=== PATIENT | female | born 1970 | race Caucasian/White ===

== ENCOUNTER 2016-03-14 13:06 | Emergency (ER) | payer MEDICAID ==
[2011-06-20 11:57] VITALS: BMI 20.3
== END 2016-03-14 14:29 | disposition home or self-care (01) ==
LOC: D.ER 13:06
DX: R10.9 Unspecified abdominal pain (principal); K50.90 Crohn's disease, unspecified, without complications

== ENCOUNTER 2016-03-18 02:11 | Emergency (ER) | payer MEDICAID ==
[2011-06-20 11:57] VITALS: BMI 20.3
== END 2016-03-18 02:24 | disposition home or self-care (01) ==
LOC: D.ER 02:11
DX: G47.00 Insomnia, unspecified (principal); K50.90 Crohn's disease, unspecified, without complications

== ENCOUNTER → 2016-03-21 11:42 | Emergency (ER) | payer MEDICAID ==
[2011-06-20 11:57] VITALS: BMI 20.3
== END | disposition left against medical advice (07) ==
LOC: D.ER 11:42
DX: Z02.9 Encounter for administrative examinations, unspecified (principal)

== ENCOUNTER 2016-03-23 20:53 | Emergency (ER) | payer MEDICAID ==
[2011-06-20 11:57] VITALS: BMI 20.3
[2016-03-23 21:25] LABS: APPEARANCE CLEAR (CLEAR); COLOR YELLOW (YELLOW)
[2016-03-23 21:26] LABS: BILIRUBIN NEGATIVE (NEGATIVE); GLUCOSE NEGATIVE (NEGATIVE); KETONE NEGATIVE (NEGATIVE); LEUKOCYTE ESTERASE 1+ (NEGATIVE); NITRITE NEGATIVE (NEGATIVE); PROTEIN NEGATIVE (NEGATIVE); UROBILINOGEN NORMAL (NORMAL)
[2016-03-23 21:27] LABS: BACTERIA MODERATE /hpf (NONE SEEN); RED CELLS - URINE 0-5 /hpf (0-5); WHITE CELLS - URINE 25-50 /hpf (0-5)
== END 2016-03-23 23:00 | disposition home or self-care (01) ==
LOC: D.ER 20:53
PROVIDERS: Emergency Medicine
DX: N30.90 Cystitis, unspecified without hematuria (principal); K50.90 Crohn's disease, unspecified, without complications; G47.00 Insomnia, unspecified

== ENCOUNTER 2016-03-27 16:17 | Emergency (ER) | payer MEDICAID ==
[2011-06-20 11:57] VITALS: BMI 20.3
== END 2016-03-27 16:30 | disposition left against medical advice (07) ==
LOC: D.ER 16:17
DX: Z02.9 Encounter for administrative examinations, unspecified (principal)

== ENCOUNTER 2016-03-28 14:12 | Emergency (ER) | payer MEDICAID ==
[2011-06-20 11:57] VITALS: BMI 20.3
[2016-03-28 15:03] LABS: BASOPHILS 0.5 % (0.0-2.0); EOSINOPHILS 1.8 % (0-7); HEMATOCRIT 39.4 % (36.0-48.0); IMMATURE GRANULOCYTES 0.3 % (0-5); LYMPHOCYTES 30.7 % (15-50); MCH 31.8 pg (26.0-34.0); MCV 96.3 fL (80.0-100.0); MEAN PLATELET VOLUME 9.3 fL (7.4-10.4); MONOCYTES 8.3 % (2-11); NEUTROPHILS 58.4 % (40-80); PLATELET COUNT 306 10x3/uL (130-400); RBC 4.09 10x6/uL (4.00-5.40); RDW 12.8 % (11.5-14.5); WBC 7.9 10x3/uL (4.8-10.8)
== END 2016-03-28 18:20 | disposition home or self-care (01) ==
LOC: D.ER 14:12
PROVIDERS: Emergency Medicine
DX: R10.13 Epigastric pain (principal); K50.90 Crohn's disease, unspecified, without complications; Z76.5 Malingerer [conscious simulation]; G47.00 Insomnia, unspecified

== ENCOUNTER 2016-03-30 13:25 | Emergency (ER) | payer MEDICAID ==
[2011-06-20 11:57] VITALS: BMI 20.3
== END 2016-03-30 13:28 | disposition left against medical advice (07) ==
LOC: D.ER 13:25
DX: Z02.9 Encounter for administrative examinations, unspecified (principal)

== ENCOUNTER 2016-04-04 04:31 | Emergency (ER) | payer MEDICAID ==
[2011-06-20 11:57] VITALS: BMI 20.3
== END 2016-04-04 05:13 | disposition home or self-care (01) ==
LOC: D.ER 04:31
DX: J06.9 Acute upper respiratory infection, unspecified (principal)

== ENCOUNTER 2016-04-06 02:17 | Emergency (ER) | payer MEDICAID ==
[2011-06-20 11:57] VITALS: BMI 20.3
[2016-04-06 02:34] LABS: APPEARANCE HAZY (CLEAR); BILIRUBIN NEGATIVE (NEGATIVE); COLOR YELLOW (YELLOW); GLUCOSE NEGATIVE (NEGATIVE); KETONE NEGATIVE (NEGATIVE); LEUKOCYTE ESTERASE 1+ (NEGATIVE); NITRITE NEGATIVE (NEGATIVE); PROTEIN NEGATIVE (NEGATIVE); UROBILINOGEN NORMAL (NORMAL)
[2016-04-06 02:53] LABS: BACTERIA MODERATE /hpf (NONE SEEN); EPITHELIAL CELLS 0-5 /hpf (0-5); MUCUS >1+ /lpf (NONE SEEN)
[2016-04-06 02:54] LABS: HYALINE CAST OCC /lpf (NONE SEEN)
== END 2016-04-06 03:22 | disposition home or self-care (01) ==
LOC: D.ER 02:17
PROVIDERS: Emergency Medicine
DX: K62.89 Other specified diseases of anus and rectum (principal); N39.0 Urinary tract infection, site not specified; K50.90 Crohn's disease, unspecified, without complications; G47.00 Insomnia, unspecified

== ENCOUNTER 2016-04-12 20:37 | Emergency (ER) | payer MEDICAID ==
[2011-06-20 11:57] VITALS: BMI 20.3
== END 2016-04-12 21:50 | disposition home or self-care (01) ==
LOC: D.ER 20:37
DX: G47.00 Insomnia, unspecified (principal); K50.90 Crohn's disease, unspecified, without complications; Z76.5 Malingerer [conscious simulation]; B00.9 Herpesviral infection, unspecified

== ENCOUNTER 2016-04-13 15:25 | Emergency (ER) | payer MEDICAID ==
[2011-06-20 11:57] VITALS: BMI 20.3
== END 2016-04-13 18:00 | disposition left against medical advice (07) ==
LOC: D.ER 15:25
DX: Z02.9 Encounter for administrative examinations, unspecified (principal)

== ENCOUNTER 2016-04-13 23:14 | Emergency (ER) | payer MEDICAID ==
[2011-06-20 11:57] VITALS: BMI 20.3
== END 2016-04-13 23:35 | disposition home or self-care (01) ==
LOC: D.ER 23:14
DX: R11.10 Vomiting, unspecified (principal); H00.019 Hordeolum externum unspecified eye, unspecified eyelid; R00.0 Tachycardia, unspecified

== ENCOUNTER 2016-04-14 12:31 | Emergency (ER) | payer MEDICAID ==
[2011-06-20 11:57] VITALS: BMI 20.3
== END 2016-04-14 12:40 | disposition left against medical advice (07) ==
LOC: D.ER 12:31
DX: R10.9 Unspecified abdominal pain (principal)

== ENCOUNTER 2016-04-14 16:05 | Emergency (ER) | payer MEDICAID ==
[2011-06-20 11:57] VITALS: BMI 20.3
== END 2016-04-14 18:09 | disposition left against medical advice (07) ==
LOC: D.ER 16:05
DX: Z76.0 Encounter for issue of repeat prescription (principal)

== ENCOUNTER 2016-04-14 23:35 | Emergency (ER) | payer MEDICAID ==
[2011-06-20 11:57] VITALS: BMI 20.3
[2016-04-15 00:02] LABS: APPEARANCE HAZY (CLEAR); BILIRUBIN NEGATIVE (NEGATIVE); COLOR YELLOW (YELLOW); GLUCOSE NEGATIVE (NEGATIVE); KETONE NEGATIVE (NEGATIVE); LEUKOCYTE ESTERASE 2+ (NEGATIVE); NITRITE NEGATIVE (NEGATIVE); PROTEIN TRACE mg/dL (NEGATIVE); SPECIFIC GRAVITY 1.025 (1.005-1.020); UROBILINOGEN NORMAL (NORMAL)
[2016-04-15 00:11] LABS: AMORPHOUS SEDIMENT <1+ /lpf (NONE SEEN); BACTERIA MODERATE /hpf (NONE SEEN); EPITHELIAL CELLS 0-5 /hpf (0-5); GRANULAR CAST RARE /lpf (NONE SEEN); HYALINE CAST OCC /lpf (NONE SEEN); MUCUS <1+ /lpf (NONE SEEN); WAXY CAST RARE /lpf (NONE SEEN)
== END 2016-04-15 00:30 | disposition home or self-care (01) ==
LOC: D.ER 23:35
PROVIDERS: Emergency Medicine
DX: N39.0 Urinary tract infection, site not specified (principal)

== ENCOUNTER 2016-04-19 10:20 | Emergency (ER) | payer MEDICAID ==
[2011-06-20 11:57] VITALS: BMI 20.3
== END 2016-04-19 11:09 | disposition home or self-care (01) ==
LOC: D.ER 10:20
DX: J00 Acute nasopharyngitis [common cold] (principal); K50.90 Crohn's disease, unspecified, without complications; Z76.5 Malingerer [conscious simulation]; B00.9 Herpesviral infection, unspecified; G47.00 Insomnia, unspecified

== ENCOUNTER 2016-04-19 18:46 | Emergency (ER) | payer MEDICAID ==
[2011-06-20 11:57] VITALS: BMI 20.3
== END 2016-04-19 21:09 | disposition home or self-care (01) ==
LOC: D.ER 18:46
DX: R10.9 Unspecified abdominal pain (principal); F19.20 Other psychoactive substance dependence, uncomplicated; F32.9 Major depressive disorder, single episode, unspecified; K50.90 Crohn's disease, unspecified, without complications

== ENCOUNTER 2016-04-30 09:10 | Emergency (ER) | payer MEDICAID ==
[2011-06-20 11:57] VITALS: BMI 20.3
== END 2016-04-30 11:40 | disposition home or self-care (01) ==
LOC: D.ER 09:10
DX: H00.011 Hordeolum externum right upper eyelid (principal); L03.213 Periorbital cellulitis; R10.9 Unspecified abdominal pain; K50.90 Crohn's disease, unspecified, without complications; F32.9 Major depressive disorder, single episode, unspecified

== ENCOUNTER → 2016-05-25 | Emergency (ER) | payer MEDICAID ==
[2011-06-20 11:57] VITALS: BMI 20.3
== END | disposition home or self-care (01) ==
LOC: D.ER 14:32
DX: Z02.9 Encounter for administrative examinations, unspecified (principal)

== ENCOUNTER 2016-05-27 17:42 | Emergency (ER) | payer MEDICAID ==
[2011-06-20 11:57] VITALS: BMI 20.3
== END 2016-05-27 19:36 | disposition home or self-care (01) ==
LOC: D.ER 17:42
DX: K29.00 Acute gastritis without bleeding (principal)

== ENCOUNTER 2016-06-24 02:14 | Emergency (ER) | payer MEDICAID ==
[2011-06-20 11:57] VITALS: BMI 20.3
== END 2016-06-24 02:15 | disposition left against medical advice (07) ==
LOC: D.ER 02:14
DX: Z02.9 Encounter for administrative examinations, unspecified (principal)

== ENCOUNTER 2016-06-24 15:57 | Emergency (ER) | payer MEDICAID ==
[2011-06-20 11:57] VITALS: BMI 20.3
[2016-06-24 17:08] LABS: BASOPHILS 0.2 % (0-2); EOSINOPHILS 0.6 % (0-7); HEMATOCRIT 40.9 % (36.0-48.0); HEMOGLOBIN 13.7 g/dL (12-16); IMMATURE GRANULOCYTES 0.3 % (0-5); LYMPHOCYTES 16.8 % (15-50); MCH 31.9 pg (26.0-34.0); MCHC 33.5 g/dL (31.0-37.0); MCV 95.1 fL (80.0-100.0); MEAN PLATELET VOLUME 9.4 fL (7.4-10.4); MONOCYTES 6.6 % (2-11); NEUTROPHILS 75.5 % (40-80); PLATELET COUNT 346 10x3/uL (130-400); RDW 13.2 % (11.5-14.5); WBC 9.8 10x3/uL (4.8-10.8)
[2016-06-24 17:36] LABS: ALBUMIN 3.7 g/dL (3.4-5.0); ALKALINE PHOSPHATASE 77 U/L (46-116); ALT (SGPT) 40 U/L (10-68); BILIRUBIN - TOTAL 0.21 mg/dL (0.2-1.3); CALC OSMOLALITY 280 mosm/kg (275-300); CALCIUM 9.8 mg/dL (8.5-10.1); CARBON DIOXIDE 27.9 mmol/L (21.0-32.0); CHLORIDE - SERUM 102 mmol/L (98-107); CREATININE - SERUM 0.7 mg/dL (0.6-1.3); GLUCOSE 116 mg/dL (74-106); POTASSIUM - SERUM 3.5 mmol/L (3.5-5.1); PROTEIN - SERUM 8.1 g/dL (6.4-8.2); SODIUM 140 mmol/L (136-145); UREA NITROGEN 14 mg/dL (7-18); eGFR NON AFRICAN AMERICAN > 90 mL/min (90-120)
[2016-06-24 17:41] LABS: THYROID STIMULATING HORMONE 0.11 uIU/mL (0.36-3.74)
== END 2016-06-24 17:13 | disposition home or self-care (01) ==
LOC: D.ER 15:57
PROVIDERS: Physician Assistant
DX: M79.605 Pain in left leg (principal); M79.604 Pain in right leg; H10.33 Unspecified acute conjunctivitis, bilateral

== ENCOUNTER 2016-06-25 23:03 | Emergency (ER) | payer MEDICAID | END 2016-06-26 00:26 | disposition home or self-care (01) | LOC: D.ER 23:03 | DX: G47.00 Insomnia, unspecified (principal); E05.00 Thyrotoxicosis with diffuse goiter without thyrotoxic crisis or storm ==

== ENCOUNTER → 2016-06-26 | Emergency (ER) | payer MEDICAID | END | disposition home or self-care (01) | LOC: D.ER 19:58 | DX: T65.91XA Toxic effect of unspecified substance, accidental (unintentional), initial encounter (principal); Y92.89 Other specified places as the place of occurrence of the external cause; R11.10 Vomiting, unspecified ==

== ENCOUNTER → 2016-06-26 | Emergency (ER) | payer MEDICAID ==
[2011-06-20 11:57] VITALS: BMI 20.3
== END | disposition home or self-care (01) ==
LOC: D.ER 22:07
DX: Z02.9 Encounter for administrative examinations, unspecified (principal)

== ENCOUNTER 2016-06-27 00:33 | Emergency (ER) | payer MEDICAID ==
[2011-06-20 11:57] VITALS: BMI 20.3
== END 2016-06-27 02:00 | disposition left against medical advice (07) ==
LOC: D.ER 00:33
DX: Z02.9 Encounter for administrative examinations, unspecified (principal)

== ENCOUNTER 2016-06-27 12:09 | Emergency (ER) | payer MEDICAID ==
[2011-06-20 11:57] VITALS: BMI 20.3
== END 2016-06-27 15:20 | disposition home or self-care (01) ==
LOC: D.ER 12:09
DX: K62.89 Other specified diseases of anus and rectum (principal)

== ENCOUNTER 2016-06-28 04:31 | Emergency (ER) | payer MEDICAID ==
[2011-06-20 11:57] VITALS: BMI 20.3
[2016-06-28 05:22] LABS: AMORPHOUS SEDIMENT >1+ /lpf (NONE SEEN); APPEARANCE CLOUDY (CLEAR); BACTERIA MODERATE /hpf (NONE SEEN); BILIRUBIN 1+ (NEGATIVE); COLOR YELLOW (YELLOW); EPITHELIAL CELLS 0-5 /hpf (0-5); GLUCOSE NEGATIVE (NEGATIVE); KETONE NEGATIVE (NEGATIVE); LEUKOCYTE ESTERASE 1+ (NEGATIVE); NITRITE NEGATIVE (NEGATIVE); PROTEIN TRACE mg/dL (NEGATIVE); SPECIFIC GRAVITY 1.025 (1.005-1.020); UROBILINOGEN NORMAL (NORMAL)
== END 2016-06-28 05:25 | disposition home or self-care (01) ==
LOC: D.ER 04:31
PROVIDERS: Family Medicine
DX: N73.0 Acute parametritis and pelvic cellulitis (principal); B35.9 Dermatophytosis, unspecified

== ENCOUNTER 2016-07-02 22:59 | Emergency (ER) | payer MEDICAID ==
[2011-06-20 11:57] VITALS: BMI 20.3
== END 2016-07-03 01:00 | disposition home or self-care (01) ==
LOC: D.ER 22:59
DX: M25.511 Pain in right shoulder (principal); M79.1 Myalgia

== ENCOUNTER 2016-07-04 21:16 | Emergency (ER) | payer MEDICAID ==
[2011-06-20 11:57] VITALS: BMI 20.3
== END 2016-07-04 22:24 | disposition home or self-care (01) ==
LOC: D.ER 21:16
DX: K61.1 Rectal abscess (principal)

== ENCOUNTER 2016-07-14 17:31 | Emergency (ER) | payer MEDICAID ==
[2011-06-20 11:57] VITALS: BMI 20.3
== END 2016-07-14 21:12 | disposition left against medical advice (07) ==
LOC: D.ER 17:31
DX: K61.1 Rectal abscess (principal)

== ENCOUNTER 2016-07-17 23:02 | Emergency (ER) | payer MEDICAID ==
[2011-06-20 11:57] VITALS: BMI 20.3
== END 2016-07-18 01:28 | disposition home or self-care (01) ==
LOC: D.ER 23:02
DX: L02.215 Cutaneous abscess of perineum (principal)

== ENCOUNTER 2016-07-20 01:57 | Emergency (ER) | payer MEDICAID ==
[2011-06-20 11:57] VITALS: BMI 20.3
== END 2016-07-20 02:21 | disposition home or self-care (01) ==
LOC: D.ER 01:57
DX: G43.909 Migraine, unspecified, not intractable, without status migrainosus (principal)

== ENCOUNTER 2016-07-22 08:24 | Emergency (ER) | payer MEDICAID ==
[2011-06-20 11:57] VITALS: BMI 20.3
== END 2016-07-22 09:15 | disposition home or self-care (01) ==
LOC: D.ER 08:24
DX: Z76.0 Encounter for issue of repeat prescription (principal); F17.200 Nicotine dependence, unspecified, uncomplicated

== ENCOUNTER 2016-07-23 08:45 | Emergency (ER) | payer MEDICAID ==
[2011-06-20 11:57] VITALS: BMI 20.3
== END 2016-07-23 09:18 | disposition home or self-care (01) ==
LOC: D.ER 08:45
DX: Z76.5 Malingerer [conscious simulation] (principal); F32.9 Major depressive disorder, single episode, unspecified

== ENCOUNTER 2016-07-24 09:11 | Emergency (ER) | payer MEDICAID ==
[2011-06-20 11:57] VITALS: BMI 20.3
[2016-07-27 12:14] VITALS: BMI 27.4
== END 2016-07-24 13:00 | disposition home or self-care (01) ==
LOC: D.ER 09:11
DX: M79.7 Fibromyalgia (principal); G44.209 Tension-type headache, unspecified, not intractable; K50.90 Crohn's disease, unspecified, without complications; E07.9 Disorder of thyroid, unspecified; F32.9 Major depressive disorder, single episode, unspecified

== ENCOUNTER 2016-07-24 22:08 | Emergency (ER) | payer MEDICAID ==
[2011-06-20 11:57] VITALS: BMI 20.3
[2016-07-26] MEDS ORDERED: ULTRAM50 MG PO (22:28)
== END 2016-07-25 00:59 | disposition home or self-care (01) ==
LOC: D.ER 22:08
DX: M79.7 Fibromyalgia (principal); G44.209 Tension-type headache, unspecified, not intractable; K50.90 Crohn's disease, unspecified, without complications; F32.9 Major depressive disorder, single episode, unspecified; E07.9 Disorder of thyroid, unspecified

== ENCOUNTER 2016-07-25 09:24 | Emergency (ER) | payer MEDICAID ==
[2011-06-20 11:57] VITALS: BMI 20.3
[2016-07-26] MEDS ORDERED: ULTRAM50 MG PO (22:28)
[2016-07-27 12:14] VITALS: BMI 27.4
== END 2016-07-25 11:40 | disposition home or self-care (01) ==
LOC: D.ER 09:24
DX: N76.0 Acute vaginitis (principal); N39.0 Urinary tract infection, site not specified; K50.90 Crohn's disease, unspecified, without complications; M79.7 Fibromyalgia; E07.9 Disorder of thyroid, unspecified

== ENCOUNTER 2016-07-26 15:29 | Inpatient (IN) | payer MEDICAID ==
[~2016-07-26] VITALS: Ht 162.6 cm; Wt 72.6 kg
--- NOTE | ~2016-07-26 | PN ---
PATIENT:BRODIE VALDERRAMA MEDICAL RECORD: [id number] LOCATION:[facility] ADMISSION DATE: 07/26/16 PROGRESS NOTE DATE OF SERVICE: 07/27/2016 This is a progress note addendum. CHIEF COMPLAINT: Better. The patient feels better. The patient is having less abdominal pain. It appears that she has pancreatitis and an ileus. I have reviewed her small-bowel follow-through images. I have reviewed her prior CT report. I have reviewed the radiologist's interpretation of the small-bowel follow-through. I know the patient as I worked in the Emergency Room and the patient has countless visits to the Emergency Room. She is less nauseated. Palpation aggravates. Nothing alleviates. Symptoms are mild. This is a progress note addendum. For the typed portion of the progress note including the past medical and surgical history, allergies, social history as well as current medications, please see the chart. REVIEW OF SYSTEMS: Positive for anxiety, positive for back pain, no fever, no chills, no nausea, no vomiting. The review of systems is negative other than as is described above. PHYSICAL EXAMINATION: GENERAL: The patient does not appear acutely ill. She does not appear chronically ill. VITAL SIGNS: Reviewed. HEAD: External ears appear normal. EYES: Extraocular movements are intact. NECK: Trachea is midline. CHEST: No intercostal retractions. PULMONARY: Nonlabored, no stridor. ABDOMEN: Epigastric tenderness. BACK: No thoracic kyphosis. LYMPHATIC: No lymphangitic streaking of the exposed extremities. PSYCHIATRIC: Normal affect. NEUROLOGIC: Nonfocal, no lethargy. The patient answers questions appropriately, moves all extremities well. IMPRESSION: Pancreatitis in a patient who states that she does not drink, does have a gallbladder on her last CT scan. PLAN: NG tube removal. I am going to start her on a diet. N.p.o. after midnight. Abdominal ultrasound in the morning. TRANSINT:[id number] Voice Confirmation ID: [id number] DOCUMENT ID: [id number] PROGRESS NOTE [id number] THEODORABRODIE STEPHENSON EDUARDO DUMONT MD CC: [id number] DICTATION DATE: 07/27/161817 AIRCRAFT STRUCTURAL DESIGN ENGINEER: 07/28/16 0305 ADM IN [place] [id number] [place] [address]
--- NOTE | ~2016-07-26 | DS ---
PATIENT:BRODIE VALDERRAMA :68 MEDICAL RECORD: [id number] DISCHARGE SUMMARY ADMISSION DATE: 07/26/16 DISCHARGE DATE: 07/28/16 HOSPITAL COURSE: The patient was admitted through the Emergency Room. The patient had either small-bowel obstruction or an ileus. It appears that she had an ileus due to pancreatitis. Amylase and lipase numbers were normalizing at the time of dismissal. She was asymptomatic. An abdominal ultrasound revealed no gallstones as an etiology for her pancreatitis. This is a discharge note addendum. For the typed portion of the discharge note, please see the chart. This included past medical and surgical history, allergies, social history as well as current medications. Currently, no nausea, no vomiting, no fever, no chills. The patient had a small bowel follow through which was normal. PHYSICAL EXAMINATION: GENERAL: The patient does not appear acutely ill. She does not appear chronically ill. VITAL SIGNS: Reviewed. The entire physical examination was performed with the presence of a female nurse. HEAD: External ears appear normal. EYES: Extraocular movements are intact. NECK: Trachea is midline. CHEST: No intercostal retractions. PULMONARY: Nonlabored, no stridor. ABDOMEN: Nontender. EXTREMITIES: No peripheral cyanosis. INTEGUMENT: No rash, no ulcerations. PSYCHIATRIC: Anxious affect. NEUROLOGIC: Nonfocal, no lethargy. The patient answers questions appropriately, moves all extremities well. BACK: No thoracic kyphosis. LYMPHATIC: No lymphangitic streaking of the exposed extremities. IMPRESSION: Pancreatitis of uncertain etiology. PLAN: I told the patient that pancreatitis can recur. We discussed the pathophysiology of pancreatitis. I have told her at this point in time, she does not need to have her gallbladder removed as I do not think it is the etiology of this episode of pancreatitis. TRANSINT:[id number] Voice Confirmation ID: [id number] DOCUMENT ID: [id number] EDUARDO DUMONT MD CC: [id number] DICTATION DATE: 07/28/16 1400 VENEER PRODUCTION MACHINE OPERATOR: 07/29/16 0753 DIS IN 07/28/[address] [facility] [address] [place] [place] [id number]
--- NOTE | ~2016-07-26 | HP ---
PATIENT: BRODIE VALDERRAMA MEDICAL RECORD: [id number] ACCOUNT: [id number] LOCATION:[facility] : [birth year] ADMISSION DATE: 07/26/16 HISTORY AND PHYSICAL EXAMINATION Addendum DATE OF SERVICE: 07/26/2016 CHIEF COMPLAINT: Pain. HISTORY OF PRESENT ILLNESS: The patient was admitted through the Emergency Room. She was having nausea and vomiting, as well as abdominal pain. It was epigastric. The pain went through to the back. Palpation aggravates. Nothing alleviates it. She has never had pancreatitis in the past, she states. She states that she does not drink. It appears that she has an ileus secondary to pancreatitis. This is a history and physical addendum. For the typed portion of the history and physical, including the past medical and surgical history, allergies, social history, as well as current medications, please see the chart. REVIEW OF SYSTEMS: Positive for nausea and vomiting. Positive for abdominal pain. No shortness of breath. Positive for anxiety. No headache. No chest pain. PHYSICAL EXAMINATION: GENERAL: The patient does not appear acutely ill. She does not appear chronically ill. VITAL SIGNS: Reviewed. HEAD: External ears appear normal. EYES: Extraocular movements are intact. NECK: Trachea is midline. CHEST: No intercostal retractions. PULMONARY: Nonlabored. No stridor. ABDOMEN: Epigastric tenderness with guarding. No cough peritonitis. No peritonitis with percussion. BACK: No thoracic kyphosis. LYMPHATICS: No lymphangitic streaking of the exposed extremities. PSYCHIATRIC: Normal affect. NEUROLOGIC: Nonfocal, no lethargy. The patient answers questions appropriately. She moves all extremities well. IMPRESSION: Ileus secondary to pancreatitis. PLAN: Will be NG suction, bowel rest, serial labs and serial abdominal examinations. TRANSINT:[id number] Voice Confirmation ID: [id number] DOCUMENT ID: [id number] HISTORY AND PHYSICAL [id number] THEODORABRODIE STEPHENSON EDUARDO DUMONT MD CC: [id number] DICTATION DATE: 07/27/161813 CARDIOVASCULAR INVASIVE SPECIALIST: 07/27/161939 ADM IN [place] [address] [place] [address]
[2016-07-26 17:53] LABS: BASOPHILS 0.3 % (0-2); EOSINOPHILS 1.1 % (0-7); HEMATOCRIT 42.1 % (36.0-48.0); HEMOGLOBIN 13.7 g/dL (12-16); IMMATURE GRANULOCYTES 0.3 % (0-5); LYMPHOCYTES 23.4 % (15-50); MCH 32.5 pg (26.0-34.0); MCHC 32.5 g/dL (31.0-37.0); MCV 99.8 fL (80.0-100.0); MEAN PLATELET VOLUME 9.7 fL (7.4-10.4); MONOCYTES 5.9 % (2-11); PLATELET COUNT 333 10x3/uL (130-400); RBC 4.22 10x6/uL (4.00-5.40); RDW 13.4 % (11.5-14.5)
[2016-07-26 18:13] LABS: ALBUMIN 3.5 g/dL (3.4-5.0); ALKALINE PHOSPHATASE 86 U/L (46-116); ALT (SGPT) 32 U/L (10-68); BILIRUBIN - TOTAL 0.19 mg/dL (0.2-1.3); CALC OSMOLALITY 279 mosm/kg (275-300); CALCIUM 9.6 mg/dL (8.5-10.1); CARBON DIOXIDE 30.7 mmol/L (21.0-32.0); CHLORIDE - SERUM 103 mmol/L (98-107); CREATININE - SERUM 0.8 mg/dL (0.6-1.3); GLUCOSE 107 mg/dL (74-106); LIPASE 1014 U/L (73-393); POTASSIUM - SERUM 4.4 mmol/L (3.5-5.1); PROTEIN - SERUM 8.5 g/dL (6.4-8.2); SODIUM 141 mmol/L (136-145); UREA NITROGEN 11 mg/dL (7-18); eGFR NON AFRICAN AMERICAN 81 mL/min (90-120)
[2016-07-26 18:28] LABS: HCG SERUM NEGATIVE (NEGATIVE)
[2016-07-26 18:30] LABS: APPEARANCE HAZY (CLEAR); BILIRUBIN NEGATIVE (NEGATIVE); COLOR YELLOW (YELLOW); GLUCOSE NEGATIVE (NEGATIVE); KETONE NEGATIVE (NEGATIVE); LEUKOCYTE ESTERASE 2+ (NEGATIVE); NITRITE NEGATIVE (NEGATIVE); PROTEIN TRACE mg/dL (NEGATIVE); UROBILINOGEN NORMAL (NORMAL)
[2016-07-26 18:32] LABS: BACTERIA MODERATE /hpf (NONE SEEN); EPITHELIAL CELLS 0-5 /hpf (0-5); RED CELLS - URINE 0-5 /hpf (0-5)
[2016-07-26] MEDS ORDERED: ULTRAM50 MG PO (22:28)
[2016-07-27] VITALS (7 sets, daily range): BP systolic 92–126; BP diastolic 44–65; Ht 162.6 cm; Wt 72.6 kg
--- NOTE | 2016-07-27 01:15 | NUR ---
AFTER WATSON SOMMERS NOTIFIED ME THAT THE PATIENT HAD ACCIDENTALLY PULLED OUT HER NG-TUBE, ANA ROMERO PUT A NEW NG-TUBE IN THE PATIENT'S RIGHT NARE. KUB ORDERED TO VERIFY PLACEMENT.
--- NOTE | 2016-07-27 06:36 | NUR ---
HEATHER TINSLEY INSERTED NG-TUBE AFTER PATIENT PULLED IT OUT THE SECOND TIME.
[2016-07-27 07:28] LABS: BASOPHILS 0.3 % (0-2); EOSINOPHILS 2.2 % (0-7); HEMATOCRIT 43.6 % (36.0-48.0); HEMOGLOBIN 13.9 g/dL (12-16); IMMATURE GRANULOCYTES 0.4 % (0-5); LYMPHOCYTES 36.3 % (15-50); MCH 31.6 pg (26.0-34.0); MCHC 31.9 g/dL (31.0-37.0); MCV 99.1 fL (80.0-100.0); MEAN PLATELET VOLUME 9.9 fL (7.4-10.4); MONOCYTES 7.1 % (2-11); NEUTROPHILS 53.7 % (40-80); PLATELET COUNT 349 10x3/uL (130-400); RDW 13.4 % (11.5-14.5)
[2016-07-27 07:31] LABS: WBC 7.2 10x3/uL (4.8-10.8)
[2016-07-27 07:34] LABS: CALC OSMOLALITY 277 mosm/kg (275-300); CALCIUM 9.1 mg/dL (8.5-10.1); CARBON DIOXIDE 24.7 mmol/L (21.0-32.0); CHLORIDE - SERUM 104 mmol/L (98-107); CREATININE - SERUM 0.7 mg/dL (0.6-1.3); GLUCOSE 81 mg/dL (74-106); POTASSIUM - SERUM 4.3 mmol/L (3.5-5.1); SODIUM 140 mmol/L (136-145); UREA NITROGEN 13 mg/dL (7-18); eGFR NON AFRICAN AMERICAN > 90 mL/min (90-120)
--- NOTE | 2016-07-27 11:45 | NUR ---
Patient Name: BRODIE VALDERRAMA Admission Status: ER Accout number: [id number] Admission Date: 07-26-2016 : 1970 Admission Diagnosis: Attending: EDUARDO Current LOS: 1 Anticipated DC Date: 07-29-2016 Planned Disposition: Home Primary Insurance: MEDICAID [place] Discharge Planning Comments: CM met with patient to assess discharge planning/needs. Patient states discharge plan is to return home where she lives with her mother (Yolette Ohara, [phone]). Patient states that her mother will be driving her home and her home does not have and steps or stairs. She states that it is a safe place to return. Pt denies any HH or any CM needs at this time. CM will continue to follow and assist as needed with discharge plannins/needs. PCP- none Pharmacy: [facility] Yolette Ohara (mother) [phone] Suede Cleaner: Florencia Lyon * Is the patient Alert and Oriented? Yes 0 * How many steps to enter\exit or inside your home? 0 0 * PCP None 0 * Pharmacy [facility] 0 * Preadmission Environment Home with Family 0 * ADLs Independent 0 * Equipment None 0 * List name and contact numbers for known caregivers / representatives who currently or will assist patient after discharge: YOLETTE OHARA ([phone]) MOTHER 0 * Community resources currently utilized None 0 * Additional services required to return to the preadmission environment? No 0 * Can the patient safely return to the preadmission environment? Yes 0 * Has this patient been hospitalized within the prior 30 days at any hospital? No 0 Grand Total: 0
[2016-07-28] VITALS: BP 96/42
--- NOTE | 2016-07-28 01:34 | NUR ---
2000)REC'D WITH PT AT DESK DURING REPORT ASKING FOR IV PAIN MEDS.'STATES I'VE BEEN ASKING FOR HOURS INSTRUCTED ITS JUST NOW TIME THAT YOU CAN HAVE PAIN MED.REINFORCED AT 0000 WILL BE NPO FOR US PANCREAS IN AM VOICES UNDERSTANDING
[2016-07-28 04:00] VITALS: BP 95/52
[2016-07-28 05:53] LABS: BASOPHILS 0.6 % (0-2); HEMATOCRIT 34.9 % (36.0-48.0); HEMOGLOBIN 11.3 g/dL (12-16); IMMATURE GRANULOCYTES 0.1 % (0-5); LYMPHOCYTES 31.1 % (15-50); MCHC 32.4 g/dL (31.0-37.0); MCV 98.9 fL (80.0-100.0); MEAN PLATELET VOLUME 9.6 fL (7.4-10.4); MONOCYTES 10.4 % (2-11); NEUTROPHILS 54.8 % (40-80); PLATELET COUNT 324 10x3/uL (130-400); RBC 3.53 10x6/uL (4.00-5.40); RDW 13.2 % (11.5-14.5); WBC 7.2 10x3/uL (4.8-10.8)
[2016-07-28 06:16] LABS: ALBUMIN 2.8 g/dL (3.4-5.0); ALKALINE PHOSPHATASE 70 U/L (46-116); ALT (SGPT) 25 U/L (10-68); AMYLASE - SERUM 126 U/L (25-115); CALC OSMOLALITY 279 mosm/kg (275-300); CALCIUM 8.4 mg/dL (8.5-10.1); CARBON DIOXIDE 29.3 mmol/L (21.0-32.0); CHLORIDE - SERUM 104 mmol/L (98-107); CREATININE - SERUM 0.6 mg/dL (0.6-1.3); GLUCOSE 109 mg/dL (74-106); LIPASE 541 U/L (73-393); MAGNESIUM - SERUM 1.9 mg/dL (1.8-2.4); PHOSPHOROUS 3.7 mg/dL (2.5-4.9); PROTEIN - SERUM 6.9 g/dL (6.4-8.2); SODIUM 139 mmol/L (136-145); UREA NITROGEN 15 mg/dL (7-18); eGFR NON AFRICAN AMERICAN > 90 mL/min (90-120)
[2016-07-28 06:20] LABS: POTASSIUM - SERUM 3.4 mmol/L (3.5-5.1)
[2016-07-28 08:16] VITALS: BP 112/64
[2016-07-28 11:48] VITALS: BP 119/71
--- NOTE | 2016-07-28 14:20 | NUR ---
PATIENT DEMANDING TO LEAVE. STATED HER RIDE IS OUTSIDE AND SHE CANNOT MISS HIM, SHE STATED "IF THERE IS NOT A PERSCRIPTION THEN THERE IS NO REASON FOR ME TO WAIT ON MY PAPERWORK." EXPLAINED TO PATIENT THAT SHE HAS TO SIGN HER DISCHARGE PAPERS OR THAT IS LEAVING AGAINST MEDICAL ADVICE.
--- NOTE | 2016-07-28 14:27 | NUR ---
D/C IV WITH CATHETER INTACT. DISCHARGE INSTRUCTIONS GIVEN TO PATIENT. PATIENT DENIES QUESTIONS. LEFT WITH IMPROVEMENT COORDINATOR VIA WHEELCHAIR.
--- NOTE | 2016-07-28 14:32 | NUR ---
LATE ENTRY CM; PATIENT D/C HOME WITH PARENTS NO NEEDS FOR DISCHARGE.
--- NOTE | 2016-07-28 14:41 | NUR ---
ADMINISTERED BUPRENEX 0.1MG IV AT 0827 THIS MORNING, FORGOT TO PUSH SUBMIT SO IT WAS NOT SAVED IN THE MAR. WITNESSED BY MICHELLE JIMENEZ RN.
== END 2016-07-28 14:28 | disposition home or self-care (01) | DRG 388 ==
LOC: D.ER 15:29 → D.MS 18:14
PROVIDERS: Emergency Medicine; Nurse Practitioner Acute Care; ADMIT Surgery
PROC: 0D9670Z Drainage of Stomach with Drainage Device, Via Natural or Artificial Opening (ICD-10-PCS; principal; 2016-07-26)
DX: K56.7 Ileus, unspecified (principal); K85.90 Acute pancreatitis without necrosis or infection, unspecified; K50.90 Crohn's disease, unspecified, without complications

== ENCOUNTER 2016-07-31 09:45 | Emergency (ER) | payer MEDICAID ==
[2016-07-27 12:14] VITALS: BMI 27.4
[~2016-07-31 09:45] MED LIST: ULTRAM50 MG PO
== END 2016-07-31 10:00 | disposition left against medical advice (07) ==
LOC: D.ER 09:45
DX: Z02.9 Encounter for administrative examinations, unspecified (principal)

== ENCOUNTER 2016-08-04 14:38 | Emergency (ER) | payer MEDICAID ==
[2016-07-27 12:14] VITALS: BMI 27.4
== END 2016-08-04 16:45 | disposition home or self-care (01) ==
LOC: D.ER 14:38
DX: R10.9 Unspecified abdominal pain (principal)

== ENCOUNTER 2016-08-05 03:26 | Emergency (ER) | payer MEDICAID ==
[2016-07-27 12:14] VITALS: BMI 27.4
[2016-08-05 03:58] LABS: APPEARANCE HAZY (CLEAR); BILIRUBIN NEGATIVE (NEGATIVE); COLOR YELLOW (YELLOW); GLUCOSE NEGATIVE (NEGATIVE); KETONE NEGATIVE (NEGATIVE); LEUKOCYTE ESTERASE 2+ (NEGATIVE); NITRITE NEGATIVE (NEGATIVE); PROTEIN TRACE mg/dL (NEGATIVE); UROBILINOGEN NORMAL (NORMAL)
[2016-08-05 03:59] LABS: RED CELLS - URINE 0-5 /hpf (0-5)
[2016-08-05 04:00] LABS: BACTERIA MODERATE /hpf (NONE SEEN); EPITHELIAL CELLS 0-5 /hpf (0-5)
== END 2016-08-05 04:05 | disposition home or self-care (01) ==
LOC: D.ER 03:26
PROVIDERS: Emergency Medicine
DX: N30.00 Acute cystitis without hematuria (principal)

== ENCOUNTER 2016-08-09 19:07 | Emergency (ER) | payer MEDICAID ==
[2016-07-27 12:14] VITALS: BMI 27.4
== END 2016-08-09 19:15 | disposition left against medical advice (07) ==
LOC: D.ER 19:07
DX: R51 Headache (principal)

== ENCOUNTER 2016-08-10 | Emergency (ER) | payer MEDICAID ==
[2016-07-27 12:14] VITALS: BMI 27.4
== END 2016-08-10 01:12 | disposition home or self-care (01) ==
LOC: D.ER
DX: R51 Headache (principal)

== ENCOUNTER 2016-08-10 17:43 | Emergency (ER) | payer MEDICAID ==
[2016-07-27 12:14] VITALS: BMI 27.4
== END 2016-08-10 18:40 | disposition home or self-care (01) ==
LOC: D.ER 17:43
DX: L02.215 Cutaneous abscess of perineum (principal)

== ENCOUNTER 2016-08-10 21:56 | Emergency (ER) | payer MEDICAID ==
[2016-07-27 12:14] VITALS: BMI 27.4
== END 2016-08-11 00:55 | disposition home or self-care (01) ==
LOC: D.ER 21:56
DX: N76.0 Acute vaginitis (principal)

== ENCOUNTER 2016-08-11 12:47 | Emergency (ER) | payer MEDICAID ==
[2016-07-27 12:14] VITALS: BMI 27.4
== END 2016-08-11 13:15 | disposition left against medical advice (07) ==
LOC: D.ER 12:47
DX: R52 Pain, unspecified (principal)

== ENCOUNTER 2016-08-11 20:22 | Emergency (ER) | payer MEDICAID ==
[2016-07-27 12:14] VITALS: BMI 27.4
== END 2016-08-11 21:23 | disposition home or self-care (01) ==
LOC: D.ER 20:22
DX: Z76.5 Malingerer [conscious simulation] (principal)

== ENCOUNTER 2016-08-14 13:39 | Emergency (ER) | payer MEDICAID ==
[2016-07-27 12:14] VITALS: BMI 27.4
[2016-08-14 16:19] LABS: BASOPHILS 0.2 % (0-2); EOSINOPHILS 0.2 % (0-7); HEMATOCRIT 46.8 % (36.0-48.0); HEMOGLOBIN 15.4 g/dL (12-16); IMMATURE GRANULOCYTES 0.3 % (0-5); LYMPHOCYTES 12.4 % (15-50); MCH 32.6 pg (26.0-34.0); MCHC 32.9 g/dL (31.0-37.0); MCV 99.2 fL (80.0-100.0); MEAN PLATELET VOLUME 9.7 fL (7.4-10.4); MONOCYTES 6.8 % (2-11); NEUTROPHILS 80.1 % (40-80); PLATELET COUNT 355 10x3/uL (130-400); RBC 4.72 10x6/uL (4.00-5.40); RDW 13.2 % (11.5-14.5); WBC 13.1 10x3/uL (4.8-10.8)
[2016-08-14 16:39] LABS: APPEARANCE CLEAR (CLEAR); COLOR YELLOW (YELLOW); LEUKOCYTE ESTERASE 2+ (NEGATIVE); SPECIFIC GRAVITY 1.015 (1.005-1.020)
[2016-08-14 16:40] LABS: BILIRUBIN NEGATIVE (NEGATIVE); GLUCOSE NEGATIVE (NEGATIVE); KETONE NEGATIVE (NEGATIVE); NITRITE NEGATIVE (NEGATIVE); PROTEIN NEGATIVE (NEGATIVE); UROBILINOGEN NORMAL (NORMAL)
[2016-08-14 16:41] LABS: BACTERIA MANY /hpf (NONE SEEN); EPITHELIAL CELLS 0-5 /hpf (0-5); RED CELLS - URINE 0-5 /hpf (0-5); WHITE CELLS - URINE 0-5 /hpf (0-5)
[2016-08-14 16:44] LABS: ALKALINE PHOSPHATASE 76 U/L (46-116); ALT (SGPT) 33 U/L (10-68); CALC OSMOLALITY 280 mosm/kg (275-300); CALCIUM 10.3 mg/dL (8.5-10.1); CARBON DIOXIDE 26.9 mmol/L (21.0-32.0); CHLORIDE - SERUM 101 mmol/L (98-107); CREATININE - SERUM 0.8 mg/dL (0.6-1.3); GLUCOSE 125 mg/dL (74-106); POTASSIUM - SERUM 3.7 mmol/L (3.5-5.1); PROTEIN - SERUM 9.2 g/dL (6.4-8.2); SODIUM 140 mmol/L (136-145); UREA NITROGEN 15 mg/dL (7-18); eGFR NON AFRICAN AMERICAN 81 mL/min (90-120)
== END 2016-08-14 17:05 | disposition home or self-care (01) ==
LOC: D.ER 13:39
PROVIDERS: Emergency Medicine; Physician Assistant Medical
DX: R10.9 Unspecified abdominal pain (principal); K29.70 Gastritis, unspecified, without bleeding; R19.7 Diarrhea, unspecified

== ENCOUNTER 2016-08-16 15:39 | Emergency (ER) | payer MEDICAID ==
[2016-07-27 12:14] VITALS: BMI 27.4
[2016-08-16 16:29] LABS: APPEARANCE CLOUDY (CLEAR); BILIRUBIN NEGATIVE (NEGATIVE); COLOR YELLOW (YELLOW); GLUCOSE NEGATIVE (NEGATIVE); KETONE NEGATIVE (NEGATIVE); LEUKOCYTE ESTERASE 2+ (NEGATIVE); NITRITE NEGATIVE (NEGATIVE); PROTEIN TRACE mg/dL (NEGATIVE); SPECIFIC GRAVITY 1.025 (1.005-1.020); UROBILINOGEN NORMAL (NORMAL)
[2016-08-16 16:34] LABS: BACTERIA MANY /hpf (NONE SEEN); WHITE CELLS - URINE >50 /hpf (0-5)
[2016-08-16 16:35] LABS: AMORPHOUS SEDIMENT <1+ /lpf (NONE SEEN); GRANULAR CAST OCC /lpf (NONE SEEN); HYALINE CAST 0-5 /lpf (NONE SEEN); URIC ACID CRYSTALS OCC /hpf (NONE SEEN)
== END 2016-08-16 17:00 | disposition home or self-care (01) ==
LOC: D.ER 15:39
PROVIDERS: Emergency Medicine
DX: N39.0 Urinary tract infection, site not specified (principal)

== ENCOUNTER 2016-08-16 21:34 | Emergency (ER) | payer MEDICAID ==
[2016-07-27 12:14] VITALS: BMI 27.4
[2016-08-16 22:09] LABS: BASOPHILS 0.3 % (0-2); EOSINOPHILS 0.5 % (0-7); HEMATOCRIT 44.1 % (36.0-48.0); HEMOGLOBIN 15.2 g/dL (12-16); IMMATURE GRANULOCYTES 0.4 % (0-5); LYMPHOCYTES 24.9 % (15-50); MCH 32.6 pg (26.0-34.0); MCHC 34.5 g/dL (31.0-37.0); MCV 94.6 fL (80.0-100.0); MEAN PLATELET VOLUME 9.9 fL (7.4-10.4); MONOCYTES 8.3 % (2-11); NEUTROPHILS 65.6 % (40-80); PLATELET COUNT 378 10x3/uL (130-400); RBC 4.66 10x6/uL (4.00-5.40); WBC 9.5 10x3/uL (4.8-10.8)
[2016-08-16 22:18] LABS: UDS - AMPHET NEGATIVE QUAL (NEGATIVE); UDS - BARB POSITIVE QUAL (NEGATIVE); UDS - BENZO NEGATIVE QUAL (NEGATIVE); UDS - COCAINE NEGATIVE QUAL (NEGATIVE); UDS - METH NEGATIVE QUAL (NEGATIVE); UDS - OPIATE NEGATIVE QUAL (NEGATIVE); UDS - PCP NEGATIVE QUAL (NEGATIVE); UDS - THC NEGATIVE QUAL (NEGATIVE)
[2016-08-16 22:21] LABS: ANION GAP 19.4 mmol/L (8-16); BILIRUBIN - TOTAL 0.42 mg/dL (0.2-1.3); CARBON DIOXIDE 25.2 mmol/L (21.0-32.0); CREATININE - SERUM 1.4 mg/dL (0.6-1.3); POTASSIUM - SERUM 3.6 mmol/L (3.5-5.1); PROTEIN - SERUM 9.4 g/dL (6.4-8.2)
[2016-08-16 22:21] LABS: APPEARANCE HAZY (CLEAR); BILIRUBIN NEGATIVE (NEGATIVE); COLOR YELLOW (YELLOW); GLUCOSE NEGATIVE (NEGATIVE); KETONE NEGATIVE (NEGATIVE); LEUKOCYTE ESTERASE 1+ (NEGATIVE); NITRITE NEGATIVE (NEGATIVE); PROTEIN TRACE mg/dL (NEGATIVE); UROBILINOGEN NORMAL (NORMAL)
[2016-08-16 22:45] LABS: BACTERIA MODERATE /hpf (NONE SEEN); EPITHELIAL CELLS 0-5 /hpf (0-5); RED CELLS - URINE 0-5 /hpf (0-5); WHITE CELLS - URINE 0-5 /hpf (0-5)
[2016-08-16 22:46] LABS: GRANULAR CAST OCC /lpf (NONE SEEN); HYALINE CAST 0-5 /lpf (NONE SEEN)
== END 2016-08-17 02:35 | disposition home or self-care (01) ==
LOC: D.ER 21:34
PROVIDERS: Family Medicine
DX: F41.9 Anxiety disorder, unspecified (principal)

== ENCOUNTER 2016-08-17 14:25 | Emergency (ER) | payer MEDICAID ==
[2016-07-27 12:14] VITALS: BMI 27.4
== END 2016-08-17 18:08 | disposition left against medical advice (07) ==
LOC: D.ER 14:25
DX: R10.2 Pelvic and perineal pain (principal)

== ENCOUNTER 2016-08-17 23:18 | Emergency (ER) | payer MEDICAID ==
[2016-07-27 12:14] VITALS: BMI 27.4
== END 2016-08-18 02:09 | disposition home or self-care (01) ==
LOC: D.ER 23:18
DX: R51 Headache (principal); G89.29 Other chronic pain

== ENCOUNTER 2016-08-30 11:24 | Emergency (ER) | payer MEDICAID ==
[2016-07-27 12:14] VITALS: BMI 27.4
== END 2016-08-30 12:50 | disposition home or self-care (01) ==
LOC: D.ER 11:24
DX: J06.9 Acute upper respiratory infection, unspecified (principal); H66.92 Otitis media, unspecified, left ear

== ENCOUNTER → 2016-09-02 12:01 | Emergency (ER) | payer MEDICAID ==
[2016-07-27 12:14] VITALS: BMI 27.4
== END | disposition left against medical advice (07) ==
LOC: D.ER 12:01
DX: Z02.9 Encounter for administrative examinations, unspecified (principal)

== ENCOUNTER → 2016-09-06 | Emergency (ER) | payer MEDICAID ==
[2016-07-27 12:14] VITALS: BMI 27.4
== END | disposition home or self-care (01) ==
LOC: D.ER 13:29
DX: Z02.9 Encounter for administrative examinations, unspecified (principal)

== ENCOUNTER 2016-09-16 17:45 | Emergency (ER) | payer MEDICAID ==
[2016-07-27 12:14] VITALS: BMI 27.4
[2016-09-16 18:41] LABS: BASOPHILS 0.4 % (0-2); HEMATOCRIT 40.3 % (36.0-48.0); HEMOGLOBIN 13.1 g/dL (12-16); IMMATURE GRANULOCYTES 0.4 % (0-5); LYMPHOCYTES 19.8 % (15-50); MCHC 32.5 g/dL (31.0-37.0); MCV 98.3 fL (80.0-100.0); MEAN PLATELET VOLUME 9.6 fL (7.4-10.4); NEUTROPHILS 73.4 % (40-80); PLATELET COUNT 370 10x3/uL (130-400); RDW 13.2 % (11.5-14.5); WBC 10.4 10x3/uL (4.8-10.8)
[2016-09-16 19:25] LABS: ALBUMIN 3.5 g/dL (3.4-5.0); ALKALINE PHOSPHATASE 80 U/L (46-116); ALT (SGPT) 35 U/L (10-68); CALC OSMOLALITY 284 mosm/kg (275-300); CARBON DIOXIDE 24.4 mmol/L (21.0-32.0); CHLORIDE - SERUM 103 mmol/L (98-107); GLUCOSE 167 mg/dL (74-106); POTASSIUM - SERUM 3.6 mmol/L (3.5-5.1); PROTEIN - SERUM 7.6 g/dL (6.4-8.2); SODIUM 140 mmol/L (136-145); UREA NITROGEN 18 mg/dL (7-18)
[2016-09-16 19:43] LABS: CREATININE - SERUM 0.7 mg/dL (0.6-1.3); eGFR NON AFRICAN AMERICAN > 90 mL/min (90-120)
[2016-09-16 19:47] LABS: APPEARANCE HAZY (CLEAR); BILIRUBIN NEGATIVE (NEGATIVE); COLOR YELLOW (YELLOW); GLUCOSE NEGATIVE (NEGATIVE); KETONE NEGATIVE (NEGATIVE); LEUKOCYTE ESTERASE 2+ (NEGATIVE); NITRITE NEGATIVE (NEGATIVE); PROTEIN NEGATIVE (NEGATIVE); SPECIFIC GRAVITY 1.015 (1.005-1.020); UROBILINOGEN NORMAL (NORMAL)
[2016-09-16 19:52] LABS: BACTERIA FEW /hpf (NONE SEEN); EPITHELIAL CELLS 0-5 /hpf (0-5)
== END 2016-09-16 20:03 | disposition home or self-care (01) ==
LOC: D.ER 17:45
PROVIDERS: Emergency Medicine; Physician Assistant
DX: R10.32 Left lower quadrant pain (principal); R10.31 Right lower quadrant pain

== ENCOUNTER 2016-09-25 16:26 | Emergency (ER) | payer MEDICAID ==
[2016-07-27 12:14] VITALS: BMI 27.4
== END 2016-09-25 16:27 | disposition left against medical advice (07) ==
LOC: D.ER 16:26
DX: Z02.9 Encounter for administrative examinations, unspecified (principal)

== ENCOUNTER 2016-09-27 14:29 | Emergency (ER) | payer MEDICAID ==
[2016-07-27 12:14] VITALS: BMI 27.4
== END 2016-09-27 14:47 | disposition left against medical advice (07) ==
LOC: D.ER 14:29
DX: Z02.9 Encounter for administrative examinations, unspecified (principal)

== ENCOUNTER 2016-10-10 20:25 | Emergency (ER) | payer MEDICAID ==
[2016-07-27 12:14] VITALS: BMI 27.4
[2016-10-10 21:09] LABS: APPEARANCE CLEAR (CLEAR); BILIRUBIN NEGATIVE (NEGATIVE); COLOR YELLOW (YELLOW); GLUCOSE NEGATIVE (NEGATIVE); KETONE NEGATIVE (NEGATIVE); LEUKOCYTE ESTERASE TRACE (NEGATIVE); NITRITE NEGATIVE (NEGATIVE); PROTEIN NEGATIVE (NEGATIVE); SPECIFIC GRAVITY 1.025 (1.005-1.020); UROBILINOGEN NORMAL (NORMAL)
[2016-10-10 21:21] LABS: BACTERIA MODERATE /hpf (NONE SEEN); EPITHELIAL CELLS 0-5 /hpf (0-5); HYALINE CAST OCC /lpf (NONE SEEN); MUCUS >1+ /lpf (NONE SEEN); RED CELLS - URINE 0-5 /hpf (0-5)
== END 2016-10-10 21:50 | disposition home or self-care (01) ==
LOC: D.ER 20:25
PROVIDERS: Emergency Medicine
DX: N39.0 Urinary tract infection, site not specified (principal); R30.0 Dysuria

== ENCOUNTER 2016-10-13 12:50 | Emergency (ER) | payer MEDICAID ==
[2016-07-27 12:14] VITALS: BMI 27.4
== END 2016-10-13 14:14 | disposition home or self-care (01) ==
LOC: D.ER 12:50
DX: R51 Headache (principal); K50.90 Crohn's disease, unspecified, without complications

== ENCOUNTER 2016-10-14 01:24 | Emergency (ER) | payer MEDICAID ==
[2016-07-27 12:14] VITALS: BMI 27.4
== END 2016-10-14 02:55 | disposition home or self-care (01) ==
LOC: D.ER 01:24
DX: R10.9 Unspecified abdominal pain (principal); K50.90 Crohn's disease, unspecified, without complications

== ENCOUNTER 2016-10-14 10:57 | Emergency (ER) | payer MEDICAID ==
[2016-07-27 12:14] VITALS: BMI 27.4
== END 2016-10-14 11:56 | disposition left against medical advice (07) ==
LOC: D.ER 10:57
DX: R10.9 Unspecified abdominal pain (principal); K50.90 Crohn's disease, unspecified, without complications; R11.0 Nausea

== ENCOUNTER 2016-10-15 20:30 | Emergency (ER) | payer MEDICAID ==
[2016-07-27 12:14] VITALS: BMI 27.4
[2016-10-15 20:52] LABS: APPEARANCE HAZY (CLEAR); BILIRUBIN NEGATIVE (NEGATIVE); COLOR YELLOW (YELLOW); GLUCOSE NEGATIVE (NEGATIVE); KETONE NEGATIVE (NEGATIVE); LEUKOCYTE ESTERASE 2+ (NEGATIVE); NITRITE NEGATIVE (NEGATIVE); PROTEIN NEGATIVE (NEGATIVE); UROBILINOGEN NORMAL (NORMAL)
[2016-10-15 20:53] LABS: BACTERIA MODERATE /hpf (NONE SEEN); MUCUS <1+ /lpf (NONE SEEN); RED CELLS - URINE 0-5 /hpf (0-5); WHITE CELLS - URINE 25-50 /hpf (0-5)
== END 2016-10-15 21:11 | disposition home or self-care (01) ==
LOC: D.ER 20:30
PROVIDERS: Emergency Medicine
DX: N39.0 Urinary tract infection, site not specified (principal); K50.90 Crohn's disease, unspecified, without complications

== ENCOUNTER 2016-10-16 07:30 | Emergency (ER) | payer MEDICAID ==
[2016-07-27 12:14] VITALS: BMI 27.4
== END 2016-10-16 08:19 | disposition home or self-care (01) ==
LOC: D.ER 07:30
DX: K64.9 Unspecified hemorrhoids (principal)

== ENCOUNTER 2016-10-16 18:59 | Emergency (ER) | payer MEDICAID ==
[2016-07-27 12:14] VITALS: BMI 27.4
== END 2016-10-16 19:20 | disposition home or self-care (01) ==
LOC: D.ER 18:59
DX: Z03.89 Encounter for observation for other suspected diseases and conditions ruled out (principal)

== ENCOUNTER 2016-10-18 11:20 | Emergency (ER) | payer MEDICAID ==
[2016-07-27 12:14] VITALS: BMI 27.4
== END 2016-10-18 12:36 | disposition home or self-care (01) ==
LOC: D.ER 11:20
DX: K62.89 Other specified diseases of anus and rectum (principal); K64.9 Unspecified hemorrhoids; K50.90 Crohn's disease, unspecified, without complications

== ENCOUNTER 2016-10-20 11:48 | Emergency (ER) | payer MEDICAID ==
[2016-07-27 12:14] VITALS: BMI 27.4
[2016-10-20 16:27] LABS: APPEARANCE HAZY (CLEAR); BILIRUBIN NEGATIVE (NEGATIVE); COLOR DK YELLOW (YELLOW); GLUCOSE NEGATIVE (NEGATIVE); KETONE NEGATIVE (NEGATIVE); LEUKOCYTE ESTERASE 1+ (NEGATIVE); NITRITE NEGATIVE (NEGATIVE); PROTEIN NEGATIVE (NEGATIVE); SPECIFIC GRAVITY 1.025 (1.005-1.020); UROBILINOGEN NORMAL (NORMAL)
[2016-10-20 16:30] LABS: BACTERIA FEW /hpf (NONE SEEN); EPITHELIAL CELLS 0-5 /hpf (0-5); MUCUS <1+ /lpf (NONE SEEN)
== END 2016-10-20 16:25 | disposition home or self-care (01) ==
LOC: D.ER 11:48
PROVIDERS: Physician Assistant Medical
DX: R10.9 Unspecified abdominal pain (principal); R30.0 Dysuria; R35.0 Frequency of micturition; R39.11 Hesitancy of micturition; N98.9 Complication associated with artificial fertilization, unspecified

== ENCOUNTER → 2016-10-21 | Emergency (ER) | payer MEDICAID ==
[2016-07-27 12:14] VITALS: BMI 27.4
== END | disposition home or self-care (01) ==
LOC: D.ER 13:18
DX: L02.511 Cutaneous abscess of right hand (principal)

== ENCOUNTER 2016-10-23 09:35 | Emergency (ER) | payer MEDICAID ==
[2016-07-27 12:14] VITALS: BMI 27.4
== END 2016-10-23 13:16 | disposition home or self-care (01) ==
LOC: D.ER 09:35
DX: L03.011 Cellulitis of right finger (principal)

== ENCOUNTER 2016-10-25 21:58 | Emergency (ER) | payer MEDICAID ==
[2016-07-27 12:14] VITALS: BMI 27.4
== END 2016-10-25 23:26 | disposition home or self-care (01) ==
LOC: D.ER 21:58
DX: K62.89 Other specified diseases of anus and rectum (principal); R10.9 Unspecified abdominal pain

== ENCOUNTER 2016-11-04 08:24 | Emergency (ER) | payer MEDICAID ==
[2016-07-27 12:14] VITALS: BMI 27.4
[2016-11-04 09:58] LABS: BASOPHILS 0.2 % (0-2); EOSINOPHILS 0.4 % (0-7); HEMATOCRIT 39.5 % (36.0-48.0); HEMOGLOBIN 13.3 g/dL (12-16); IMMATURE GRANULOCYTES 0.2 % (0-5); LYMPHOCYTES 12.8 % (15-50); MCH 31.8 pg (26.0-34.0); MCHC 33.7 g/dL (31.0-37.0); MCV 94.5 fL (80.0-100.0); MEAN PLATELET VOLUME 9.5 fL (7.4-10.4); MONOCYTES 5.4 % (2-11); PLATELET COUNT 309 10x3/uL (130-400); RBC 4.18 10x6/uL (4.00-5.40); RDW 12.9 % (11.5-14.5); WBC 10.1 10x3/uL (4.8-10.8)
[2016-11-04 10:14] LABS: ALBUMIN 3.4 g/dL (3.4-5.0); ALKALINE PHOSPHATASE 81 U/L (46-116); ALT (SGPT) 33 U/L (10-68); BILIRUBIN - TOTAL 0.44 mg/dL (0.2-1.3); CALC OSMOLALITY 280 mosm/kg (275-300); CALCIUM 9.6 mg/dL (8.5-10.1); CARBON DIOXIDE 29.7 mmol/L (21.0-32.0); CHLORIDE - SERUM 102 mmol/L (98-107); CREATININE - SERUM 0.7 mg/dL (0.6-1.3); GLUCOSE 117 mg/dL (74-106); LIPASE 134 U/L (73-393); POTASSIUM - SERUM 3.4 mmol/L (3.5-5.1); PROTEIN - SERUM 8.2 g/dL (6.4-8.2); SODIUM 141 mmol/L (136-145); UREA NITROGEN 9 mg/dL (7-18); eGFR NON AFRICAN AMERICAN > 90 mL/min (90-120)
== END 2016-11-04 10:49 | disposition home or self-care (01) ==
LOC: D.ER 08:24
PROVIDERS: Emergency Medicine
DX: R10.9 Unspecified abdominal pain (principal)

== ENCOUNTER 2016-11-16 14:52 | Emergency (ER) | payer MEDICAID | END 2016-11-16 14:53 | disposition left against medical advice (07) | LOC: D.ER 14:52 | DX: Z02.9 Encounter for administrative examinations, unspecified (principal) ==

== ENCOUNTER 2016-11-16 22:59 | Emergency (ER) | payer MEDICAID ==
[2016-07-27 12:14] VITALS: BMI 27.4
== END 2016-11-17 00:50 | disposition home or self-care (01) ==
LOC: D.ER 22:59
DX: B37.3 Candidiasis of vulva and vagina (principal)

== ENCOUNTER 2016-11-21 12:22 | Emergency (ER) | payer MEDICAID ==
[2016-07-27 12:14] VITALS: BMI 27.4
== END 2016-11-21 13:58 | disposition home or self-care (01) ==
LOC: D.ER 12:22
DX: L03.317 Cellulitis of buttock (principal)

== ENCOUNTER 2016-11-23 11:17 | Emergency (ER) | payer MEDICAID ==
[2016-07-27 12:14] VITALS: BMI 27.4
[2016-11-23 12:21] LABS: APPEARANCE SLT CLOUDY (CLEAR); COLOR YELLOW (YELLOW)
[2016-11-23 12:22] LABS: BACTERIA MANY /hpf (NONE SEEN); BILIRUBIN NEGATIVE (NEGATIVE); GLUCOSE NEGATIVE (NEGATIVE); KETONE NEGATIVE (NEGATIVE); LEUKOCYTE ESTERASE 2+ (NEGATIVE); MUCUS <1+ /lpf (NONE SEEN); NITRITE NEGATIVE (NEGATIVE); PROTEIN NEGATIVE (NEGATIVE); SPECIFIC GRAVITY 1.015 (1.005-1.020); TALC POWDER CRYSTALS 0-5 /hpf (NONE SEEN); UROBILINOGEN NORMAL (NORMAL); WHITE CELLS - URINE 25-50 /hpf (0-5)
== END 2016-11-23 13:19 | disposition home or self-care (01) ==
LOC: D.ER 11:17
PROVIDERS: Emergency Medicine
DX: J06.9 Acute upper respiratory infection, unspecified (principal); J20.9 Acute bronchitis, unspecified; N39.0 Urinary tract infection, site not specified

== ENCOUNTER 2016-11-27 13:59 | Emergency (ER) | payer MEDICAID ==
[2016-07-27 12:14] VITALS: BMI 27.4
== END 2016-11-27 14:51 | disposition left against medical advice (07) ==
LOC: D.ER 13:59
DX: M79.644 Pain in right finger(s) (principal)

== ENCOUNTER 2016-11-27 15:25 | Emergency (ER) | payer MEDICAID ==
[2016-07-27 12:14] VITALS: BMI 27.4
== END 2016-11-27 15:52 | disposition home or self-care (01) ==
LOC: D.ER 15:25
DX: L03.011 Cellulitis of right finger (principal); M79.641 Pain in right hand

== ENCOUNTER 2016-12-14 23:18 | Emergency (ER) | payer MEDICAID ==
[2016-07-27 12:14] VITALS: BMI 27.4
== END 2016-12-14 23:38 | disposition home or self-care (01) ==
LOC: D.ER 23:18
DX: Z03.89 Encounter for observation for other suspected diseases and conditions ruled out (principal)

== ENCOUNTER 2016-12-15 07:15 | Emergency (ER) | payer MEDICAID ==
[2016-07-27 12:14] VITALS: BMI 27.4
[2016-12-15 07:46] LABS: BASOPHILS 0.2 % (0-2); EOSINOPHILS 0.9 % (0-7); HEMATOCRIT 39.2 % (36.0-48.0); HEMOGLOBIN 13.1 g/dL (12-16); IMMATURE GRANULOCYTES 0.1 % (0-5); LYMPHOCYTES 22.9 % (15-50); MCH 31.7 pg (26.0-34.0); MCHC 33.4 g/dL (31.0-37.0); MCV 94.9 fL (80.0-100.0); MEAN PLATELET VOLUME 9.1 fL (7.4-10.4); MONOCYTES 5.1 % (2-11); NEUTROPHILS 70.8 % (40-80); PLATELET COUNT 364 10x3/uL (130-400); RBC 4.13 10x6/uL (4.00-5.40); RDW 13.1 % (11.5-14.5)
[2016-12-15 08:04] LABS: ALBUMIN 3.2 g/dL (3.4-5.0); ALKALINE PHOSPHATASE 80 U/L (46-116); ALT (SGPT) 25 U/L (10-68); BILIRUBIN - TOTAL 0.14 mg/dL (0.2-1.3); CALC OSMOLALITY 283 mosm/kg (275-300); CALCIUM 9.7 mg/dL (8.5-10.1); CHLORIDE - SERUM 102 mmol/L (98-107); CREATININE - SERUM 0.8 mg/dL (0.6-1.3); GLUCOSE 139 mg/dL (74-106); MAGNESIUM - SERUM 1.9 mg/dL (1.8-2.4); POTASSIUM - SERUM 3.3 mmol/L (3.5-5.1); SODIUM 141 mmol/L (136-145); UREA NITROGEN 15 mg/dL (7-18); eGFR NON AFRICAN AMERICAN 81 mL/min (90-120)
[2016-12-15 08:18] LABS: APPEARANCE CLOUDY (CLEAR); COLOR YELLOW (YELLOW); SPECIFIC GRAVITY 1.025 (1.005-1.020)
[2016-12-15 08:19] LABS: BACTERIA MANY /hpf (NONE SEEN); BILIRUBIN NEGATIVE (NEGATIVE); GLUCOSE NEGATIVE (NEGATIVE); GRANULAR CAST OCC /lpf (NONE SEEN); KETONE SMALL mg/dL (NEGATIVE); MUCUS <1+ /lpf (NONE SEEN); NITRITE NEGATIVE (NEGATIVE); PROTEIN TRACE mg/dL (NEGATIVE); UROBILINOGEN NORMAL (NORMAL); WHITE CELLS - URINE >50 /hpf (0-5)
[2016-12-15 08:20] LABS: TALC POWDER CRYSTALS OCC /hpf (NONE SEEN)
== END 2016-12-15 08:47 | disposition home or self-care (01) ==
LOC: D.ER 07:15
PROVIDERS: Family Medicine
DX: N39.0 Urinary tract infection, site not specified (principal); E87.6 Hypokalemia; F17.200 Nicotine dependence, unspecified, uncomplicated

== ENCOUNTER 2016-12-15 13:38 | Emergency (ER) | payer MEDICAID ==
[2016-07-27 12:14] VITALS: BMI 27.4
== END 2016-12-15 15:34 | disposition home or self-care (01) ==
LOC: D.ER 13:38
DX: B37.3 Candidiasis of vulva and vagina (principal)

== ENCOUNTER 2016-12-15 19:31 | Emergency (ER) | payer MEDICAID ==
[2016-07-27 12:14] VITALS: BMI 27.4
[2016-12-15 20:44] LABS: APPEARANCE CLEAR (CLEAR); BILIRUBIN NEGATIVE (NEGATIVE); COLOR YELLOW (YELLOW); GLUCOSE NEGATIVE (NEGATIVE); KETONE NEGATIVE (NEGATIVE); NITRITE NEGATIVE (NEGATIVE); PROTEIN NEGATIVE (NEGATIVE); SPECIFIC GRAVITY 1.015 (1.005-1.020); UROBILINOGEN NORMAL (NORMAL)
[2016-12-15 20:47] LABS: EPITHELIAL CELLS 0-5 /hpf (0-5); RED CELLS - URINE 0-5 /hpf (0-5); WHITE CELLS - URINE 0-5 /hpf (0-5)
[2016-12-15 20:48] LABS: BACTERIA MODERATE /hpf (NONE SEEN)
== END 2016-12-15 20:56 | disposition home or self-care (01) ==
LOC: D.ER 19:31
PROVIDERS: Emergency Medicine
DX: G89.29 Other chronic pain (principal); L98.8 Other specified disorders of the skin and subcutaneous tissue

== ENCOUNTER 2016-12-18 01:52 | Emergency (ER) | payer MEDICAID ==
[2016-07-27 12:14] VITALS: BMI 27.4
== END 2016-12-18 02:23 | disposition home or self-care (01) ==
LOC: D.ER 01:52
DX: R10.2 Pelvic and perineal pain (principal)

== ENCOUNTER 2016-12-23 03:28 | Emergency (ER) | payer MEDICAID ==
[2016-07-27 12:14] VITALS: BMI 27.4
== END 2016-12-23 04:27 | disposition home or self-care (01) ==
LOC: D.ER 03:28
DX: R10.2 Pelvic and perineal pain (principal)

== ENCOUNTER 2016-12-23 11:15 | Emergency (ER) | payer MEDICAID ==
[2016-07-27 12:14] VITALS: BMI 27.4
== END 2016-12-23 11:35 | disposition home or self-care (01) ==
LOC: D.ER 11:15
DX: R30.0 Dysuria (principal)

== ENCOUNTER 2016-12-25 04:14 | Emergency (ER) | payer MEDICAID ==
[2016-07-27 12:14] VITALS: BMI 27.4
[2016-12-25 05:26] LABS: APPEARANCE CLOUDY (CLEAR); BACTERIA MANY /hpf (NONE SEEN); BILIRUBIN NEGATIVE (NEGATIVE); COLOR YELLOW (YELLOW); GLUCOSE NEGATIVE (NEGATIVE); KETONE NEGATIVE (NEGATIVE); NITRITE NEGATIVE (NEGATIVE); PROTEIN 1+ mg/dL (NEGATIVE); UROBILINOGEN NORMAL (NORMAL); WHITE CELLS - URINE >50 /hpf (0-5)
== END 2016-12-25 05:40 | disposition home or self-care (01) ==
LOC: D.ER 04:14
PROVIDERS: Emergency Medicine
DX: K27.9 Peptic ulcer, site unspecified, unspecified as acute or chronic, without hemorrhage or perforation (principal)

== ENCOUNTER 2017-01-11 13:41 | Emergency (ER) | payer MEDICAID ==
[2016-07-27 12:14] VITALS: BMI 27.4
[2017-01-11 14:54] LABS: BASOPHILS 0.2 % (0-2); EOSINOPHILS 0.2 % (0-7); HEMATOCRIT 41.4 % (36.0-48.0); HEMOGLOBIN 13.6 g/dL (12-16); IMMATURE GRANULOCYTES 0.3 % (0-5); LYMPHOCYTES 9.5 % (15-50); MCH 31.5 pg (26.0-34.0); MCHC 32.9 g/dL (31.0-37.0); MCV 95.8 fL (80.0-100.0); MEAN PLATELET VOLUME 9.4 fL (7.4-10.4); MONOCYTES 2.9 % (2-11); NEUTROPHILS 86.9 % (40-80); PLATELET COUNT 369 10x3/uL (130-400); RBC 4.32 10x6/uL (4.00-5.40); RDW 13.3 % (11.5-14.5); WBC 13.1 10x3/uL (4.8-10.8)
== END 2017-01-11 16:03 | disposition home or self-care (01) ==
LOC: D.ER 13:41
PROVIDERS: Family Medicine
DX: M79.1 Myalgia (principal)

== ENCOUNTER 2017-01-13 20:00 | Emergency (ER) | payer MEDICAID ==
[2016-07-27 12:14] VITALS: BMI 27.4
== END 2017-01-13 21:40 | disposition left against medical advice (07) ==
LOC: D.ER 20:00
DX: R10.2 Pelvic and perineal pain (principal)

== ENCOUNTER 2017-01-14 07:35 | Emergency (ER) | payer MEDICAID ==
[2016-07-27 12:14] VITALS: BMI 27.4
== END 2017-01-14 08:32 | disposition home or self-care (01) ==
LOC: D.ER 07:35
DX: R30.0 Dysuria (principal); F11.23 Opioid dependence with withdrawal

== ENCOUNTER 2017-01-16 11:07 | Emergency (ER) | payer MEDICAID ==
[2016-07-27 12:14] VITALS: BMI 27.4
== END 2017-01-16 14:46 | disposition home or self-care (01) ==
LOC: D.ER 11:07
DX: M25.50 Pain in unspecified joint (principal); Z76.5 Malingerer [conscious simulation]

== ENCOUNTER 2017-01-16 13:14 | Emergency (ER) | payer MEDICAID ==
[2016-07-27 12:14] VITALS: BMI 27.4
[2017-01-16 13:47] LABS: BASOPHILS 0.4 % (0-2); EOSINOPHILS 1.2 % (0-7); HEMATOCRIT 38.7 % (36.0-48.0); HEMOGLOBIN 12.7 g/dL (12-16); IMMATURE GRANULOCYTES 0.4 % (0-5); LYMPHOCYTES 19.5 % (15-50); MCH 31.7 pg (26.0-34.0); MCHC 32.8 g/dL (31.0-37.0); MCV 96.5 fL (80.0-100.0); MEAN PLATELET VOLUME 9.1 fL (7.4-10.4); MONOCYTES 6.3 % (2-11); NEUTROPHILS 72.2 % (40-80); PLATELET COUNT 427 10x3/uL (130-400); RBC 4.01 10x6/uL (4.00-5.40); WBC 10.4 10x3/uL (4.8-10.8)
[2017-01-16 14:00] LABS: ALBUMIN 3.3 g/dL (3.4-5.0); ALKALINE PHOSPHATASE 94 U/L (46-116); ALT (SGPT) 34 U/L (10-68); CALC OSMOLALITY 280 mosm/kg (275-300); CALCIUM 9.1 mg/dL (8.5-10.1); CARBON DIOXIDE 27.5 mmol/L (21.0-32.0); CHLORIDE - SERUM 103 mmol/L (98-107); CREATININE - SERUM 0.7 mg/dL (0.6-1.3); GLUCOSE 112 mg/dL (74-106); POTASSIUM - SERUM 3.4 mmol/L (3.5-5.1); PROTEIN - SERUM 8.2 g/dL (6.4-8.2); SODIUM 141 mmol/L (136-145); UREA NITROGEN 10 mg/dL (7-18); eGFR NON AFRICAN AMERICAN > 90 mL/min (90-120)
[2017-01-16 14:23] LABS: APPEARANCE HAZY (CLEAR); BILIRUBIN NEGATIVE (NEGATIVE); COLOR DK YELLOW (YELLOW); GLUCOSE NEGATIVE (NEGATIVE); KETONE NEGATIVE (NEGATIVE); NITRITE NEGATIVE (NEGATIVE); PROTEIN TRACE mg/dL (NEGATIVE); SPECIFIC GRAVITY 1.015 (1.005-1.020); UROBILINOGEN NORMAL (NORMAL)
[2017-01-16 14:24] LABS: EPITHELIAL CELLS 0-5 /hpf (0-5); WHITE CELLS - URINE >50 /hpf (0-5)
[2017-01-16 14:25] LABS: BACTERIA FEW /hpf (NONE SEEN)
[2017-01-16 14:38] LABS: UDS - AMPHET NEGATIVE QUAL (NEGATIVE); UDS - BARB NEGATIVE QUAL (NEGATIVE); UDS - BENZO POSITIVE QUAL (NEGATIVE); UDS - COCAINE NEGATIVE QUAL (NEGATIVE); UDS - OPIATE NEGATIVE QUAL (NEGATIVE); UDS - PCP NEGATIVE QUAL (NEGATIVE); UDS - THC NEGATIVE QUAL (NEGATIVE)
== END 2017-01-16 14:46 | disposition home or self-care (01) ==
LOC: D.ER 13:14
PROVIDERS: Emergency Medicine; Nurse Practitioner Family
DX: N39.0 Urinary tract infection, site not specified (principal); Z76.5 Malingerer [conscious simulation]

== ENCOUNTER 2017-01-16 19:40 | Emergency (ER) | payer MEDICAID ==
[2016-07-27 12:14] VITALS: BMI 27.4
== END 2017-01-16 20:16 | disposition home or self-care (01) ==
LOC: D.ER 19:40
DX: Z76.5 Malingerer [conscious simulation] (principal)

== ENCOUNTER → 2017-01-17 09:58 | Emergency (ER) | payer MEDICAID ==
[2016-07-27 12:14] VITALS: BMI 27.4
[2017-01-17 10:20] LABS: APPEARANCE CLOUDY (CLEAR); BILIRUBIN NEGATIVE (NEGATIVE); COLOR YELLOW (YELLOW); GLUCOSE NEGATIVE (NEGATIVE); KETONE NEGATIVE (NEGATIVE); NITRITE NEGATIVE (NEGATIVE); PROTEIN 2+ mg/dL (NEGATIVE); UROBILINOGEN NORMAL (NORMAL)
[2017-01-17 10:22] LABS: BACTERIA MANY /hpf (NONE SEEN); EPITHELIAL CELLS 0-5 /hpf (0-5); MUCUS <1+ /lpf (NONE SEEN); RED CELLS - URINE 0-5 /hpf (0-5)
== END | disposition home or self-care (01) ==
LOC: D.ER 09:58
PROVIDERS: Family Medicine
DX: N39.0 Urinary tract infection, site not specified (principal); F17.200 Nicotine dependence, unspecified, uncomplicated

== ENCOUNTER 2017-01-18 12:24 | Emergency (ER) | payer MEDICAID ==
[2016-07-27 12:14] VITALS: BMI 27.4
== END 2017-01-18 13:12 | disposition home or self-care (01) ==
LOC: D.ER 12:24
DX: N39.0 Urinary tract infection, site not specified (principal); F13.10 Sedative, hypnotic or anxiolytic abuse, uncomplicated; F17.200 Nicotine dependence, unspecified, uncomplicated

== ENCOUNTER 2017-02-14 16:23 | Emergency (ER) | payer MEDICAID ==
[2016-07-27 12:14] VITALS: BMI 27.4
== END 2017-02-14 17:43 | disposition home or self-care (01) ==
LOC: D.ER 16:23
DX: L03.115 Cellulitis of right lower limb (principal)

== ENCOUNTER 2017-02-19 19:32 | Emergency (ER) | payer MEDICAID ==
[2016-07-27 12:14] VITALS: BMI 27.4
[2017-02-19 20:31] LABS: APPEARANCE CLEAR (CLEAR); BILIRUBIN NEGATIVE (NEGATIVE); COLOR YELLOW (YELLOW); GLUCOSE NEGATIVE (NEGATIVE); KETONE NEGATIVE (NEGATIVE); NITRITE NEGATIVE (NEGATIVE); PROTEIN NEGATIVE (NEGATIVE); UROBILINOGEN NORMAL (NORMAL)
[2017-02-19 20:33] LABS: BACTERIA MANY /hpf (NONE SEEN); MUCUS <1+ /lpf (NONE SEEN); RED CELLS - URINE 0-5 /hpf (0-5)
== END 2017-02-19 20:40 | disposition home or self-care (01) ==
LOC: D.ER 19:32
PROVIDERS: Family Medicine
DX: B37.9 Candidiasis, unspecified (principal)

== ENCOUNTER 2017-02-23 16:46 | Emergency (ER) | payer MEDICAID ==
[2016-07-27 12:14] VITALS: BMI 27.4
== END 2017-02-23 19:06 | disposition home or self-care (01) ==
LOC: D.ER 16:46
DX: Z76.5 Malingerer [conscious simulation] (principal)

== ENCOUNTER 2017-02-27 15:22 | Emergency (ER) | payer MEDICAID ==
[2016-07-27 12:14] VITALS: BMI 27.4
[2017-02-27 16:06] LABS: APPEARANCE CLEAR (CLEAR); BILIRUBIN NEGATIVE (NEGATIVE); COLOR YELLOW (YELLOW); GLUCOSE NEGATIVE (NEGATIVE); KETONE NEGATIVE (NEGATIVE); NITRITE NEGATIVE (NEGATIVE); PROTEIN TRACE mg/dL (NEGATIVE); SPECIFIC GRAVITY 1.025 (1.005-1.020); UROBILINOGEN NORMAL (NORMAL)
[2017-02-27 16:08] LABS: BACTERIA FEW /hpf (NONE SEEN); EPITHELIAL CELLS 0-5 /hpf (0-5); RED CELLS - URINE 0-5 /hpf (0-5)
[2017-02-27 17:00] LABS: BASOPHILS 0.4 % (0-2); EOSINOPHILS 0.8 % (0-7); HEMATOCRIT 40.5 % (36.0-48.0); HEMOGLOBIN 13.1 g/dL (12-16); IMMATURE GRANULOCYTES 0.2 % (0-5); LYMPHOCYTES 16.8 % (15-50); MCHC 32.3 g/dL (31.0-37.0); MEAN PLATELET VOLUME 9.6 fL (7.4-10.4); MONOCYTES 6.6 % (2-11); NEUTROPHILS 75.2 % (40-80); PLATELET COUNT 332 10x3/uL (130-400); RBC 4.22 10x6/uL (4.00-5.40); RDW 13.4 % (11.5-14.5); WBC 10.2 10x3/uL (4.8-10.8)
== END 2017-02-27 17:08 | disposition home or self-care (01) ==
LOC: D.ER 15:22
PROVIDERS: Emergency Medicine; Physician Assistant Medical
DX: N39.0 Urinary tract infection, site not specified (principal)

== ENCOUNTER 2017-03-01 22:59 | Emergency (ER) | payer MEDICAID ==
[2016-07-27 12:14] VITALS: BMI 27.4
[2017-03-02 00:08] LABS: APPEARANCE CLEAR (CLEAR); BILIRUBIN NEGATIVE (NEGATIVE); COLOR YELLOW (YELLOW); GLUCOSE NEGATIVE (NEGATIVE); KETONE NEGATIVE (NEGATIVE); NITRITE NEGATIVE (NEGATIVE); PROTEIN NEGATIVE (NEGATIVE); UROBILINOGEN NORMAL (NORMAL)
[2017-03-02 00:11] LABS: BACTERIA MODERATE /hpf (NONE SEEN); EPITHELIAL CELLS 0-5 /hpf (0-5); RED CELLS - URINE 0-5 /hpf (0-5); WHITE CELLS - URINE 0-5 /hpf (0-5)
== END 2017-03-01 23:38 | disposition home or self-care (01) ==
LOC: D.ER 22:59
PROVIDERS: Physician Assistant Medical
DX: N39.0 Urinary tract infection, site not specified (principal)

== ENCOUNTER 2017-03-02 15:11 | Emergency (ER) | payer MEDICAID ==
[2016-07-27 12:14] VITALS: BMI 27.4
== END 2017-03-02 17:32 | disposition home or self-care (01) ==
LOC: D.ER 15:11
DX: Z03.89 Encounter for observation for other suspected diseases and conditions ruled out (principal)

== ENCOUNTER 2017-03-02 19:09 | Emergency (ER) | payer MEDICAID ==
[2016-07-27 12:14] VITALS: BMI 27.4
== END 2017-03-02 22:04 | disposition home or self-care (01) ==
LOC: D.ER 19:09
DX: B37.9 Candidiasis, unspecified (principal)

== ENCOUNTER 2017-03-03 12:42 | Emergency (ER) | payer MEDICAID ==
[2016-07-27 12:14] VITALS: BMI 27.4
== END 2017-03-03 14:20 | disposition home or self-care (01) ==
LOC: D.ER 12:42
DX: K62.89 Other specified diseases of anus and rectum (principal)

== ENCOUNTER 2017-03-03 19:16 | Emergency (ER) | payer MEDICAID ==
[2016-07-27 12:14] VITALS: BMI 27.4
== END 2017-03-03 20:29 | disposition home or self-care (01) ==
LOC: D.ER 19:16
DX: K62.89 Other specified diseases of anus and rectum (principal)

== ENCOUNTER 2017-03-04 03:29 | Emergency (ER) | payer MEDICAID ==
[2016-07-27 12:14] VITALS: BMI 27.4
== END 2017-03-04 04:20 | disposition home or self-care (01) ==
LOC: D.ER 03:29
DX: Z76.5 Malingerer [conscious simulation] (principal)

== ENCOUNTER 2017-03-06 06:31 | Emergency (ER) | payer MEDICAID ==
[2016-07-27 12:14] VITALS: BMI 27.4
== END 2017-03-06 07:13 | disposition home or self-care (01) ==
LOC: D.ER 06:31
DX: A60.1 Herpesviral infection of perianal skin and rectum (principal)

== ENCOUNTER 2017-03-06 20:04 | Emergency (ER) | payer MEDICAID ==
[2016-07-27 12:14] VITALS: BMI 27.4
== END 2017-03-06 20:35 | disposition home or self-care (01) ==
LOC: D.ER 20:04
DX: A60.00 Herpesviral infection of urogenital system, unspecified (principal); N76.0 Acute vaginitis; K62.89 Other specified diseases of anus and rectum

== ENCOUNTER 2017-03-07 01:16 | Emergency (ER) | payer MEDICAID ==
[2016-07-27 12:14] VITALS: BMI 27.4
== END 2017-03-07 01:32 | disposition home or self-care (01) ==
LOC: D.ER 01:16
DX: Z03.89 Encounter for observation for other suspected diseases and conditions ruled out (principal); Z76.5 Malingerer [conscious simulation]

== ENCOUNTER 2017-03-07 09:15 | Emergency (ER) | payer MEDICAID ==
[2016-07-27 12:14] VITALS: BMI 27.4
== END 2017-03-07 09:39 | disposition home or self-care (01) ==
LOC: D.ER 09:15
DX: A60.00 Herpesviral infection of urogenital system, unspecified (principal)

== ENCOUNTER 2017-03-09 15:45 | Emergency (ER) | payer MEDICAID ==
[2016-07-27 12:14] VITALS: BMI 27.4
== END 2017-03-09 18:49 | disposition home or self-care (01) ==
LOC: D.ER 15:45
DX: R10.2 Pelvic and perineal pain (principal)

== ENCOUNTER 2017-03-10 03:14 | Emergency (ER) | payer MEDICAID ==
[2016-07-27 12:14] VITALS: BMI 27.4
[2017-03-10 03:51] LABS: UDS - AMPHET NEGATIVE QUAL (NEGATIVE); UDS - BARB POSITIVE QUAL (NEGATIVE); UDS - BENZO NEGATIVE QUAL (NEGATIVE); UDS - COCAINE NEGATIVE QUAL (NEGATIVE); UDS - OPIATE POSITIVE QUAL (NEGATIVE); UDS - PCP NEGATIVE QUAL (NEGATIVE); UDS - THC NEGATIVE QUAL (NEGATIVE)
[2017-03-10 04:01] LABS: APPEARANCE CLOUDY (CLEAR); BILIRUBIN NEGATIVE (NEGATIVE); COLOR YELLOW (YELLOW); GLUCOSE NEGATIVE (NEGATIVE); KETONE NEGATIVE (NEGATIVE); NITRITE NEGATIVE (NEGATIVE); PROTEIN 1+ mg/dL (NEGATIVE); SPECIFIC GRAVITY 1.025 (1.005-1.020); UROBILINOGEN NORMAL (NORMAL)
[2017-03-10 04:03] LABS: BACTERIA MODERATE /hpf (NONE SEEN); EPITHELIAL CELLS 0-5 /hpf (0-5); MUCUS <1+ /lpf (NONE SEEN); RED CELLS - URINE 0-5 /hpf (0-5)
[2017-03-10 04:07] LABS: BASOPHILS 0.3 % (0-2); EOSINOPHILS 1.9 % (0-7); HEMATOCRIT 37.5 % (36.0-48.0); HEMOGLOBIN 12.2 g/dL (12-16); IMMATURE GRANULOCYTES 0.5 % (0-5); LYMPHOCYTES 28.3 % (15-50); MCHC 32.5 g/dL (31.0-37.0); MCV 95.4 fL (80.0-100.0); MEAN PLATELET VOLUME 9.4 fL (7.4-10.4); MONOCYTES 7.7 % (2-11); NEUTROPHILS 61.3 % (40-80); PLATELET COUNT 343 10x3/uL (130-400); RBC 3.93 10x6/uL (4.00-5.40); RDW 13.4 % (11.5-14.5); WBC 8.7 10x3/uL (4.8-10.8)
[2017-03-10 04:16] LABS: ALBUMIN 3.2 g/dL (3.4-5.0); ALKALINE PHOSPHATASE 81 U/L (46-116); ALT (SGPT) 48 U/L (10-68); CALC OSMOLALITY 275 mosm/kg (275-300); CALCIUM 8.9 mg/dL (8.5-10.1); CARBON DIOXIDE 26.7 mmol/L (21.0-32.0); CHLORIDE - SERUM 103 mmol/L (98-107); CREATININE - SERUM 0.7 mg/dL (0.6-1.3); GLUCOSE 121 mg/dL (74-106); POTASSIUM - SERUM 3.5 mmol/L (3.5-5.1); PROTEIN - SERUM 7.1 g/dL (6.4-8.2); SODIUM 138 mmol/L (136-145); UREA NITROGEN 11 mg/dL (7-18); eGFR NON AFRICAN AMERICAN > 90 mL/min (90-120)
[2017-03-10 04:19] LABS: BILIRUBIN - TOTAL 0.07 mg/dL (0.2-1.3)
== END 2017-03-10 07:43 | disposition home or self-care (01) ==
LOC: D.ER 03:14
PROVIDERS: Emergency Medicine
DX: R45.851 Suicidal ideations (principal); F33.9 Major depressive disorder, recurrent, unspecified; N39.0 Urinary tract infection, site not specified; N76.0 Acute vaginitis

== ENCOUNTER 2017-03-18 12:17 | Emergency (ER) | payer MEDICAID ==
[2016-07-27 12:14] VITALS: BMI 27.4
== END 2017-03-18 12:58 | disposition home or self-care (01) ==
LOC: D.ER 12:17
DX: L03.012 Cellulitis of left finger (principal)

== ENCOUNTER 2017-03-20 15:45 | Emergency (ER) | payer MEDICAID ==
[2016-07-27 12:14] VITALS: BMI 27.4
== END 2017-03-20 16:54 | disposition left against medical advice (07) ==
LOC: D.ER 15:45
DX: J02.9 Acute pharyngitis, unspecified (principal)

== ENCOUNTER 2017-03-27 12:18 | Emergency (ER) | payer MEDICAID ==
[2016-07-27 12:14] VITALS: BMI 27.4
[2017-03-27 13:26] LABS: APPEARANCE CLEAR (CLEAR); BILIRUBIN NEGATIVE (NEGATIVE); COLOR YELLOW (YELLOW); GLUCOSE NEGATIVE (NEGATIVE); KETONE NEGATIVE (NEGATIVE); NITRITE NEGATIVE (NEGATIVE); PROTEIN NEGATIVE (NEGATIVE); SPECIFIC GRAVITY 1.015 (1.005-1.020); UROBILINOGEN NORMAL (NORMAL)
[2017-03-27 13:27] LABS: BACTERIA MODERATE /hpf (NONE SEEN); EPITHELIAL CELLS 0-5 /hpf (0-5); RED CELLS - URINE 0-5 /hpf (0-5); WHITE CELLS - URINE 0-5 /hpf (0-5)
== END 2017-03-27 14:00 | disposition home or self-care (01) ==
LOC: D.ER 12:18
PROVIDERS: Nurse Practitioner Family
DX: N39.0 Urinary tract infection, site not specified (principal)

== ENCOUNTER 2017-03-27 19:32 | Emergency (ER) | payer MEDICAID ==
[2016-07-27 12:14] VITALS: BMI 27.4
== END 2017-03-27 20:56 | disposition home or self-care (01) ==
LOC: D.ER 19:32
DX: Z76.5 Malingerer [conscious simulation] (principal); M79.605 Pain in left leg; M79.604 Pain in right leg; I10 Essential (primary) hypertension; K50.90 Crohn's disease, unspecified, without complications; A60.00 Herpesviral infection of urogenital system, unspecified

== ENCOUNTER 2017-03-28 02:19 | Emergency (ER) | payer MEDICAID ==
[2016-07-27 12:14] VITALS: BMI 27.4
== END 2017-03-28 02:25 | disposition home or self-care (01) ==
LOC: D.ER 02:19
DX: M79.605 Pain in left leg (principal); M79.604 Pain in right leg

== ENCOUNTER 2017-03-28 09:42 | Emergency (ER) | payer MEDICAID ==
[2016-07-27 12:14] VITALS: BMI 27.4
== END 2017-03-28 09:57 | disposition left against medical advice (07) ==
LOC: D.ER 09:42
DX: M79.606 Pain in leg, unspecified (principal)

== ENCOUNTER 2017-04-12 20:59 | Emergency (ER) | payer MEDICAID ==
[2016-07-27 12:14] VITALS: BMI 27.4
[2017-04-12 22:41] LABS: APPEARANCE CLEAR (CLEAR); BACTERIA FEW /hpf (NONE SEEN); BILIRUBIN NEGATIVE (NEGATIVE); COLOR YELLOW (YELLOW); EPITHELIAL CELLS 0-5 /hpf (0-5); GLUCOSE NEGATIVE (NEGATIVE); KETONE NEGATIVE (NEGATIVE); NITRITE NEGATIVE (NEGATIVE); PROTEIN NEGATIVE (NEGATIVE); RED CELLS - URINE 0-5 /hpf (0-5); SPECIFIC GRAVITY 1.015 (1.005-1.020); UROBILINOGEN NORMAL (NORMAL); WHITE CELLS - URINE 0-5 /hpf (0-5)
== END 2017-04-12 23:08 | disposition home or self-care (01) ==
LOC: D.ER 20:59
PROVIDERS: Family Medicine
DX: N34.2 Other urethritis (principal); I10 Essential (primary) hypertension

== ENCOUNTER 2017-04-13 16:05 | Emergency (ER) | payer MEDICAID ==
[2016-07-27 12:14] VITALS: BMI 27.4
== END 2017-04-13 17:25 | disposition home or self-care (01) ==
LOC: D.ER 16:05
DX: N34.2 Other urethritis (principal); I10 Essential (primary) hypertension

== ENCOUNTER 2017-04-16 12:53 | Emergency (ER) | payer MEDICAID | END 2017-04-16 17:20 | disposition home or self-care (01) | LOC: D.ER 12:53 | DX: R10.13 Epigastric pain (principal); Z76.5 Malingerer [conscious simulation]; I10 Essential (primary) hypertension ==

== ENCOUNTER 2017-04-16 19:38 | Emergency (ER) | payer MEDICAID | END 2017-04-17 11:10 | disposition home or self-care (01) | LOC: D.ER 19:38 | DX: R45.851 Suicidal ideations (principal); I10 Essential (primary) hypertension ==

== ENCOUNTER 2017-05-07 17:50 | Emergency (ER) | payer MEDICAID ==
[2016-07-27 12:14] VITALS: BMI 27.4
[2017-05-07 18:20] LABS: BASOPHILS 0.2 % (0-2); EOSINOPHILS 0 % (0-7); HEMATOCRIT 38.1 % (36.0-48.0); HEMOGLOBIN 12.8 g/dL (12-16); IMMATURE GRANULOCYTES 0.2 % (0-5); LYMPHOCYTES 12.3 % (15-50); MCH 31.4 pg (26.0-34.0); MCHC 33.6 g/dL (31.0-37.0); MCV 93.4 fL (80.0-100.0); MEAN PLATELET VOLUME 9.4 fL (7.4-10.4); MONOCYTES 3.5 % (2-11); NEUTROPHILS 83.8 % (40-80); PLATELET COUNT 327 10x3/uL (130-400); RBC 4.08 10x6/uL (4.00-5.40); RDW 13.1 % (11.5-14.5); WBC 8.8 10x3/uL (4.8-10.8)
[2017-05-07 18:41] LABS: ALBUMIN 3.4 g/dL (3.4-5.0); ALKALINE PHOSPHATASE 81 U/L (46-116); ALT (SGPT) 70 U/L (10-68); BILIRUBIN - TOTAL 0.22 mg/dL (0.2-1.3); CALC OSMOLALITY 277 mosm/kg (275-300); CALCIUM 9.4 mg/dL (8.5-10.1); CHLORIDE - SERUM 105 mmol/L (98-107); CREATININE - SERUM 0.6 mg/dL (0.6-1.3); GLUCOSE 157 mg/dL (74-106); POTASSIUM - SERUM 3.4 mmol/L (3.5-5.1); PROTEIN - SERUM 8.3 g/dL (6.4-8.2); SODIUM 138 mmol/L (136-145); UREA NITROGEN 10 mg/dL (7-18); eGFR NON AFRICAN AMERICAN > 90 mL/min (90-120)
[2017-05-07 18:51] LABS: APPEARANCE HAZY (CLEAR); BILIRUBIN NEGATIVE (NEGATIVE); COLOR YELLOW (YELLOW); GLUCOSE NEGATIVE (NEGATIVE); KETONE SMALL mg/dL (NEGATIVE); NITRITE NEGATIVE (NEGATIVE); PROTEIN NEGATIVE (NEGATIVE); UROBILINOGEN NORMAL (NORMAL)
[2017-05-07 18:53] LABS: WHITE CELLS - URINE 25-50 /hpf (0-5)
[2017-05-07 18:54] LABS: BACTERIA MODERATE /hpf (NONE SEEN)
[2017-05-07 19:02] LABS: UDS - AMPHET NEGATIVE QUAL (NEGATIVE); UDS - BARB NEGATIVE QUAL (NEGATIVE); UDS - BENZO NEGATIVE QUAL (NEGATIVE); UDS - COCAINE NEGATIVE QUAL (NEGATIVE); UDS - OPIATE POSITIVE QUAL (NEGATIVE); UDS - PCP NEGATIVE QUAL (NEGATIVE); UDS - THC NEGATIVE QUAL (NEGATIVE)
== END 2017-05-08 07:13 | disposition critical access hospital (66) ==
LOC: D.ER 17:50
PROVIDERS: Emergency Medicine
DX: R45.851 Suicidal ideations (principal); N39.0 Urinary tract infection, site not specified

== ENCOUNTER 2017-05-23 09:48 | Emergency (ER) | payer MEDICAID ==
[2016-07-27 12:14] VITALS: BMI 27.4
== END 2017-05-23 10:55 | disposition home or self-care (01) ==
LOC: D.ER 09:48
DX: A08.4 Viral intestinal infection, unspecified (principal)

== ENCOUNTER 2017-06-01 11:21 | Emergency (ER) | payer MEDICAID ==
[2016-07-27 12:14] VITALS: BMI 27.4
== END 2017-06-01 12:39 | disposition home or self-care (01) ==
LOC: D.ER 11:21
DX: M19.90 Unspecified osteoarthritis, unspecified site (principal)

== ENCOUNTER 2017-06-03 00:38 | Emergency (ER) | payer MEDICAID ==
[2016-07-27 12:14] VITALS: BMI 27.4
== END 2017-06-03 02:29 | disposition home or self-care (01) ==
LOC: D.ER 00:38
DX: G47.00 Insomnia, unspecified (principal)

== ENCOUNTER 2017-06-07 11:53 | Emergency (ER) | payer MEDICAID ==
[2016-07-27 12:14] VITALS: BMI 27.4
[2017-06-07 15:09] LABS: APPEARANCE HAZY (CLEAR); BILIRUBIN NEGATIVE (NEGATIVE); COLOR YELLOW (YELLOW); GLUCOSE NEGATIVE (NEGATIVE); KETONE NEGATIVE (NEGATIVE); NITRITE POSITIVE (NEGATIVE); PROTEIN 1+ mg/dL (NEGATIVE); SPECIFIC GRAVITY 1.015 (1.005-1.020); UROBILINOGEN NORMAL (NORMAL)
[2017-06-07 15:11] LABS: BACTERIA MANY /hpf (NONE SEEN); EPITHELIAL CELLS 0-5 /hpf (0-5); RED CELLS - URINE 0-5 /hpf (0-5); WHITE CELLS - URINE >50 /hpf (0-5)
[2017-06-12 16:09] LABS: AEROBE ID Final report (()); RESULT 1 Proteus mirabilis (())
== END 2017-06-07 16:10 | disposition home or self-care (01) ==
LOC: D.ER 11:53
PROVIDERS: Emergency Medicine; Physician Assistant
DX: N39.0 Urinary tract infection, site not specified (principal); L30.4 Erythema intertrigo

== ENCOUNTER 2017-06-09 22:13 | Emergency (ER) | payer MEDICAID ==
[2016-07-27 12:14] VITALS: BMI 27.4
[2017-06-10 00:38] LABS: BASOPHILS 0.2 % (0-2); EOSINOPHILS 0.6 % (0-7); HEMATOCRIT 42.9 % (36.0-48.0); HEMOGLOBIN 14.3 g/dL (12-16); IMMATURE GRANULOCYTES 0.3 % (0-5); LYMPHOCYTES 13.4 % (15-50); MCH 31.6 pg (26.0-34.0); MCHC 33.3 g/dL (31.0-37.0); MCV 94.7 fL (80.0-100.0); MEAN PLATELET VOLUME 9.6 fL (7.4-10.4); MONOCYTES 7.7 % (2-11); NEUTROPHILS 77.8 % (40-80); PLATELET COUNT 286 10x3/uL (130-400); RBC 4.53 10x6/uL (4.00-5.40); RDW 13.2 % (11.5-14.5); WBC 9.8 10x3/uL (4.8-10.8)
[2017-06-10 00:54] LABS: ALBUMIN 3.4 g/dL (3.4-5.0); ANION GAP 10.2 mmol/L (8-16); BILIRUBIN - TOTAL 0.6 mg/dL (0.2-1.3); C-REACTIVE PROTEIN 3.1 mg/dL (0.0-0.9); CALCIUM 9.1 mg/dL (8.5-10.1); CARBON DIOXIDE 30.5 mmol/L (21.0-32.0); CREATININE - SERUM 0.9 mg/dL (0.6-1.3); POTASSIUM - SERUM 3.7 mmol/L (3.5-5.1)
== END 2017-06-10 01:04 | disposition home or self-care (01) ==
LOC: D.ER 22:13
PROVIDERS: Physician Assistant
DX: R19.7 Diarrhea, unspecified (principal); R10.30 Lower abdominal pain, unspecified

== ENCOUNTER 2017-06-10 07:54 | Emergency (ER) | payer MEDICAID ==
[2016-07-27 12:14] VITALS: BMI 27.4
== END 2017-06-10 08:45 | disposition home or self-care (01) ==
LOC: D.ER 07:54
DX: G89.29 Other chronic pain (principal); F32.9 Major depressive disorder, single episode, unspecified

== ENCOUNTER 2017-06-10 13:01 | Emergency (ER) | payer MEDICAID ==
[2016-07-27 12:14] VITALS: BMI 27.4
== END 2017-06-10 15:06 | disposition home or self-care (01) ==
LOC: D.ER 13:01
DX: Z76.5 Malingerer [conscious simulation] (principal)

== ENCOUNTER 2017-06-13 13:52 | Emergency (ER) | payer MEDICAID ==
[2016-07-27 12:14] VITALS: BMI 27.4
== END 2017-06-13 14:35 | disposition home or self-care (01) ==
LOC: D.ER 13:52
DX: M25.50 Pain in unspecified joint (principal); G47.00 Insomnia, unspecified

== ENCOUNTER 2017-06-13 23:24 | Emergency (ER) | payer MEDICAID ==
[2016-07-27 12:14] VITALS: BMI 27.4
[2017-06-14 00:41] LABS: BASOPHILS 0.3 % (0-2); EOSINOPHILS 0.6 % (0-7); HEMATOCRIT 42.9 % (36.0-48.0); HEMOGLOBIN 14.6 g/dL (12-16); IMMATURE GRANULOCYTES 0.4 % (0-5); LYMPHOCYTES 22.3 % (15-50); MCH 32.1 pg (26.0-34.0); MCV 94.3 fL (80.0-100.0); MEAN PLATELET VOLUME 9.6 fL (7.4-10.4); MONOCYTES 6.4 % (2-11); RBC 4.55 10x6/uL (4.00-5.40); RDW 13.2 % (11.5-14.5); WBC 9.9 10x3/uL (4.8-10.8)
[2017-06-14 00:47] LABS: PLATELET COUNT 382 10x3/uL (130-400)
[2017-06-14 00:50] LABS: INR 0.98 (0.85-1.17); PROTIME 12.6 SECONDS (11.6-15.0)
[2017-06-14 00:55] LABS: ALBUMIN 3.5 g/dL (3.4-5.0); ALKALINE PHOSPHATASE 89 U/L (46-116); ALT (SGPT) 32 U/L (10-68); BILIRUBIN - TOTAL 0.38 mg/dL (0.2-1.3); CALC OSMOLALITY 286 mosm/kg (275-300); CALCIUM 9.1 mg/dL (8.5-10.1); CARBON DIOXIDE 29.4 mmol/L (21.0-32.0); CHLORIDE - SERUM 104 mmol/L (98-107); CREATININE - SERUM 0.8 mg/dL (0.6-1.3); GLUCOSE 109 mg/dL (74-106); POTASSIUM - SERUM 3.2 mmol/L (3.5-5.1); SODIUM 143 mmol/L (136-145); UREA NITROGEN 16 mg/dL (7-18); eGFR NON AFRICAN AMERICAN 81 mL/min (90-120)
== END 2017-06-14 02:50 | disposition home or self-care (01) ==
LOC: D.ER 23:24
PROVIDERS: Nurse Practitioner Family
DX: R10.9 Unspecified abdominal pain (principal); E87.6 Hypokalemia

== ENCOUNTER 2017-06-17 04:10 | Emergency (ER) | payer MEDICAID ==
[2016-07-27 12:14] VITALS: BMI 27.4
[2017-06-17 04:48] LABS: UDS - AMPHET NEGATIVE QUAL (NEGATIVE); UDS - BARB NEGATIVE QUAL (NEGATIVE); UDS - BENZO NEGATIVE QUAL (NEGATIVE); UDS - COCAINE NEGATIVE QUAL (NEGATIVE); UDS - OPIATE POSITIVE QUAL (NEGATIVE); UDS - PCP NEGATIVE QUAL (NEGATIVE); UDS - THC NEGATIVE QUAL (NEGATIVE)
[2017-06-17 04:52] LABS: BASOPHILS 0.5 % (0-2); EOSINOPHILS 1.4 % (0-7); HEMATOCRIT 41.6 % (36.0-48.0); IMMATURE GRANULOCYTES 0.4 % (0-5); LYMPHOCYTES 24.6 % (15-50); MCH 31.5 pg (26.0-34.0); MCHC 33.7 g/dL (31.0-37.0); MCV 93.5 fL (80.0-100.0); MEAN PLATELET VOLUME 9.6 fL (7.4-10.4); MONOCYTES 9.4 % (2-11); NEUTROPHILS 63.7 % (40-80); PLATELET COUNT 336 10x3/uL (130-400); RBC 4.45 10x6/uL (4.00-5.40); WBC 9.2 10x3/uL (4.8-10.8)
[2017-06-17 04:54] LABS: APPEARANCE CLOUDY (CLEAR); BILIRUBIN NEGATIVE (NEGATIVE); COLOR YELLOW (YELLOW); GLUCOSE NEGATIVE (NEGATIVE); KETONE NEGATIVE (NEGATIVE); NITRITE NEGATIVE (NEGATIVE); PROTEIN 1+ mg/dL (NEGATIVE); UROBILINOGEN NORMAL (NORMAL)
[2017-06-17 04:56] LABS: BACTERIA MODERATE /hpf (NONE SEEN); EPITHELIAL CELLS 0-5 /hpf (0-5); MUCUS <1+ /lpf (NONE SEEN); RED CELLS - URINE 0-5 /hpf (0-5)
[2017-06-17 05:00] LABS: ALBUMIN 3.6 g/dL (3.4-5.0); ANION GAP 15.2 mmol/L (8-16); BILIRUBIN - TOTAL 0.61 mg/dL (0.2-1.3); CALCIUM 8.9 mg/dL (8.5-10.1); CREATININE - SERUM 0.9 mg/dL (0.6-1.3); POTASSIUM - SERUM 3.2 mmol/L (3.5-5.1); PROTEIN - SERUM 7.9 g/dL (6.4-8.2)
[2017-06-17 05:10] LABS: THYROID STIMULATING HORMONE 0.45 uIU/mL (0.36-3.74)
== END 2017-06-17 09:58 | disposition short-term general hospital (02) ==
LOC: D.ER 04:10
PROVIDERS: Emergency Medicine
DX: F60.9 Personality disorder, unspecified (principal); R45.851 Suicidal ideations; F32.9 Major depressive disorder, single episode, unspecified; N39.0 Urinary tract infection, site not specified; N30.00 Acute cystitis without hematuria

== ENCOUNTER 2017-07-01 10:44 | Emergency (ER) | payer MEDICAID ==
[2016-07-27 12:14] VITALS: BMI 27.4
== END 2017-07-01 11:29 | disposition home or self-care (01) ==
LOC: D.ER 10:44
DX: M25.50 Pain in unspecified joint (principal); T14.8XXA Other injury of unspecified body region, initial encounter; X58.XXXA Exposure to other specified factors, initial encounter; Y93.9 Activity, unspecified; Y92.9 Unspecified place or not applicable; F41.9 Anxiety disorder, unspecified

== ENCOUNTER 2017-07-03 06:07 | Emergency (ER) | payer MEDICAID ==
[2016-07-27 12:14] VITALS: BMI 27.4
== END 2017-07-03 06:36 | disposition home or self-care (01) ==
LOC: D.ER 06:07
DX: K27.9 Peptic ulcer, site unspecified, unspecified as acute or chronic, without hemorrhage or perforation (principal)

== ENCOUNTER 2017-07-03 07:22 | Emergency (ER) | payer MEDICAID ==
[2016-07-27 12:14] VITALS: BMI 27.4
== END 2017-07-03 08:02 | disposition home or self-care (01) ==
LOC: D.ER 07:22
DX: F41.9 Anxiety disorder, unspecified (principal)

== ENCOUNTER 2017-07-04 00:49 | Emergency (ER) | payer MEDICAID ==
[2016-07-27 12:14] VITALS: BMI 27.4
== END 2017-07-04 01:07 | disposition home or self-care (01) ==
LOC: D.ER 00:49
DX: K52.9 Noninfective gastroenteritis and colitis, unspecified (principal)

== ENCOUNTER 2017-07-05 21:39 | Emergency (ER) | payer MEDICAID ==
[2016-07-27 12:14] VITALS: BMI 27.4
[2017-07-05 22:38] LABS: BASOPHILS 0.3 % (0-2); EOSINOPHILS 2.1 % (0-7); HEMATOCRIT 39.4 % (36.0-48.0); HEMOGLOBIN 13.1 g/dL (12-16); IMMATURE GRANULOCYTES 0.3 % (0-5); MCH 31.3 pg (26.0-34.0); MCHC 33.2 g/dL (31.0-37.0); MCV 94.3 fL (80.0-100.0); MEAN PLATELET VOLUME 9.7 fL (7.4-10.4); MONOCYTES 7.7 % (2-11); NEUTROPHILS 58.6 % (40-80); PLATELET COUNT 323 10x3/uL (130-400); RBC 4.18 10x6/uL (4.00-5.40); RDW 13.3 % (11.5-14.5); WBC 7.7 10x3/uL (4.8-10.8)
[2017-07-05 22:50] LABS: APPEARANCE HAZY (CLEAR); BACTERIA MODERATE /hpf (NONE SEEN); BILIRUBIN NEGATIVE (NEGATIVE); COLOR YELLOW (YELLOW); EPITHELIAL CELLS 0-5 /hpf (0-5); GLUCOSE NEGATIVE (NEGATIVE); KETONE NEGATIVE (NEGATIVE); NITRITE NEGATIVE (NEGATIVE); PROTEIN NEGATIVE (NEGATIVE); RED CELLS - URINE 0-5 /hpf (0-5); SPECIFIC GRAVITY 1.025 (1.005-1.020); UROBILINOGEN NORMAL (NORMAL)
[2017-07-05 22:53] LABS: ALBUMIN 3.1 g/dL (3.4-5.0); ALKALINE PHOSPHATASE 87 U/L (46-116); ALT (SGPT) 22 U/L (10-68); CALC OSMOLALITY 287 mosm/kg (275-300); CALCIUM 9.8 mg/dL (8.5-10.1); CARBON DIOXIDE 26.6 mmol/L (21.0-32.0); CHLORIDE - SERUM 106 mmol/L (98-107); CREATININE - SERUM 0.8 mg/dL (0.6-1.3); GLUCOSE 117 mg/dL (74-106); POTASSIUM - SERUM 3.4 mmol/L (3.5-5.1); PROTEIN - SERUM 7.5 g/dL (6.4-8.2); SODIUM 144 mmol/L (136-145); UREA NITROGEN 12 mg/dL (7-18); eGFR NON AFRICAN AMERICAN 81 mL/min (90-120)
[2017-07-05 23:20] LABS: UDS - AMPHET NEGATIVE QUAL (NEGATIVE); UDS - BARB NEGATIVE QUAL (NEGATIVE); UDS - BENZO POSITIVE QUAL (NEGATIVE); UDS - COCAINE NEGATIVE QUAL (NEGATIVE); UDS - OPIATE NEGATIVE QUAL (NEGATIVE); UDS - PCP NEGATIVE QUAL (NEGATIVE); UDS - THC NEGATIVE QUAL (NEGATIVE)
== END 2017-07-06 03:40 ==
LOC: D.ER 21:39
PROVIDERS: Family Medicine
DX: R45.851 Suicidal ideations (principal); N39.0 Urinary tract infection, site not specified

== ENCOUNTER 2017-07-21 10:47 | Emergency (ER) | payer MEDICAID ==
[2016-07-27 12:14] VITALS: BMI 27.4
[2017-07-21 11:31] LABS: APPEARANCE HAZY (CLEAR); BILIRUBIN NEGATIVE (NEGATIVE); COLOR YELLOW (YELLOW); GLUCOSE NEGATIVE (NEGATIVE); KETONE NEGATIVE (NEGATIVE); NITRITE NEGATIVE (NEGATIVE); PROTEIN NEGATIVE (NEGATIVE); UROBILINOGEN NORMAL (NORMAL)
[2017-07-21 11:32] LABS: BACTERIA FEW /hpf (NONE SEEN); EPITHELIAL CELLS 0-5 /hpf (0-5); MUCUS >1+ /lpf (NONE SEEN)
== END 2017-07-21 12:00 | disposition home or self-care (01) ==
LOC: D.ER 10:47
PROVIDERS: Family Medicine
DX: N39.0 Urinary tract infection, site not specified (principal); R10.2 Pelvic and perineal pain

== ENCOUNTER 2017-07-26 11:44 | Emergency (ER) | payer MEDICAID ==
[2016-07-27 12:14] VITALS: BMI 27.4
== END 2017-07-26 14:46 | disposition home or self-care (01) ==
LOC: D.ER 11:44
DX: S00.93XA Contusion of unspecified part of head, initial encounter (principal); Y04.2XXA Assault by strike against or bumped into by another person, initial encounter; Y93.89 Activity, other specified; Y92.410 Unspecified street and highway as the place of occurrence of the external cause

== ENCOUNTER 2017-07-29 12:06 | Emergency (ER) | payer MEDICAID ==
[2016-07-27 12:14] VITALS: BMI 27.4
== END 2017-07-29 13:07 | disposition home or self-care (01) ==
LOC: D.ER 12:06
DX: M79.1 Myalgia (principal); J02.9 Acute pharyngitis, unspecified

== ENCOUNTER 2017-08-15 20:25 | Emergency (ER) | payer MEDICAID ==
[~2017-08-15] VITALS: Ht 162.6 cm; Wt 70.5 kg
[2017-08-15 20:31] VITALS: Ht 162.6 cm; Wt 70.5 kg
[2017-08-15] MEDS ORDERED: ZOLOFT100 MG PO (20:33)
[2017-08-15 20:57] LABS: APPEARANCE CLOUDY (CLEAR); BILIRUBIN NEGATIVE (NEGATIVE); COLOR YELLOW (YELLOW); GLUCOSE NEGATIVE (NEGATIVE); KETONE NEGATIVE (NEGATIVE); NITRITE NEGATIVE (NEGATIVE); PROTEIN NEGATIVE (NEGATIVE); UROBILINOGEN NORMAL (NORMAL); WHITE CELLS - URINE 25-50 /hpf (0-5)
[2017-08-15 20:58] LABS: BACTERIA MODERATE /hpf (NONE SEEN); EPITHELIAL CELL CAST OCC /lpf (NONE SEEN); MUCUS <1+ /lpf (NONE SEEN)
[2017-08-15] MEDS ORDERED: MACROBID100 MG PO (21:47)
[2017-08-15 21:48] VITALS: BP 123/67
[2017-08-18 11:17] LABS: CHLAMYDIA TRACHOMATIS, NAA Negative (Negative)
== END 2017-08-15 21:58 | disposition home or self-care (01) ==
LOC: D.ER 20:25
PROVIDERS: Family Medicine
DX: N39.0 Urinary tract infection, site not specified (principal)

== ENCOUNTER 2017-08-22 18:25 | Emergency (ER) | payer MEDICAID ==
[~2017-08-22] VITALS: Ht 162.6 cm; Wt 65.9 kg
[~2017-08-22 18:25] MED LIST changes: +MACROBID100 MG PO; +ZOLOFT100 MG PO
[2017-08-22 18:35] VITALS: BP 117/93; Ht 162.6 cm; Wt 65.9 kg
[2017-08-22] MEDS ORDERED: VISTARIL25 MG PO (18:57)
== END 2017-08-22 19:05 | disposition home or self-care (01) ==
LOC: D.ER 18:25
DX: G47.00 Insomnia, unspecified (principal)

== ENCOUNTER 2017-08-27 15:43 | Emergency (ER) | payer MEDICAID ==
[~2017-08-27] VITALS: Ht 162.6 cm; Wt 65.9 kg
[~2017-08-27 15:43] MED LIST changes: +VISTARIL25 MG PO
[2017-08-27 16:14] VITALS: BP 129/94; Ht 162.6 cm; Wt 65.9 kg
[2017-08-28] MEDS ORDERED: MACRODANTIN100 MG PO (20:17)
[2017-08-28] MEDS ORDERED: ULTRAM50 MG PO (20:17)
== END 2017-08-28 00:10 | disposition left against medical advice (07) ==
LOC: D.ER 15:43
DX: N39.0 Urinary tract infection, site not specified (principal)

== ENCOUNTER 2017-08-28 15:20 | Emergency (ER) | payer MEDICAID ==
[~2017-08-28] VITALS: Ht 162.6 cm; Wt 68.2 kg
[2017-08-28 16:17] VITALS: Ht 162.6 cm; Wt 68.2 kg
[2017-08-28 18:13] LABS: APPEARANCE HAZY (CLEAR); BILIRUBIN NEGATIVE (NEGATIVE); COLOR YELLOW (YELLOW); GLUCOSE NEGATIVE (NEGATIVE); KETONE NEGATIVE (NEGATIVE); NITRITE NEGATIVE (NEGATIVE); PROTEIN 1+ mg/dL (NEGATIVE); UROBILINOGEN NORMAL (NORMAL); WHITE CELLS - URINE 25-50 /hpf (0-5)
[2017-08-28 18:14] LABS: EPITHELIAL CELLS 0-5 /hpf (0-5); RED CELLS - URINE 0-5 /hpf (0-5)
[2017-08-28 18:15] LABS: BACTERIA MODERATE /hpf (NONE SEEN)
[2017-08-28] MEDS ORDERED: MACRODANTIN100 MG PO (20:17)
[2017-08-28] MEDS ORDERED: ULTRAM50 MG PO (20:17)
[2017-08-28 20:24] VITALS: BP 117/77
[2017-09-02 08:08] LABS: CHLAMYDIA TRACHOMATIS, NAA Negative (Negative)
== END 2017-08-28 20:36 | disposition home or self-care (01) ==
LOC: D.ER 15:20
PROVIDERS: Emergency Medicine
DX: N39.0 Urinary tract infection, site not specified (principal); R35.0 Frequency of micturition

== ENCOUNTER 2017-09-17 16:40 | Emergency (ER) | payer MEDICAID ==
[~2017-09-17] VITALS: Ht 162.6 cm; Wt 63.6 kg
[~2017-09-17 16:40] MED LIST changes: +MACRODANTIN100 MG PO
[2017-09-17 16:46] VITALS: BP 124/77; Ht 162.6 cm; Wt 63.6 kg
[2017-09-17 17:45] LABS: APPEARANCE CLEAR (CLEAR); BACTERIA MODERATE /hpf (NONE SEEN); BILIRUBIN NEGATIVE (NEGATIVE); COLOR YELLOW (YELLOW); EPITHELIAL CELLS 0-5 /hpf (0-5); GLUCOSE NEGATIVE (NEGATIVE); KETONE NEGATIVE (NEGATIVE); NITRITE NEGATIVE (NEGATIVE); PROTEIN TRACE mg/dL (NEGATIVE); RED CELLS - URINE 0-5 /hpf (0-5); UROBILINOGEN NORMAL (NORMAL)
[2017-09-17] MEDS ORDERED: MACROBID100 MG PO (18:07)
== END 2017-09-17 18:28 | disposition home or self-care (01) ==
LOC: D.ER 16:40
PROVIDERS: Emergency Medicine
DX: N39.0 Urinary tract infection, site not specified (principal); Z76.5 Malingerer [conscious simulation]

== ENCOUNTER 2017-09-18 02:18 | Emergency (ER) | payer MEDICAID ==
[~2017-09-18] VITALS: Ht 162.6 cm; Wt 72.7 kg
[2017-09-18 02:23] VITALS: BP 135/84; Ht 162.6 cm; Wt 72.7 kg
[2017-09-19] MEDS ORDERED: ATARAX 25 MG TA25 MG PO (00:51)
== END 2017-09-18 02:38 | disposition home or self-care (01) ==
LOC: D.ER 02:18
DX: Z76.5 Malingerer [conscious simulation] (principal)

== ENCOUNTER 2017-09-18 12:02 | Emergency (ER) | payer MEDICAID ==
[~2017-09-18] VITALS: Ht 162.6 cm; Wt 65.9 kg
[2017-09-18 12:13] VITALS: Ht 162.6 cm; Wt 65.9 kg
[2017-09-18 13:22] LABS: APPEARANCE HAZY (CLEAR); COLOR YELLOW (YELLOW)
[2017-09-18 13:23] LABS: BILIRUBIN NEGATIVE (NEGATIVE); GLUCOSE NEGATIVE (NEGATIVE); KETONE NEGATIVE (NEGATIVE); NITRITE NEGATIVE (NEGATIVE); PROTEIN NEGATIVE (NEGATIVE); UROBILINOGEN NORMAL (NORMAL)
[2017-09-18 13:26] LABS: BACTERIA FEW /hpf (NONE SEEN); EPITHELIAL CELLS 0-5 /hpf (0-5); MUCUS <1+ /lpf (NONE SEEN); RED CELLS - URINE 0-5 /hpf (0-5)
[2017-09-18 13:27] LABS: TALC POWDER CRYSTALS 0-5 /hpf (NONE SEEN)
[2017-09-18 14:53] VITALS: BP 144/86
[2017-09-19] MEDS ORDERED: ATARAX 25 MG TA25 MG PO (00:51)
[2017-09-22 21:08] LABS: CHLAMYDIA TRACHOMATIS, NAA Negative (Negative)
== END 2017-09-18 14:55 | disposition home or self-care (01) ==
LOC: D.ER 12:02
PROVIDERS: Family Medicine
DX: N39.0 Urinary tract infection, site not specified (principal); R10.9 Unspecified abdominal pain; Z76.5 Malingerer [conscious simulation]

== ENCOUNTER 2017-09-18 23:21 | Emergency (ER) | payer MEDICAID ==
[~2017-09-18] VITALS: Ht 162.6 cm; Wt 75.0 kg
[2017-09-18 23:26] VITALS: Ht 162.6 cm; Wt 75.0 kg
[2017-09-19] MEDS ORDERED: ATARAX 25 MG TA25 MG PO (00:51)
[2017-09-19 01:00] VITALS: BP 128/78
== END 2017-09-19 01:02 | disposition home or self-care (01) ==
LOC: D.ER 23:21
DX: G47.00 Insomnia, unspecified (principal); Z76.5 Malingerer [conscious simulation]

== ENCOUNTER 2017-09-21 18:28 | Emergency (ER) | payer MEDICAID ==
[~2017-09-21] VITALS: Ht 162.6 cm; Wt 70.5 kg
[~2017-09-21 18:28] MED LIST changes: +ATARAX 25 MG TA25 MG PO
[2017-09-21 18:38] VITALS: BP 130/75; Ht 162.6 cm; Wt 70.5 kg
[2017-09-21 19:36] LABS: APPEARANCE CLEAR (CLEAR); BILIRUBIN NEGATIVE (NEGATIVE); COLOR YELLOW (YELLOW); GLUCOSE NEGATIVE (NEGATIVE); KETONE NEGATIVE (NEGATIVE); NITRITE NEGATIVE (NEGATIVE); PROTEIN NEGATIVE (NEGATIVE); SPECIFIC GRAVITY 1.015 (1.005-1.020); UROBILINOGEN NORMAL (NORMAL)
[2017-09-21 19:37] LABS: RED CELLS - URINE OCC /hpf (0-5); WHITE CELLS - URINE 0-5 /hpf (0-5)
[2017-09-21 19:38] LABS: BACTERIA FEW /hpf (NONE SEEN); EPITHELIAL CELLS OCC /hpf (0-5)
== END 2017-09-21 20:25 | disposition left against medical advice (07) ==
LOC: D.ER 18:28
PROVIDERS: Family Medicine
DX: R10.9 Unspecified abdominal pain (principal)

== ENCOUNTER 2017-09-22 15:51 | Emergency (ER) | payer MEDICAID ==
[~2017-09-22] VITALS: Ht 162.6 cm; Wt 70.5 kg
[2017-09-22 15:56] VITALS: BP 129/84; Ht 162.6 cm; Wt 70.5 kg
== END 2017-09-22 16:30 | disposition left against medical advice (07) ==
LOC: D.ER 15:51
DX: Z76.0 Encounter for issue of repeat prescription (principal); Z76.5 Malingerer [conscious simulation]

== ENCOUNTER 2017-09-23 13:14 | Emergency (ER) | payer MEDICAID ==
[~2017-09-23] VITALS: Ht 162.6 cm; Wt 68.2 kg
[2017-09-23 13:28] VITALS: BP 111/72; Ht 162.6 cm; Wt 68.2 kg
== END 2017-09-23 14:30 | disposition left against medical advice (07) ==
LOC: D.ER 13:14
DX: R10.9 Unspecified abdominal pain (principal)

== ENCOUNTER 2017-09-28 06:22 | Emergency (ER) | payer MEDICAID ==
[~2017-09-28] VITALS: Ht 162.6 cm; Wt 68.2 kg
[2017-09-28 06:23] VITALS: Ht 162.6 cm; Wt 68.2 kg
[2017-09-28] MEDS ORDERED: BACTRIM DS TABL1 TAB PO (06:36)
[2017-09-28] MEDS ORDERED: KEFLEX500 MG PO (06:36)
[2017-09-28 06:40] VITALS: BP 132/85
[2017-09-28] MEDS ORDERED: ZOVIRAX800 MG PO (15:46)
== END 2017-09-28 06:41 | disposition home or self-care (01) ==
LOC: D.ER 06:22
DX: L73.9 Follicular disorder, unspecified (principal)

== ENCOUNTER 2017-09-28 15:17 | Emergency (ER) | payer MEDICAID ==
[~2017-09-28] VITALS: Ht 162.6 cm; Wt 68.2 kg
[~2017-09-28 15:17] MED LIST changes: +BACTRIM DS TABL1 TAB PO; +KEFLEX500 MG PO
[2017-09-28 15:22] VITALS: BP 124/78; Ht 162.6 cm; Wt 68.2 kg
[2017-09-28] MEDS ORDERED: ZOVIRAX800 MG PO (15:46)
== END 2017-09-28 15:53 | disposition home or self-care (01) ==
LOC: D.ER 15:17
DX: B00.1 Herpesviral vesicular dermatitis (principal)

== ENCOUNTER 2017-10-10 19:05 | Emergency (ER) | payer MEDICAID ==
[~2017-10-10] VITALS: Ht 162.6 cm; Wt 68.2 kg
[~2017-10-10 19:05] MED LIST changes: +ZOVIRAX800 MG PO
[2017-10-10 19:21] VITALS: Ht 162.6 cm; Wt 68.2 kg
[2017-10-10 19:48] LABS: BASOPHILS 0.2 % (0-2); EOSINOPHILS 0.5 % (0-7); HEMATOCRIT 33.6 % (36.0-48.0); HEMOGLOBIN 11.5 g/dL (12-16); IMMATURE GRANULOCYTES 0.3 % (0-5); LYMPHOCYTES 12.7 % (15-50); MCH 31.7 pg (26.0-34.0); MCHC 34.2 g/dL (31.0-37.0); MCV 92.6 fL (80.0-100.0); MEAN PLATELET VOLUME 9.1 fL (7.4-10.4); MONOCYTES 3.5 % (2-11); NEUTROPHILS 82.8 % (40-80); PLATELET COUNT 347 10x3/uL (130-400); RBC 3.63 10x6/uL (4.00-5.40); RDW 14.4 % (11.5-14.5); WBC 9.8 10x3/uL (4.8-10.8)
[2017-10-10 20:08] LABS: ALBUMIN 3.3 g/dL (3.4-5.0); ALKALINE PHOSPHATASE 95 U/L (46-116); ALT (SGPT) 23 U/L (10-68); BILIRUBIN - TOTAL 0.34 mg/dL (0.2-1.3); CALC OSMOLALITY 281 mosm/kg (275-300); CALCIUM 9.5 mg/dL (8.5-10.1); CHLORIDE - SERUM 103 mmol/L (98-107); CREATININE - SERUM 0.5 mg/dL (0.6-1.3); GLUCOSE 133 mg/dL (74-106); POTASSIUM - SERUM 3.3 mmol/L (3.5-5.1); PROTEIN - SERUM 8.1 g/dL (6.4-8.2); SODIUM 141 mmol/L (136-145); UREA NITROGEN 11 mg/dL (7-18); eGFR NON AFRICAN AMERICAN > 90 mL/min (90-120)
[2017-10-10 21:25] LABS: COLOR YELLOW (YELLOW)
[2017-10-10 21:26] LABS: APPEARANCE HAZY (CLEAR); BILIRUBIN NEGATIVE (NEGATIVE); GLUCOSE NEGATIVE (NEGATIVE); KETONE NEGATIVE (NEGATIVE); NITRITE NEGATIVE (NEGATIVE); PROTEIN NEGATIVE (NEGATIVE); UROBILINOGEN NORMAL (NORMAL)
[2017-10-10 21:29] LABS: BACTERIA MANY /hpf (NONE SEEN); EPITHELIAL CELLS 0-5 /hpf (0-5); RED CELLS - URINE 0-5 /hpf (0-5)
[2017-10-10 22:12] VITALS: BP 112/86
== END 2017-10-10 22:14 | disposition left against medical advice (07) ==
LOC: D.ER 19:05
PROVIDERS: Family Medicine
DX: N39.0 Urinary tract infection, site not specified (principal); Z76.5 Malingerer [conscious simulation]

== ENCOUNTER 2017-10-12 15:39 | Emergency (ER) | payer MEDICAID ==
[~2017-10-12] VITALS: Ht 162.6 cm; Wt 68.2 kg
[2017-10-12 15:57] VITALS: Ht 162.6 cm; Wt 68.2 kg
[2017-10-12] MEDS ORDERED: IBUPROFEN800 MG PO (15:59)
[2017-10-12] MEDS ORDERED: TORADOL10 MG PO (18:44)
[2017-10-12 19:04] VITALS: BP 131/79
== END 2017-10-12 19:06 | disposition home or self-care (01) ==
LOC: D.ER 15:39
DX: K13.0 Diseases of lips (principal); K50.90 Crohn's disease, unspecified, without complications

== ENCOUNTER 2017-10-18 09:02 | Emergency (ER) | payer MEDICAID ==
[~2017-10-18] VITALS: Ht 162.6 cm; Wt 63.6 kg
[~2017-10-18 09:02] MED LIST changes: +IBUPROFEN800 MG PO; +TORADOL10 MG PO
[2017-10-18 09:06] VITALS: Ht 162.6 cm; Wt 63.6 kg
[2017-10-18] MEDS ORDERED: EC-NAPROSYN500 MG PO (10:39)
[2017-10-18] MEDS ORDERED: BACTRIM DS TABL1 TAB PO (10:39)
[2017-10-18 10:58] VITALS: BP 111/64
== END 2017-10-18 10:59 | disposition home or self-care (01) ==
LOC: D.ER 09:02
DX: L02.512 Cutaneous abscess of left hand (principal)

== ENCOUNTER 2017-10-21 10:32 | Emergency (ER) | payer MEDICAID ==
[~2017-10-21] VITALS: Ht 162.6 cm; Wt 63.6 kg
[~2017-10-21 10:32] MED LIST changes: +EC-NAPROSYN500 MG PO
[2017-10-21 10:34] VITALS: Ht 162.6 cm; Wt 63.6 kg
[2017-10-21 10:54] LABS: BASOPHILS 0.3 % (0-2); HEMATOCRIT 31.6 % (36.0-48.0); HEMOGLOBIN 10.7 g/dL (12-16); IMMATURE GRANULOCYTES 0.7 % (0-5); LYMPHOCYTES 14.8 % (15-50); MCHC 33.9 g/dL (31.0-37.0); MCV 91.6 fL (80.0-100.0); MEAN PLATELET VOLUME 8.7 fL (7.4-10.4); MONOCYTES 8.9 % (2-11); NEUTROPHILS 74.3 % (40-80); PLATELET COUNT 410 10x3/uL (130-400); RBC 3.45 10x6/uL (4.00-5.40); WBC 7.7 10x3/uL (4.8-10.8)
[2017-10-21 10:56] LABS: UDS - AMPHET NEGATIVE QUAL (NEGATIVE); UDS - BARB NEGATIVE QUAL (NEGATIVE); UDS - BENZO NEGATIVE QUAL (NEGATIVE); UDS - COCAINE NEGATIVE QUAL (NEGATIVE); UDS - OPIATE NEGATIVE QUAL (NEGATIVE); UDS - PCP NEGATIVE QUAL (NEGATIVE); UDS - THC NEGATIVE QUAL (NEGATIVE)
[2017-10-21 11:07] LABS: APPEARANCE CLOUDY (CLEAR); BACTERIA MANY /hpf (NONE SEEN); BILIRUBIN NEGATIVE (NEGATIVE); COLOR YELLOW (YELLOW); GLUCOSE NEGATIVE (NEGATIVE); GRANULAR CAST RARE /lpf (NONE SEEN); KETONE NEGATIVE (NEGATIVE); MUCUS <1+ /lpf (NONE SEEN); NITRITE NEGATIVE (NEGATIVE); PROTEIN 1+ mg/dL (NEGATIVE); SPECIFIC GRAVITY 1.015 (1.005-1.020); UROBILINOGEN NORMAL (NORMAL); WHITE CELLS - URINE >50 /hpf (0-5)
[2017-10-21 11:08] LABS: TALC POWDER CRYSTALS 0-5 /hpf (NONE SEEN)
[2017-10-21 11:12] LABS: ALBUMIN 3.1 g/dL (3.4-5.0); CALCIUM 8.5 mg/dL (8.5-10.1); CARBON DIOXIDE 17.3 mmol/L (21.0-32.0); CREATININE - SERUM 0.9 mg/dL (0.6-1.3); PROTEIN - SERUM 7.8 g/dL (6.4-8.2)
[2017-10-21 11:19] LABS: ANION GAP 17.6 mmol/L (8-16); BILIRUBIN - TOTAL 0.09 mg/dL (0.2-1.3); POTASSIUM - SERUM 2.9 mmol/L (3.5-5.1)
[2017-10-21 11:32] LABS: THYROID STIMULATING HORMONE 0.02 uIU/mL (0.36-3.74)
[2017-10-21 19:34] VITALS: BP 116/74
== END 2017-10-21 19:35 | disposition home or self-care (01) ==
LOC: D.ER 10:32
PROVIDERS: Family Medicine
DX: R45.851 Suicidal ideations (principal); E87.6 Hypokalemia; F19.10 Other psychoactive substance abuse, uncomplicated; N39.0 Urinary tract infection, site not specified

== ENCOUNTER 2017-10-28 08:58 | Emergency (ER) | payer MEDICAID ==
[~2017-10-28] VITALS: Ht 162.6 cm; Wt 68.2 kg
[2017-10-28 09:19] VITALS: Ht 162.6 cm; Wt 68.2 kg
[2017-10-28] MEDS ORDERED: IBUPROFEN800 MG PO (10:46)
[2017-10-28 10:59] VITALS: BP 122/068
== END 2017-10-28 11:01 | disposition home or self-care (01) ==
LOC: D.ER 08:58
DX: M77.51 Other enthesopathy of right foot and ankle (principal)

== ENCOUNTER 2017-11-10 21:52 | Emergency (ER) | payer MEDICAID ==
[~2017-11-10] VITALS: Ht 162.6 cm; Wt 79.5 kg
[2017-11-10 21:56] VITALS: BP 110/68; Ht 162.6 cm; Wt 79.5 kg
[2017-11-10 22:31] LABS: APPEARANCE HAZY (CLEAR); BILIRUBIN NEGATIVE (NEGATIVE); COLOR STRAW (YELLOW); GLUCOSE NEGATIVE (NEGATIVE); KETONE NEGATIVE (NEGATIVE); NITRITE NEGATIVE (NEGATIVE); PROTEIN NEGATIVE (NEGATIVE); SPECIFIC GRAVITY 1.015 (1.005-1.020); UROBILINOGEN NORMAL (NORMAL)
[2017-11-10 22:33] LABS: BACTERIA MODERATE /hpf (NONE SEEN); EPITHELIAL CELLS 0-5 /hpf (0-5); RED CELLS - URINE 0-5 /hpf (0-5)
[2017-11-10] MEDS ORDERED: CIPRO500 MG PO (23:36)
[2017-11-10] MEDS ORDERED: ZOVIRAX800 MG PO (23:36)
[2017-11-11] MEDS ORDERED: KEFLEX500 MG PO (10:58)
[2017-11-11] MEDS ORDERED: CYCLOBENZAPRINE10 MG PO (10:58)
[2017-11-11] MEDS ORDERED: IBUPROFEN800 MG PO (10:58)
[2017-11-11] MEDS ORDERED: ACETAMINOPHEN500 M1 PO (10:58)
[2017-11-11] MEDS ORDERED: MACROBID100 MG PO (10:58)
== END 2017-11-10 23:36 | disposition home or self-care (01) ==
LOC: D.ER 21:52
PROVIDERS: Emergency Medicine
DX: N39.0 Urinary tract infection, site not specified (principal); M54.5 Low back pain

== ENCOUNTER 2017-11-11 08:27 | Emergency (ER) | payer MEDICAID ==
[~2017-11-11] VITALS: Ht 162.6 cm; Wt 68.2 kg
[~2017-11-11 08:27] MED LIST changes: +CIPRO500 MG PO
[2017-11-11 08:30] VITALS: Ht 162.6 cm; Wt 68.2 kg
[2017-11-11 10:43] LABS: APPEARANCE CLOUDY (CLEAR); COLOR YELLOW (YELLOW); SPECIFIC GRAVITY 1.025 (1.005-1.020)
[2017-11-11 10:44] LABS: BACTERIA MANY /hpf (NONE SEEN); BILIRUBIN NEGATIVE (NEGATIVE); GLUCOSE NEGATIVE (NEGATIVE); KETONE NEGATIVE (NEGATIVE); MUCUS <1+ /lpf (NONE SEEN); NITRITE NEGATIVE (NEGATIVE); PROTEIN TRACE mg/dL (NEGATIVE); RED CELLS - URINE 25-50 /hpf (0-5); UROBILINOGEN NORMAL (NORMAL); WHITE CELLS - URINE 25-50 /hpf (0-5)
[2017-11-11] MEDS ORDERED: CYCLOBENZAPRINE10 MG PO (10:58)
[2017-11-11] MEDS ORDERED: ACETAMINOPHEN500 M1 PO (10:58)
[2017-11-11] MEDS ORDERED: MACROBID100 MG PO (10:58)
[2017-11-11] MEDS ORDERED: KEFLEX500 MG PO (10:58)
[2017-11-11] MEDS ORDERED: IBUPROFEN800 MG PO (10:58)
[2017-11-11 11:09] VITALS: BP 125/71
== END 2017-11-11 11:13 | disposition home or self-care (01) ==
LOC: D.ER 08:27
PROVIDERS: Family Medicine
DX: N39.0 Urinary tract infection, site not specified (principal); M79.605 Pain in left leg; M79.604 Pain in right leg

== ENCOUNTER 2017-11-12 16:35 | Emergency (ER) | payer MEDICAID ==
[~2017-11-12 16:35] MED LIST changes: +ACETAMINOPHEN500 M1 PO; +CYCLOBENZAPRINE10 MG PO
[2017-11-12 16:51] VITALS: Ht 162.6 cm
[2017-11-12 17:17] LABS: BASOPHILS 0.5 % (0-2); EOSINOPHILS 2.8 % (0-7); HEMOGLOBIN 10.8 g/dL (12-16); IMMATURE GRANULOCYTES 0.3 % (0-5); LYMPHOCYTES 23.6 % (15-50); MCH 31.1 pg (26.0-34.0); MCHC 32.7 g/dL (31.0-37.0); MCV 95.1 fL (80.0-100.0); MEAN PLATELET VOLUME 9.2 fL (7.4-10.4); NEUTROPHILS 64.8 % (40-80); PLATELET COUNT 395 10x3/uL (130-400); RBC 3.47 10x6/uL (4.00-5.40); RDW 14.1 % (11.5-14.5); WBC 6.5 10x3/uL (4.8-10.8)
[2017-11-12 17:32] LABS: ALBUMIN 3.4 g/dL (3.4-5.0); ANION GAP 16.7 mmol/L (8-16); BILIRUBIN - TOTAL 0.14 mg/dL (0.2-1.3); CALCIUM 8.4 mg/dL (8.5-10.1); CARBON DIOXIDE 22.9 mmol/L (21.0-32.0); CREATININE - SERUM 0.9 mg/dL (0.6-1.3); POTASSIUM - SERUM 3.6 mmol/L (3.5-5.1); PROTEIN - SERUM 7.8 g/dL (6.4-8.2)
[2017-11-12 17:46] LABS: UDS - AMPHET NEGATIVE QUAL (NEGATIVE); UDS - BARB NEGATIVE QUAL (NEGATIVE); UDS - BENZO NEGATIVE QUAL (NEGATIVE); UDS - COCAINE NEGATIVE QUAL (NEGATIVE); UDS - OPIATE NEGATIVE QUAL (NEGATIVE); UDS - PCP NEGATIVE QUAL (NEGATIVE); UDS - THC NEGATIVE QUAL (NEGATIVE)
[2017-11-12 18:05] LABS: APPEARANCE HAZY (CLEAR); BILIRUBIN NEGATIVE (NEGATIVE); COLOR YELLOW (YELLOW); GLUCOSE NEGATIVE (NEGATIVE); KETONE NEGATIVE (NEGATIVE); NITRITE NEGATIVE (NEGATIVE); PROTEIN NEGATIVE (NEGATIVE); SPECIFIC GRAVITY 1.015 (1.005-1.020); UROBILINOGEN NORMAL (NORMAL)
[2017-11-12 18:06] LABS: BACTERIA MODERATE /hpf (NONE SEEN); EPITHELIAL CELLS 0-5 /hpf (0-5); RED CELLS - URINE 0-5 /hpf (0-5)
[2017-11-13] MEDS ORDERED: ULTRAM50 MG PO (00:34)
[2017-11-13 00:40] VITALS: BP 118/74
== END 2017-11-13 00:41 | disposition home or self-care (01) ==
LOC: D.ER 16:35
PROVIDERS: Family Medicine
DX: F32.9 Major depressive disorder, single episode, unspecified (principal); R44.0 Auditory hallucinations; R45.851 Suicidal ideations; R44.1 Visual hallucinations

== ENCOUNTER 2017-11-15 22:18 | Emergency (ER) | payer MEDICAID ==
[~2017-11-15] VITALS: Ht 162.6 cm; Wt 65.9 kg
[2017-11-15 22:20] VITALS: Ht 162.6 cm; Wt 65.9 kg
[2017-11-15 23:28] LABS: UDS - AMPHET NEGATIVE QUAL (NEGATIVE); UDS - BARB NEGATIVE QUAL (NEGATIVE); UDS - BENZO NEGATIVE QUAL (NEGATIVE); UDS - COCAINE NEGATIVE QUAL (NEGATIVE); UDS - OPIATE NEGATIVE QUAL (NEGATIVE); UDS - PCP NEGATIVE QUAL (NEGATIVE); UDS - THC NEGATIVE QUAL (NEGATIVE)
[2017-11-15 23:32] LABS: APPEARANCE CLEAR (CLEAR); BILIRUBIN NEGATIVE (NEGATIVE); COLOR YELLOW (YELLOW); GLUCOSE NEGATIVE (NEGATIVE); KETONE NEGATIVE (NEGATIVE); NITRITE NEGATIVE (NEGATIVE); PROTEIN TRACE mg/dL (NEGATIVE); UROBILINOGEN NORMAL (NORMAL)
[2017-11-15 23:34] LABS: BACTERIA FEW /hpf (NONE SEEN); EPITHELIAL CELLS 0-5 /hpf (0-5); RED CELLS - URINE 0-5 /hpf (0-5)
[2017-11-16 00:07] LABS: HEMATOCRIT 31.3 % (36.0-48.0); HEMOGLOBIN 10.5 g/dL (12-16); LYMPHOCYTES 24.7 % (15-50); MCH 31.1 pg (26.0-34.0); MCHC 33.5 g/dL (31.0-37.0); MCV 92.6 fL (80.0-100.0); MEAN PLATELET VOLUME 8.6 fL (7.4-10.4); NEUTROPHILS 68.2 % (40-80); PLATELET COUNT 412 10x3/uL (130-400); RBC 3.38 10x6/uL (4.00-5.40); RDW 13.1 % (11.5-14.5); WBC 7.6 10x3/uL (4.8-10.8)
[2017-11-16 00:29] LABS: ALBUMIN 3.1 g/dL (3.4-5.0); ALKALINE PHOSPHATASE 95 U/L (46-116); ALT (SGPT) 19 U/L (10-68); BILIRUBIN - TOTAL 0.17 mg/dL (0.2-1.3); CALC OSMOLALITY 283 mosm/kg (275-300); CALCIUM 8.6 mg/dL (8.5-10.1); CARBON DIOXIDE 26.5 mmol/L (21.0-32.0); CHLORIDE - SERUM 106 mmol/L (98-107); CREATININE - SERUM 0.8 mg/dL (0.6-1.3); GLUCOSE 104 mg/dL (74-106); POTASSIUM - SERUM 3.6 mmol/L (3.5-5.1); PROTEIN - SERUM 7.1 g/dL (6.4-8.2); SODIUM 141 mmol/L (136-145); UREA NITROGEN 20 mg/dL (7-18); eGFR NON AFRICAN AMERICAN 81 mL/min (90-120)
[2017-11-16 10:13] VITALS: BP 148/084
== END 2017-11-16 10:14 ==
LOC: D.ER 22:18
PROVIDERS: Family Medicine
DX: F32.9 Major depressive disorder, single episode, unspecified (principal); R44.0 Auditory hallucinations; R45.851 Suicidal ideations; R44.1 Visual hallucinations

== ENCOUNTER 2017-11-23 15:28 | Emergency (ER) | payer MEDICAID ==
[~2017-11-23] VITALS: Ht 162.6 cm; Wt 68.2 kg
[2017-11-23 15:52] VITALS: Ht 162.6 cm; Wt 68.2 kg
[2017-11-23 16:49] LABS: APPEARANCE CLEAR (CLEAR); BILIRUBIN NEGATIVE (NEGATIVE); COLOR YELLOW (YELLOW); GLUCOSE NEGATIVE (NEGATIVE); KETONE NEGATIVE (NEGATIVE); NITRITE NEGATIVE (NEGATIVE); PROTEIN TRACE mg/dL (NEGATIVE); SPECIFIC GRAVITY 1.025 (1.005-1.020); UROBILINOGEN NORMAL (NORMAL)
[2017-11-23 16:51] LABS: BACTERIA MODERATE /hpf (NONE SEEN); EPITHELIAL CELLS 0-5 /hpf (0-5); RED CELLS - URINE OCC /hpf (0-5)
[2017-11-23] MEDS ORDERED: CLEOCIN HCL300 MG PO (16:51)
[2017-11-23 17:11] VITALS: BP 122/70
[2017-11-24] MEDS ORDERED: CLARITIN 10 MG10 MG PO (21:56)
== END 2017-11-23 17:18 | disposition home or self-care (01) ==
LOC: D.ER 15:28
PROVIDERS: Emergency Medicine
DX: N89.8 Other specified noninflammatory disorders of vagina (principal); K50.90 Crohn's disease, unspecified, without complications

== ENCOUNTER 2017-11-24 21:04 | Emergency (ER) | payer MEDICAID ==
[~2017-11-24] VITALS: Ht 162.6 cm; Wt 63.6 kg
[~2017-11-24 21:04] MED LIST changes: +CLEOCIN HCL300 MG PO
[2017-11-24 21:11] VITALS: BP 125/69; Ht 162.6 cm; Wt 63.6 kg
[2017-11-24] MEDS ORDERED: CLARITIN 10 MG10 MG PO (21:56)
== END 2017-11-24 22:04 | disposition home or self-care (01) ==
LOC: D.ER 21:04
DX: J06.9 Acute upper respiratory infection, unspecified (principal); J02.9 Acute pharyngitis, unspecified

== ENCOUNTER 2017-11-26 12:40 | Emergency (ER) | payer MEDICAID ==
[~2017-11-26] VITALS: Ht 162.6 cm; Wt 68.2 kg
[~2017-11-26 12:40] MED LIST changes: +CLARITIN 10 MG10 MG PO
[2017-11-26 13:06] VITALS: Ht 162.6 cm; Wt 68.2 kg
[2017-11-26 13:42] LABS: APPEARANCE CLEAR (CLEAR); BILIRUBIN NEGATIVE (NEGATIVE); COLOR YELLOW (YELLOW); GLUCOSE NEGATIVE (NEGATIVE); KETONE NEGATIVE (NEGATIVE); NITRITE NEGATIVE (NEGATIVE); PROTEIN NEGATIVE (NEGATIVE); UROBILINOGEN NORMAL (NORMAL)
[2017-11-26 13:48] LABS: AMORPHOUS SEDIMENT <1+ /lpf (NONE SEEN); BACTERIA MODERATE /hpf (NONE SEEN); EPITHELIAL CELLS 0-5 /hpf (0-5); MUCUS <1+ /lpf (NONE SEEN)
[2017-11-26 13:49] LABS: HYALINE CAST OCC /lpf (NONE SEEN)
[2017-11-26 15:31] VITALS: BP 123/77
== END 2017-11-26 15:32 | disposition home or self-care (01) ==
LOC: D.ER 12:40
PROVIDERS: Family Medicine
DX: R30.0 Dysuria (principal)

== ENCOUNTER 2017-12-21 20:01 | Emergency (ER) | payer MEDICAID ==
[~2017-12-21] VITALS: Ht 162.6 cm; Wt 70.5 kg
[2017-12-21 20:10] VITALS: Ht 162.6 cm; Wt 70.5 kg
[2017-12-21 20:37] LABS: UDS - AMPHET NEGATIVE QUAL (NEGATIVE); UDS - BARB NEGATIVE QUAL (NEGATIVE); UDS - BENZO POSITIVE QUAL (NEGATIVE); UDS - COCAINE NEGATIVE QUAL (NEGATIVE); UDS - OPIATE NEGATIVE QUAL (NEGATIVE); UDS - PCP NEGATIVE QUAL (NEGATIVE); UDS - THC NEGATIVE QUAL (NEGATIVE)
[2017-12-21 20:51] LABS: APPEARANCE HAZY (CLEAR); BILIRUBIN NEGATIVE (NEGATIVE); COLOR YELLOW (YELLOW); GLUCOSE NEGATIVE (NEGATIVE); KETONE NEGATIVE (NEGATIVE); NITRITE NEGATIVE (NEGATIVE); PROTEIN NEGATIVE (NEGATIVE); UROBILINOGEN NORMAL (NORMAL)
[2017-12-21 20:52] LABS: EPITHELIAL CELLS 0-5 /hpf (0-5); RED CELLS - URINE 0-5 /hpf (0-5)
[2017-12-21 20:53] LABS: BACTERIA MANY /hpf (NONE SEEN)
[2017-12-21 21:09] LABS: BASOPHILS 0.4 % (0-2); EOSINOPHILS 0.7 % (0-7); HEMATOCRIT 35.8 % (36.0-48.0); HEMOGLOBIN 11.9 g/dL (12-16); IMMATURE GRANULOCYTES 0.2 % (0-5); MCH 30.1 pg (26.0-34.0); MCHC 33.2 g/dL (31.0-37.0); MCV 90.4 fL (80.0-100.0); MEAN PLATELET VOLUME 9.3 fL (7.4-10.4); MONOCYTES 5.2 % (2-11); NEUTROPHILS 77.5 % (40-80); PLATELET COUNT 339 10x3/uL (130-400); RBC 3.96 10x6/uL (4.00-5.40); RDW 12.6 % (11.5-14.5); WBC 9.1 10x3/uL (4.8-10.8)
[2017-12-21 21:34] LABS: ALBUMIN 3.3 g/dL (3.4-5.0); ANION GAP 15.8 mmol/L (8-16); BILIRUBIN - TOTAL 0.12 mg/dL (0.2-1.3); CALCIUM 9.3 mg/dL (8.5-10.1); CARBON DIOXIDE 24.5 mmol/L (21.0-32.0); CREATININE - SERUM 0.9 mg/dL (0.6-1.3); MAGNESIUM - SERUM 1.6 mg/dL (1.8-2.4); POTASSIUM - SERUM 3.3 mmol/L (3.5-5.1); PROTEIN - SERUM 7.8 g/dL (6.4-8.2)
[2017-12-22 01:37] VITALS: BP 122/80
== END 2017-12-22 01:39 | disposition other institution (70) ==
LOC: D.ER 20:01
PROVIDERS: Family Medicine
DX: R45.851 Suicidal ideations (principal); F32.9 Major depressive disorder, single episode, unspecified

== ENCOUNTER 2018-01-16 16:09 | Emergency (ER) | payer MEDICAID ==
[~2018-01-16] VITALS: Ht 162.6 cm; Wt 68.2 kg
[2018-01-16 16:11] VITALS: Ht 162.6 cm; Wt 68.2 kg
[2018-01-16] MEDS ORDERED: PROCTOFOAM-HC 110 GM RC (16:42)
[2018-01-16] MEDS ORDERED: TENORMIN25 MG PO (16:42)
[2018-01-16 16:56] VITALS: BP 111/89
== END 2018-01-16 16:57 | disposition home or self-care (01) ==
LOC: D.ER 16:09
DX: K62.89 Other specified diseases of anus and rectum (principal); R10.9 Unspecified abdominal pain; R00.0 Tachycardia, unspecified; K50.90 Crohn's disease, unspecified, without complications

== ENCOUNTER 2018-01-18 09:53 | Emergency (ER) | payer MEDICAID ==
[~2018-01-18] VITALS: Ht 162.6 cm; Wt 75.0 kg
[~2018-01-18 09:53] MED LIST changes: +PROCTOFOAM-HC 110 GM RC; +TENORMIN25 MG PO
[2018-01-18 09:57] VITALS: Ht 162.6 cm; Wt 75.0 kg
[2018-01-18 10:39] VITALS: BP 136/89
== END 2018-01-18 10:39 | disposition home or self-care (01) ==
LOC: D.ER 09:53
DX: R51 Headache (principal); Z76.5 Malingerer [conscious simulation]

== ENCOUNTER 2018-01-23 19:19 | Emergency (ER) | payer MEDICAID ==
[~2018-01-23] VITALS: Ht 162.6 cm; Wt 72.7 kg
[2018-01-23 19:25] VITALS: Ht 162.6 cm; Wt 72.7 kg
[2018-01-23 20:07] LABS: BASOPHILS 0.2 % (0-2); EOSINOPHILS 1.2 % (0-7); HEMATOCRIT 36.2 % (36.0-48.0); HEMOGLOBIN 11.8 g/dL (12-16); IMMATURE GRANULOCYTES 0.1 % (0-5); LYMPHOCYTES 30.7 % (15-50); MCH 29.2 pg (26.0-34.0); MCHC 32.6 g/dL (31.0-37.0); MCV 89.6 fL (80.0-100.0); MEAN PLATELET VOLUME 9.4 fL (7.4-10.4); MONOCYTES 8.7 % (2-11); NEUTROPHILS 59.1 % (40-80); PLATELET COUNT 377 10x3/uL (130-400); RBC 4.04 10x6/uL (4.00-5.40); RDW 13.8 % (11.5-14.5); WBC 8.4 10x3/uL (4.8-10.8)
[2018-01-23 20:13] LABS: APPEARANCE CLEAR (CLEAR); BILIRUBIN NEGATIVE (NEGATIVE); COLOR YELLOW (YELLOW); GLUCOSE NEGATIVE (NEGATIVE); KETONE NEGATIVE (NEGATIVE); NITRITE NEGATIVE (NEGATIVE); PROTEIN 1+ mg/dL (NEGATIVE); UROBILINOGEN NORMAL (NORMAL)
[2018-01-23 20:15] LABS: RED CELLS - URINE 0-5 /hpf (0-5)
[2018-01-23 20:16] LABS: BACTERIA MODERATE /hpf (NONE SEEN); EPITHELIAL CELLS 0-5 /hpf (0-5)
[2018-01-23 20:18] LABS: MUCUS <1+ /lpf (NONE SEEN)
[2018-01-23 20:23] LABS: ALBUMIN 3.2 g/dL (3.4-5.0); ANION GAP 14.8 mmol/L (8-16); BILIRUBIN - TOTAL 0.1 mg/dL (0.2-1.3); CALCIUM 8.8 mg/dL (8.5-10.1); CARBON DIOXIDE 23.5 mmol/L (21.0-32.0); POTASSIUM - SERUM 3.3 mmol/L (3.5-5.1); PROTEIN - SERUM 7.6 g/dL (6.4-8.2)
[2018-01-23] MEDS ORDERED: LEVSIN/ANASP0.125 MG PO (21:07)
[2018-01-23] MEDS ORDERED: CIPRO500 MG PO (21:07)
[2018-01-23 21:16] VITALS: BP 132/84
== END 2018-01-23 21:17 | disposition home or self-care (01) ==
LOC: D.ER 19:19
PROVIDERS: Family Medicine
DX: N39.0 Urinary tract infection, site not specified (principal)

== ENCOUNTER 2018-02-09 14:12 | Emergency (ER) | payer MEDICAID ==
[2018-01-23 19:25] VITALS: BMI 27.5
[~2018-02-09 14:12] MED LIST changes: -BUTALB-APAP-CA1 EACH PO
[2018-02-09] MEDS ORDERED: BUTALB-APAP-CA1 EACH PO (17:36)
== END 2018-02-09 14:29 | disposition left against medical advice (07) ==
LOC: D.ER 14:12
DX: G43.909 Migraine, unspecified, not intractable, without status migrainosus (principal)

== ENCOUNTER 2018-02-09 16:58 | Emergency (ER) | payer MEDICAID ==
[~2018-02-09] VITALS: Ht 162.6 cm; Wt 72.7 kg
[2018-02-09 17:20] VITALS: Ht 162.6 cm; Wt 72.7 kg
[2018-02-09] MEDS ORDERED: BUTALB-APAP-CA1 EACH PO (17:36)
[2018-02-09 17:39] VITALS: BP 144/87
== END 2018-02-09 17:39 | disposition home or self-care (01) ==
LOC: D.ER 16:58
DX: G43.909 Migraine, unspecified, not intractable, without status migrainosus (principal)

== ENCOUNTER → 2018-02-09 | Emergency (ER) | payer MEDICAID ==
[~2018-02-09] VITALS: Ht 162.6 cm; Wt 68.2 kg
[~2018-02-09] MED LIST changes: +BUTALB-APAP-CA1 EACH PO; +LEVSIN/ANASP0.125 MG PO
[2018-02-09 23:10] VITALS: BP 112/75; Ht 162.6 cm; Wt 68.2 kg
== END | disposition home or self-care (01) ==
LOC: D.ER 22:47
DX: G43.909 Migraine, unspecified, not intractable, without status migrainosus (principal)

== ENCOUNTER 2018-02-10 05:42 | Emergency (ER) | payer MEDICAID ==
[~2018-02-10] VITALS: Ht 162.6 cm; Wt 100.0 kg
[~2018-02-10 05:42] MED LIST changes: +BUTALB-APAP-CA1 EACH PO
[2018-02-10 05:46] VITALS: BP 134/89; Ht 162.6 cm; Wt 100.0 kg
== END 2018-02-10 06:14 | disposition home or self-care (01) ==
LOC: D.ER 05:42
DX: Z76.5 Malingerer [conscious simulation] (principal); F41.9 Anxiety disorder, unspecified; F32.9 Major depressive disorder, single episode, unspecified

== ENCOUNTER 2018-02-15 10:31 | Emergency (ER) | payer MEDICAID ==
[~2018-02-15] VITALS: Ht 162.6 cm; Wt 77.3 kg
[2018-02-15 10:36] VITALS: BP 124/77; Ht 162.6 cm; Wt 77.3 kg
[2018-02-15] MEDS ORDERED: BUTALB-APAP-CA1 EACH PO (11:07)
== END 2018-02-15 11:10 | disposition home or self-care (01) ==
LOC: D.ER 10:31
DX: R51 Headache (principal)

== ENCOUNTER 2018-02-15 20:38 | Emergency (ER) | payer MEDICAID ==
[~2018-02-15] VITALS: Ht 162.6 cm; Wt 77.1 kg
[2018-02-15 20:41] VITALS: BP 118/77; Ht 162.6 cm; Wt 77.1 kg
== END 2018-02-15 21:35 | disposition left against medical advice (07) ==
LOC: D.ER 20:38
DX: R51 Headache (principal)

== ENCOUNTER 2018-02-18 13:47 | Emergency (ER) | payer MEDICAID ==
[~2018-02-18] VITALS: Ht 162.6 cm; Wt 72.7 kg
[2018-02-18 14:22] VITALS: BP 118/71; Ht 162.6 cm; Wt 72.7 kg
[2018-02-19] MEDS ORDERED: MACROBID100 MG PO (18:49)
== END 2018-02-18 15:42 | disposition home or self-care (01) ==
LOC: D.ER 13:47
DX: Z76.5 Malingerer [conscious simulation] (principal); K50.90 Crohn's disease, unspecified, without complications

== ENCOUNTER 2018-02-18 20:21 | Emergency (ER) | payer MEDICAID ==
[~2018-02-18] VITALS: Ht 162.6 cm; Wt 77.3 kg
[2018-02-18 20:36] VITALS: BP 118/70; Ht 162.6 cm; Wt 77.3 kg
[2018-02-19] MEDS ORDERED: MACROBID100 MG PO (18:49)
== END 2018-02-18 21:40 | disposition home or self-care (01) ==
LOC: D.ER 20:21
DX: Z76.5 Malingerer [conscious simulation] (principal)

== ENCOUNTER 2018-02-19 15:46 | Emergency (ER) | payer MEDICAID ==
[~2018-02-19] VITALS: Ht 162.6 cm; Wt 77.3 kg
[2018-02-19 15:53] VITALS: Ht 162.6 cm; Wt 77.3 kg
[2018-02-19 16:21] LABS: APPEARANCE CLEAR (CLEAR); BILIRUBIN NEGATIVE (NEGATIVE); COLOR YELLOW (YELLOW); GLUCOSE NEGATIVE (NEGATIVE); KETONE NEGATIVE (NEGATIVE); NITRITE NEGATIVE (NEGATIVE); PROTEIN NEGATIVE (NEGATIVE); UROBILINOGEN NORMAL (NORMAL)
[2018-02-19 16:22] LABS: EPITHELIAL CELLS 0-5 /hpf (0-5); RED CELLS - URINE 0-5 /hpf (0-5); WHITE CELLS - URINE 0-5 /hpf (0-5)
[2018-02-19 16:50] LABS: UDS - AMPHET NEGATIVE QUAL (NEGATIVE); UDS - BARB POSITIVE QUAL (NEGATIVE); UDS - BENZO NEGATIVE QUAL (NEGATIVE); UDS - COCAINE NEGATIVE QUAL (NEGATIVE); UDS - OPIATE NEGATIVE QUAL (NEGATIVE); UDS - PCP NEGATIVE QUAL (NEGATIVE); UDS - THC NEGATIVE QUAL (NEGATIVE)
[2018-02-19 16:58] LABS: BASOPHILS 0.3 % (0-2); EOSINOPHILS 0.8 % (0-7); HEMATOCRIT 36.9 % (36.0-48.0); HEMOGLOBIN 12.1 g/dL (12-16); IMMATURE GRANULOCYTES 0.3 % (0-5); LYMPHOCYTES 28.8 % (15-50); MCH 29.7 pg (26.0-34.0); MCHC 32.8 g/dL (31.0-37.0); MCV 90.7 fL (80.0-100.0); MEAN PLATELET VOLUME 9.6 fL (7.4-10.4); MONOCYTES 7.5 % (2-11); NEUTROPHILS 62.3 % (40-80); PLATELET COUNT 399 10x3/uL (130-400); RBC 4.07 10x6/uL (4.00-5.40); RDW 14.5 % (11.5-14.5); WBC 7.2 10x3/uL (4.8-10.8)
[2018-02-19 17:24] LABS: ALBUMIN 3.5 g/dL (3.4-5.0); ALKALINE PHOSPHATASE 106 U/L (46-116); ALT (SGPT) 40 U/L (10-68); CALC OSMOLALITY 284 mosm/kg (275-300); CARBON DIOXIDE 26.3 mmol/L (21.0-32.0); CHLORIDE - SERUM 105 mmol/L (98-107); CREATININE - SERUM 0.4 mg/dL (0.6-1.3); GLUCOSE 102 mg/dL (74-106); MAGNESIUM - SERUM 1.9 mg/dL (1.8-2.4); POTASSIUM - SERUM 3.4 mmol/L (3.5-5.1); SODIUM 142 mmol/L (136-145); UREA NITROGEN 19 mg/dL (7-18); eGFR NON AFRICAN AMERICAN > 90 mL/min (90-120)
[2018-02-19 17:38] LABS: BILIRUBIN - TOTAL 0.29 mg/dL (0.2-1.3)
[2018-02-19] MEDS ORDERED: MACROBID100 MG PO (18:49)
[2018-02-19 19:33] VITALS: BP 123/72
== END 2018-02-19 21:20 ==
LOC: D.ER 15:46
PROVIDERS: Family Medicine
DX: R45.851 Suicidal ideations (principal); E87.6 Hypokalemia; N39.0 Urinary tract infection, site not specified

== ENCOUNTER 2018-02-22 19:36 | Emergency (ER) | payer MEDICAID ==
[~2018-02-22] VITALS: Ht 162.6 cm; Wt 75.0 kg
[2018-02-22 19:40] VITALS: BP 134/84; Ht 162.6 cm; Wt 75.0 kg
== END 2018-02-22 19:50 | disposition home or self-care (01) ==
LOC: D.ER 19:36
DX: Z76.5 Malingerer [conscious simulation] (principal); R11.0 Nausea

== ENCOUNTER 2018-03-09 16:39 | Emergency (ER) | payer MEDICAID ==
[~2018-03-09] VITALS: Ht 162.6 cm; Wt 72.7 kg
[2018-03-09 16:56] VITALS: Ht 162.6 cm; Wt 72.7 kg
[2018-03-09 17:22] LABS: UDS - AMPHET NEGATIVE QUAL (NEGATIVE); UDS - BARB NEGATIVE QUAL (NEGATIVE); UDS - BENZO NEGATIVE QUAL (NEGATIVE); UDS - COCAINE NEGATIVE QUAL (NEGATIVE); UDS - OPIATE NEGATIVE QUAL (NEGATIVE); UDS - PCP NEGATIVE QUAL (NEGATIVE); UDS - THC NEGATIVE QUAL (NEGATIVE)
[2018-03-09 17:48] LABS: BASOPHILS 0.5 % (0-2); EOSINOPHILS 1.3 % (0-7); HEMATOCRIT 37.1 % (36.0-48.0); IMMATURE GRANULOCYTES 0.3 % (0-5); MCH 29.3 pg (26.0-34.0); MCHC 32.3 g/dL (31.0-37.0); MCV 90.7 fL (80.0-100.0); MEAN PLATELET VOLUME 9.1 fL (7.4-10.4); MONOCYTES 4.9 % (2-11); RBC 4.09 10x6/uL (4.00-5.40); RDW 14.7 % (11.5-14.5); WBC 6.4 10x3/uL (4.8-10.8)
[2018-03-09 17:53] LABS: PLATELET COUNT 300 10x3/uL (130-400)
[2018-03-09 18:16] LABS: CALC OSMOLALITY 277 mosm/kg (275-300); CALCIUM 8.9 mg/dL (8.5-10.1); CHLORIDE - SERUM 103 mmol/L (98-107); CREATININE - SERUM 0.7 mg/dL (0.6-1.3); GLUCOSE 115 mg/dL (74-106); POTASSIUM - SERUM 3.8 mmol/L (3.5-5.1); SODIUM 138 mmol/L (136-145); UREA NITROGEN 14 mg/dL (7-18); eGFR NON AFRICAN AMERICAN > 90 mL/min (90-120)
[2018-03-09 20:55] VITALS: BP 132/87
== END 2018-03-09 20:55 | disposition home or self-care (01) ==
LOC: D.ER 16:39
PROVIDERS: Family Medicine
DX: F32.9 Major depressive disorder, single episode, unspecified (principal); R45.851 Suicidal ideations

== ENCOUNTER 2018-03-14 20:40 | Emergency (ER) | payer MEDICAID ==
[~2018-03-14] VITALS: Ht 162.6 cm; Wt 72.7 kg
[2018-03-14 20:59] VITALS: Ht 162.6 cm; Wt 72.7 kg
[2018-03-14 21:31] LABS: BASOPHILS 0.4 % (0-2); EOSINOPHILS 0.7 % (0-7); HEMATOCRIT 38.2 % (36.0-48.0); HEMOGLOBIN 12.7 g/dL (12-16); IMMATURE GRANULOCYTES 0.1 % (0-5); LYMPHOCYTES 15.6 % (15-50); MCH 30.2 pg (26.0-34.0); MCHC 33.2 g/dL (31.0-37.0); MEAN PLATELET VOLUME 9.5 fL (7.4-10.4); MONOCYTES 3.9 % (2-11); NEUTROPHILS 79.3 % (40-80); PLATELET COUNT 346 10x3/uL (130-400); RDW 14.6 % (11.5-14.5); WBC 8.4 10x3/uL (4.8-10.8)
[2018-03-14 21:36] LABS: APPEARANCE CLEAR (CLEAR); COLOR YELLOW (YELLOW); HCG URINE NEGATIVE (NEGATIVE)
[2018-03-14 21:37] LABS: BILIRUBIN NEGATIVE (NEGATIVE); GLUCOSE NEGATIVE (NEGATIVE); KETONE NEGATIVE (NEGATIVE); NITRITE NEGATIVE (NEGATIVE); PROTEIN NEGATIVE (NEGATIVE); UROBILINOGEN NORMAL (NORMAL)
[2018-03-14 21:38] LABS: BACTERIA MODERATE /hpf (NONE SEEN); EPITHELIAL CELLS 0-5 /hpf (0-5); RED CELLS - URINE OCC /hpf (0-5)
[2018-03-14 21:41] LABS: UDS - AMPHET NEGATIVE QUAL (NEGATIVE); UDS - BARB NEGATIVE QUAL (NEGATIVE); UDS - BENZO NEGATIVE QUAL (NEGATIVE); UDS - COCAINE NEGATIVE QUAL (NEGATIVE); UDS - OPIATE NEGATIVE QUAL (NEGATIVE); UDS - PCP NEGATIVE QUAL (NEGATIVE); UDS - THC NEGATIVE QUAL (NEGATIVE)
[2018-03-14 21:52] LABS: ALBUMIN 3.2 g/dL (3.4-5.0); ALKALINE PHOSPHATASE 105 U/L (46-116); ALT (SGPT) 26 U/L (10-68); BILIRUBIN - TOTAL 0.23 mg/dL (0.2-1.3); CALC OSMOLALITY 278 mosm/kg (275-300); CALCIUM 8.7 mg/dL (8.5-10.1); CARBON DIOXIDE 25.7 mmol/L (21.0-32.0); CHLORIDE - SERUM 102 mmol/L (98-107); CREATININE - SERUM 0.8 mg/dL (0.6-1.3); GLUCOSE 140 mg/dL (74-106); MAGNESIUM - SERUM 1.7 mg/dL (1.8-2.4); POTASSIUM - SERUM 3.7 mmol/L (3.5-5.1); PROTEIN - SERUM 7.8 g/dL (6.4-8.2); SODIUM 139 mmol/L (136-145); UREA NITROGEN 11 mg/dL (7-18); eGFR NON AFRICAN AMERICAN 81 mL/min (90-120)
[2018-03-15] MEDS ORDERED: MACROBID100 MG PO (00:46)
[2018-03-15 02:24] VITALS: BP 140/89
== END 2018-03-15 02:00 ==
LOC: D.ER 20:40
PROVIDERS: Family Medicine
DX: R45.851 Suicidal ideations (principal); N39.0 Urinary tract infection, site not specified

== ENCOUNTER 2018-03-21 13:56 | Emergency (ER) | payer MEDICAID ==
[~2018-03-21] VITALS: Ht 162.6 cm; Wt 77.1 kg
[2018-03-21 14:04] VITALS: Ht 162.6 cm; Wt 77.1 kg
[2018-03-21 15:37] LABS: BASOPHILS 0.3 % (0-2); EOSINOPHILS 1.5 % (0-7); HEMATOCRIT 36.9 % (36.0-48.0); HEMOGLOBIN 12.1 g/dL (12-16); IMMATURE GRANULOCYTES 0.3 % (0-5); MCHC 32.8 g/dL (31.0-37.0); MCV 91.6 fL (80.0-100.0); MEAN PLATELET VOLUME 9.5 fL (7.4-10.4); MONOCYTES 5.1 % (2-11); NEUTROPHILS 75.8 % (40-80); PLATELET COUNT 334 10x3/uL (130-400); RBC 4.03 10x6/uL (4.00-5.40); RDW 14.1 % (11.5-14.5); WBC 10.8 10x3/uL (4.8-10.8)
[2018-03-21 15:53] LABS: ALBUMIN 3.2 g/dL (3.4-5.0); ANION GAP 11.7 mmol/L (8-16); BILIRUBIN - TOTAL 0.15 mg/dL (0.2-1.3); CALCIUM 8.7 mg/dL (8.5-10.1); CARBON DIOXIDE 28.2 mmol/L (21.0-32.0); CREATININE - SERUM 0.9 mg/dL (0.6-1.3); MAGNESIUM - SERUM 1.7 mg/dL (1.8-2.4); POTASSIUM - SERUM 3.9 mmol/L (3.5-5.1); PROTEIN - SERUM 7.6 g/dL (6.4-8.2)
[2018-03-21 15:55] LABS: APPEARANCE CLEAR (CLEAR); BILIRUBIN NEGATIVE (NEGATIVE); COLOR YELLOW (YELLOW); GLUCOSE NEGATIVE (NEGATIVE); KETONE NEGATIVE (NEGATIVE); NITRITE NEGATIVE (NEGATIVE); PROTEIN NEGATIVE (NEGATIVE); UROBILINOGEN NORMAL (NORMAL)
[2018-03-21 15:58] LABS: BACTERIA MODERATE /hpf (NONE SEEN); EPITHELIAL CELLS 0-5 /hpf (0-5); RED CELLS - URINE OCC /hpf (0-5); WHITE CELLS - URINE 0-5 /hpf (0-5)
[2018-03-21 16:05] LABS: UDS - AMPHET NEGATIVE QUAL (NEGATIVE); UDS - BARB NEGATIVE QUAL (NEGATIVE); UDS - BENZO NEGATIVE QUAL (NEGATIVE); UDS - COCAINE NEGATIVE QUAL (NEGATIVE); UDS - OPIATE POSITIVE QUAL (NEGATIVE); UDS - PCP NEGATIVE QUAL (NEGATIVE); UDS - THC NEGATIVE QUAL (NEGATIVE)
[2018-03-21 17:01] LABS: HCG URINE NEGATIVE (NEGATIVE)
[2018-03-21] MEDS ORDERED: CIPRO500 MG PO (20:37)
[2018-03-21 21:46] VITALS: BP 136/75
== END 2018-03-21 21:46 ==
LOC: D.ER 13:56
PROVIDERS: Emergency Medicine
DX: R45.851 Suicidal ideations (principal); F32.9 Major depressive disorder, single episode, unspecified; N39.0 Urinary tract infection, site not specified

== ENCOUNTER 2018-03-28 13:37 | Emergency (ER) | payer MEDICAID ==
[~2018-03-28] VITALS: Ht 162.6 cm; Wt 75.0 kg
[2018-03-28 13:42] VITALS: BP 123/78; Ht 162.6 cm; Wt 75.0 kg
== END 2018-03-28 15:06 | disposition left against medical advice (07) ==
LOC: D.ER 13:37
DX: R10.9 Unspecified abdominal pain (principal); M79.18 Myalgia, other site

== ENCOUNTER 2018-04-08 14:41 | Emergency (ER) | payer MEDICAID ==
[~2018-04-08] VITALS: Ht 162.6 cm; Wt 72.7 kg
[2018-04-08 14:46] VITALS: BP 128/58; Ht 162.6 cm; Wt 72.7 kg
[2018-04-08 15:21] LABS: HEMOGLOBIN 13.1 g/dL (12-16); MCH 30.3 pg (26.0-34.0); MCHC 32.8 g/dL (31.0-37.0); MCV 92.6 fL (80.0-100.0); MEAN PLATELET VOLUME 9.5 fL (7.4-10.4); PLATELET COUNT 335 10x3/uL (130-400); RBC 4.32 10x6/uL (4.00-5.40); WBC 6.9 10x3/uL (4.8-10.8)
[2018-04-08 15:26] LABS: APPEARANCE HAZY (CLEAR); BACTERIA FEW /hpf (NONE SEEN); BILIRUBIN NEGATIVE (NEGATIVE); COLOR YELLOW (YELLOW); EPITHELIAL CELLS 0-5 /hpf (0-5); GLUCOSE NEGATIVE (NEGATIVE); KETONE NEGATIVE (NEGATIVE); NITRITE NEGATIVE (NEGATIVE); PROTEIN NEGATIVE (NEGATIVE); RED CELLS - URINE 0-5 /hpf (0-5); SPECIFIC GRAVITY 1.015 (1.005-1.020); UROBILINOGEN NORMAL (NORMAL); WHITE CELLS - URINE 0-5 /hpf (0-5)
[2018-04-08 15:39] LABS: LYMPHOCYTES 18 % (15-50); MONOCYTES 3 % (2-11); NEUTROPHILS 78 % (40-80); PLATELET ESTIMATE NORMAL; PLATELET MORPHOLOGY NORMAL PLT MORPH
[2018-04-08 15:51] LABS: ALBUMIN 3.4 g/dL (3.4-5.0); ANION GAP 19.2 mmol/L (8-16); BILIRUBIN - TOTAL 0.25 mg/dL (0.2-1.3); CALCIUM 9.1 mg/dL (8.5-10.1); CARBON DIOXIDE 23.4 mmol/L (21.0-32.0); CREATININE - SERUM 0.9 mg/dL (0.6-1.3); POTASSIUM - SERUM 3.6 mmol/L (3.5-5.1); PROTEIN - SERUM 8.2 g/dL (6.4-8.2)
== END 2018-04-08 17:10 | disposition home or self-care (01) ==
LOC: D.ER 14:41
PROVIDERS: Emergency Medicine
DX: R10.30 Lower abdominal pain, unspecified (principal); R11.0 Nausea

== ENCOUNTER 2018-04-13 14:46 | Emergency (ER) | payer MEDICAID ==
[2018-04-08 14:46] VITALS: BMI 27.5
== END 2018-04-13 15:23 | disposition left against medical advice (07) ==
LOC: D.ER 14:46
DX: R51 Headache (principal)

== ENCOUNTER 2018-04-17 00:32 | Emergency (ER) | payer MEDICAID ==
[~2018-04-17] VITALS: Ht 162.6 cm; Wt 77.1 kg
[2018-04-17 00:36] VITALS: Ht 162.6 cm; Wt 77.1 kg
[2018-04-17 01:26] VITALS: BP 118/75
[2018-04-17] MEDS ORDERED: NYAMYC60 GM TP (09:32)
== END 2018-04-17 01:26 | disposition home or self-care (01) ==
LOC: D.ER 00:32
DX: Z76.5 Malingerer [conscious simulation] (principal); M79.672 Pain in left foot; M79.671 Pain in right foot

== ENCOUNTER 2018-04-17 08:47 | Emergency (ER) | payer MEDICAID ==
[~2018-04-17] VITALS: Ht 162.6 cm; Wt 77.3 kg
[2018-04-17 08:49] VITALS: Ht 162.6 cm; Wt 77.3 kg
[2018-04-17] MEDS ORDERED: NYAMYC60 GM TP (09:32)
[2018-04-17 09:35] VITALS: BP 122/75
== END 2018-04-17 09:36 | disposition home or self-care (01) ==
LOC: D.ER 08:47
DX: B37.2 Candidiasis of skin and nail (principal)

== ENCOUNTER 2018-04-18 11:27 | Emergency (ER) | payer MEDICAID ==
[~2018-04-18] VITALS: Ht 162.6 cm; Wt 72.7 kg
[~2018-04-18 11:27] MED LIST changes: +NYAMYC60 GM TP
[2018-04-18 11:28] VITALS: BP 125/66; Ht 162.6 cm; Wt 72.7 kg
[2018-04-18 11:48] LABS: UDS - AMPHET NEGATIVE QUAL (NEGATIVE); UDS - BARB POSITIVE QUAL (NEGATIVE); UDS - BENZO POSITIVE QUAL (NEGATIVE); UDS - COCAINE NEGATIVE QUAL (NEGATIVE); UDS - OPIATE NEGATIVE QUAL (NEGATIVE); UDS - PCP NEGATIVE QUAL (NEGATIVE); UDS - THC NEGATIVE QUAL (NEGATIVE)
[2018-04-18 12:01] LABS: ALBUMIN 3.2 g/dL (3.4-5.0); ANION GAP 15.6 mmol/L (8-16); BILIRUBIN - TOTAL 0.18 mg/dL (0.2-1.3); CALCIUM 8.8 mg/dL (8.5-10.1); CARBON DIOXIDE 22.8 mmol/L (21.0-32.0); CREATININE - SERUM 1.1 mg/dL (0.6-1.3); MAGNESIUM - SERUM 1.6 mg/dL (1.8-2.4); POTASSIUM - SERUM 3.4 mmol/L (3.5-5.1); PROTEIN - SERUM 7.6 g/dL (6.4-8.2)
[2018-04-18 12:21] LABS: BASOPHILS 0.5 % (0-2); EOSINOPHILS 1.4 % (0-7); HEMATOCRIT 37.2 % (36.0-48.0); HEMOGLOBIN 12.3 g/dL (12-16); IMMATURE GRANULOCYTES 0.3 % (0-5); LYMPHOCYTES 22.9 % (15-50); MCH 30.4 pg (26.0-34.0); MCHC 33.1 g/dL (31.0-37.0); MCV 91.9 fL (80.0-100.0); MEAN PLATELET VOLUME 9.5 fL (7.4-10.4); MONOCYTES 6.5 % (2-11); NEUTROPHILS 68.4 % (40-80); PLATELET COUNT 342 10x3/uL (130-400); RBC 4.05 10x6/uL (4.00-5.40); RDW 13.9 % (11.5-14.5)
[2018-04-18 15:11] LABS: APPEARANCE CLOUDY (CLEAR); BILIRUBIN NEGATIVE (NEGATIVE); COLOR YELLOW (YELLOW); GLUCOSE NEGATIVE (NEGATIVE); KETONE SMALL mg/dL (NEGATIVE); NITRITE NEGATIVE (NEGATIVE); PROTEIN NEGATIVE (NEGATIVE); SPECIFIC GRAVITY 1.015 (1.005-1.020); UROBILINOGEN NORMAL (NORMAL)
[2018-04-18 15:14] LABS: BACTERIA FEW /hpf (NONE SEEN); RED CELLS - URINE 0-5 /hpf (0-5); WHITE CELLS - URINE 0-5 /hpf (0-5)
== END 2018-04-18 13:33 | disposition home or self-care (01) ==
LOC: D.ER 11:27
PROVIDERS: Emergency Medicine
DX: Z76.5 Malingerer [conscious simulation] (principal); F32.9 Major depressive disorder, single episode, unspecified; F19.90 Other psychoactive substance use, unspecified, uncomplicated

== ENCOUNTER 2018-04-19 03:01 | Emergency (ER) | payer MEDICAID ==
[2018-04-18 11:28] VITALS: Ht 162.6 cm; Wt 77.3 kg
[~2018-04-19] VITALS: Ht 162.6 cm; Wt 77.3 kg
[2018-04-19 03:31] LABS: BASOPHILS 0.2 % (0-2); EOSINOPHILS 1.6 % (0-7); HEMATOCRIT 35.5 % (36.0-48.0); HEMOGLOBIN 11.6 g/dL (12-16); IMMATURE GRANULOCYTES 0.2 % (0-5); LYMPHOCYTES 26.8 % (15-50); MCH 30.1 pg (26.0-34.0); MCHC 32.7 g/dL (31.0-37.0); MCV 92.2 fL (80.0-100.0); MEAN PLATELET VOLUME 9.3 fL (7.4-10.4); MONOCYTES 8.9 % (2-11); NEUTROPHILS 62.3 % (40-80); PLATELET COUNT 332 10x3/uL (130-400); RBC 3.85 10x6/uL (4.00-5.40); RDW 13.8 % (11.5-14.5); WBC 8.6 10x3/uL (4.8-10.8)
[2018-04-19 03:47] LABS: UDS - AMPHET NEGATIVE QUAL (NEGATIVE); UDS - BARB POSITIVE QUAL (NEGATIVE); UDS - BENZO POSITIVE QUAL (NEGATIVE); UDS - COCAINE NEGATIVE QUAL (NEGATIVE); UDS - OPIATE NEGATIVE QUAL (NEGATIVE); UDS - PCP NEGATIVE QUAL (NEGATIVE); UDS - THC NEGATIVE QUAL (NEGATIVE)
[2018-04-19 03:51] LABS: APPEARANCE HAZY (CLEAR); BILIRUBIN NEGATIVE (NEGATIVE); COLOR YELLOW (YELLOW); GLUCOSE NEGATIVE (NEGATIVE); KETONE NEGATIVE (NEGATIVE); NITRITE NEGATIVE (NEGATIVE); PROTEIN 1+ mg/dL (NEGATIVE); SPECIFIC GRAVITY 1.025 (1.005-1.020); UROBILINOGEN NORMAL (NORMAL)
[2018-04-19 03:52] LABS: BACTERIA FEW /hpf (NONE SEEN); EPITHELIAL CELLS 0-5 /hpf (0-5); RED CELLS - URINE 0-5 /hpf (0-5)
[2018-04-19 03:52] LABS: ALBUMIN 3.1 g/dL (3.4-5.0); ALKALINE PHOSPHATASE 106 U/L (46-116); ALT (SGPT) 28 U/L (10-68); BILIRUBIN - TOTAL 0.08 mg/dL (0.2-1.3); CALC OSMOLALITY 290 mosm/kg (275-300); CALCIUM 8.4 mg/dL (8.5-10.1); CARBON DIOXIDE 27.5 mmol/L (21.0-32.0); CHLORIDE - SERUM 107 mmol/L (98-107); GLUCOSE 116 mg/dL (74-106); POTASSIUM - SERUM 3.5 mmol/L (3.5-5.1); PROTEIN - SERUM 7.3 g/dL (6.4-8.2); SODIUM 144 mmol/L (136-145); UREA NITROGEN 22 mg/dL (7-18)
[2018-04-19 03:54] LABS: CREATININE - SERUM 0.7 mg/dL (0.6-1.3); eGFR NON AFRICAN AMERICAN > 90 mL/min (90-120)
[2018-04-19 03:59] LABS: THYROID STIMULATING HORMONE 0.56 uIU/mL (0.36-3.74)
[2018-04-19 04:59] VITALS: BP 145/89
== END 2018-04-19 05:00 | disposition home or self-care (01) ==
LOC: D.ER 03:01
PROVIDERS: Family Medicine
DX: F19.10 Other psychoactive substance abuse, uncomplicated (principal); R19.7 Diarrhea, unspecified

== ENCOUNTER 2018-04-24 16:56 | Emergency (ER) | payer MEDICAID ==
[~2018-04-24] VITALS: Ht 162.6 cm; Wt 77.3 kg
[2018-04-24 16:59] VITALS: Ht 162.6 cm; Wt 77.3 kg
[2018-04-24 17:56] LABS: BASOPHILS 0.3 % (0-2); EOSINOPHILS 0.9 % (0-7); HEMATOCRIT 37.3 % (36.0-48.0); HEMOGLOBIN 12.3 g/dL (12-16); IMMATURE GRANULOCYTES 0.3 % (0-5); LYMPHOCYTES 13.5 % (15-50); MCH 30.3 pg (26.0-34.0); MCV 91.9 fL (80.0-100.0); MEAN PLATELET VOLUME 9.4 fL (7.4-10.4); MONOCYTES 7.3 % (2-11); NEUTROPHILS 77.7 % (40-80); PLATELET COUNT 344 10x3/uL (130-400); RBC 4.06 10x6/uL (4.00-5.40); RDW 13.3 % (11.5-14.5)
[2018-04-24 18:04] LABS: APPEARANCE CLEAR (CLEAR); BILIRUBIN NEGATIVE (NEGATIVE); COLOR YELLOW (YELLOW); EPITHELIAL CELLS 0-5 /hpf (0-5); GLUCOSE NEGATIVE (NEGATIVE); KETONE NEGATIVE (NEGATIVE); NITRITE NEGATIVE (NEGATIVE); PROTEIN TRACE mg/dL (NEGATIVE); RED CELLS - URINE 0-5 /hpf (0-5); UROBILINOGEN NORMAL (NORMAL); WHITE CELLS - URINE NSEEN /hpf (0-5)
[2018-04-24] MEDS ORDERED: CALMOSEPTINE OI71 GM TOPICAL (18:04)
[2018-04-24] MEDS ORDERED: LOMOTIL 2.5-0.1 EAC1 PO (18:04)
[2018-04-24] MEDS ORDERED: FLORAJEN3 CAPS460 MG PO (18:04)
[2018-04-24] MEDS ORDERED: CIPRO500 MG PO (18:21)
[2018-04-24] MEDS ORDERED: FLAGYL500 MG PO (19:14)
[2018-04-24 19:38] VITALS: BP 129/77
[2018-04-28 16:13] LABS: AEROBE ID Preliminary report (())
== END 2018-04-24 19:38 | disposition home or self-care (01) ==
LOC: D.ER 16:56
PROVIDERS: Family Medicine
DX: R19.7 Diarrhea, unspecified (principal); J02.9 Acute pharyngitis, unspecified

== ENCOUNTER 2018-05-24 21:58 | Emergency (ER) | payer MEDICAID ==
[~2018-05-24] VITALS: Ht 162.6 cm; Wt 75.0 kg
[~2018-05-24 21:58] MED LIST changes: +CALMOSEPTINE OI71 GM TOPICAL; +FLAGYL500 MG PO; +FLORAJEN3 CAPS460 MG PO; +LOMOTIL 2.5-0.1 EAC1 PO
[2018-05-24 22:09] VITALS: BP 114/70; Ht 162.6 cm; Wt 75.0 kg
[2018-05-24] MEDS ORDERED: BUTALB-APAP-CA1 EACH PO (22:45)
== END 2018-05-24 23:00 | disposition home or self-care (01) ==
LOC: D.ER 21:58
DX: G43.909 Migraine, unspecified, not intractable, without status migrainosus (principal)

== ENCOUNTER 2018-06-14 20:25 | Emergency (ER) | payer MEDICAID ==
[~2018-06-14] VITALS: Ht 162.6 cm; Wt 65.8 kg
[2018-06-14 20:26] VITALS: BP 130/74; Ht 162.6 cm; Wt 65.8 kg
== END 2018-06-14 20:58 | disposition left against medical advice (07) ==
LOC: D.ER 20:25
DX: R51 Headache (principal)

== ENCOUNTER 2018-06-15 14:47 | Emergency (ER) | payer MEDICAID ==
[~2018-06-15] VITALS: Ht 162.6 cm; Wt 79.5 kg
[2018-06-15 14:50] VITALS: BP 116/75; Ht 162.6 cm; Wt 79.5 kg
== END 2018-06-15 15:18 | disposition left against medical advice (07) ==
LOC: D.ER 14:47
DX: J30.9 Allergic rhinitis, unspecified (principal)

== ENCOUNTER 2018-06-16 14:57 | Emergency (ER) | payer MEDICAID ==
[~2018-06-16] VITALS: Ht 162.6 cm; Wt 68.2 kg
[2018-06-16 15:13] VITALS: BP 118/78; Ht 162.6 cm; Wt 68.2 kg
[2018-06-16 15:52] LABS: BASOPHILS 0.5 % (0-2); HEMATOCRIT 41.2 % (36.0-48.0); HEMOGLOBIN 13.9 g/dL (12-16); IMMATURE GRANULOCYTES 0.3 % (0-5); LYMPHOCYTES 31.2 % (15-50); MCHC 33.7 g/dL (31.0-37.0); MCV 91.8 fL (80.0-100.0); MEAN PLATELET VOLUME 9.6 fL (7.4-10.4); MONOCYTES 5.6 % (2-11); NEUTROPHILS 61.4 % (40-80); PLATELET COUNT 370 10x3/uL (130-400); RBC 4.49 10x6/uL (4.00-5.40); RDW 13.5 % (11.5-14.5); WBC 7.3 10x3/uL (4.8-10.8)
[2018-06-16 16:11] LABS: APPEARANCE CLEAR (CLEAR); BILIRUBIN NEGATIVE (NEGATIVE); COLOR YELLOW (YELLOW); GLUCOSE NEGATIVE (NEGATIVE); KETONE NEGATIVE (NEGATIVE); NITRITE NEGATIVE (NEGATIVE); PROTEIN 1+ mg/dL (NEGATIVE); UDS - AMPHET NEGATIVE QUAL (NEGATIVE); UDS - BARB POSITIVE QUAL (NEGATIVE); UDS - BENZO NEGATIVE QUAL (NEGATIVE); UDS - COCAINE NEGATIVE QUAL (NEGATIVE); UDS - OPIATE NEGATIVE QUAL (NEGATIVE); UDS - PCP NEGATIVE QUAL (NEGATIVE); UDS - THC NEGATIVE QUAL (NEGATIVE); UROBILINOGEN NORMAL (NORMAL)
[2018-06-16 16:12] LABS: BACTERIA FEW /hpf (NONE SEEN); EPITHELIAL CELLS 0-5 /hpf (0-5); RED CELLS - URINE 0-5 /hpf (0-5); WHITE CELLS - URINE 0-5 /hpf (0-5)
[2018-06-16 16:17] LABS: ALBUMIN 3.9 g/dL (3.4-5.0); ALKALINE PHOSPHATASE 112 U/L (46-116); ALT (SGPT) 33 U/L (10-68); BILIRUBIN - TOTAL 0.28 mg/dL (0.2-1.3); CALC OSMOLALITY 279 mosm/kg (275-300); CARBON DIOXIDE 24.2 mmol/L (21.0-32.0); CHLORIDE - SERUM 104 mmol/L (98-107); CREATININE - SERUM 0.8 mg/dL (0.6-1.3); GLUCOSE 115 mg/dL (74-106); MAGNESIUM - SERUM 1.7 mg/dL (1.8-2.4); POTASSIUM - SERUM 3.4 mmol/L (3.5-5.1); SODIUM 139 mmol/L (136-145); UREA NITROGEN 16 mg/dL (7-18); eGFR NON AFRICAN AMERICAN 81 mL/min (90-120)
== END 2018-06-16 18:55 | disposition home or self-care (01) ==
LOC: D.ER 14:57
PROVIDERS: Emergency Medicine
DX: F32.9 Major depressive disorder, single episode, unspecified (principal)

== ENCOUNTER 2018-06-16 20:46 | Emergency (ER) | payer MEDICAID ==
[~2018-06-16] VITALS: Ht 162.6 cm; Wt 68.2 kg
[2018-06-16 20:51] VITALS: Ht 162.6 cm; Wt 68.2 kg
[2018-06-16 21:05] LABS: BASOPHILS 0.6 % (0-2); EOSINOPHILS 0.4 % (0-7); HEMOGLOBIN 13.6 g/dL (12-16); IMMATURE GRANULOCYTES 0.4 % (0-5); LYMPHOCYTES 27.8 % (15-50); MCH 31.1 pg (26.0-34.0); MCV 91.5 fL (80.0-100.0); MEAN PLATELET VOLUME 9.7 fL (7.4-10.4); MONOCYTES 7.3 % (2-11); NEUTROPHILS 63.5 % (40-80); PLATELET COUNT 355 10x3/uL (130-400); RBC 4.37 10x6/uL (4.00-5.40); RDW 13.5 % (11.5-14.5); WBC 8.5 10x3/uL (4.8-10.8)
[2018-06-16 21:10] LABS: COLOR YELLOW (YELLOW); HCG URINE NEGATIVE (NEGATIVE)
[2018-06-16 21:11] LABS: APPEARANCE CLEAR (CLEAR); BILIRUBIN NEGATIVE (NEGATIVE); GLUCOSE NEGATIVE (NEGATIVE); KETONE NEGATIVE (NEGATIVE); NITRITE NEGATIVE (NEGATIVE); PROTEIN NEGATIVE (NEGATIVE); UROBILINOGEN NORMAL (NORMAL)
[2018-06-16 21:12] LABS: BACTERIA FEW /hpf (NONE SEEN); EPITHELIAL CELLS 0-5 /hpf (0-5); WHITE CELLS - URINE 0-5 /hpf (0-5)
[2018-06-16 21:15] LABS: UDS - AMPHET NEGATIVE QUAL (NEGATIVE); UDS - BARB POSITIVE QUAL (NEGATIVE); UDS - BENZO NEGATIVE QUAL (NEGATIVE); UDS - COCAINE NEGATIVE QUAL (NEGATIVE); UDS - OPIATE NEGATIVE QUAL (NEGATIVE); UDS - PCP NEGATIVE QUAL (NEGATIVE); UDS - THC NEGATIVE QUAL (NEGATIVE)
[2018-06-16 21:19] LABS: ALBUMIN 3.7 g/dL (3.4-5.0); ANION GAP 10.7 mmol/L (8-16); BILIRUBIN - TOTAL 0.14 mg/dL (0.2-1.3); CALCIUM 9.2 mg/dL (8.5-10.1); CARBON DIOXIDE 28.7 mmol/L (21.0-32.0); MAGNESIUM - SERUM 1.8 mg/dL (1.8-2.4); POTASSIUM - SERUM 3.4 mmol/L (3.5-5.1); PROTEIN - SERUM 8.5 g/dL (6.4-8.2)
[2018-06-16 21:20] LABS: CREATININE - SERUM 1.1 mg/dL (0.6-1.3)
[2018-06-17 00:46] VITALS: BP 122/72
== END 2018-06-17 00:46 | disposition home or self-care (01) ==
LOC: D.ER 20:46
PROVIDERS: Emergency Medicine
DX: R45.851 Suicidal ideations (principal); F32.9 Major depressive disorder, single episode, unspecified

== ENCOUNTER 2018-06-17 16:02 | Emergency (ER) | payer MEDICAID ==
[~2018-06-17] VITALS: Ht 162.6 cm; Wt 68.2 kg
[2018-06-17 16:05] VITALS: Ht 162.6 cm; Wt 68.2 kg
[2018-06-17 16:46] LABS: UDS - AMPHET NEGATIVE QUAL (NEGATIVE); UDS - BARB POSITIVE QUAL (NEGATIVE); UDS - BENZO NEGATIVE QUAL (NEGATIVE); UDS - COCAINE NEGATIVE QUAL (NEGATIVE); UDS - OPIATE NEGATIVE QUAL (NEGATIVE); UDS - PCP NEGATIVE QUAL (NEGATIVE); UDS - THC NEGATIVE QUAL (NEGATIVE)
[2018-06-17 17:09] LABS: BASOPHILS 0.3 % (0-2); EOSINOPHILS 1.1 % (0-7); HEMATOCRIT 37.5 % (36.0-48.0); HEMOGLOBIN 12.5 g/dL (12-16); IMMATURE GRANULOCYTES 0.3 % (0-5); LYMPHOCYTES 26.8 % (15-50); MCH 30.6 pg (26.0-34.0); MCHC 33.3 g/dL (31.0-37.0); MCV 91.9 fL (80.0-100.0); MEAN PLATELET VOLUME 9.5 fL (7.4-10.4); MONOCYTES 7.8 % (2-11); NEUTROPHILS 63.7 % (40-80); PLATELET COUNT 294 10x3/uL (130-400); RBC 4.08 10x6/uL (4.00-5.40); RDW 13.7 % (11.5-14.5); WBC 6.5 10x3/uL (4.8-10.8)
[2018-06-17 17:12] LABS: APPEARANCE CLEAR (CLEAR); BILIRUBIN NEGATIVE (NEGATIVE); COLOR YELLOW (YELLOW); GLUCOSE NEGATIVE (NEGATIVE); KETONE NEGATIVE (NEGATIVE); NITRITE NEGATIVE (NEGATIVE); PROTEIN NEGATIVE (NEGATIVE); UROBILINOGEN NORMAL (NORMAL)
[2018-06-17 17:13] LABS: BACTERIA FEW /hpf (NONE SEEN); EPITHELIAL CELLS 0-5 /hpf (0-5); RED CELLS - URINE 0-5 /hpf (0-5); WHITE CELLS - URINE 0-5 /hpf (0-5)
[2018-06-17 17:26] LABS: ALBUMIN 3.3 g/dL (3.4-5.0); ALKALINE PHOSPHATASE 101 U/L (46-116); ALT (SGPT) 28 U/L (10-68); BILIRUBIN - TOTAL 0.13 mg/dL (0.2-1.3); CALC OSMOLALITY 284 mosm/kg (275-300); CALCIUM 8.3 mg/dL (8.5-10.1); CARBON DIOXIDE 26.8 mmol/L (21.0-32.0); CHLORIDE - SERUM 106 mmol/L (98-107); CREATININE - SERUM 0.8 mg/dL (0.6-1.3); GLUCOSE 109 mg/dL (74-106); POTASSIUM - SERUM 3.3 mmol/L (3.5-5.1); PROTEIN - SERUM 7.7 g/dL (6.4-8.2); SODIUM 142 mmol/L (136-145); UREA NITROGEN 14 mg/dL (7-18); eGFR NON AFRICAN AMERICAN 81 mL/min (90-120)
[2018-06-18 05:22] VITALS: BP 112/69
== END 2018-06-18 05:26 ==
LOC: D.ER 16:02
PROVIDERS: Family Medicine
DX: R45.851 Suicidal ideations (principal)

== ENCOUNTER 2018-06-24 01:10 | Emergency (ER) | payer MEDICAID ==
[~2018-06-24] VITALS: Ht 162.6 cm; Wt 79.1 kg
[2018-06-24 01:23] VITALS: Ht 162.6 cm; Wt 79.1 kg
[2018-06-24] MEDS ORDERED: ZOLOFT100 MG PO (01:24)
[2018-06-24] MEDS ORDERED: AMBIEN10 MG PO (01:25)
[2018-06-24 02:52] LABS: APPEARANCE HAZY (CLEAR); BACTERIA MODERATE /hpf (NONE SEEN); BILIRUBIN NEGATIVE (NEGATIVE); COLOR YELLOW (YELLOW); EPITHELIAL CELLS 0-5 /hpf (0-5); GLUCOSE NEGATIVE (NEGATIVE); KETONE NEGATIVE (NEGATIVE); NITRITE NEGATIVE (NEGATIVE); PROTEIN TRACE mg/dL (NEGATIVE); UROBILINOGEN NORMAL (NORMAL); WHITE CELLS - URINE 25-50 /hpf (0-5)
[2018-06-24] MEDS ORDERED: MACROBID100 MG PO (02:56)
[2018-06-24 04:13] VITALS: BP 132/74
== END 2018-06-24 04:14 | disposition home or self-care (01) ==
LOC: D.ER 01:10
PROVIDERS: Emergency Medicine
DX: N39.0 Urinary tract infection, site not specified (principal)

== ENCOUNTER 2018-07-08 10:28 | Emergency (ER) | payer MEDICAID ==
[~2018-07-08] VITALS: Ht 162.6 cm; Wt 68.2 kg
[~2018-07-08 10:28] MED LIST changes: +AMBIEN10 MG PO
[2018-07-08 10:36] VITALS: BP 103/58; Ht 162.6 cm; Wt 68.2 kg
== END 2018-07-08 12:10 | disposition left against medical advice (07) ==
LOC: D.ER 10:28
DX: F91.9 Conduct disorder, unspecified (principal); Z76.5 Malingerer [conscious simulation]

== ENCOUNTER 2018-07-08 19:04 | Emergency (ER) | payer MEDICAID ==
[~2018-07-08] VITALS: Ht 162.6 cm; Wt 70.5 kg
[2018-07-08 19:12] VITALS: Ht 162.6 cm; Wt 70.5 kg
[2018-07-08 20:09] LABS: UDS - AMPHET NEGATIVE QUAL (NEGATIVE); UDS - BARB POSITIVE QUAL (NEGATIVE); UDS - BENZO NEGATIVE QUAL (NEGATIVE); UDS - COCAINE NEGATIVE QUAL (NEGATIVE); UDS - OPIATE POSITIVE QUAL (NEGATIVE); UDS - PCP NEGATIVE QUAL (NEGATIVE); UDS - THC NEGATIVE QUAL (NEGATIVE)
[2018-07-08 20:10] LABS: BASOPHILS 0.4 % (0-2); EOSINOPHILS 0.3 % (0-7); HEMATOCRIT 41.5 % (36.0-48.0); HEMOGLOBIN 13.9 g/dL (12-16); IMMATURE GRANULOCYTES 0.4 % (0-5); LYMPHOCYTES 20.8 % (15-50); MCHC 33.5 g/dL (31.0-37.0); MCV 92.6 fL (80.0-100.0); MEAN PLATELET VOLUME 9.6 fL (7.4-10.4); MONOCYTES 7.6 % (2-11); NEUTROPHILS 70.5 % (40-80); RBC 4.48 10x6/uL (4.00-5.40); RDW 13.6 % (11.5-14.5); WBC 9.8 10x3/uL (4.8-10.8)
[2018-07-08 20:12] LABS: PLATELET COUNT 367 10x3/uL (130-400)
[2018-07-08 20:13] LABS: APPEARANCE CLOUDY (CLEAR); BILIRUBIN NEGATIVE (NEGATIVE); COLOR YELLOW (YELLOW); GLUCOSE NEGATIVE (NEGATIVE); KETONE NEGATIVE (NEGATIVE); NITRITE NEGATIVE (NEGATIVE); PROTEIN 1+ mg/dL (NEGATIVE); UROBILINOGEN NORMAL (NORMAL)
[2018-07-08 20:14] LABS: BACTERIA MANY /hpf (NONE SEEN); WHITE CELLS - URINE 25-50 /hpf (0-5)
[2018-07-08 20:27] LABS: ALBUMIN 3.8 g/dL (3.4-5.0); ANION GAP 16.9 mmol/L (8-16); BILIRUBIN - TOTAL 0.24 mg/dL (0.2-1.3); CALCIUM 9.6 mg/dL (8.5-10.1); CARBON DIOXIDE 26.7 mmol/L (21.0-32.0); CREATININE - SERUM 0.9 mg/dL (0.6-1.3); POTASSIUM - SERUM 3.6 mmol/L (3.5-5.1); PROTEIN - SERUM 8.8 g/dL (6.4-8.2)
[2018-07-08 21:54] VITALS: BP 132/84
== END 2018-07-08 20:50 | disposition home or self-care (01) ==
LOC: D.ER 19:04
PROVIDERS: Family Medicine
DX: F91.9 Conduct disorder, unspecified (principal); Z76.5 Malingerer [conscious simulation]

== ENCOUNTER 2018-07-16 13:58 | Emergency (ER) | payer MEDICAID ==
[~2018-07-16] VITALS: Ht 162.6 cm; Wt 68.0 kg
[2018-07-16 14:01] VITALS: Ht 162.6 cm; Wt 68.0 kg
[2018-07-16 14:30] LABS: BASOPHILS 0.5 % (0-2); EOSINOPHILS 1.6 % (0-7); HEMATOCRIT 39.2 % (36.0-48.0); HEMOGLOBIN 13.2 g/dL (12-16); IMMATURE GRANULOCYTES 0.2 % (0-5); LYMPHOCYTES 28.6 % (15-50); MCH 31.1 pg (26.0-34.0); MCHC 33.7 g/dL (31.0-37.0); MCV 92.5 fL (80.0-100.0); MEAN PLATELET VOLUME 9.5 fL (7.4-10.4); MONOCYTES 5.5 % (2-11); NEUTROPHILS 63.6 % (40-80); PLATELET COUNT 354 10x3/uL (130-400); RBC 4.24 10x6/uL (4.00-5.40); RDW 13.4 % (11.5-14.5); WBC 8.4 10x3/uL (4.8-10.8)
[2018-07-16 14:35] LABS: HCG URINE NEGATIVE (NEGATIVE)
[2018-07-16 14:43] LABS: APPEARANCE HAZY (CLEAR); BILIRUBIN NEGATIVE (NEGATIVE); COLOR YELLOW (YELLOW); GLUCOSE NEGATIVE (NEGATIVE); KETONE NEGATIVE (NEGATIVE); NITRITE NEGATIVE (NEGATIVE); PROTEIN NEGATIVE (NEGATIVE); UROBILINOGEN NORMAL (NORMAL)
[2018-07-16 14:44] LABS: EPITHELIAL CELLS 0-5 /hpf (0-5); RED CELLS - URINE 0-5 /hpf (0-5)
[2018-07-16 14:52] LABS: UDS - AMPHET NEGATIVE QUAL (NEGATIVE); UDS - BARB POSITIVE QUAL (NEGATIVE); UDS - BENZO NEGATIVE QUAL (NEGATIVE); UDS - COCAINE NEGATIVE QUAL (NEGATIVE); UDS - OPIATE NEGATIVE QUAL (NEGATIVE); UDS - PCP NEGATIVE QUAL (NEGATIVE); UDS - THC NEGATIVE QUAL (NEGATIVE)
[2018-07-16 14:59] LABS: ALBUMIN 3.5 g/dL (3.4-5.0); ANION GAP 15.6 mmol/L (8-16); BILIRUBIN - TOTAL 0.21 mg/dL (0.2-1.3); CARBON DIOXIDE 24.3 mmol/L (21.0-32.0); CREATININE - SERUM 0.9 mg/dL (0.6-1.3); POTASSIUM - SERUM 3.9 mmol/L (3.5-5.1); PROTEIN - SERUM 8.2 g/dL (6.4-8.2)
[2018-07-16 15:02] LABS: MAGNESIUM - SERUM 1.9 mg/dL (1.8-2.4)
[2018-07-16 15:20] VITALS: BP 133/80
== END 2018-07-16 15:21 | disposition home or self-care (01) ==
LOC: D.ER 13:58
PROVIDERS: Emergency Medicine
DX: Z76.5 Malingerer [conscious simulation] (principal); F32.9 Major depressive disorder, single episode, unspecified

== ENCOUNTER 2018-07-17 16:20 | Emergency (ER) | payer MEDICAID ==
[~2018-07-17] VITALS: Ht 162.6 cm; Wt 78.6 kg
[2018-07-17 16:27] VITALS: BP 118/73; Ht 162.6 cm; Wt 78.6 kg
[2018-07-18] MEDS ORDERED: IBUPROFEN800 MG PO (10:35)
== END 2018-07-17 18:09 | disposition left against medical advice (07) ==
LOC: D.ER 16:20
DX: G43.909 Migraine, unspecified, not intractable, without status migrainosus (principal)

== ENCOUNTER 2018-07-18 09:45 | Emergency (ER) | payer MEDICAID ==
[~2018-07-18] VITALS: Ht 162.6 cm; Wt 78.6 kg
[2018-07-18 09:49] VITALS: BP 146/77; Ht 162.6 cm; Wt 78.6 kg
[2018-07-18 10:10] LABS: APPEARANCE CLEAR (CLEAR); COLOR YELLOW (YELLOW); GLUCOSE NEGATIVE (NEGATIVE); KETONE NEGATIVE (NEGATIVE); NITRITE NEGATIVE (NEGATIVE); PROTEIN NEGATIVE (NEGATIVE); UROBILINOGEN NORMAL (NORMAL)
[2018-07-18 10:11] LABS: BILIRUBIN NEGATIVE (NEGATIVE)
[2018-07-18 10:19] LABS: EPITHELIAL CELLS 0-5 /hpf (0-5); RED CELLS - URINE 0-5 /hpf (0-5)
[2018-07-18 10:20] LABS: BACTERIA FEW /hpf (NONE SEEN)
[2018-07-18] MEDS ORDERED: IBUPROFEN800 MG PO (10:35)
== END 2018-07-18 10:45 | disposition home or self-care (01) ==
LOC: D.ER 09:45
PROVIDERS: Family Medicine
DX: R10.84 Generalized abdominal pain (principal); M79.672 Pain in left foot; M79.671 Pain in right foot

== ENCOUNTER 2018-07-19 12:25 | Emergency (ER) | payer MEDICAID ==
[~2018-07-19] VITALS: Ht 162.6 cm; Wt 77.3 kg
[2018-07-19 12:27] VITALS: BP 130/75; Ht 162.6 cm; Wt 77.3 kg
== END 2018-07-19 13:12 | disposition home or self-care (01) ==
LOC: D.ER 12:25
DX: K58.9 Irritable bowel syndrome, unspecified (principal)

== ENCOUNTER 2018-07-20 10:36 | Emergency (ER) | payer MEDICAID ==
[~2018-07-20] VITALS: Ht 162.6 cm; Wt 79.5 kg
[2018-07-20 10:39] VITALS: Ht 162.6 cm; Wt 79.5 kg
[2018-07-20 11:53] VITALS: BP 120/74
== END 2018-07-20 11:53 | disposition home or self-care (01) ==
LOC: D.ER 10:36
DX: J02.9 Acute pharyngitis, unspecified (principal)

== ENCOUNTER 2018-07-20 17:10 | Emergency (ER) | payer MEDICAID ==
[~2018-07-20] VITALS: Ht 162.6 cm; Wt 81.8 kg
[2018-07-20 17:23] VITALS: Ht 162.6 cm; Wt 81.8 kg
[2018-07-20 18:05] VITALS: BP 123/76
== END 2018-07-20 18:06 | disposition home or self-care (01) ==
LOC: D.ER 17:10
DX: Z00.00 Encounter for general adult medical examination without abnormal findings (principal)

== ENCOUNTER 2018-07-20 19:11 | Emergency (ER) | payer MEDICAID ==
[~2018-07-20] VITALS: Ht 162.6 cm; Wt 77.3 kg
[2018-07-20 19:44] VITALS: BP 123/77; Ht 162.6 cm; Wt 77.3 kg
== END 2018-07-20 20:30 | disposition left against medical advice (07) ==
LOC: D.ER 19:11
DX: Z76.0 Encounter for issue of repeat prescription (principal)

== ENCOUNTER 2018-07-23 11:40 | Emergency (ER) | payer MEDICAID ==
[~2018-07-23] VITALS: Ht 162.6 cm; Wt 77.3 kg
[2018-07-23 11:41] VITALS: Ht 162.6 cm; Wt 77.3 kg
[2018-07-23 11:57] LABS: BASOPHILS 0.4 % (0-2); EOSINOPHILS 1.1 % (0-7); HEMATOCRIT 42.1 % (36.0-48.0); HEMOGLOBIN 14.5 g/dL (12-16); IMMATURE GRANULOCYTES 0.6 % (0-5); LYMPHOCYTES 23.8 % (15-50); MCH 31.7 pg (26.0-34.0); MCHC 34.4 g/dL (31.0-37.0); MCV 91.9 fL (80.0-100.0); MEAN PLATELET VOLUME 9.5 fL (7.4-10.4); MONOCYTES 5.9 % (2-11); NEUTROPHILS 68.2 % (40-80); PLATELET COUNT 356 10x3/uL (130-400); RBC 4.58 10x6/uL (4.00-5.40); RDW 13.8 % (11.5-14.5); WBC 12.7 10x3/uL (4.8-10.8)
[2018-07-23 12:04] LABS: APPEARANCE CLEAR (CLEAR); BILIRUBIN NEGATIVE (NEGATIVE); COLOR YELLOW (YELLOW); EPITHELIAL CELLS OCC /hpf (0-5); GLUCOSE NEGATIVE (NEGATIVE); KETONE NEGATIVE (NEGATIVE); NITRITE NEGATIVE (NEGATIVE); PROTEIN 1+ mg/dL (NEGATIVE); RED CELLS - URINE 25-50 /hpf (0-5); SPECIFIC GRAVITY 1.015 (1.005-1.020); UROBILINOGEN NORMAL (NORMAL); WHITE CELLS - URINE 25-50 /hpf (0-5)
[2018-07-23 12:15] LABS: ALBUMIN 3.7 g/dL (3.4-5.0); ALKALINE PHOSPHATASE 122 U/L (46-116); ALT (SGPT) 39 U/L (10-68); BILIRUBIN - TOTAL 0.13 mg/dL (0.2-1.3); CALC OSMOLALITY 279 mosm/kg (275-300); CALCIUM 9.4 mg/dL (8.5-10.1); CARBON DIOXIDE 21.4 mmol/L (21.0-32.0); CHLORIDE - SERUM 103 mmol/L (98-107); CREATININE - SERUM 0.7 mg/dL (0.6-1.3); GLUCOSE 116 mg/dL (74-106); POTASSIUM - SERUM 4.3 mmol/L (3.5-5.1); PROTEIN - SERUM 8.4 g/dL (6.4-8.2); SODIUM 137 mmol/L (136-145); UREA NITROGEN 26 mg/dL (7-18); eGFR NON AFRICAN AMERICAN > 90 mL/min (90-120)
[2018-07-23 12:18] LABS: AMYLASE - SERUM 114 U/L (25-115); LIPASE 145 U/L (73-393); TROPONIN-I < 0.017 ng/mL (0.000-0.060)
[2018-07-23] MEDS ORDERED: MACROBID100 MG PO (12:47)
[2018-07-23] MEDS ORDERED: LOPERAMIDE HCL2 MG PO (12:47)
[2018-07-23 12:56] VITALS: BP 136/75
== END 2018-07-23 12:56 | disposition home or self-care (01) ==
LOC: D.ER 11:40
PROVIDERS: Family Medicine
DX: N39.0 Urinary tract infection, site not specified (principal); R19.7 Diarrhea, unspecified

== ENCOUNTER 2018-08-10 09:49 | Emergency (ER) | payer MEDICAID ==
[~2018-08-10] VITALS: Ht 162.6 cm; Wt 79.5 kg
[~2018-08-10 09:49] MED LIST changes: +LOPERAMIDE HCL2 MG PO
[2018-08-10 09:51] VITALS: BP 135/81; Ht 162.6 cm; Wt 79.5 kg
[2018-08-10 10:17] LABS: UDS - AMPHET NEGATIVE QUAL (NEGATIVE); UDS - BARB NEGATIVE QUAL (NEGATIVE); UDS - BENZO NEGATIVE QUAL (NEGATIVE); UDS - COCAINE NEGATIVE QUAL (NEGATIVE); UDS - OPIATE POSITIVE QUAL (NEGATIVE); UDS - PCP NEGATIVE QUAL (NEGATIVE); UDS - THC NEGATIVE QUAL (NEGATIVE)
[2018-08-10 10:35] LABS: BASOPHILS 0.2 % (0-2); EOSINOPHILS 1.5 % (0-7); HEMATOCRIT 41.2 % (36.0-48.0); HEMOGLOBIN 13.7 g/dL (12-16); IMMATURE GRANULOCYTES 0.4 % (0-5); LYMPHOCYTES 23.6 % (15-50); MCH 31.3 pg (26.0-34.0); MCHC 33.3 g/dL (31.0-37.0); MCV 94.1 fL (80.0-100.0); MEAN PLATELET VOLUME 9.4 fL (7.4-10.4); MONOCYTES 4.6 % (2-11); NEUTROPHILS 69.7 % (40-80); PLATELET COUNT 326 10x3/uL (130-400); RBC 4.38 10x6/uL (4.00-5.40); RDW 13.5 % (11.5-14.5); WBC 8.1 10x3/uL (4.8-10.8)
[2018-08-10 10:44] LABS: APPEARANCE CLOUDY (CLEAR); BACTERIA MANY /hpf (NONE SEEN); BILIRUBIN NEGATIVE (NEGATIVE); COLOR YELLOW (YELLOW); EPITHELIAL CELLS 0-5 /hpf (0-5); GLUCOSE NEGATIVE (NEGATIVE); KETONE NEGATIVE (NEGATIVE); MUCUS <1+ /lpf (NONE SEEN); NITRITE NEGATIVE (NEGATIVE); PROTEIN TRACE mg/dL (NEGATIVE); SPECIFIC GRAVITY 1.015 (1.005-1.020); UROBILINOGEN NORMAL (NORMAL); WHITE CELLS - URINE 25-50 /hpf (0-5)
[2018-08-10 10:45] LABS: ALBUMIN 3.5 g/dL (3.4-5.0); ALKALINE PHOSPHATASE 112 U/L (46-116); ALT (SGPT) 30 U/L (10-68); BILIRUBIN - TOTAL 0.23 mg/dL (0.2-1.3); CALC OSMOLALITY 284 mosm/kg (275-300); CALCIUM 9.3 mg/dL (8.5-10.1); CARBON DIOXIDE 29.1 mmol/L (21.0-32.0); CHLORIDE - SERUM 104 mmol/L (98-107); CREATININE - SERUM 0.8 mg/dL (0.6-1.3); GLUCOSE 153 mg/dL (74-106); MAGNESIUM - SERUM 1.5 mg/dL (1.8-2.4); POTASSIUM - SERUM 3.3 mmol/L (3.5-5.1); PROTEIN - SERUM 7.9 g/dL (6.4-8.2); SODIUM 142 mmol/L (136-145); UREA NITROGEN 11 mg/dL (7-18); eGFR NON AFRICAN AMERICAN 81 mL/min (90-120)
--- NOTE | 2018-08-10 11:08 | NUR ---
DR. MACK NOTIFIED AND 1:1 SITTER OBSERVATION ORDERED. SITTER AT BEDSIDE. NOTIFIED CHARGE NURSE AND ATTENDING IN REGARDS TO ASSESSMENT FINDINGS. RESOURCES GIVEN TO PT AND SAFETY PLAN INITIATED.
== END 2018-08-10 15:37 ==
LOC: D.ER 09:49
PROVIDERS: Family Medicine
DX: R45.851 Suicidal ideations (principal); F11.20 Opioid dependence, uncomplicated

== ENCOUNTER 2018-08-13 16:51 | Emergency (ER) | payer MEDICAID ==
[~2018-08-13] VITALS: Ht 162.6 cm; Wt 79.5 kg
[2018-08-13 16:54] VITALS: BP 148/95; Ht 162.6 cm; Wt 79.5 kg
== END 2018-08-13 18:00 | disposition left against medical advice (07) ==
LOC: D.ER 16:51
DX: R51 Headache (principal)

== ENCOUNTER 2018-08-14 11:02 | Emergency (ER) | payer MEDICAID ==
[~2018-08-14] VITALS: Ht 162.6 cm; Wt 79.5 kg
[2018-08-14 11:07] VITALS: Ht 162.6 cm; Wt 79.5 kg
[2018-08-14 14:45] VITALS: BP 114/70
== END 2018-08-14 14:45 | disposition home or self-care (01) ==
LOC: D.ER 11:02
DX: R51 Headache (principal)

== ENCOUNTER 2018-08-17 09:39 | Inpatient (IN) | payer MEDICAID ==
[~2018-08-17] VITALS: Ht 162.6 cm; Wt 79.4 kg
[2018-08-17 10:16] LABS: BASOPHILS 0.3 % (0-2); EOSINOPHILS 1.9 % (0-7); HEMATOCRIT 38.5 % (36.0-48.0); IMMATURE GRANULOCYTES 0.5 % (0-5); LYMPHOCYTES 29.5 % (15-50); MCH 31.4 pg (26.0-34.0); MCHC 33.8 g/dL (31.0-37.0); MEAN PLATELET VOLUME 9.4 fL (7.4-10.4); MONOCYTES 7.5 % (2-11); NEUTROPHILS 60.3 % (40-80); PLATELET COUNT 373 10x3/uL (130-400); RBC 4.14 10x6/uL (4.00-5.40); RDW 13.7 % (11.5-14.5); WBC 10.5 10x3/uL (4.8-10.8)
[2018-08-17 10:30] VITALS: BP 112/77
[2018-08-17 10:36] LABS: ALBUMIN 3.5 g/dL (3.4-5.0); ALKALINE PHOSPHATASE 129 U/L (46-116); ALT (SGPT) 31 U/L (10-68); BILIRUBIN - TOTAL 0.16 mg/dL (0.2-1.3); CALC OSMOLALITY 286 mosm/kg (275-300); CALCIUM 8.7 mg/dL (8.5-10.1); CARBON DIOXIDE 23.2 mmol/L (21.0-32.0); CHLORIDE - SERUM 107 mmol/L (98-107); CREATININE - SERUM 0.7 mg/dL (0.6-1.3); POTASSIUM - SERUM 4.2 mmol/L (3.5-5.1); PROTEIN - SERUM 7.8 g/dL (6.4-8.2); SODIUM 142 mmol/L (136-145); UREA NITROGEN 23 mg/dL (7-18); eGFR NON AFRICAN AMERICAN > 90 mL/min (90-120)
[2018-08-17 10:37] LABS: APPEARANCE HAZY (CLEAR); BILIRUBIN NEGATIVE (NEGATIVE); COLOR STRAW (YELLOW); GLUCOSE NEGATIVE (NEGATIVE); KETONE NEGATIVE (NEGATIVE); NITRITE NEGATIVE (NEGATIVE); PROTEIN TRACE mg/dL (NEGATIVE); UROBILINOGEN NORMAL (NORMAL)
[2018-08-17 10:38] LABS: GLUCOSE 101 mg/dL (74-106)
[2018-08-17 10:39] LABS: EPITHELIAL CELLS 0-5 /hpf (0-5); RED CELLS - URINE 0-5 /hpf (0-5)
[2018-08-17 10:40] LABS: BACTERIA FEW /hpf (NONE SEEN)
[2018-08-17 10:40] LABS: AMYLASE - SERUM 147 U/L (25-115); LIPASE 925 U/L (73-393); TROPONIN-I < 0.017 ng/mL (0.000-0.060)
[2018-08-17 12:11] VITALS: BP 128/77
[2018-08-17 13:13] VITALS: BP 113/67
--- NOTE | 2018-08-17 15:08 | NUR ---
REPORT CALLED TO BARBRA ZALDIVAR BY SBAR FORMAT
[2018-08-17 15:10] VITALS: BP 118/64
--- NOTE | 2018-08-17 15:10 | NUR ---
PT TRANSPORTED TO ROOM# 1510, CONDITION STABLE. NS INFUSING UPON TX TO FLOOR
[2018-08-17] MEDS ORDERED: BUTALB-APAP-CA1 EACH PO (15:24)
[2018-08-17] MEDS ORDERED: MACROBID100 MG PO (15:25)
[2018-08-17] MEDS ORDERED: IBUPROFEN800 MG PO (15:25)
[2018-08-17] MEDS ORDERED: ULTRAM50 MG PO (15:26)
[2018-08-17] MEDS ORDERED: AMBIEN10 MG PO (15:26)
[2018-08-17] MEDS ORDERED: ARIPIPRAZOLE (15:27)
[2018-08-17] MEDS ORDERED: ZOLOFT50 MG PO (15:27)
--- NOTE | 2018-08-17 15:30 | NUR ---
RECEIVED TO ROOM 2209 VIA WC FROM ER. A/O X3. SKIN IS INTACT WITHOUT REDNESS EXCEPT 5 SMALL RED SPOTS ON INSIDE OF VAGINA. WILL MONITOR. IV TO LEFT AC IS PATENT. DENIES NEEDS. STATES SHE HAS THOUGHT ABOUT SUICIDE IN THE LAST 30 DAYS. PROTOCAL INITIATED.
[2018-08-17 15:34] VITALS: BP 124/79; BMI 30.1
--- NOTE | 2018-08-17 15:49 | NUR ---
PHONE CALL PLACED TO MIDDLE SCHOOL TUTOR AT THIS TIME FOR SUICIDE ASSESSMENT. REMAINING IN ROOM WITH PT TILL SEEN. ROOM MADE INTO SAFE ROOM AT THIS TIME
--- NOTE | 2018-08-17 16:28 | NUR ---
DR. MACK NOTIFIED AND REVIEWED PATIENT'S BEHAVIOR AND ASSESSMENT RESULTS. PT. IS A LOW RISK PER DR. MACK. DR. MACK STATED TO GIVE RESOURCES TO PATIENT AT TIME OF DISCHARGE. NO FURTHER ORDERS AT THIS TIME. RESOURCES REVIEWED WITH PATIENT AND SHE VERBLIZED UNDERSTANDING.
--- NOTE | 2018-08-17 16:30 | NUR ---
REQUESTED AND GIVNE 4MG MORPHINE SLOW IVP FOR C/O GENERALIZED PAIN LEVEL 6. WILL MONITOR.
--- NOTE | 2018-08-17 18:19 | NUR ---
ATE ALL OF SUPPER WITHOUT INCREASED ABDOMINAL PAIN. DENIES NEEDS. NO CHANGES NOTED.
[2018-08-17 21:14] VITALS: BP 103/56
[2018-08-18 01:15] VITALS: BP 124/60
[2018-08-18 04:55] VITALS: BP 112/54
[2018-08-18 04:55] LABS: BASOPHILS 0.5 % (0-2); EOSINOPHILS 3.9 % (0-7); HEMATOCRIT 35.3 % (36.0-48.0); HEMOGLOBIN 11.4 g/dL (12-16); IMMATURE GRANULOCYTES 0.7 % (0-5); LYMPHOCYTES 38.9 % (15-50); MCH 30.7 pg (26.0-34.0); MCHC 32.3 g/dL (31.0-37.0); MEAN PLATELET VOLUME 9.6 fL (7.4-10.4); MONOCYTES 7.7 % (2-11); NEUTROPHILS 48.3 % (40-80); PLATELET COUNT 315 10x3/uL (130-400); RBC 3.71 10x6/uL (4.00-5.40); RDW 13.8 % (11.5-14.5)
[2018-08-18 05:03] LABS: MCV 95.1 fL (80.0-100.0); WBC 7.5 10x3/uL (4.8-10.8)
[2018-08-18 05:11] LABS: ALBUMIN 2.8 g/dL (3.4-5.0); ALKALINE PHOSPHATASE 90 U/L (46-116); BILIRUBIN - TOTAL 0.12 mg/dL (0.2-1.3); CALCIUM 7.9 mg/dL (8.5-10.1); CARBON DIOXIDE 21.7 mmol/L (21.0-32.0); CHLORIDE - SERUM 111 mmol/L (98-107); CREATININE - SERUM 0.7 mg/dL (0.6-1.3); GLUCOSE 107 mg/dL (74-106); MAGNESIUM - SERUM 1.6 mg/dL (1.8-2.4); PHOSPHOROUS 4.6 mg/dL (2.5-4.9); POTASSIUM - SERUM 3.6 mmol/L (3.5-5.1); PROTEIN - SERUM 6.5 g/dL (6.4-8.2); SODIUM 143 mmol/L (136-145); eGFR NON AFRICAN AMERICAN > 90 mL/min (90-120)
[2018-08-18 05:13] LABS: ALT (SGPT) 22 U/L (10-68); CALC OSMOLALITY 286 mosm/kg (275-300); UREA NITROGEN 17 mg/dL (7-18)
[2018-08-18 07:42] LABS: UDS - AMPHET NEGATIVE QUAL (NEGATIVE); UDS - BARB POSITIVE QUAL (NEGATIVE); UDS - BENZO NEGATIVE QUAL (NEGATIVE); UDS - COCAINE NEGATIVE QUAL (NEGATIVE); UDS - OPIATE POSITIVE QUAL (NEGATIVE); UDS - PCP NEGATIVE QUAL (NEGATIVE); UDS - THC NEGATIVE QUAL (NEGATIVE)
[2018-08-18 09:38] VITALS: BP 118/61
--- NOTE | 2018-08-18 10:53 | NUR ---
MORNING ASSESSMENT COMPLETE. SEE ASSESSMENT FLOWSHEET FOR FURTHER DETAILS. PT LYING IN BED AAO X4 TO PERSON, PLACE, TIME, AND SITUATION. DENIES NEEDS AT THIS TIME. CL IN REACH. SIDE RAILS UP X3 FOR PT SAFETY
[2018-08-18 13:21] VITALS: Ht 162.6 cm; Wt 79.4 kg
[2018-08-18 13:35] LABS: AMYLASE - SERUM 143 U/L (25-115); LIPASE 908 U/L (73-393)
[2018-08-18 13:55] VITALS: BP 112/59
[2018-08-18 17:34] VITALS: BP 122/53
--- NOTE | 2018-08-18 18:26 | NUR ---
PT ATE BREAKFAST AND WAS SUPPOSED TO BE NPO AFTER 830 AM. I CAME TO DO GB ULTRASOUND AT 615 PM. PT HAD EATEN DINNER. EXAM WILL HAVE TO BE DONE IN AM AFTER NPO FOR 8 HRS. NURSE DAMARIS IS NOTIFIED. JOVAN,FIORELLAMS
[2018-08-18 20:00] VITALS: BP 109/63
--- NOTE | 2018-08-18 20:05 | NUR ---
PT ALERT X 4. BREATH SOUNDS CLEAR BILAT. TELEMETRY IN PLACE. PT REPORTING PAIN OF 5/10 TO ABDOMINAL REGION, WILL MONITOR. IV TO LEFT FOREARM, PACTENT, DRESSING CDI. BED LOW, CALL LIGHT IN REACH, NO OTHER NEEDS AT THIS TIME.
[2018-08-19 01:08] VITALS: BP 100/53
[2018-08-19 05:21] VITALS: BP 97/44
[2018-08-19 07:13] LABS: ALBUMIN 2.9 g/dL (3.4-5.0); ALKALINE PHOSPHATASE 100 U/L (46-116); ALT (SGPT) 23 U/L (10-68); AMYLASE - SERUM 93 U/L (25-115); BILIRUBIN - TOTAL 0.07 mg/dL (0.2-1.3); CALC OSMOLALITY 286 mosm/kg (275-300); CALCIUM 8.3 mg/dL (8.5-10.1); CHLORIDE - SERUM 109 mmol/L (98-107); CREATININE - SERUM 0.6 mg/dL (0.6-1.3); GLUCOSE 94 mg/dL (74-106); LIPASE 167 U/L (73-393); MAGNESIUM - SERUM 2.2 mg/dL (1.8-2.4); PHOSPHOROUS 4.6 mg/dL (2.5-4.9); POTASSIUM - SERUM 3.5 mmol/L (3.5-5.1); PROTEIN - SERUM 6.7 g/dL (6.4-8.2); SODIUM 144 mmol/L (136-145); UREA NITROGEN 13 mg/dL (7-18); eGFR NON AFRICAN AMERICAN > 90 mL/min (90-120)
--- NOTE | 2018-08-19 07:30 | NUR ---
[place] INT. PT IS WITHOUT SIGNS OF DISTRESS.CALL LIGHT IN REACH
[2018-08-19 10:30] VITALS: BP 115/58
[2018-08-19] MEDS ORDERED: LEVOFLOXACIN500 MG PO (11:37)
--- NOTE | 2018-08-19 13:56 | NUR ---
DISCHARGE INSTRUCTIONS,STATES UNDERSTANDING.IV DCD WITH CATH TIP INTACT.PT STATES HAS NO PAIN MEDS OR DAILY MEDS AT HOME. SPOKE WITH BHARTI CASIANO APN WITH DR. REYNA,THEY WANT PT TO FOLLOW UP WITH PCP FOR MEDS NEEDED. PT NEEDS TAXI FOR TRANSPORT HOME. WILL SPEAK WITH CASE MANAGEMENT.
--- NOTE | 2018-08-19 14:09 | NUR ---
CAB RIDE WILL BE PROVIDED FOR TRANSPORT HOME
--- NOTE | 2018-08-19 14:25 | MORECARE ---
CASE MANAGEMENT DISCHARGE SUMMARY PATIENT: BRODIE VALDERRAMA UNIT: [id number] ADM DATE: 08/17/18 AGE: 48 : [birth year] SEX: F ROOM/BED: D.2209 AUTHOR: SIMA GOMEZ PHYSICIAN: REFERRING PHYSICIAN: PRIETO REYNA MD DATE OF SERVICE: 08/19/18 Discharge Plan Patient Name: BRODIE VALDERRAMA Facility: [facility]:[place] : 1970 Planned Disposition: Anticipated Discharge Date: Discharge Date: Expected LOS: Initial Reviewer: [email or web address] Initial Review Date: 08/17/2018 Generated: 08/19/18 3:25 pm Comments DCP- Discharge Planning Updated by [email or web address]: Florencia Lyon on 08/19/18 1:[address] CM provided a Taxi to [address] [place] [address] CM will pay the bill of 7.25. Spoke with Thu about taxi Coverage Notice Reviewer: [email or web address] - Folrencia Lyon Notice Issued Date-Time: 08/19/2018 14:50 Notice Type: Patient Choice Letter Notice Delivered To: Patient Relationship to Patient: Bottle House Cleaners Supervisor Name: Delivery Method: HAND - Hand Delivered Karen Days: Prior Verbal Notification: Recipient Understood Notice: Yes Recipient Signature: Yes Med Rec Note Co-signed by Attending: Coverage Notice Comment: Patient Name: BRODIE VALDERRAMA Page [id number] at 1425 All edits/amendments must be made on the electronic document DICTATION DATE: 08/19/181423 NURSE PRACTITIONER HOME ASSESSMENTS: ITALIA 08/19/18 142 RPT#: [id number] DC DATE: STATUS: ADM IN [facility] [address] [place] [address] END OF REPORT
--- NOTE | 2018-08-19 14:26 | NUR ---
LEFT UNIT VIA WHEELCHAIR FOR TRANSPORT HOME
--- NOTE | 2018-08-22 08:45 | MORECARE ---
CASE MANAGEMENT DISCHARGE SUMMARY PATIENT: BRODIE VALDERRAMA UNIT: [id number] ADM DATE: 08/17/18 AGE: 48 : [birth year] SEX: F ROOM/BED: D.2209 AUTHOR: SIMA GOMEZ PHYSICIAN: REFERRING PHYSICIAN: PRIETO REYNA MD DATE OF SERVICE: 08/22/18 Discharge Plan Patient Name: BRODIE VALDERRAMA Facility: [facility]:[place] : 1970 Planned Disposition: Anticipated Discharge Date: Discharge Date: 08/19/2018 Expected LOS: Initial Reviewer: [email or web address] Initial Review Date: 08/17/2018 Generated: 08/22/18 9:45 am Comments DCP- Discharge Planning Updated by [email or web address]: Florencia Lyon on 08/19/18 1:[address] CM provided a Taxi to [address] [place] [address] CM will pay the bill of 7.25. Spoke with Thu about taxi Coverage Notice Reviewer: [id number] - Florencia Lyon Notice Issued Date-Time: 08/19/2018 14:50 Notice Type: Patient Choice Letter Notice Delivered To: Patient Relationship to Patient: Agri Business Agent Name: Delivery Method: HAND - Hand Delivered Karen Days: Prior Verbal Notification: Recipient Understood Notice: Yes Recipient Signature: Yes Med Rec Note Co-signed by Attending: Coverage Notice Comment: Last DP export: 08/19/18 1:25 p Patient Name: BRODIE VALDERRAMA Page [id number] at 0845 All edits/amendments must be made on the electronic document DICTATION DATE: 08/22/18 0845 SHIPFITTER APPRENTICE: ITALIA 08/22/18 0845 RPT#: [id number] DC DATE:08/19/18 STATUS: DIS IN [facility] [address] [place] [address] END OF REPORT
[2018-08-22 15:11] LABS: CHLAMYDIA TRACHOMATIS, NAA Negative (Negative)
== END 2018-08-19 14:26 | disposition home or self-care (01) | DRG 689 ==
LOC: D.ER 09:39 → D.MS 14:05
PROVIDERS: Family Medicine; ADMIT Internal Medicine Nephrology; ATTEND Internal Medicine Nephrology
DX: N39.0 Urinary tract infection, site not specified (principal); K85.90 Acute pancreatitis without necrosis or infection, unspecified; K50.10 Crohn's disease of large intestine without complications; F41.8 Other specified anxiety disorders; M72.9 Fibroblastic disorder, unspecified

== ENCOUNTER 2018-08-21 02:28 | Emergency (ER) | payer MEDICAID ==
[~2018-08-21] VITALS: Ht 162.6 cm; Wt 80.7 kg
[~2018-08-21 02:28] MED LIST changes: +ARIPIPRAZOLE; +LEVOFLOXACIN500 MG PO; +ZOLOFT50 MG PO
[2018-08-21 02:34] VITALS: Ht 162.6 cm; Wt 80.7 kg
[2018-08-21 03:05] LABS: APPEARANCE HAZY (CLEAR); COLOR YELLOW (YELLOW)
[2018-08-21 03:06] LABS: BACTERIA MANY /hpf (NONE SEEN); BILIRUBIN NEGATIVE (NEGATIVE); EPITHELIAL CELLS 0-5 /hpf (0-5); GLUCOSE NEGATIVE (NEGATIVE); KETONE NEGATIVE (NEGATIVE); NITRITE NEGATIVE (NEGATIVE); PROTEIN NEGATIVE (NEGATIVE); UROBILINOGEN NORMAL (NORMAL); WHITE CELLS - URINE 25-50 /hpf (0-5)
[2018-08-21 03:07] LABS: BASOPHILS 0.3 % (0-2); EOSINOPHILS 1.2 % (0-7); HEMATOCRIT 35.9 % (36.0-48.0); HEMOGLOBIN 11.7 g/dL (12-16); IMMATURE GRANULOCYTES 0.4 % (0-5); LYMPHOCYTES 33.8 % (15-50); MCH 30.7 pg (26.0-34.0); MCHC 32.6 g/dL (31.0-37.0); MCV 94.2 fL (80.0-100.0); MEAN PLATELET VOLUME 9.4 fL (7.4-10.4); MONOCYTES 7.5 % (2-11); NEUTROPHILS 56.8 % (40-80); PLATELET COUNT 335 10x3/uL (130-400); RBC 3.81 10x6/uL (4.00-5.40); WBC 9.1 10x3/uL (4.8-10.8)
--- NOTE | 2018-08-21 03:09 | NUR ---
DR MACK NOTIFIED AND 1:1 SITTER OBSERVATION ORDERED. SITTER AT BEDSIDE, NOTIFIED CHARGE NURSE AND ATTENDING IN REGARDS TO ASSESSMENT FINDINGS. RESOURCES GIVEN TO PT AND SAFETY PLAN INITIATED.
[2018-08-21 03:15] LABS: ALBUMIN 3.2 g/dL (3.4-5.0); ANION GAP 12.4 mmol/L (8-16); BILIRUBIN - TOTAL 0.13 mg/dL (0.2-1.3); CALCIUM 8.6 mg/dL (8.5-10.1); POTASSIUM - SERUM 3.4 mmol/L (3.5-5.1); PROTEIN - SERUM 7.3 g/dL (6.4-8.2)
[2018-08-21 03:16] LABS: UDS - AMPHET NEGATIVE QUAL (NEGATIVE); UDS - BARB POSITIVE QUAL (NEGATIVE); UDS - BENZO NEGATIVE QUAL (NEGATIVE); UDS - COCAINE NEGATIVE QUAL (NEGATIVE); UDS - OPIATE POSITIVE QUAL (NEGATIVE); UDS - PCP NEGATIVE QUAL (NEGATIVE); UDS - THC NEGATIVE QUAL (NEGATIVE)
[2018-08-21 03:23] LABS: CREATININE - SERUM 0.9 mg/dL (0.6-1.3)
[2018-08-21] MEDS ORDERED: CIPRO500 MG PO (04:59)
[2018-08-21 05:04] VITALS: BP 126/67
== END 2018-08-21 08:31 ==
LOC: D.ER 02:28
PROVIDERS: Family Medicine
DX: F32.9 Major depressive disorder, single episode, unspecified (principal); R45.851 Suicidal ideations

== ENCOUNTER 2018-09-12 20:00 | Emergency (ER) | payer MEDICAID ==
[~2018-09-12] VITALS: Ht 162.6 cm; Wt 77.3 kg
[2018-09-12 20:11] VITALS: Ht 162.6 cm; Wt 77.3 kg
[2018-09-12 21:18] LABS: UDS - AMPHET NEGATIVE QUAL (NEGATIVE); UDS - BARB NEGATIVE QUAL (NEGATIVE); UDS - BENZO NEGATIVE QUAL (NEGATIVE); UDS - COCAINE NEGATIVE QUAL (NEGATIVE); UDS - OPIATE NEGATIVE QUAL (NEGATIVE); UDS - PCP NEGATIVE QUAL (NEGATIVE); UDS - THC NEGATIVE QUAL (NEGATIVE)
[2018-09-12 21:24] LABS: APPEARANCE CLEAR (CLEAR); BACTERIA MODERATE /hpf (NONE SEEN); BILIRUBIN NEGATIVE (NEGATIVE); COLOR STRAW (YELLOW); EPITHELIAL CELLS 0-5 /hpf (0-5); GLUCOSE NEGATIVE (NEGATIVE); KETONE NEGATIVE (NEGATIVE); MUCUS <1+ /lpf (NONE SEEN); NITRITE NEGATIVE (NEGATIVE); PROTEIN NEGATIVE (NEGATIVE); RED CELLS - URINE 0-5 /hpf (0-5); SPECIFIC GRAVITY 1.015 (1.005-1.020); UROBILINOGEN NORMAL (NORMAL)
[2018-09-12 21:25] LABS: AMORPHOUS SEDIMENT <1+ /lpf (NONE SEEN)
[2018-09-12 22:35] LABS: BASOPHILS 0.2 % (0-2); EOSINOPHILS 0.5 % (0-7); HEMATOCRIT 40.2 % (36.0-48.0); HEMOGLOBIN 13.9 g/dL (12-16); IMMATURE GRANULOCYTES 0.4 % (0-5); LYMPHOCYTES 18.3 % (15-50); MCH 31.9 pg (26.0-34.0); MCHC 34.6 g/dL (31.0-37.0); MCV 92.2 fL (80.0-100.0); MEAN PLATELET VOLUME 9.5 fL (7.4-10.4); MONOCYTES 6.3 % (2-11); NEUTROPHILS 74.3 % (40-80); PLATELET COUNT 340 10x3/uL (130-400); RBC 4.36 10x6/uL (4.00-5.40); RDW 12.9 % (11.5-14.5)
[2018-09-12 22:50] LABS: ALBUMIN 3.4 g/dL (3.4-5.0); ALKALINE PHOSPHATASE 130 U/L (46-116); ALT (SGPT) 44 U/L (10-68); BILIRUBIN - TOTAL 0.29 mg/dL (0.2-1.3); CALC OSMOLALITY 278 mosm/kg (275-300); CALCIUM 9.5 mg/dL (8.5-10.1); CHLORIDE - SERUM 102 mmol/L (98-107); CREATININE - SERUM 0.8 mg/dL (0.6-1.3); GLUCOSE 102 mg/dL (74-106); MAGNESIUM - SERUM 1.8 mg/dL (1.8-2.4); POTASSIUM - SERUM 3.9 mmol/L (3.5-5.1); PROTEIN - SERUM 8.3 g/dL (6.4-8.2); SODIUM 140 mmol/L (136-145); UREA NITROGEN 13 mg/dL (7-18); eGFR NON AFRICAN AMERICAN 81 mL/min (90-120)
[2018-09-13 06:18] VITALS: BP 122/68
== END 2018-09-13 07:38 ==
LOC: D.ER 20:00
PROVIDERS: Family Medicine
DX: R45.851 Suicidal ideations (principal); F32.9 Major depressive disorder, single episode, unspecified

== ENCOUNTER 2018-09-18 10:20 | Emergency (ER) | payer MEDICAID ==
[~2018-09-18] VITALS: Ht 162.6 cm; Wt 77.3 kg
[2018-09-18 10:26] VITALS: Ht 162.6 cm; Wt 77.3 kg
--- NOTE | 2018-09-18 11:11 | NUR ---
DR MACK NOTIFIED AND REVIEWED PATIENT'S BEHAVIOR AND ASSESSMENT RESULTS. PT IS A LOW RISK PER DR. MACK. DR MACK STATED TO GIVE RESOURCES TO PT AT TIME OF DISCHARGE. NO FURTHER ORDERS AT THIS TIME. RESOURCES REVIEWED WITH PT AND SHE VERBALIZED UNDERSTANDING. PATIENT DENIES ANY DESIRE WHATSOEVER TO HARM SELF AND STATES, "SIR, I AM NOT SUICIDAL!"
[2018-09-18 11:56] VITALS: BP 128/74
== END 2018-09-18 11:57 | disposition home or self-care (01) ==
LOC: D.ER 10:20
DX: R51 Headache (principal)

== ENCOUNTER 2018-09-21 18:45 | Emergency (ER) | payer MEDICAID ==
[~2018-09-21] VITALS: Ht 162.6 cm; Wt 77.3 kg
[2018-09-21 19:02] VITALS: BP 130/75; Ht 162.6 cm; Wt 77.3 kg
[2018-09-21 19:21] LABS: BASOPHILS 0.2 % (0-2); EOSINOPHILS 1.2 % (0-7); HEMATOCRIT 38.9 % (36.0-48.0); HEMOGLOBIN 13.6 g/dL (12-16); IMMATURE GRANULOCYTES 0.3 % (0-5); LYMPHOCYTES 18.9 % (15-50); MCH 31.9 pg (26.0-34.0); MCV 91.1 fL (80.0-100.0); MEAN PLATELET VOLUME 9.2 fL (7.4-10.4); MONOCYTES 4.3 % (2-11); NEUTROPHILS 75.1 % (40-80); PLATELET COUNT 327 10x3/uL (130-400); RBC 4.27 10x6/uL (4.00-5.40); WBC 9.9 10x3/uL (4.8-10.8)
[2018-09-21 19:33] LABS: ALBUMIN 3.4 g/dL (3.4-5.0); ALKALINE PHOSPHATASE 121 U/L (46-116); ALT (SGPT) 30 U/L (10-68); BILIRUBIN - TOTAL 0.22 mg/dL (0.2-1.3); CALC OSMOLALITY 281 mosm/kg (275-300); CALCIUM 9.1 mg/dL (8.5-10.1); CARBON DIOXIDE 26.3 mmol/L (21.0-32.0); CHLORIDE - SERUM 105 mmol/L (98-107); CREATININE - SERUM 0.9 mg/dL (0.6-1.3); GLUCOSE 146 mg/dL (74-106); POTASSIUM - SERUM 3.4 mmol/L (3.5-5.1); SODIUM 140 mmol/L (136-145); UREA NITROGEN 13 mg/dL (7-18); eGFR NON AFRICAN AMERICAN 70 mL/min (90-120)
[2018-09-21 19:38] LABS: AMYLASE - SERUM 117 U/L (25-115); LIPASE 145 U/L (73-393)
[2018-09-21 19:39] LABS: TROPONIN-I < 0.017 ng/mL (0.000-0.060)
== END 2018-09-21 21:36 | disposition home or self-care (01) ==
LOC: D.ER 18:45
PROVIDERS: Emergency Medicine
DX: R10.9 Unspecified abdominal pain (principal)

== ENCOUNTER 2018-09-23 14:29 | Emergency (ER) | payer MEDICAID ==
[~2018-09-23] VITALS: Ht 162.6 cm; Wt 80.5 kg
[2018-09-23 15:06] VITALS: BP 105/81; Ht 162.6 cm; Wt 80.5 kg
[2018-09-23 15:34] LABS: BASOPHILS 0.2 % (0-2); EOSINOPHILS 1.6 % (0-7); HEMATOCRIT 37.1 % (36.0-48.0); HEMOGLOBIN 12.6 g/dL (12-16); IMMATURE GRANULOCYTES 0.2 % (0-5); LYMPHOCYTES 23.8 % (15-50); MCH 31.4 pg (26.0-34.0); MCV 92.5 fL (80.0-100.0); MEAN PLATELET VOLUME 9.4 fL (7.4-10.4); MONOCYTES 6.5 % (2-11); NEUTROPHILS 67.7 % (40-80); PLATELET COUNT 321 10x3/uL (130-400); RBC 4.01 10x6/uL (4.00-5.40); WBC 10.4 10x3/uL (4.8-10.8)
[2018-09-23 15:51] LABS: ALBUMIN 3.2 g/dL (3.4-5.0); ALKALINE PHOSPHATASE 119 U/L (46-116); ALT (SGPT) 25 U/L (10-68); AMYLASE - SERUM 142 U/L (25-115); BILIRUBIN - TOTAL 0.21 mg/dL (0.2-1.3); CALC OSMOLALITY 285 mosm/kg (275-300); CALCIUM 8.5 mg/dL (8.5-10.1); CARBON DIOXIDE 26.4 mmol/L (21.0-32.0); CHLORIDE - SERUM 107 mmol/L (98-107); CREATININE - SERUM 0.8 mg/dL (0.6-1.3); GLUCOSE 107 mg/dL (74-106); LIPASE 91 U/L (73-393); POTASSIUM - SERUM 3.3 mmol/L (3.5-5.1); PROTEIN - SERUM 7.7 g/dL (6.4-8.2); SODIUM 143 mmol/L (136-145); UREA NITROGEN 14 mg/dL (7-18); eGFR NON AFRICAN AMERICAN 81 mL/min (90-120)
== END 2018-09-23 18:08 | disposition left against medical advice (07) ==
LOC: D.ER 14:29
PROVIDERS: Family Medicine
DX: R10.9 Unspecified abdominal pain (principal)

== ENCOUNTER 2018-09-27 09:29 | Emergency (ER) | payer MEDICAID ==
[~2018-09-27] VITALS: Ht 162.6 cm; Wt 77.3 kg
[2018-09-27 09:31] VITALS: BP 133/79; Ht 162.6 cm; Wt 77.3 kg
[2018-09-27] MEDS ORDERED: GENTAMICIN 0.3 %5 ML EACH EYE (10:29)
[2018-09-27] MEDS ORDERED: VOLTAREN75 MG PO (10:29)
[2018-09-27] MEDS ORDERED: ATARAX 25 MG TA25 MG PO (10:29)
== END 2018-09-27 10:38 | disposition home or self-care (01) ==
LOC: D.ER 09:29
DX: H10.33 Unspecified acute conjunctivitis, bilateral (principal); L30.9 Dermatitis, unspecified

== ENCOUNTER 2018-10-13 16:44 | Emergency (ER) | payer MEDICAID ==
[~2018-10-13] VITALS: Ht 162.6 cm; Wt 77.3 kg
[~2018-10-13 16:44] MED LIST changes: +GENTAMICIN 0.3 %5 ML EACH EYE; +VOLTAREN75 MG PO
[2018-10-13 16:45] VITALS: Ht 162.6 cm; Wt 77.3 kg
[2018-10-13 17:58] LABS: BASOPHILS 0.4 % (0-2); EOSINOPHILS 0.5 % (0-7); HEMATOCRIT 39.2 % (36.0-48.0); HEMOGLOBIN 13.4 g/dL (12-16); IMMATURE GRANULOCYTES 0.4 % (0-5); LYMPHOCYTES 20.6 % (15-50); MCH 31.4 pg (26.0-34.0); MCHC 34.2 g/dL (31.0-37.0); MCV 91.8 fL (80.0-100.0); MEAN PLATELET VOLUME 9.4 fL (7.4-10.4); MONOCYTES 6.2 % (2-11); NEUTROPHILS 71.9 % (40-80); PLATELET COUNT 347 10x3/uL (130-400); RBC 4.27 10x6/uL (4.00-5.40); RDW 13.1 % (11.5-14.5); WBC 8.4 10x3/uL (4.8-10.8)
[2018-10-13 18:12] LABS: ALBUMIN 3.5 g/dL (3.4-5.0); ALKALINE PHOSPHATASE 111 U/L (46-116); ALT (SGPT) 36 U/L (10-68); BILIRUBIN - TOTAL 0.27 mg/dL (0.2-1.3); CALC OSMOLALITY 286 mosm/kg (275-300); CALCIUM 9.3 mg/dL (8.5-10.1); CARBON DIOXIDE 27.1 mmol/L (21.0-32.0); CHLORIDE - SERUM 106 mmol/L (98-107); CREATININE - SERUM 0.9 mg/dL (0.6-1.3); GLUCOSE 106 mg/dL (74-106); POTASSIUM - SERUM 3.4 mmol/L (3.5-5.1); PROTEIN - SERUM 8.1 g/dL (6.4-8.2); SODIUM 144 mmol/L (136-145); UREA NITROGEN 12 mg/dL (7-18); eGFR NON AFRICAN AMERICAN 70 mL/min (90-120)
[2018-10-13 18:16] LABS: AMYLASE - SERUM 115 U/L (25-115); LIPASE 99 U/L (73-393)
[2018-10-13 18:17] LABS: TROPONIN-I < 0.017 ng/mL (0.000-0.060)
[2018-10-13 18:43] LABS: COLOR YELLOW (YELLOW)
[2018-10-13 18:44] LABS: APPEARANCE CLEAR (CLEAR); BILIRUBIN NEGATIVE (NEGATIVE); GLUCOSE NEGATIVE (NEGATIVE); KETONE NEGATIVE (NEGATIVE); NITRITE NEGATIVE (NEGATIVE); PROTEIN 1+ mg/dL (NEGATIVE); UROBILINOGEN NORMAL (NORMAL)
[2018-10-13 18:46] LABS: RED CELLS - URINE 0-5 /hpf (0-5)
[2018-10-13 18:47] LABS: BACTERIA FEW /hpf (NONE SEEN); EPITHELIAL CELLS 0-5 /hpf (0-5); MUCUS <1+ /lpf (NONE SEEN)
--- NOTE | 2018-10-13 18:47 | NUR ---
According to the patient's suicide assessment she scores low and she does not require a 1:1 observation.
[2018-10-13] MEDS ORDERED: CIPRO500 MG PO (19:22)
[2018-10-13 20:30] VITALS: BP 118/77
== END 2018-10-13 20:30 | disposition home or self-care (01) ==
LOC: D.ER 16:44
PROVIDERS: Emergency Medicine
DX: N39.0 Urinary tract infection, site not specified (principal)

== ENCOUNTER 2018-10-20 11:14 | Emergency (ER) | payer MEDICAID ==
[~2018-10-20] VITALS: Ht 162.6 cm; Wt 68.2 kg
[2018-10-20 11:19] VITALS: Ht 162.6 cm; Wt 68.2 kg
[2018-10-20 11:37] LABS: BASOPHILS 0.4 % (0-2); EOSINOPHILS 1.1 % (0-7); HEMATOCRIT 39.8 % (36.0-48.0); HEMOGLOBIN 13.9 g/dL (12-16); IMMATURE GRANULOCYTES 0.4 % (0-5); LYMPHOCYTES 17.9 % (15-50); MCH 31.7 pg (26.0-34.0); MCHC 34.9 g/dL (31.0-37.0); MCV 90.9 fL (80.0-100.0); MEAN PLATELET VOLUME 9.5 fL (7.4-10.4); MONOCYTES 4.4 % (2-11); NEUTROPHILS 75.8 % (40-80); PLATELET COUNT 284 10x3/uL (130-400); RBC 4.38 10x6/uL (4.00-5.40); RDW 12.9 % (11.5-14.5); WBC 8.5 10x3/uL (4.8-10.8)
[2018-10-20 11:52] LABS: UDS - AMPHET NEGATIVE QUAL (NEGATIVE); UDS - BARB POSITIVE QUAL (NEGATIVE); UDS - BENZO NEGATIVE QUAL (NEGATIVE); UDS - COCAINE NEGATIVE QUAL (NEGATIVE); UDS - OPIATE NEGATIVE QUAL (NEGATIVE); UDS - PCP NEGATIVE QUAL (NEGATIVE); UDS - THC NEGATIVE QUAL (NEGATIVE)
[2018-10-20 11:52] LABS: ALBUMIN 3.3 g/dL (3.4-5.0); ALKALINE PHOSPHATASE 113 U/L (46-116); ALT (SGPT) 38 U/L (10-68); CALC OSMOLALITY 280 mosm/kg (275-300); CALCIUM 9.4 mg/dL (8.5-10.1); CARBON DIOXIDE 25.5 mmol/L (21.0-32.0); CHLORIDE - SERUM 104 mmol/L (98-107); CREATININE - SERUM 0.7 mg/dL (0.6-1.3); GLUCOSE 145 mg/dL (74-106); MAGNESIUM - SERUM 1.7 mg/dL (1.8-2.4); POTASSIUM - SERUM 3.8 mmol/L (3.5-5.1); PROTEIN - SERUM 8.2 g/dL (6.4-8.2); SODIUM 140 mmol/L (136-145); UREA NITROGEN 10 mg/dL (7-18); eGFR NON AFRICAN AMERICAN > 90 mL/min (90-120)
[2018-10-20 11:58] LABS: APPEARANCE CLEAR (CLEAR); BILIRUBIN NEGATIVE (NEGATIVE); COLOR STRAW (YELLOW); GLUCOSE NEGATIVE (NEGATIVE); KETONE NEGATIVE (NEGATIVE); NITRITE NEGATIVE (NEGATIVE); PROTEIN NEGATIVE (NEGATIVE); UROBILINOGEN NORMAL (NORMAL)
[2018-10-20 11:59] LABS: BACTERIA FEW /hpf (NONE SEEN); EPITHELIAL CELLS NSEEN /hpf (0-5); RED CELLS - URINE 0-5 /hpf (0-5); WHITE CELLS - URINE 0-5 /hpf (0-5)
--- NOTE | 2018-10-20 13:25 | NUR ---
DR. MACK NOTIFIED AND SITTER ORDERED. SITTER AT BEDSIDE. NOTIFIED CHARGE NURSE AND ATTENDING IN REGARDS TO ASSESSMENT FINDINGS. RESOURCES GIVEN TO PT AND SAFETY PLAN INTIATED.
[2018-10-20 23:43] VITALS: BP 125/78
== END 2018-10-20 23:45 ==
LOC: D.ER 11:14
PROVIDERS: Family Medicine
DX: R45.851 Suicidal ideations (principal)

== ENCOUNTER 2018-10-25 20:56 | Emergency (ER) | payer MEDICAID ==
[~2018-10-25] VITALS: Ht 162.6 cm; Wt 77.3 kg
[2018-10-25 20:58] VITALS: Ht 162.6 cm; Wt 77.3 kg
[2018-10-25] MEDS ORDERED: INDOCIN25 MG PO (21:20)
[2018-10-25] MEDS ORDERED: SKELAXIN800 MG PO (22:26)
[2018-10-25 22:45] VITALS: BP 122/78
== END 2018-10-25 22:45 | disposition home or self-care (01) ==
LOC: D.ER 20:56
DX: S42.291A Other displaced fracture of upper end of right humerus, initial encounter for closed fracture (principal); W18.30XA Fall on same level, unspecified, initial encounter; Y93.89 Activity, other specified; Y92.89 Other specified places as the place of occurrence of the external cause

== ENCOUNTER 2018-11-12 19:11 | Emergency (ER) | payer MEDICAID ==
[~2018-11-12] VITALS: Ht 162.6 cm; Wt 77.3 kg
[~2018-11-12 19:11] MED LIST changes: +INDOCIN25 MG PO; +SKELAXIN800 MG PO
[2018-11-12 19:28] VITALS: BP 133/87; Ht 162.6 cm; Wt 77.3 kg
[2018-11-12] MEDS ORDERED: ULTRAM50 MG PO (19:31)
== END 2018-11-12 20:39 | disposition home or self-care (01) ==
LOC: D.ER 19:11
DX: M79.601 Pain in right arm (principal); Z76.5 Malingerer [conscious simulation]

== ENCOUNTER 2018-11-13 01:17 | Emergency (ER) | payer MEDICAID ==
[~2018-11-13] VITALS: Ht 162.6 cm; Wt 75.0 kg
[2018-11-13 01:31] LABS: BASOPHILS 0.4 % (0-2); EOSINOPHILS 0.6 % (0-7); HEMATOCRIT 38.2 % (36.0-48.0); IMMATURE GRANULOCYTES 0.3 % (0-5); LYMPHOCYTES 21.7 % (15-50); MCH 31.3 pg (26.0-34.0); MEAN PLATELET VOLUME 9.3 fL (7.4-10.4); MONOCYTES 6.7 % (2-11); NEUTROPHILS 70.3 % (40-80); PLATELET COUNT 371 10x3/uL (130-400); RBC 4.15 10x6/uL (4.00-5.40); RDW 13.3 % (11.5-14.5); WBC 10.3 10x3/uL (4.8-10.8)
[2018-11-13 01:33] VITALS: Ht 162.6 cm; Wt 75.0 kg
[2018-11-13 01:37] LABS: UDS - AMPHET NEGATIVE QUAL (NEGATIVE); UDS - BARB NEGATIVE QUAL (NEGATIVE); UDS - BENZO NEGATIVE QUAL (NEGATIVE); UDS - COCAINE NEGATIVE QUAL (NEGATIVE); UDS - OPIATE NEGATIVE QUAL (NEGATIVE); UDS - PCP NEGATIVE QUAL (NEGATIVE); UDS - THC NEGATIVE QUAL (NEGATIVE)
[2018-11-13 01:38] LABS: APPEARANCE HAZY (CLEAR); BACTERIA MODERATE /hpf (NONE SEEN); BILIRUBIN NEGATIVE (NEGATIVE); COLOR YELLOW (YELLOW); EPITHELIAL CELLS 0-5 /hpf (0-5); GLUCOSE NEGATIVE (NEGATIVE); KETONE NEGATIVE (NEGATIVE); NITRITE NEGATIVE (NEGATIVE); PROTEIN TRACE mg/dL (NEGATIVE); RED CELLS - URINE 0-5 /hpf (0-5); SPECIFIC GRAVITY 1.025 (1.005-1.020); UROBILINOGEN NORMAL (NORMAL)
[2018-11-13 01:39] LABS: HYALINE CAST OCC /lpf (NONE SEEN); MUCUS <1+ /lpf (NONE SEEN); YEAST RARE /hpf (NONE SEEN)
[2018-11-13 01:46] LABS: ACETAMINOPHEN 11.9 ug/mL (10.0-30.0); ALBUMIN 3.5 g/dL (3.4-5.0); ALKALINE PHOSPHATASE 123 U/L (46-116); ALT (SGPT) 25 U/L (10-68); BILIRUBIN - TOTAL 0.28 mg/dL (0.2-1.3); CARBON DIOXIDE 26.9 mmol/L (21.0-32.0); CREATININE - SERUM 0.7 mg/dL (0.6-1.3); GLUCOSE 130 mg/dL (74-106); PROTEIN - SERUM 7.6 g/dL (6.4-8.2); UREA NITROGEN 16 mg/dL (7-18); eGFR NON AFRICAN AMERICAN > 90 mL/min (90-120)
[2018-11-13 01:53] LABS: CALC OSMOLALITY 280 mosm/kg (275-300); CHLORIDE - SERUM 103 mmol/L (98-107); POTASSIUM - SERUM 3.9 mmol/L (3.5-5.1); SODIUM 139 mmol/L (136-145)
--- NOTE | 2018-11-13 01:53 | NUR ---
DR MACK NOTIFIED AND REVIEWED PT's BEHAVIOR AND ASSESSMENT RESULTS. PT IS A LOW RISK PER DR MACK. DR MACK STAATED TO GIVE RESOURCES TO PT AT TIME OF DISCHARGE. NO FURTHER ORDERS AT THIS TIME. RESOURCES REVIEWED WITH PT AND SHE VERBALIZED UNDERSTANDING.
--- NOTE | 2018-11-13 02:05 | NUR ---
DR. MACK NOTIFIED AND REVIEWED PT'S BEHAVIOR AND ASSESSMENT RESULTS. PT IS A LOW RISK PER DR. MACK. DR MACK STATED TO GIVE RESOURCES TO PT AT TIME OF DISCHARGE. NO FURTHER ORDERS AT THIS TIME. RESOURCES REVIEWED AND SHE VERBALIZED UNDERSTANDING. PT GIVES CONFLICTED REASONS FOR CHIEF COMPLAINT. SHE MIMICS RESPONSES GIVEN. PT IS ATTENTION SEEKING AND REQUEST PAIN MEDICATIONS FOR A FRACTURE IN HER RIGHT ARM. PT STATES" WILL CUT WRIST WITH HER FRIENDS GUN." UNREALISTIC METHOD FOR SUICIDE.
[2018-11-13 04:26] VITALS: BP 132/78
== END 2018-11-13 07:29 ==
LOC: D.ER 01:17
PROVIDERS: Family Medicine
DX: R45.851 Suicidal ideations (principal); Z76.5 Malingerer [conscious simulation]

== ENCOUNTER → 2018-11-17 10:24 | Emergency (ER) | payer MEDICAID ==
[~2018-11-17] VITALS: Ht 162.6 cm; Wt 81.8 kg
[2018-11-17 10:26] VITALS: BP 128/66; Ht 162.6 cm; Wt 81.8 kg
== END | disposition left against medical advice (07) ==
LOC: D.ER 10:24
DX: R52 Pain, unspecified (principal)

== ENCOUNTER 2018-11-19 11:06 | Emergency (ER) | payer MEDICAID ==
[~2018-11-19] VITALS: Ht 162.6 cm; Wt 77.3 kg
[2018-11-19 11:10] VITALS: Ht 162.6 cm; Wt 77.3 kg
[2018-11-19] MEDS ORDERED: IBUPROFEN800 MG PO (11:11)
--- NOTE | 2018-11-19 11:54 | NUR ---
ACCORDING TO THE SUICIDE ASSESSMENT THE PATIENT SCORES LOW AND DOES NOT REQUIRE 1:1 OBSERVATION.
[2018-11-19 12:34] VITALS: BP 128/68
[2018-11-20] MEDS ORDERED: ULTRAM50 MG PO (20:08)
== END 2018-11-19 12:36 | disposition home or self-care (01) ==
LOC: D.ER 11:06
DX: M25.511 Pain in right shoulder (principal)

== ENCOUNTER 2018-11-20 20:01 | Emergency (ER) | payer MEDICAID ==
[~2018-11-20] VITALS: Ht 162.6 cm; Wt 77.3 kg
[2018-11-20 20:06] VITALS: Ht 162.6 cm; Wt 77.3 kg
[2018-11-20] MEDS ORDERED: ULTRAM50 MG PO (20:08)
--- NOTE | 2018-11-20 21:23 | NUR ---
DR MACK NOTIFIED AND SITTER ORDERED. SITTER AT BEDSIDE. NOTIFIED CHARGE NURSE AND ATTENDING IN REGARDS TO ASSESSMENT FINDINGS. RESOURCES GIVEN TO PATIENT AND SAFETY PLAN INITIATED.
[2018-11-20 21:48] LABS: BASOPHILS 0.4 % (0-2); EOSINOPHILS 2.3 % (0-7); HEMATOCRIT 37.1 % (36.0-48.0); HEMOGLOBIN 12.6 g/dL (12-16); IMMATURE GRANULOCYTES 0.4 % (0-5); LYMPHOCYTES 26.2 % (15-50); MCH 31.6 pg (26.0-34.0); MEAN PLATELET VOLUME 9.2 fL (7.4-10.4); MONOCYTES 7.7 % (2-11); PLATELET COUNT 335 10x3/uL (130-400); RBC 3.99 10x6/uL (4.00-5.40); RDW 13.1 % (11.5-14.5); WBC 7.4 10x3/uL (4.8-10.8)
[2018-11-20 21:54] LABS: APPEARANCE CLEAR (CLEAR); BILIRUBIN NEGATIVE (NEGATIVE); COLOR STRAW (YELLOW); GLUCOSE NEGATIVE (NEGATIVE); KETONE NEGATIVE (NEGATIVE); NITRITE NEGATIVE (NEGATIVE); PROTEIN NEGATIVE (NEGATIVE); UROBILINOGEN NORMAL (NORMAL)
[2018-11-20 21:55] LABS: BACTERIA FEW /hpf (NEGATIVE); EPITHELIAL CELLS 0-5 /hpf (0-5); RED CELLS - URINE 0-5 /hpf (0-5); WHITE CELLS - URINE 0-5 /hpf (NEGATIVE)
[2018-11-20 21:56] LABS: AMORPHOUS SEDIMENT <1+ /lpf (NONE SEEN)
[2018-11-20 22:00] LABS: UDS - AMPHET NEGATIVE QUAL (NEGATIVE); UDS - BARB POSITIVE QUAL (NEGATIVE); UDS - BENZO NEGATIVE QUAL (NEGATIVE); UDS - COCAINE NEGATIVE QUAL (NEGATIVE); UDS - OPIATE NEGATIVE QUAL (NEGATIVE); UDS - PCP NEGATIVE QUAL (NEGATIVE); UDS - THC NEGATIVE QUAL (NEGATIVE)
[2018-11-20 22:05] LABS: ALBUMIN 3.3 g/dL (3.4-5.0); ALKALINE PHOSPHATASE 127 U/L (46-116); ALT (SGPT) 29 U/L (10-68); CALC OSMOLALITY 286 mosm/kg (275-300); CALCIUM 8.5 mg/dL (8.5-10.1); CARBON DIOXIDE 30.6 mmol/L (21.0-32.0); CHLORIDE - SERUM 106 mmol/L (98-107); CREATININE - SERUM 0.6 mg/dL (0.6-1.3); GLUCOSE 96 mg/dL (74-106); POTASSIUM - SERUM 3.6 mmol/L (3.5-5.1); PROTEIN - SERUM 7.7 g/dL (6.4-8.2); SODIUM 144 mmol/L (136-145); UREA NITROGEN 13 mg/dL (7-18); eGFR NON AFRICAN AMERICAN > 90 mL/min (90-120)
[2018-11-21 00:52] VITALS: BP 126/78
== END 2018-11-21 00:52 | disposition home or self-care (01) ==
LOC: D.ER 20:01
PROVIDERS: Emergency Medicine
DX: S42.301D Unspecified fracture of shaft of humerus, right arm, subsequent encounter for fracture with routine healing (principal)

== ENCOUNTER 2018-11-21 07:26 | Emergency (ER) | payer MEDICAID ==
[~2018-11-21] VITALS: Ht 162.6 cm; Wt 77.3 kg
[2018-11-21 07:47] VITALS: BP 145/103; Ht 162.6 cm; Wt 77.3 kg
== END 2018-11-21 08:15 | disposition home or self-care (01) ==
LOC: D.ER 07:26
DX: S42.301A Unspecified fracture of shaft of humerus, right arm, initial encounter for closed fracture (principal); X58.XXXA Exposure to other specified factors, initial encounter

== ENCOUNTER 2018-12-03 13:17 | Inpatient (IN) | payer MEDICAID ==
[~2018-12-03] VITALS: Ht 162.6 cm; Wt 77.3 kg
[2018-12-03 14:00] LABS: BASOPHILS 0.3 % (0-2); EOSINOPHILS 0.2 % (0-7); HEMATOCRIT 45.3 % (36.0-48.0); HEMOGLOBIN 15.3 g/dL (12-16); IMMATURE GRANULOCYTES 0.5 % (0-5); MCH 31.5 pg (26.0-34.0); MCHC 33.8 g/dL (31.0-37.0); MCV 93.4 fL (80.0-100.0); MEAN PLATELET VOLUME 12.1 fL (7.4-10.4); MONOCYTES 6.3 % (2-11); NEUTROPHILS 79.7 % (40-80); RBC 4.85 10x6/uL (4.00-5.40); WBC 14.7 10x3/uL (4.8-10.8)
[2018-12-03 14:04] LABS: PLATELET COUNT 177 10x3/uL (130-400)
[2018-12-03 14:32] VITALS: BP 118/75
--- NOTE | 2018-12-03 14:55 | NUR ---
VERY SMALL AMOUNT OF URINES SENT TO THE LAB.
[2018-12-03 15:11] LABS: APPEARANCE SL CLDY (CLEAR); BILIRUBIN NEGATIVE (NEGATIVE); COLOR YELLOW (YELLOW); GLUCOSE NEGATIVE (NEGATIVE); KETONE NEGATIVE (NEGATIVE); NITRITE NEGATIVE (NEGATIVE); PROTEIN 2+ mg/dL (NEGATIVE); SPECIFIC GRAVITY 1.025 (1.005-1.020); UROBILINOGEN NORMAL (NORMAL)
[2018-12-03 15:12] LABS: RED CELLS - URINE 0-5 /hpf (0-5); WHITE CELLS - URINE 25-50 /hpf (NEGATIVE)
[2018-12-03 15:13] LABS: BACTERIA MANY /hpf (NEGATIVE); EPITHELIAL CELLS 0-5 /hpf (0-5)
[2018-12-03 15:23] LABS: ALKALINE PHOSPHATASE 136 U/L (46-116); ALT (SGPT) 31 U/L (10-68); BILIRUBIN - TOTAL 0.36 mg/dL (0.2-1.3); CALC OSMOLALITY 281 mosm/kg (275-300); CALCIUM 10.3 mg/dL (8.5-10.1); CARBON DIOXIDE 27.4 mmol/L (21.0-32.0); CHLORIDE - SERUM 99 mmol/L (98-107); GLUCOSE 139 mg/dL (74-106); POTASSIUM - SERUM 3.7 mmol/L (3.5-5.1); PROTEIN - SERUM 9.4 g/dL (6.4-8.2); SODIUM 140 mmol/L (136-145); UREA NITROGEN 16 mg/dL (7-18); eGFR NON AFRICAN AMERICAN 62 mL/min (90-120)
[2018-12-03 15:32] LABS: UDS - AMPHET NEGATIVE QUAL (NEGATIVE); UDS - BARB NEGATIVE QUAL (NEGATIVE); UDS - BENZO NEGATIVE QUAL (NEGATIVE); UDS - COCAINE NEGATIVE QUAL (NEGATIVE); UDS - OPIATE NEGATIVE QUAL (NEGATIVE); UDS - PCP NEGATIVE QUAL (NEGATIVE); UDS - THC NEGATIVE QUAL (NEGATIVE)
[2018-12-03 15:33] LABS: AMYLASE - SERUM 78 U/L (25-115); LIPASE 143 U/L (73-393); THYROID STIMULATING HORMONE 0.07 uIU/mL (0.36-3.74); TROPONIN-I < 0.017 ng/mL (0.000-0.060)
[2018-12-03 15:41] VITALS: BP 116/78
[2018-12-03 16:30] VITALS: BP 116/76
[2018-12-03 16:50] LABS: INR 0.98 (0.85-1.17); PROTIME 12.5 SECONDS (11.6-15.0)
--- NOTE | 2018-12-03 17:45 | NUR ---
DR. MACK NOTIFIED AND REVIEWED PT'S BEHAVIOR AND ASSESSMENT RESULTS. PT IS A LOW RISK PER DR. MACK. DR. MACK STATED TO GIVE RESOURCES TO PT AT TIME OF DISCHARGE. NO FURTHER ORDERS AT THIS TIME. RESOURCES REVIEWED WITH PT AND SHE VERBALIZIED UNDERSTANDING.
[2018-12-03 18:00] VITALS: BP 136/77
[2018-12-04] VITALS (7 sets, daily range): BP systolic 91–124; BP diastolic 46–59; Ht 162.6 cm; Wt 77.3 kg
[2018-12-04 05:00] LABS: BASOPHILS 0.3 % (0-2); EOSINOPHILS 1.3 % (0-7); HEMATOCRIT 37.1 % (36.0-48.0); IMMATURE GRANULOCYTES 0.4 % (0-5); LYMPHOCYTES 17.8 % (15-50); MCH 31.2 pg (26.0-34.0); MCHC 32.6 g/dL (31.0-37.0); MEAN PLATELET VOLUME 9.2 fL (7.4-10.4); MONOCYTES 11.5 % (2-11); NEUTROPHILS 68.7 % (40-80); RBC 3.88 10x6/uL (4.00-5.40); RDW 13.7 % (11.5-14.5)
[2018-12-04 05:01] LABS: HEMOGLOBIN 12.1 g/dL (12-16); MCV 95.6 fL (80.0-100.0); PLATELET COUNT 338 10x3/uL (130-400); WBC 10.7 10x3/uL (4.8-10.8)
[2018-12-04 05:14] LABS: ALBUMIN 3.1 g/dL (3.4-5.0); ALKALINE PHOSPHATASE 107 U/L (46-116); BILIRUBIN - TOTAL 0.38 mg/dL (0.2-1.3); CALC OSMOLALITY 281 mosm/kg (275-300); CALCIUM 8.4 mg/dL (8.5-10.1); CARBON DIOXIDE 26.4 mmol/L (21.0-32.0); CHLORIDE - SERUM 102 mmol/L (98-107); CREATININE - SERUM 0.8 mg/dL (0.6-1.3); GLUCOSE 121 mg/dL (74-106); POTASSIUM - SERUM 3.2 mmol/L (3.5-5.1); PROTEIN - SERUM 7.4 g/dL (6.4-8.2); SODIUM 140 mmol/L (136-145); UREA NITROGEN 19 mg/dL (7-18); eGFR NON AFRICAN AMERICAN 81 mL/min (90-120)
[2018-12-04 05:20] LABS: ALT (SGPT) 23 U/L (10-68)
--- NOTE | 2018-12-04 10:26 | NUR ---
PT RESTING IN BED. NO SIGNS OF DISTRESS. IV TO RIGHT AC PATENT NO REDNESS OR TENDERNESS. ON TELEMETRY 104 ST. COMPLAINS OF PAIN. MEDICATION GIVEN. DENIES ANY FURTHER NEED AT THIS TIME. CALL LIGHT IN REACH. BED LOW POSITION. NO FAMILY AT BEDSIDE.
--- NOTE | 2018-12-04 15:59 | NUR ---
I have reviewed this patient and I concur with the Shift Assessment completed by the Licensed Practical Nurse today this shift.
[2018-12-05] VITALS: BP 101/47
--- NOTE | 2018-12-05 02:20 | NUR ---
pATIENT IN ROOM ALERT AND ORENTED ABLE TO VOICE NEEDS AND WANTS TO STAFF. IV TO LEFT FA, WITH NS AT 125ML/HR. ROOM AIR. TELEMETRY IN PLACE WATER AND CALL LIGHT IN REACH. DENIES NEEDS AT THIS TIME.
[2018-12-05 04:00] VITALS: BP 107/54
[2018-12-05 06:10] LABS: BASOPHILS 0.2 % (0-2); EOSINOPHILS 1.9 % (0-7); HEMATOCRIT 33.2 % (36.0-48.0); HEMOGLOBIN 10.5 g/dL (12-16); IMMATURE GRANULOCYTES 0.5 % (0-5); MCH 30.8 pg (26.0-34.0); MCHC 31.6 g/dL (31.0-37.0); MCV 97.4 fL (80.0-100.0); MEAN PLATELET VOLUME 9.4 fL (7.4-10.4); MONOCYTES 11.1 % (2-11); NEUTROPHILS 62.3 % (40-80); PLATELET COUNT 288 10x3/uL (130-400); RBC 3.41 10x6/uL (4.00-5.40); RDW 13.6 % (11.5-14.5); WBC 8.5 10x3/uL (4.8-10.8)
[2018-12-05 06:24] LABS: ALBUMIN 2.7 g/dL (3.4-5.0); ALKALINE PHOSPHATASE 98 U/L (46-116); ALT (SGPT) 19 U/L (10-68); BILIRUBIN - TOTAL 0.19 mg/dL (0.2-1.3); CALC OSMOLALITY 281 mosm/kg (275-300); CALCIUM 7.7 mg/dL (8.5-10.1); CARBON DIOXIDE 26.3 mmol/L (21.0-32.0); CHLORIDE - SERUM 107 mmol/L (98-107); CREATININE - SERUM 0.5 mg/dL (0.6-1.3); GLUCOSE 116 mg/dL (74-106); POTASSIUM - SERUM 3.6 mmol/L (3.5-5.1); PROTEIN - SERUM 6.2 g/dL (6.4-8.2); SODIUM 142 mmol/L (136-145); UREA NITROGEN 8 mg/dL (7-18); eGFR NON AFRICAN AMERICAN > 90 mL/min (90-120)
[2018-12-05 08:43] VITALS: BP 112/65
[2018-12-05] MEDS ORDERED: SULFAMETHOXAZOL1 TA2 PO (11:32)
[2018-12-05 11:53] VITALS: BP 106/65
--- NOTE | 2018-12-05 12:47 | MORECARE ---
CASE MANAGEMENT DISCHARGE SUMMARY PATIENT: BRODIE VALDERRAMA UNIT: [id number] ADM DATE: 12/03/18 AGE: 48 : [birth year] SEX: F ROOM[facility]BED: D[facility] AUTHOR: SIMA GOMEZ PHYSICIAN: REFERRING PHYSICIAN: SHANTEL BONILLA DO DATE OF SERVICE: 12/05/18 Discharge Plan Patient Name: BRODIE VALDERRAMA [facility] [facility] 1970 Planned Disposition: Home Anticipated Discharge Date: 12/05/18 Discharge Date: Expected LOS: 2 Initial Reviewer: [email or web address] Initial Review Date: 12/05/2018 Generated: 12/05/18 1:46 pm DCPIA - Discharge Planning Initial Assessment Updated by [id number]: Marilu Edmonds on 12/05/18 12:41 pm * Is the patient Alert and Oriented? Yes * How many steps to enter\exit or inside your home? 3/0 * PCP Dr. Weber at [facility] * Pharmacy [facility] * Preadmission Environment Home Alone * ADLs Independent * Equipment None * List name and contact numbers for known caregivers / representatives who currently or will assist patient after discharge: Yolette Ohara - mother - [phone] * Verbal permission to speak to the caregivers and representatives has been obtained from the patient. Yes * Community resources currently utilized None * Additional services required to return to the preadmission environment? No * Can the patient safely return to the preadmission environment? Yes * Has this patient been hospitalized within the prior 30 days at any hospital? No Patient Name: BRODIE VALDERRAMA Page [id number] at 1247 All edits/amendments must be made on the electronic document DICTATION DATE: 12/05/18 1246 E COMMERCE MARKETING MANAGER: ITALIA 12/05/18 1246 RPT#: [id number] DC DATE: STATUS: ADM IN [facility] [address] [place] [address] END OF REPORT
--- NOTE | 2018-12-05 13:25 | NUR ---
DISCHARGED PT HOME VIA WHEELCHAIR TO [facility]. DISCONTINUED IV, CATHETER TIP INTACT. WENT OVER DISCHARGE INSTRUCTIONS WITH PATIENT, PATIENT VERBALIZED UNDERSTANDING. PT DENIES ANY FURTHER NEEDS.
--- NOTE | 2018-12-06 07:10 | MORECARE ---
CASE MANAGEMENT DISCHARGE SUMMARY PATIENT: BRODIE VALDERRAMA UNIT: [id number] ADM DATE: 12/03/18 AGE: 48 : 68 SEX: F ROOM/BED: D.2231 AUTHOR: SIMA GOMEZ PHYSICIAN: REFERRING PHYSICIAN: SHANTEL BONILLA DO DATE OF SERVICE: 12/06/18 Discharge Plan Patient Name: BRODIE VALDERRAMA Facility: [facility]:[place] : 1970 Planned Disposition: Home Anticipated Discharge Date: 12/05/18 Discharge Date: 12/05/2018 Expected LOS: 2 Initial Reviewer: [email or web address] Initial Review Date: 12/05/2018 Generated: 12/06/18 8:10 am DCP- Discharge Planning Updated by [email or web address]: Marilu Edmonds on 12/05/18 11:[address] Patient Name: BRODIE VALDERRAMA Admission Status: ER Accout number: [id number] Admission Date: 12-03-2018 : 1970 Admission Diagnosis: Attending: SHANTEL BONILLA Current LOS: 2 Anticipated DC Date: 12-05-2018 Planned Disposition: Home Primary Insurance: MEDICAID [place] Discharge Planning Comments: CM met with patient to complete initial dc planning assessment. CM educated patient on the CM role and verbal consent given by patient to complete assessment. Patient lives at home alone. At discharge patient plans to return and feels this is a safe discharge. CM discussed availability of home health, rehab services, and medical equipment. Patient states she will need a taxi home. I asked if she ever used the [employer] transportation and she said she does. I called [employer]. Order number [id number]. CM will continue to follow and will assist as needed with dc plans/needs. Fac Engineer: Marilu Edmonds DCPIA - Discharge Planning Initial Assessment Updated by [email or web address]: Marilu Edmonds on 12/05/18 12:41 pm * Is the patient Alert and Oriented? Yes * How many steps to enter\exit or inside your home? 3/0 * PCP Dr. Weber at [facility] * Pharmacy [facility] * Preadmission Environment Home Alone * ADLs Independent * Equipment None * List name and contact numbers for known caregivers / representatives who currently or will assist patient after discharge: Yolette Ohara - mother - [phone] * Verbal permission to speak to the caregivers and representatives has been obtained from the patient. Yes * Community resources currently utilized None * Additional services required to return to the preadmission environment? No * Can the patient safely return to the preadmission environment? Yes * Has this patient been hospitalized within the prior 30 days at any hospital? No Last DP export: 12/05/18 11:47 a Patient Name: BRODIE VALDERRAMA Page [phone] at 0710 All edits/amendments must be made on the electronic document DICTATION DATE: 12/06/18709 SPECIAL ED ASSISTANT: ITALIA 12/06/18709 RPT#: [id number] DC DATE:12/05/18 STATUS: DIS IN [facility] [address] [place] [address] END OF REPORT
== END 2018-12-05 13:49 | disposition home or self-care (01) | DRG 386 ==
LOC: D.ER 13:17 → D.MS 17:33
PROVIDERS: Family Medicine; Internal Medicine Nephrology; ADMIT Family Medicine; ATTEND Family Medicine
DX: K50.912 Crohn's disease, unspecified, with intestinal obstruction (principal); N39.0 Urinary tract infection, site not specified; K58.9 Irritable bowel syndrome, unspecified; R11.2 Nausea with vomiting, unspecified; E86.0 Dehydration; E87.6 Hypokalemia; E03.9 Hypothyroidism, unspecified

== ENCOUNTER 2018-12-07 04:32 | Emergency (ER) | payer MEDICAID ==
[~2018-12-07] VITALS: Ht 162.6 cm; Wt 72.7 kg
[~2018-12-07 04:32] MED LIST changes: +SULFAMETHOXAZOL1 TA2 PO
[2018-12-07 04:47] VITALS: Ht 162.6 cm; Wt 72.7 kg
[2018-12-07 05:38] LABS: BASOPHILS 0.2 % (0-2); EOSINOPHILS 1.2 % (0-7); IMMATURE GRANULOCYTES 0.3 % (0-5); LYMPHOCYTES 22.4 % (15-50); MCH 31.6 pg (26.0-34.0); MCHC 33.3 g/dL (31.0-37.0); MEAN PLATELET VOLUME 9.7 fL (7.4-10.4); NEUTROPHILS 66.9 % (40-80); RDW 13.3 % (11.5-14.5); WBC 10.6 10x3/uL (4.8-10.8)
[2018-12-07 05:43] LABS: MCV 94.8 fL (80.0-100.0); PLATELET COUNT 394 10x3/uL (130-400); RBC 4.43 10x6/uL (4.00-5.40)
[2018-12-07 05:53] LABS: ALKALINE PHOSPHATASE 120 U/L (46-116); ALT (SGPT) 23 U/L (10-68); BILIRUBIN - TOTAL 0.28 mg/dL (0.2-1.3); CARBON DIOXIDE 26.3 mmol/L (21.0-32.0); CHLORIDE - SERUM 103 mmol/L (98-107); GLUCOSE 124 mg/dL (74-106); POTASSIUM - SERUM 3.7 mmol/L (3.5-5.1); SODIUM 142 mmol/L (136-145)
[2018-12-07 05:59] LABS: AMYLASE - SERUM 103 U/L (25-115); CALCIUM 9.2 mg/dL (8.5-10.1); LIPASE 322 U/L (73-393)
[2018-12-07 06:02] LABS: ALBUMIN 3.7 g/dL (3.4-5.0); CALC OSMOLALITY 286 mosm/kg (275-300); CREATININE - SERUM 0.7 mg/dL (0.6-1.3); PROTEIN - SERUM 8.4 g/dL (6.4-8.2); TROPONIN-I < 0.017 ng/mL (0.000-0.060); UREA NITROGEN 21 mg/dL (7-18); eGFR NON AFRICAN AMERICAN > 90 mL/min (90-120)
[2018-12-07 06:26] LABS: APPEARANCE CLOUDY (CLEAR); BILIRUBIN NEGATIVE (NEGATIVE); COLOR YELLOW (YELLOW); GLUCOSE NEGATIVE (NEGATIVE); KETONE NEGATIVE (NEGATIVE); NITRITE NEGATIVE (NEGATIVE); PROTEIN 2+ mg/dL (NEGATIVE); UROBILINOGEN NORMAL (NORMAL)
[2018-12-07 06:27] LABS: WHITE CELLS - URINE 25-50 /hpf (NEGATIVE)
[2018-12-07 06:28] LABS: BACTERIA MODERATE /hpf (NEGATIVE); MUCUS <1+ /lpf (NONE SEEN)
[2018-12-07] MEDS ORDERED: DIFLUCAN150 MG PO (06:33)
[2018-12-07] MEDS ORDERED: MACROBID100 MG PO (06:33)
[2018-12-07 06:38] VITALS: BP 126/82
== END 2018-12-07 06:39 | disposition home or self-care (01) ==
LOC: D.ER 04:32
PROVIDERS: Family Medicine
DX: N39.0 Urinary tract infection, site not specified (principal); B37.3 Candidiasis of vulva and vagina

== ENCOUNTER 2018-12-07 09:25 | Emergency (ER) | payer MEDICAID ==
[~2018-12-07] VITALS: Ht 162.6 cm; Wt 72.7 kg
[~2018-12-07 09:25] MED LIST changes: +DIFLUCAN150 MG PO
[2018-12-07 09:30] VITALS: BP 116/71; Ht 162.6 cm; Wt 72.7 kg
== END 2018-12-07 09:37 | disposition home or self-care (01) ==
LOC: D.ER 09:25
DX: N39.0 Urinary tract infection, site not specified (principal); B37.3 Candidiasis of vulva and vagina

== ENCOUNTER 2018-12-10 20:54 | Emergency (ER) | payer MEDICAID ==
[~2018-12-10] VITALS: Ht 162.6 cm; Wt 81.4 kg
[2018-12-10 20:59] VITALS: Ht 162.6 cm; Wt 81.4 kg
[2018-12-10 21:21] LABS: BASOPHILS 0.3 % (0-2); EOSINOPHILS 1.2 % (0-7); HEMATOCRIT 36.3 % (36.0-48.0); HEMOGLOBIN 11.7 g/dL (12-16); IMMATURE GRANULOCYTES 0.5 % (0-5); LYMPHOCYTES 27.9 % (15-50); MCH 31.3 pg (26.0-34.0); MCHC 32.2 g/dL (31.0-37.0); MCV 97.1 fL (80.0-100.0); MEAN PLATELET VOLUME 9.6 fL (7.4-10.4); MONOCYTES 5.8 % (2-11); NEUTROPHILS 64.3 % (40-80); PLATELET COUNT 397 10x3/uL (130-400); RBC 3.74 10x6/uL (4.00-5.40); RDW 13.4 % (11.5-14.5); WBC 10.6 10x3/uL (4.8-10.8)
[2018-12-10 21:22] LABS: APPEARANCE CLOUDY (CLEAR); BILIRUBIN NEGATIVE (NEGATIVE); COLOR YELLOW (YELLOW); GLUCOSE NEGATIVE (NEGATIVE); KETONE NEGATIVE (NEGATIVE); NITRITE NEGATIVE (NEGATIVE); PROTEIN TRACE mg/dL (NEGATIVE); UROBILINOGEN NORMAL (NORMAL)
[2018-12-10 21:24] LABS: BACTERIA MODERATE /hpf (NEGATIVE); EPITHELIAL CELLS 0-5 /hpf (0-5); RED CELLS - URINE 0-5 /hpf (0-5)
[2018-12-10 21:38] LABS: ALBUMIN 3.1 g/dL (3.4-5.0); ALKALINE PHOSPHATASE 124 U/L (46-116); ALT (SGPT) 20 U/L (10-68); BILIRUBIN - TOTAL 0.07 mg/dL (0.2-1.3); CALC OSMOLALITY 288 mosm/kg (275-300); CALCIUM 8.8 mg/dL (8.5-10.1); CARBON DIOXIDE 27.3 mmol/L (21.0-32.0); CHLORIDE - SERUM 107 mmol/L (98-107); CREATININE - SERUM 0.7 mg/dL (0.6-1.3); GLUCOSE 123 mg/dL (74-106); POTASSIUM - SERUM 3.8 mmol/L (3.5-5.1); PROTEIN - SERUM 7.8 g/dL (6.4-8.2); SODIUM 144 mmol/L (136-145); UREA NITROGEN 14 mg/dL (7-18); eGFR NON AFRICAN AMERICAN > 90 mL/min (90-120)
[2018-12-10 21:41] LABS: AMYLASE - SERUM 120 U/L (25-115); LIPASE 329 U/L (73-393)
[2018-12-10 21:47] LABS: TROPONIN-I < 0.017 ng/mL (0.000-0.060)
--- NOTE | 2018-12-10 22:05 | NUR ---
DR MACK NOTIFIED AND REVIEWED PT's BEHAVIOR AND AND ASSESSMENT RESULTS. PT IS A LOW RISK PER DR MACK. DR MACK STATES TO GIVE RESOURCES TO PT AT TIME OF DISCHARGE. NO FURTHER ORDERS AT THIS TIME. RESOURCES REVIEWED WITH PT AND SHE VERBALIZED UNDERSTANDING.
[2018-12-10 23:20] VITALS: BP 132/82
[2018-12-11] MEDS ORDERED: ZOFRAN4 MG PO (12:26)
[2018-12-11] MEDS ORDERED: MACROBID100 MG PO (19:12)
== END 2018-12-10 23:21 | disposition home or self-care (01) ==
LOC: D.ER 20:54
PROVIDERS: Family Medicine
DX: N39.0 Urinary tract infection, site not specified (principal)

== ENCOUNTER 2018-12-11 05:14 | Emergency (ER) | payer MEDICAID ==
[~2018-12-11] VITALS: Ht 162.6 cm; Wt 75.0 kg
[2018-12-11 05:35] VITALS: Ht 162.6 cm; Wt 75.0 kg
[2018-12-11 05:45] LABS: BASOPHILS 0.6 % (0-2); EOSINOPHILS 1.6 % (0-7); HEMATOCRIT 34.3 % (36.0-48.0); HEMOGLOBIN 11.1 g/dL (12-16); IMMATURE GRANULOCYTES 0.5 % (0-5); MCHC 32.4 g/dL (31.0-37.0); MCV 95.8 fL (80.0-100.0); MEAN PLATELET VOLUME 9.5 fL (7.4-10.4); NEUTROPHILS 62.3 % (40-80); PLATELET COUNT 379 10x3/uL (130-400); RBC 3.58 10x6/uL (4.00-5.40); RDW 13.3 % (11.5-14.5); WBC 8.6 10x3/uL (4.8-10.8)
--- NOTE | 2018-12-11 06:11 | NUR ---
DR MACK NOTIFIED AND REVIEWED PT's BEHAVIOR AND ASSESSMENT RESULTS. PT IS A LOW RISK PER DR MACK. DR MACK STATED TO GIVE RESOURCES TO PT AT TIME OF DISCHARGE . NO FURTHER ORDERS AT THIS TIME, RESOURCES REVIEWED WITH PT AND SHE VERBALIZED UNDERSTANDING.
[2018-12-11 06:12] LABS: ALKALINE PHOSPHATASE 118 U/L (46-116); ALT (SGPT) 20 U/L (10-68); BILIRUBIN - TOTAL 0.06 mg/dL (0.2-1.3); CALC OSMOLALITY 285 mosm/kg (275-300); CALCIUM 8.7 mg/dL (8.5-10.1); CARBON DIOXIDE 23.7 mmol/L (21.0-32.0); CHLORIDE - SERUM 107 mmol/L (98-107); CREATININE - SERUM 0.6 mg/dL (0.6-1.3); GLUCOSE 117 mg/dL (74-106); POTASSIUM - SERUM 3.9 mmol/L (3.5-5.1); PROTEIN - SERUM 7.5 g/dL (6.4-8.2); SODIUM 143 mmol/L (136-145); UREA NITROGEN 12 mg/dL (7-18); eGFR NON AFRICAN AMERICAN > 90 mL/min (90-120)
[2018-12-11 06:21] VITALS: BP 116/78
[2018-12-11] MEDS ORDERED: ZOFRAN4 MG PO (12:26)
[2018-12-11] MEDS ORDERED: MACROBID100 MG PO (19:12)
== END 2018-12-11 06:21 | disposition home or self-care (01) ==
LOC: D.ER 05:14
PROVIDERS: Family Medicine
DX: R45.851 Suicidal ideations (principal); F32.9 Major depressive disorder, single episode, unspecified; Z76.5 Malingerer [conscious simulation]

== ENCOUNTER 2018-12-11 11:44 | Emergency (ER) | payer MEDICAID ==
[~2018-12-11] VITALS: Ht 162.6 cm; Wt 68.2 kg
[2018-12-11 11:48] VITALS: Ht 162.6 cm; Wt 68.2 kg
[2018-12-11] MEDS ORDERED: ZOFRAN4 MG PO (12:26)
[2018-12-11 12:47] VITALS: BP 115/74
[2018-12-11] MEDS ORDERED: MACROBID100 MG PO (19:12)
== END 2018-12-11 12:47 | disposition home or self-care (01) ==
LOC: D.ER 11:44
DX: R10.9 Unspecified abdominal pain (principal); K50.90 Crohn's disease, unspecified, without complications

== ENCOUNTER 2018-12-11 17:02 | Emergency (ER) | payer MEDICAID ==
[~2018-12-11] VITALS: Ht 162.6 cm; Wt 81.4 kg
[2018-12-11 11:48] VITALS: Ht 162.6 cm; Wt 81.4 kg
[~2018-12-11 17:02] MED LIST changes: +ZOFRAN4 MG PO
[2018-12-11 17:37] LABS: BASOPHILS 0.4 % (0-2); EOSINOPHILS 1.2 % (0-7); HEMATOCRIT 34.6 % (36.0-48.0); HEMOGLOBIN 11.1 g/dL (12-16); IMMATURE GRANULOCYTES 0.5 % (0-5); LYMPHOCYTES 28.8 % (15-50); MCH 30.9 pg (26.0-34.0); MCHC 32.1 g/dL (31.0-37.0); MCV 96.4 fL (80.0-100.0); MEAN PLATELET VOLUME 9.3 fL (7.4-10.4); MONOCYTES 7.1 % (2-11); PLATELET COUNT 402 10x3/uL (130-400); RBC 3.59 10x6/uL (4.00-5.40); RDW 13.4 % (11.5-14.5); WBC 8.1 10x3/uL (4.8-10.8)
[2018-12-11 17:57] LABS: ALBUMIN 3.1 g/dL (3.4-5.0); ALKALINE PHOSPHATASE 118 U/L (46-116); ALT (SGPT) 22 U/L (10-68); CALC OSMOLALITY 287 mosm/kg (275-300); CALCIUM 8.9 mg/dL (8.5-10.1); CARBON DIOXIDE 23.2 mmol/L (21.0-32.0); CHLORIDE - SERUM 109 mmol/L (98-107); CREATININE - SERUM 0.5 mg/dL (0.6-1.3); GLUCOSE 125 mg/dL (74-106); MAGNESIUM - SERUM 1.7 mg/dL (1.8-2.4); POTASSIUM - SERUM 3.5 mmol/L (3.5-5.1); PROTEIN - SERUM 7.4 g/dL (6.4-8.2); SODIUM 144 mmol/L (136-145); UREA NITROGEN 12 mg/dL (7-18); eGFR NON AFRICAN AMERICAN > 90 mL/min (90-120)
[2018-12-11 17:57] LABS: APPEARANCE CLEAR (CLEAR); BILIRUBIN NEGATIVE (NEGATIVE); COLOR YELLOW (YELLOW); GLUCOSE NEGATIVE (NEGATIVE); KETONE NEGATIVE (NEGATIVE); NITRITE NEGATIVE (NEGATIVE); PROTEIN TRACE mg/dL (NEGATIVE); SPECIFIC GRAVITY 1.025 (1.005-1.020); UROBILINOGEN NORMAL (NORMAL)
[2018-12-11 17:58] LABS: BACTERIA MODERATE /hpf (NEGATIVE); EPITHELIAL CELLS 0-5 /hpf (0-5); RED CELLS - URINE 0-5 /hpf (0-5)
[2018-12-11] MEDS ORDERED: MACROBID100 MG PO (19:12)
[2018-12-11 19:58] VITALS: BP 117/69
== END 2018-12-11 19:58 | disposition home or self-care (01) ==
LOC: D.ER 17:02
PROVIDERS: Emergency Medicine
DX: N39.0 Urinary tract infection, site not specified (principal); K50.90 Crohn's disease, unspecified, without complications

== ENCOUNTER 2018-12-16 12:49 | Emergency (ER) | payer MEDICAID ==
[~2018-12-16] VITALS: Ht 162.6 cm; Wt 72.7 kg
[2018-12-16 13:02] VITALS: BP 127/65; Ht 162.6 cm; Wt 72.7 kg
[2018-12-16] MEDS ORDERED: BUTALB-APAP-CA1 EACH PO (13:04)
[2018-12-17] MEDS ORDERED: CLOTRIM ANTIFUN15 GM TOPICAL (15:11)
== END 2018-12-16 14:06 | disposition left against medical advice (07) ==
LOC: D.ER 12:49
DX: B37.3 Candidiasis of vulva and vagina (principal)

== ENCOUNTER 2018-12-17 13:27 | Emergency (ER) | payer MEDICAID ==
[~2018-12-17] VITALS: Ht 162.6 cm; Wt 72.7 kg
[2018-12-17 13:28] VITALS: Ht 162.6 cm; Wt 72.7 kg
[2018-12-17] MEDS ORDERED: CLOTRIM ANTIFUN15 GM TOPICAL (15:11)
[2018-12-17 15:17] VITALS: BP 134/84
[2018-12-17 15:27] LABS: APPEARANCE HAZY (CLEAR); BILIRUBIN NEGATIVE (NEGATIVE); COLOR YELLOW (YELLOW); GLUCOSE NEGATIVE (NEGATIVE); KETONE NEGATIVE (NEGATIVE); NITRITE NEGATIVE (NEGATIVE); PROTEIN 1+ mg/dL (NEGATIVE); SPECIFIC GRAVITY 1.015 (1.005-1.020); UROBILINOGEN NORMAL (NORMAL)
[2018-12-17 15:28] LABS: RED CELLS - URINE 0-5 /hpf (0-5); WHITE CELLS - URINE 25-50 /hpf (NEGATIVE)
[2018-12-17 15:29] LABS: BACTERIA MODERATE /hpf (NEGATIVE)
== END 2018-12-17 15:18 | disposition home or self-care (01) ==
LOC: D.ER 13:27
PROVIDERS: Emergency Medicine
DX: R10.2 Pelvic and perineal pain (principal); B37.49 Other urogenital candidiasis

== ENCOUNTER 2018-12-20 13:10 | Emergency (ER) | payer MEDICAID ==
[~2018-12-20] VITALS: Ht 162.6 cm; Wt 72.7 kg
[~2018-12-20 13:10] MED LIST changes: +CLOTRIM ANTIFUN15 GM TOPICAL
[2018-12-20 13:12] VITALS: Ht 162.6 cm; Wt 72.7 kg
[2018-12-20] MEDS ORDERED: AMBIEN10 MG PO (13:23)
[2018-12-20 14:08] LABS: CALC OSMOLALITY 278 mosm/kg (275-300); CALCIUM 9.3 mg/dL (8.5-10.1); CARBON DIOXIDE 28.1 mmol/L (21.0-32.0); CHLORIDE - SERUM 102 mmol/L (98-107); CREATININE - SERUM 0.8 mg/dL (0.6-1.3); GLUCOSE 138 mg/dL (74-106); POTASSIUM - SERUM 3.4 mmol/L (3.5-5.1); SODIUM 139 mmol/L (136-145); UREA NITROGEN 9 mg/dL (7-18); eGFR NON AFRICAN AMERICAN 81 mL/min (90-120)
[2018-12-20 14:18] LABS: ALBUMIN 3.4 g/dL (3.4-5.0); ALKALINE PHOSPHATASE 125 U/L (46-116); ALT (SGPT) 34 U/L (10-68); AMYLASE - SERUM 80 U/L (25-115); BILIRUBIN - TOTAL 0.23 mg/dL (0.2-1.3); LIPASE 107 U/L (73-393); TROPONIN-I < 0.017 ng/mL (0.000-0.060)
[2018-12-20 14:19] LABS: BASOPHILS 0.3 % (0-2); EOSINOPHILS 0.7 % (0-7); HEMATOCRIT 40.4 % (36.0-48.0); HEMOGLOBIN 13.1 g/dL (12-16); IMMATURE GRANULOCYTES 0.2 % (0-5); LYMPHOCYTES 14.2 % (15-50); MCH 31.5 pg (26.0-34.0); MCHC 32.4 g/dL (31.0-37.0); MCV 97.1 fL (80.0-100.0); MEAN PLATELET VOLUME 9.5 fL (7.4-10.4); MONOCYTES 4.1 % (2-11); NEUTROPHILS 80.5 % (40-80); PLATELET COUNT 355 10x3/uL (130-400); RBC 4.16 10x6/uL (4.00-5.40); RDW 13.4 % (11.5-14.5); WBC 9.7 10x3/uL (4.8-10.8)
[2018-12-20] MEDS ORDERED: LEVSIN/ANASP0.125 MG PO (14:22)
[2018-12-20] MEDS ORDERED: OMNICEF300 MG PO (14:22)
[2018-12-20 14:49] VITALS: BP 132/74
[2018-12-20 14:50] LABS: APPEARANCE CLOUDY (CLEAR); BILIRUBIN NEGATIVE (NEGATIVE); COLOR YELLOW (YELLOW); GLUCOSE NEGATIVE (NEGATIVE); KETONE NEGATIVE (NEGATIVE); NITRITE NEGATIVE (NEGATIVE); PROTEIN TRACE mg/dL (NEGATIVE); UROBILINOGEN NORMAL (NORMAL)
[2018-12-20 14:51] LABS: BACTERIA MANY /hpf (NEGATIVE); EPITHELIAL CELLS 0-5 /hpf (0-5); MUCUS <1+ /lpf (NONE SEEN)
[2018-12-20] MEDS ORDERED: TRAMADOL HCL E100 M1 PO (16:59)
== END 2018-12-20 14:49 | disposition home or self-care (01) ==
LOC: D.ER 13:10
PROVIDERS: Family Medicine
DX: N39.0 Urinary tract infection, site not specified (principal)

== ENCOUNTER 2018-12-20 16:47 | Emergency (ER) | payer MEDICAID ==
[~2018-12-20] VITALS: Ht 162.6 cm; Wt 72.7 kg
[~2018-12-20 16:47] MED LIST changes: +OMNICEF300 MG PO
[2018-12-20] MEDS ORDERED: TRAMADOL HCL E100 M1 PO (16:59)
[2018-12-20 17:08] VITALS: BP 124/62; Ht 162.6 cm; Wt 72.7 kg
[2018-12-20 17:51] LABS: BASOPHILS 0.3 % (0-2); EOSINOPHILS 0.3 % (0-7); HEMATOCRIT 40.6 % (36.0-48.0); HEMOGLOBIN 13.4 g/dL (12-16); IMMATURE GRANULOCYTES 0.4 % (0-5); LYMPHOCYTES 13.1 % (15-50); MCH 31.8 pg (26.0-34.0); MCV 96.4 fL (80.0-100.0); MEAN PLATELET VOLUME 9.2 fL (7.4-10.4); MONOCYTES 4.1 % (2-11); NEUTROPHILS 81.8 % (40-80); PLATELET COUNT 384 10x3/uL (130-400); RBC 4.21 10x6/uL (4.00-5.40); RDW 13.4 % (11.5-14.5); WBC 9.6 10x3/uL (4.8-10.8)
[2018-12-20 18:03] LABS: CALC OSMOLALITY 278 mosm/kg (275-300); CALCIUM 9.5 mg/dL (8.5-10.1); CARBON DIOXIDE 31.3 mmol/L (21.0-32.0); CHLORIDE - SERUM 100 mmol/L (98-107); CREATININE - SERUM 0.7 mg/dL (0.6-1.3); GLUCOSE 109 mg/dL (74-106); POTASSIUM - SERUM 3.6 mmol/L (3.5-5.1); SODIUM 140 mmol/L (136-145); UREA NITROGEN 10 mg/dL (7-18); eGFR NON AFRICAN AMERICAN > 90 mL/min (90-120)
--- NOTE | 2018-12-20 18:06 | NUR ---
DR MACK NOTIFIED AND SITTER ORDERED. SITTER AT BEDSIDE. NOTIFIED CHARGE NURSE AND ATTENDING IN REGARDS TO ASSESSMENT FINDINGS. RESOURCES GIVEN TO PT AND SAFETY PLAN INITIATED.
[2018-12-20 18:10] LABS: ALBUMIN 3.5 g/dL (3.4-5.0); ALKALINE PHOSPHATASE 125 U/L (46-116); ALT (SGPT) 35 U/L (10-68); BILIRUBIN - TOTAL 0.23 mg/dL (0.2-1.3); MAGNESIUM - SERUM 1.8 mg/dL (1.8-2.4); PROTEIN - SERUM 8.5 g/dL (6.4-8.2)
[2018-12-20 18:26] LABS: APPEARANCE HAZY (CLEAR); COLOR YELLOW (YELLOW); SPECIFIC GRAVITY 1.015 (1.005-1.020); UDS - AMPHET NEGATIVE QUAL (NEGATIVE); UDS - BARB POSITIVE QUAL (NEGATIVE); UDS - BENZO NEGATIVE QUAL (NEGATIVE); UDS - COCAINE NEGATIVE QUAL (NEGATIVE); UDS - OPIATE NEGATIVE QUAL (NEGATIVE); UDS - PCP NEGATIVE QUAL (NEGATIVE); UDS - THC NEGATIVE QUAL (NEGATIVE)
[2018-12-20 18:27] LABS: BILIRUBIN NEGATIVE (NEGATIVE); GLUCOSE NEGATIVE (NEGATIVE); KETONE NEGATIVE (NEGATIVE); NITRITE NEGATIVE (NEGATIVE); PROTEIN NEGATIVE (NEGATIVE); UROBILINOGEN NORMAL (NORMAL)
[2018-12-20 18:31] LABS: BACTERIA MANY /hpf (NEGATIVE); EPITHELIAL CELLS 0-5 /hpf (0-5); RED CELLS - URINE 0-5 /hpf (0-5)
[2018-12-20 23:42] LABS: HCG URINE NEGATIVE (NEGATIVE)
== END 2018-12-20 22:20 ==
LOC: D.ER 16:47
PROVIDERS: Family Medicine
DX: R45.851 Suicidal ideations (principal); N39.0 Urinary tract infection, site not specified

== ENCOUNTER 2018-12-22 14:26 | Emergency (ER) | payer MEDICAID ==
[~2018-12-22] VITALS: Ht 162.6 cm; Wt 77.3 kg
[~2018-12-22 14:26] MED LIST changes: +TRAMADOL HCL E100 M1 PO
[2018-12-22 14:28] VITALS: Ht 162.6 cm; Wt 77.3 kg
[2018-12-22 14:42] VITALS: BP 112/68
== END 2018-12-22 14:44 | disposition home or self-care (01) ==
LOC: D.ER 14:26
DX: R10.9 Unspecified abdominal pain (principal)

== ENCOUNTER 2018-12-24 21:12 | Emergency (ER) | payer MEDICAID ==
[~2018-12-24] VITALS: Ht 162.6 cm; Wt 72.6 kg
[2018-12-24 21:13] VITALS: Ht 162.6 cm; Wt 72.6 kg
[2018-12-24 21:30] LABS: BASOPHILS 0.4 % (0-2); EOSINOPHILS 1.1 % (0-7); HEMATOCRIT 38.4 % (36.0-48.0); HEMOGLOBIN 12.5 g/dL (12-16); IMMATURE GRANULOCYTES 0.1 % (0-5); LYMPHOCYTES 29.1 % (15-50); MCH 31.3 pg (26.0-34.0); MCHC 32.6 g/dL (31.0-37.0); MCV 96.2 fL (80.0-100.0); MEAN PLATELET VOLUME 9.4 fL (7.4-10.4); MONOCYTES 8.3 % (2-11); PLATELET COUNT 320 10x3/uL (130-400); RBC 3.99 10x6/uL (4.00-5.40); RDW 13.3 % (11.5-14.5); WBC 8.3 10x3/uL (4.8-10.8)
[2018-12-24 21:31] LABS: APPEARANCE CLEAR (CLEAR); COLOR YELLOW (YELLOW)
[2018-12-24 21:32] LABS: BILIRUBIN NEGATIVE (NEGATIVE); GLUCOSE NEGATIVE (NEGATIVE); KETONE NEGATIVE (NEGATIVE); NITRITE NEGATIVE (NEGATIVE); PROTEIN TRACE mg/dL (NEGATIVE); UROBILINOGEN NORMAL (NORMAL)
[2018-12-24 21:33] LABS: BACTERIA FEW /hpf (NEGATIVE); EPITHELIAL CELLS 0-5 /hpf (0-5); RED CELLS - URINE 0-5 /hpf (0-5)
[2018-12-24 21:37] LABS: CALC OSMOLALITY 287 mosm/kg (275-300); CALCIUM 8.9 mg/dL (8.5-10.1); CARBON DIOXIDE 28.9 mmol/L (21.0-32.0); CHLORIDE - SERUM 106 mmol/L (98-107); CREATININE - SERUM 0.7 mg/dL (0.6-1.3); GLUCOSE 138 mg/dL (74-106); POTASSIUM - SERUM 3.4 mmol/L (3.5-5.1); SODIUM 143 mmol/L (136-145); UREA NITROGEN 15 mg/dL (7-18); eGFR NON AFRICAN AMERICAN > 90 mL/min (90-120)
[2018-12-24 21:46] LABS: ALBUMIN 3.3 g/dL (3.4-5.0); ALKALINE PHOSPHATASE 114 U/L (46-116); ALT (SGPT) 33 U/L (10-68); AMYLASE - SERUM 79 U/L (25-115); BILIRUBIN - TOTAL 0.23 mg/dL (0.2-1.3); LIPASE 141 U/L (73-393); PROTEIN - SERUM 7.8 g/dL (6.4-8.2); TROPONIN-I < 0.017 ng/mL (0.000-0.060)
[2018-12-24 23:07] VITALS: BP 132/88
== END 2018-12-24 23:08 | disposition home or self-care (01) ==
LOC: D.ER 21:12
PROVIDERS: Emergency Medicine
DX: N39.0 Urinary tract infection, site not specified (principal); K21.9 Gastro-esophageal reflux disease without esophagitis; K50.90 Crohn's disease, unspecified, without complications

== ENCOUNTER 2019-01-01 01:07 | Observation (INO) | payer MEDICAID ==
[~2019-01-01] VITALS: Ht 162.6 cm; Wt 79.6 kg
[2019-01-01 01:05] LABS: UDS - AMPHET NEGATIVE QUAL (NEGATIVE); UDS - BARB NEGATIVE QUAL (NEGATIVE); UDS - BENZO NEGATIVE QUAL (NEGATIVE); UDS - COCAINE NEGATIVE QUAL (NEGATIVE); UDS - OPIATE NEGATIVE QUAL (NEGATIVE); UDS - PCP NEGATIVE QUAL (NEGATIVE); UDS - THC NEGATIVE QUAL (NEGATIVE)
[2019-01-01 01:26] LABS: BASOPHILS 0.5 % (0-2); EOSINOPHILS 0 % (0-7); HEMATOCRIT 41.5 % (36.0-48.0); HEMOGLOBIN 13.4 g/dL (12-16); IMMATURE GRANULOCYTES 0.5 % (0-5); LYMPHOCYTES 26.2 % (15-50); MCH 31.5 pg (26.0-34.0); MCHC 32.3 g/dL (31.0-37.0); MCV 97.6 fL (80.0-100.0); MEAN PLATELET VOLUME 9.6 fL (7.4-10.4); MONOCYTES 7.1 % (2-11); NEUTROPHILS 65.7 % (40-80); PLATELET COUNT 310 10x3/uL (130-400); RBC 4.25 10x6/uL (4.00-5.40); RDW 13.7 % (11.5-14.5); WBC 8.9 10x3/uL (4.8-10.8)
[2019-01-01 01:35] LABS: ANION GAP 17.7 mmol/L (8-16); CALCIUM 9.3 mg/dL (8.5-10.1); CARBON DIOXIDE 24.3 mmol/L (21.0-32.0); CREATININE - SERUM 0.9 mg/dL (0.6-1.3)
[2019-01-01 01:39] LABS: ALBUMIN 3.6 g/dL (3.4-5.0); BILIRUBIN - TOTAL 0.29 mg/dL (0.2-1.3); PROTEIN - SERUM 8.7 g/dL (6.4-8.2)
--- NOTE | 2019-01-01 01:44 | NUR ---
PATIENT IN ER-13 DUE TO ABDOMINAL PAIN. NOT HAVING SUICIDIAL THOUGHTS CURRENTLY. HAS NEVER ATTEMPTED SUICIDE. THIS PATIENT IS IN HERE OFTEN. PATIENT CAN LIST TWO REASONS FOR CHOOSING RIGHT, HER DAUGHTER AND ITS AGAINST HER LATTER DAY BELIEFS. SUIDICIDE PREVENTION SHEET GIVEN.
[2019-01-01 01:57] LABS: APPEARANCE HAZY (CLEAR); BILIRUBIN NEGATIVE (NEGATIVE); COLOR YELLOW (YELLOW); GLUCOSE NEGATIVE (NEGATIVE); KETONE NEGATIVE (NEGATIVE); NITRITE NEGATIVE (NEGATIVE); PROTEIN NEGATIVE (NEGATIVE); UROBILINOGEN NORMAL (NORMAL)
[2019-01-01 01:58] LABS: BACTERIA MANY /hpf (NEGATIVE); EPITHELIAL CELLS 0-5 /hpf (0-5); WHITE CELLS - URINE >50 /hpf (NEGATIVE)
--- NOTE | 2019-01-01 02:55 | NUR ---
ROCEPHIN INFUSION COMPLETE AT THIS TIME.
--- NOTE | 2019-01-01 03:00 | NUR ---
PT ARRIVED ON UNIT VIA WHEELCHAIR ESCORTED BY ER NURSE. ORIENTED TO ROOM AND CALL LIGHT. NS BOLUS DOSE INFUSING ON ARRIVAL. PT ASKING WHEN SHE CAN HAVE MORE PAIN MEDICATION. GAVE COLA AND ICE WATER. WILL MONITOR FOR NEEDS.
[2019-01-01 03:02] VITALS: BP 119/62; Ht 162.6 cm; Wt 79.6 kg
--- NOTE | 2019-01-01 03:16 | NUR ---
ADMISSION ASSESSMENT AND HISTORY COMPLETE.
[2019-01-01 04:00] VITALS: BP 119/62
--- NOTE | 2019-01-01 07:00 | NUR ---
ALERT AND ORIENTED, RESTING IN BED. UP AD ZACKERY. IV TO RIGHT AC, NS INFUSING @ 125ML/HR. SITE PATENT WITHOUT REDNESS OR SWELLING. NO C/O PAIN. NO S/S OF ACUTE DISTRESS NOTED. DENIES ANY NEEDS AT THIS TIME. CALL LIGHT IN REACH. WILL CONTINUE TO MONITOR.
--- NOTE | 2019-01-01 07:05 | NUR ---
ALERT AND ORIENTED, RESTING IN BED. FAMILY AT BEDSIDE. NO C/O PAIN. NO S/S OF ACUTE DISTRESS NOTED. IV TO LEFT AC, SL. SITE PATENT WITHOUT REDNESS OR SWELLING. DENIES ANY NEEDS AT THIS TIME. CALL LIGHT IN REACH. WILL CONTINUE TO MONITOR.
[2019-01-01 08:19] VITALS: BP 109/56
--- NOTE | 2019-01-01 10:27 | NUR ---
I have reviewed this patient and I concur with the Shift Assessment completed by the Licensed Practical Nurse today this shift.
[2019-01-01 12:40] VITALS: BP 108/49
[2019-01-01 16:00] LABS: APTT 26.5 SECONDS (22.8-39.4); INR 1.13 (0.85-1.17)
[2019-01-01 16:22] VITALS: BP 108/57
[2019-01-01 20:47] VITALS: BP 99/50
--- NOTE | 2019-01-01 23:40 | NUR ---
PT RESTING IN BED. ALERT AND ORIENTED. NO SIGNS OF DISTRESS. BREATHING EVEN AND UNLABORED. PT STATES NO PROBLEMS AT THIS TIME. IV SITE RT AC DRESSING CLEAN DRY AND INTACT. NO SIGNS OF INFECTION. IV SITE LT AC DRESSING CLEAN DRY AND INTACT SL. NO SIGNS OF INFECTION. LUNG SOUNDS CLEAR. BOWEL SOUNDS ACTIVE. NO LOWER LEG SWELLING PRESENT. WILL CONTINUE PLAN OF CARE. CALL LIGHT IN REACH. BED LOWERED AND LOCKED.
[2019-01-02 00:58] VITALS: BP 103/63
--- NOTE | 2019-01-02 01:07 | NUR ---
I have reviewed this patient and I concur with the Shift Assessment completed by the Licensed Practical Nurse today this shift.
[2019-01-02 05:55] VITALS: BP 108/60
[2019-01-02 07:42] LABS: CALCIUM 8.1 mg/dL (8.5-10.1); CARBON DIOXIDE 22.3 mmol/L (21.0-32.0); CHLORIDE - SERUM 110 mmol/L (98-107); GLUCOSE 103 mg/dL (74-106); MAGNESIUM - SERUM 1.2 mg/dL (1.8-2.4); POTASSIUM - SERUM 3.1 mmol/L (3.5-5.1); SODIUM 146 mmol/L (136-145)
[2019-01-02 07:44] LABS: CALC OSMOLALITY 287 mosm/kg (275-300); CREATININE - SERUM 0.6 mg/dL (0.6-1.3); UREA NITROGEN 4 mg/dL (7-18); eGFR NON AFRICAN AMERICAN > 90 mL/min (90-120)
--- NOTE | 2019-01-02 07:50 | NUR ---
PT RESTING IN BED. RESP EVEN AND UNLABORED. PT REPORTS PAIN 5/10 AT THIS TIME. DISCUSSED NEXT DOSE DUE ON PAIN MEDICATION PER MD ORDERS. PT VOICES UNDERSTANDING. IV TO RIGHT AC WITH NS @ 125ML/HR INFUSING VIA PUMP. SITE WITHOUT REDNESS OR EDEMA. PT DENIES FURTHER NEEDS AT THIS TIME. CL WITHIN REACH. ENCOURAGED TO CALL WITH NEEDS. CONTINUE POC
[2019-01-02 07:52] LABS: BASOPHILS 0.5 % (0-2); EOSINOPHILS 3.3 % (0-7); HEMATOCRIT 33.4 % (36.0-48.0); IMMATURE GRANULOCYTES 0.2 % (0-5); LYMPHOCYTES 37.6 % (15-50); MCH 30.9 pg (26.0-34.0); MCHC 31.7 g/dL (31.0-37.0); MCV 97.4 fL (80.0-100.0); MEAN PLATELET VOLUME 9.7 fL (7.4-10.4); NEUTROPHILS 48.4 % (40-80); PLATELET COUNT 264 10x3/uL (130-400); RBC 3.43 10x6/uL (4.00-5.40); RDW 13.6 % (11.5-14.5)
[2019-01-02 08:12] LABS: HEMOGLOBIN 10.6 g/dL (12-16); WBC 5.8 10x3/uL (4.8-10.8)
[2019-01-02 08:27] VITALS: BP 116/49
[2019-01-02 11:58] VITALS: BP 105/56
[2019-01-02] MEDS ORDERED: BACTRIM 400-801 TAB PO (12:17)
--- NOTE | 2019-01-02 12:52 | MORECARE ---
CASE MANAGEMENT DISCHARGE SUMMARY PATIENT: BRODIE VALDERRAMA UNIT: [id number] ADM DATE: 01/01/19 AGE: 48 : 68 SEX: F ROOM/BED: D.2210 AUTHOR: SIMA GOMEZ PHYSICIAN: REFERRING PHYSICIAN: PRIETO REYNA MD DATE OF SERVICE: 01/02/19 Discharge Plan Patient Name: BRODIE VALDERRAMA Facility: [facility]:[place] : 1970 Planned Disposition: Home Anticipated Discharge Date: Discharge Date: Expected LOS: Initial Reviewer: [email or web address] Initial Review Date: 01/01/2019 Generated: 01/02/19 1:52 pm Comments DCP- Discharge Planning Updated by [email or web address]: Florencia Lyon on 01/02/19 11:[address] PATIENT TO BE DISCHARGED HOME TODAY, I HAVE SET UP [facility] FOR TRANSPORTATION. CONF # [id number] # IS [phone] Patient Name: BRODIE VALDERRAMA Page [phone] at 1252 All edits/amendments must be made on the electronic document DICTATION DATE: 01/02/19 125 M[employer]ESS SPRING ENCASER: ITALIA 01/02/19 1252 RPT#: [id number] DC DATE: STATUS: ADM IN [facility] [address] [place] [address] END OF REPORT
[2019-01-03] MEDS ORDERED: PHENAZOPYRIDIN200 MG PO (01:31)
[2019-01-03] MEDS ORDERED: KEFLEX500 MG PO (01:31)
[2019-01-03] MEDS ORDERED: MACROBID100 MG PO (01:31)
--- NOTE | 2019-01-03 15:35 | MORECARE ---
CASE MANAGEMENT DISCHARGE SUMMARY PATIENT: BRODIE VALDERRAMA UNIT: [id number] ADM DATE: 01/01/19 AGE: 48 : 68 SEX: F ROOM/BED: D.2210 AUTHOR: SIMA GOMEZ PHYSICIAN: REFERRING PHYSICIAN: PRIETO REYNA MD DATE OF SERVICE: 01/03/19 Discharge Plan Patient Name: BRODIE VALDERRAMA Facility: [facility]:[place] : 1970 Planned Disposition: Home Anticipated Discharge Date: Discharge Date: 01/02/2019 Expected LOS: Initial Reviewer: [email or web address] Initial Review Date: 01/01/2019 Generated: 01/03/19 4:35 pm Comments DCP- Discharge Planning Updated by [email or web address]: Florencia Lyon on 01/02/19 11:[address] PATIENT TO BE DISCHARGED HOME TODAY, I HAVE SET UP [facility] FOR TRANSPORTATION. CONF # [id number] # IS [phone] Last DP export: 01/02/19 11:52 a Patient Name: BRODIE VALDERRAMA Page [id number] at 1535 All edits/amendments must be made on the electronic document DICTATION DATE: 01/03/191534 REINFORCING IRON WORKER HELPER: ITALIA 01/03/19 153 RPT#: [id number] DC DATE:01/02/19 STATUS: DIS IN [facility] [id number] [place] [address] END OF REPORT
== END 2019-01-02 14:39 | disposition home or self-care (01) ==
LOC: D.ER 01:07 → D.MS 01:59 → OBSVTIME 01:59 → D.MS 01-02 14:39
PROVIDERS: Family Medicine; ADMIT Internal Medicine Nephrology; ATTEND Internal Medicine Nephrology
DX: N39.0 Urinary tract infection, site not specified (principal); K50.90 Crohn's disease, unspecified, without complications; E87.6 Hypokalemia

== ENCOUNTER 2019-01-02 21:23 | Emergency (ER) | payer MEDICAID ==
[~2019-01-02] VITALS: Ht 162.6 cm; Wt 72.7 kg
[~2019-01-02 21:23] MED LIST changes: +BACTRIM 400-801 TAB PO
[2019-01-02 21:28] VITALS: Ht 162.6 cm; Wt 72.7 kg
[2019-01-02 21:51] LABS: APPEARANCE HAZY (CLEAR); COLOR YELLOW (YELLOW)
[2019-01-02 21:52] LABS: BILIRUBIN NEGATIVE (NEGATIVE); GLUCOSE NEGATIVE (NEGATIVE); KETONE NEGATIVE (NEGATIVE); NITRITE NEGATIVE (NEGATIVE); PROTEIN NEGATIVE (NEGATIVE); SPECIFIC GRAVITY 1.015 (1.005-1.020); UROBILINOGEN NORMAL (NORMAL)
[2019-01-02 21:55] LABS: BACTERIA MANY /hpf (NEGATIVE); EPITHELIAL CELLS 0-5 /hpf (0-5)
[2019-01-02 22:04] LABS: BASOPHILS 0.2 % (0-2); HEMATOCRIT 36.1 % (36.0-48.0); HEMOGLOBIN 11.9 g/dL (12-16); IMMATURE GRANULOCYTES 0.1 % (0-5); LYMPHOCYTES 22.1 % (15-50); MCH 31.4 pg (26.0-34.0); MEAN PLATELET VOLUME 9.4 fL (7.4-10.4); MONOCYTES 6.2 % (2-11); NEUTROPHILS 70.4 % (40-80); PLATELET COUNT 276 10x3/uL (130-400); RBC 3.79 10x6/uL (4.00-5.40); RDW 13.4 % (11.5-14.5)
[2019-01-02 22:07] LABS: MCV 95.3 fL (80.0-100.0)
[2019-01-02 22:17] LABS: CALC OSMOLALITY 282 mosm/kg (275-300); CALCIUM 8.6 mg/dL (8.5-10.1); CARBON DIOXIDE 26.7 mmol/L (21.0-32.0); CHLORIDE - SERUM 107 mmol/L (98-107); CREATININE - SERUM 0.7 mg/dL (0.6-1.3); GLUCOSE 129 mg/dL (74-106); SODIUM 142 mmol/L (136-145); eGFR NON AFRICAN AMERICAN > 90 mL/min (90-120)
[2019-01-02 22:19] LABS: UREA NITROGEN 7 mg/dL (7-18)
[2019-01-02 22:25] LABS: ALBUMIN 3.3 g/dL (3.4-5.0); ALKALINE PHOSPHATASE 114 U/L (46-116); ALT (SGPT) 36 U/L (10-68); AMYLASE - SERUM 78 U/L (25-115); BILIRUBIN - TOTAL 0.18 mg/dL (0.2-1.3); LIPASE 137 U/L (73-393); PROTEIN - SERUM 7.8 g/dL (6.4-8.2)
[2019-01-02 22:27] LABS: TROPONIN-I < 0.017 ng/mL (0.000-0.060)
[2019-01-03] MEDS ORDERED: PHENAZOPYRIDIN200 MG PO (01:31)
[2019-01-03] MEDS ORDERED: MACROBID100 MG PO (01:31)
[2019-01-03] MEDS ORDERED: KEFLEX500 MG PO (01:31)
[2019-01-03 01:53] VITALS: BP 132/85
[2019-02-06] MEDS ORDERED: KEFLEX500 MG PO (14:14)
[2019-02-06] MEDS ORDERED: MACROBID100 MG PO (14:14)
== END 2019-01-03 01:53 | disposition home or self-care (01) ==
LOC: D.ER 21:23
PROVIDERS: Family Medicine
DX: R10.9 Unspecified abdominal pain (principal); N39.0 Urinary tract infection, site not specified

== ENCOUNTER 2019-01-09 23:53 | Emergency (ER) | payer MEDICAID ==
[~2019-01-09] VITALS: Ht 162.6 cm; Wt 72.7 kg
[~2019-01-09 23:53] MED LIST changes: +PHENAZOPYRIDIN200 MG PO
[2019-01-09 23:55] VITALS: Ht 162.6 cm; Wt 72.7 kg
[2019-01-10 00:34] LABS: BASOPHILS 0.3 % (0-2); EOSINOPHILS 0.7 % (0-7); HEMATOCRIT 38.9 % (36.0-48.0); HEMOGLOBIN 12.8 g/dL (12-16); IMMATURE GRANULOCYTES 0.3 % (0-5); LYMPHOCYTES 19.6 % (15-50); MCH 31.1 pg (26.0-34.0); MCHC 32.9 g/dL (31.0-37.0); MCV 94.6 fL (80.0-100.0); MEAN PLATELET VOLUME 9.3 fL (7.4-10.4); MONOCYTES 6.6 % (2-11); NEUTROPHILS 72.5 % (40-80); RBC 4.11 10x6/uL (4.00-5.40); RDW 12.8 % (11.5-14.5); WBC 9.9 10x3/uL (4.8-10.8)
[2019-01-10 00:35] LABS: PLATELET COUNT 345 10x3/uL (130-400)
[2019-01-10 00:42] LABS: CALC OSMOLALITY 287 mosm/kg (275-300); CALCIUM 8.8 mg/dL (8.5-10.1); CARBON DIOXIDE 29.2 mmol/L (21.0-32.0); CHLORIDE - SERUM 104 mmol/L (98-107); CREATININE - SERUM 0.8 mg/dL (0.6-1.3); GLUCOSE 137 mg/dL (74-106); POTASSIUM - SERUM 3.7 mmol/L (3.5-5.1); SODIUM 144 mmol/L (136-145); UREA NITROGEN 10 mg/dL (7-18); eGFR NON AFRICAN AMERICAN 80 mL/min (90-120)
[2019-01-10 00:49] LABS: ALBUMIN 3.2 g/dL (3.4-5.0); ALKALINE PHOSPHATASE 109 U/L (46-116); ALT (SGPT) 34 U/L (10-68); BILIRUBIN - TOTAL 0.25 mg/dL (0.2-1.3); LIPASE 77 U/L (73-393); PROTEIN - SERUM 7.8 g/dL (6.4-8.2)
[2019-01-10] MEDS ORDERED: BENTYL 20 MG TA20 MG PO (01:00)
--- NOTE | 2019-01-10 01:04 | NUR ---
DR MACK NOTIFIED AND REVIEWED PT'S BEHAVIOR AND ASSESSMENT RESULTS. PT IS A LOW RISK PER DR MACK. DR MCAK STATED TO GIVE RESOURCES TO PT AT TIME OF DISCHARGE. RESOURCES GIVEN AND REVIEWED WITH PT AND SHE VERBALIZES UNDERSTANDING.
[2019-01-10 01:07] LABS: APPEARANCE HAZY (CLEAR); BILIRUBIN NEGATIVE (NEGATIVE); COLOR YELLOW (YELLOW); GLUCOSE NEGATIVE (NEGATIVE); KETONE NEGATIVE (NEGATIVE); NITRITE NEGATIVE (NEGATIVE); PROTEIN NEGATIVE (NEGATIVE); UROBILINOGEN NORMAL (NORMAL)
[2019-01-10 01:09] LABS: BACTERIA MODERATE /hpf (NEGATIVE); EPITHELIAL CELLS 0-5 /hpf (0-5)
[2019-01-10] MEDS ORDERED: MACRODANTIN100 MG PO (01:18)
[2019-01-10 01:22] VITALS: BP 125/78
[2019-02-06] MEDS ORDERED: MACROBID100 MG PO (14:14)
[2019-02-06] MEDS ORDERED: KEFLEX500 MG PO (14:14)
== END 2019-01-10 01:38 | disposition home or self-care (01) ==
LOC: D.ER 23:53
PROVIDERS: Emergency Medicine
DX: K58.9 Irritable bowel syndrome, unspecified (principal); N39.0 Urinary tract infection, site not specified; J90 Pleural effusion, not elsewhere classified

== ENCOUNTER 2019-01-12 07:33 | Emergency (ER) | payer MEDICAID ==
[~2019-01-12] VITALS: Ht 162.6 cm; Wt 72.7 kg
[~2019-01-12 07:33] MED LIST changes: +BENTYL 20 MG TA20 MG PO
[2019-01-12 07:34] VITALS: Ht 162.6 cm; Wt 72.7 kg
[2019-01-12 08:08] LABS: BASOPHILS 0.2 % (0-2); EOSINOPHILS 1.1 % (0-7); HEMATOCRIT 36.5 % (36.0-48.0); HEMOGLOBIN 11.8 g/dL (12-16); IMMATURE GRANULOCYTES 0.1 % (0-5); LYMPHOCYTES 25.3 % (15-50); MCH 31.1 pg (26.0-34.0); MCHC 32.3 g/dL (31.0-37.0); MCV 96.1 fL (80.0-100.0); MEAN PLATELET VOLUME 9.3 fL (7.4-10.4); MONOCYTES 8.3 % (2-11); PLATELET COUNT 358 10x3/uL (130-400); RDW 13.1 % (11.5-14.5); WBC 8.9 10x3/uL (4.8-10.8)
[2019-01-12 08:30] LABS: CALC OSMOLALITY 282 mosm/kg (275-300); CALCIUM 9.1 mg/dL (8.5-10.1); CARBON DIOXIDE 26.8 mmol/L (21.0-32.0); CHLORIDE - SERUM 104 mmol/L (98-107); CREATININE - SERUM 0.7 mg/dL (0.6-1.3); GLUCOSE 132 mg/dL (74-106); POTASSIUM - SERUM 3.7 mmol/L (3.5-5.1); SODIUM 141 mmol/L (136-145); UREA NITROGEN 12 mg/dL (7-18); eGFR NON AFRICAN AMERICAN > 90 mL/min (90-120)
[2019-01-12 08:39] LABS: ALBUMIN 3.2 g/dL (3.4-5.0); ALKALINE PHOSPHATASE 102 U/L (46-116); ALT (SGPT) 25 U/L (10-68); AMYLASE - SERUM 93 U/L (25-115); BILIRUBIN - TOTAL 0.18 mg/dL (0.2-1.3); LIPASE 105 U/L (73-393); PROTEIN - SERUM 6.9 g/dL (6.4-8.2); TROPONIN-I < 0.017 ng/mL (0.000-0.060)
[2019-01-12 08:44] LABS: APPEARANCE CLOUDY (CLEAR); BACTERIA MODERATE /hpf (NEGATIVE); BILIRUBIN NEGATIVE (NEGATIVE); COLOR YELLOW (YELLOW); EPITHELIAL CELLS 0-5 /hpf (0-5); GLUCOSE NEGATIVE (NEGATIVE); KETONE NEGATIVE (NEGATIVE); MUCUS <1+ /lpf (NONE SEEN); NITRITE NEGATIVE (NEGATIVE); PROTEIN TRACE mg/dL (NEGATIVE); SPECIFIC GRAVITY 1.015 (1.005-1.020); UROBILINOGEN NORMAL (NORMAL)
--- NOTE | 2019-01-12 08:49 | NUR ---
DR. MACK NOTIFIED AND REVIEWED PT'S BEHAVIOR AND ASSESSMENT RESULTS. PT IS A LOW RISK PER DR MACK. DR MACK STATED TO GIVE RESOURCES TO PT AT TIME OF DISCHARGE. NO FURTHER ORDERS AT THIS TIME. RESOURCES REVIEWED WITH PT. AND SHE VERVALIZED UNDERSTANDING.
--- NOTE | 2019-01-12 09:00 | NUR ---
PATIENT DENIES ANY THOUGHTS OF SUICIDE AND IS ABLE TO STATE NUMEROUS REASONS FOR LIVING. STATES THAT SHE HAS A CLOSE RELATIONSHIP WITH FAMILY AND THEY ARE QUITE SUPPORTIVE. ALSO STATES THAT SUICIDE IS MORALLY WRONG AND WOULD NEVER ATTEMPT TO HARM SELF. PATIENT DOES ADMIT TO A SELF-INFLICTED, SUPERFICIAL CUT TO WRIST IN 2006 THAT REQUIRED NO MEDICAL ATTENTION.
--- NOTE | 2019-01-12 09:14 | NUR ---
RESOURCE SHEET GIVEN TO AND REVIEWED WITH PATIENT. PATIENT VOICES UNDERSTANDING.
[2019-01-12] MEDS ORDERED: OMNICEF300 MG PO (09:25)
[2019-01-12 10:22] VITALS: BP 116/65
[2019-01-13] MEDS ORDERED: MACROBID100 MG PO (01:03)
[2019-01-13] MEDS ORDERED: DIFLUCAN150 MG PO (01:08)
[2019-02-06] MEDS ORDERED: KEFLEX500 MG PO (14:14)
[2019-02-06] MEDS ORDERED: MACROBID100 MG PO (14:14)
== END 2019-01-12 10:20 | disposition home or self-care (01) ==
LOC: D.ER 07:33
PROVIDERS: Family Medicine
DX: N39.0 Urinary tract infection, site not specified (principal); R10.9 Unspecified abdominal pain; R11.0 Nausea; K50.90 Crohn's disease, unspecified, without complications

== ENCOUNTER 2019-01-12 23:18 | Emergency (ER) | payer MEDICAID ==
[~2019-01-12] VITALS: Ht 162.6 cm; Wt 75.0 kg
[2019-01-12 23:44] VITALS: Ht 162.6 cm; Wt 75.0 kg
[2019-01-13 00:19] LABS: APPEARANCE HAZY (CLEAR); BILIRUBIN NEGATIVE (NEGATIVE); COLOR YELLOW (YELLOW); GLUCOSE NEGATIVE (NEGATIVE); KETONE NEGATIVE (NEGATIVE); NITRITE NEGATIVE (NEGATIVE); PROTEIN 1+ mg/dL (NEGATIVE); SPECIFIC GRAVITY 1.015 (1.005-1.020); UROBILINOGEN NORMAL (NORMAL)
[2019-01-13 00:21] LABS: BACTERIA MODERATE /hpf (NEGATIVE); EPITHELIAL CELLS 0-5 /hpf (0-5)
[2019-01-13] MEDS ORDERED: MACROBID100 MG PO (01:03)
[2019-01-13] MEDS ORDERED: DIFLUCAN150 MG PO (01:08)
[2019-01-13 01:41] VITALS: BP 118/70
[2019-02-06] MEDS ORDERED: KEFLEX500 MG PO (14:14)
[2019-02-06] MEDS ORDERED: MACROBID100 MG PO (14:14)
== END 2019-01-13 01:41 | disposition home or self-care (01) ==
LOC: D.ER 23:18
PROVIDERS: Family Medicine
DX: B37.49 Other urogenital candidiasis (principal)

== ENCOUNTER 2019-01-15 22:53 | Emergency (ER) | payer MEDICAID ==
[~2019-01-15] VITALS: Ht 162.6 cm; Wt 72.6 kg
[2019-01-15 22:54] VITALS: Ht 162.6 cm; Wt 72.6 kg
[2019-01-15 23:24] VITALS: BP 118/65
[2019-02-06] MEDS ORDERED: MACROBID100 MG PO (14:14)
[2019-02-06] MEDS ORDERED: KEFLEX500 MG PO (14:14)
== END 2019-01-15 23:24 | disposition home or self-care (01) ==
LOC: D.ER 22:53
DX: R10.9 Unspecified abdominal pain (principal); R11.2 Nausea with vomiting, unspecified; K50.90 Crohn's disease, unspecified, without complications

== ENCOUNTER 2019-01-16 23:38 | Emergency (ER) | payer MEDICAID ==
[~2019-01-16] VITALS: Ht 162.6 cm; Wt 72.7 kg
[2019-01-16 23:43] VITALS: BP 99/65; Ht 162.6 cm; Wt 72.7 kg
[2019-01-17 00:52] LABS: CALC OSMOLALITY 284 mosm/kg (275-300); CALCIUM 8.7 mg/dL (8.5-10.1); CHLORIDE - SERUM 105 mmol/L (98-107); CREATININE - SERUM 0.7 mg/dL (0.6-1.3); GLUCOSE 90 mg/dL (74-106); POTASSIUM - SERUM 4.2 mmol/L (3.5-5.1); SODIUM 143 mmol/L (136-145); UREA NITROGEN 13 mg/dL (7-18); eGFR NON AFRICAN AMERICAN > 90 mL/min (90-120)
[2019-01-17 00:57] LABS: ALBUMIN 3.3 g/dL (3.4-5.0); ALKALINE PHOSPHATASE 107 U/L (46-116); ALT (SGPT) 24 U/L (10-68); BILIRUBIN - TOTAL 0.15 mg/dL (0.2-1.3)
[2019-01-17 00:57] LABS: APPEARANCE HAZY (CLEAR); BILIRUBIN NEGATIVE (NEGATIVE); COLOR YELLOW (YELLOW); GLUCOSE NEGATIVE (NEGATIVE); KETONE NEGATIVE (NEGATIVE); NITRITE NEGATIVE (NEGATIVE); PROTEIN 1+ mg/dL (NEGATIVE); UROBILINOGEN NORMAL (NORMAL)
[2019-01-17 00:58] LABS: BASOPHILS 0.3 % (0-2); EOSINOPHILS 1.1 % (0-7); HEMATOCRIT 39.7 % (36.0-48.0); HEMOGLOBIN 12.5 g/dL (12-16); IMMATURE GRANULOCYTES 0.4 % (0-5); LYMPHOCYTES 21.3 % (15-50); MCH 30.6 pg (26.0-34.0); MCHC 31.5 g/dL (31.0-37.0); MCV 97.1 fL (80.0-100.0); MEAN PLATELET VOLUME 9.7 fL (7.4-10.4); MONOCYTES 6.9 % (2-11); PLATELET COUNT 404 10x3/uL (130-400); RBC 4.09 10x6/uL (4.00-5.40); WBC 10.1 10x3/uL (4.8-10.8)
[2019-01-17 01:00] LABS: BACTERIA MODERATE /hpf (NEGATIVE); EPITHELIAL CELLS 0-5 /hpf (0-5); MUCUS <1+ /lpf (NONE SEEN); RED CELLS - URINE 0-5 /hpf (0-5)
[2019-01-17] MEDS ORDERED: MACROBID100 MG PO (01:13)
[2019-02-06] MEDS ORDERED: KEFLEX500 MG PO (14:14)
[2019-02-06] MEDS ORDERED: MACROBID100 MG PO (14:14)
== END 2019-01-17 01:25 | disposition home or self-care (01) ==
LOC: D.ER 23:38
PROVIDERS: Family Medicine
DX: R10.30 Lower abdominal pain, unspecified (principal); Z87.19 Personal history of other diseases of the digestive system; N39.0 Urinary tract infection, site not specified

== ENCOUNTER 2019-01-31 04:18 | Emergency (ER) | payer MEDICAID ==
[~2019-01-31] VITALS: Ht 162.6 cm; Wt 72.7 kg
[2019-01-31 04:19] VITALS: Ht 162.6 cm; Wt 72.7 kg
[2019-01-31 04:55] LABS: APPEARANCE CLOUDY (CLEAR); BILIRUBIN NEGATIVE (NEGATIVE); COLOR YELLOW (YELLOW); GLUCOSE NEGATIVE (NEGATIVE); KETONE NEGATIVE (NEGATIVE); NITRITE NEGATIVE (NEGATIVE); PROTEIN 2+ mg/dL (NEGATIVE); UROBILINOGEN NORMAL (NORMAL)
[2019-01-31 04:57] LABS: BACTERIA MANY /hpf (NEGATIVE); EPITHELIAL CELLS 0-5 /hpf (0-5); WHITE CELLS - URINE 25-50 /hpf (NEGATIVE)
[2019-01-31 04:58] LABS: YEAST <1+ /hpf (NONE SEEN)
[2019-01-31 05:47] LABS: CALC OSMOLALITY 288 mosm/kg (275-300); CALCIUM 8.8 mg/dL (8.5-10.1); CARBON DIOXIDE 27.5 mmol/L (21.0-32.0); CHLORIDE - SERUM 104 mmol/L (98-107); CREATININE - SERUM 0.8 mg/dL (0.6-1.3); POTASSIUM - SERUM 3.4 mmol/L (3.5-5.1); SODIUM 144 mmol/L (136-145); UREA NITROGEN 10 mg/dL (7-18); eGFR NON AFRICAN AMERICAN 80 mL/min (90-120)
[2019-01-31 05:53] LABS: ALBUMIN 3.1 g/dL (3.4-5.0); ALKALINE PHOSPHATASE 99 U/L (46-116); ALT (SGPT) 28 U/L (10-68); AMYLASE - SERUM 51 U/L (25-115); BILIRUBIN - TOTAL 0.24 mg/dL (0.2-1.3); LIPASE 76 U/L (73-393); PROTEIN - SERUM 7.6 g/dL (6.4-8.2)
[2019-01-31 05:56] LABS: BASOPHILS 0.1 % (0-2); EOSINOPHILS 0.5 % (0-7); HEMATOCRIT 39.5 % (36.0-48.0); HEMOGLOBIN 12.8 g/dL (12-16); IMMATURE GRANULOCYTES 0.2 % (0-5); LYMPHOCYTES 11.4 % (15-50); MCH 31.1 pg (26.0-34.0); MCHC 32.4 g/dL (31.0-37.0); MCV 95.9 fL (80.0-100.0); MEAN PLATELET VOLUME 9.6 fL (7.4-10.4); MONOCYTES 4.5 % (2-11); NEUTROPHILS 83.3 % (40-80); PLATELET COUNT 325 10x3/uL (130-400); RBC 4.12 10x6/uL (4.00-5.40); RDW 13.2 % (11.5-14.5); WBC 10.7 10x3/uL (4.8-10.8)
[2019-01-31 05:59] LABS: GLUCOSE 154 mg/dL (74-106)
[2019-01-31] MEDS ORDERED: MACROBID100 MG PO (06:24)
[2019-01-31 06:39] VITALS: BP 132/81
[2019-02-02 18:08] LABS: CHLAMYDIA TRACHOMATIS, NAA Negative (Negative)
[2019-02-06] MEDS ORDERED: KEFLEX500 MG PO (14:14)
[2019-02-06] MEDS ORDERED: MACROBID100 MG PO (14:14)
== END 2019-01-31 06:41 | disposition home or self-care (01) ==
LOC: D.ER 04:18
PROVIDERS: Family Medicine
DX: N39.0 Urinary tract infection, site not specified (principal); N76.0 Acute vaginitis

== ENCOUNTER 2019-01-31 12:11 | Emergency (ER) | payer MEDICAID ==
[2019-01-31 04:19] VITALS: BMI 27.5
[2019-02-06] MEDS ORDERED: KEFLEX500 MG PO (14:14)
[2019-02-06] MEDS ORDERED: MACROBID100 MG PO (14:14)
== END 2019-01-31 16:05 | disposition left against medical advice (07) ==
LOC: D.ER 12:11
DX: R07.9 Chest pain, unspecified (principal)

== ENCOUNTER 2019-02-04 04:14 | Emergency (ER) | payer MEDICAID ==
[~2019-02-04] VITALS: Ht 162.6 cm; Wt 72.7 kg
[2019-02-04 04:16] VITALS: BP 109/70; Ht 162.6 cm; Wt 72.7 kg
[2019-02-04] MEDS ORDERED: BUTALB-APAP-CA1 EACH PO (04:22)
[2019-02-06] MEDS ORDERED: KEFLEX500 MG PO (14:14)
[2019-02-06] MEDS ORDERED: MACROBID100 MG PO (14:14)
== END 2019-02-04 04:25 | disposition home or self-care (01) ==
LOC: D.ER 04:14
DX: R51 Headache (principal)

== ENCOUNTER 2019-02-05 20:28 | Emergency (ER) | payer MEDICAID ==
[~2019-02-05] VITALS: Ht 162.6 cm; Wt 72.7 kg
[2019-02-05 20:38] VITALS: BP 108/59; Ht 162.6 cm; Wt 72.7 kg
[2019-02-06] MEDS ORDERED: MACROBID100 MG PO (14:14)
[2019-02-06] MEDS ORDERED: KEFLEX500 MG PO (14:14)
== END 2019-02-05 21:21 | disposition left against medical advice (07) ==
LOC: D.ER 20:28
DX: R10.13 Epigastric pain (principal)

== ENCOUNTER 2019-02-11 13:09 | Emergency (ER) | payer MEDICAID ==
[~2019-02-11] VITALS: Ht 162.6 cm; Wt 72.7 kg
[2019-02-11 13:24] VITALS: Ht 162.6 cm; Wt 72.7 kg
[2019-02-11 14:26] VITALS: BP 132/78
[2019-02-12] MEDS ORDERED: KEFLEX500 MG PO (19:32)
== END 2019-02-11 14:27 | disposition home or self-care (01) ==
LOC: D.ER 13:09
DX: R51 Headache (principal)

== ENCOUNTER 2019-02-12 09:29 | Emergency (ER) | payer MEDICAID ==
[~2019-02-12] VITALS: Ht 162.6 cm; Wt 90.9 kg
[2019-02-12 09:32] VITALS: BP 123/74; Ht 162.6 cm; Wt 90.9 kg
[2019-02-12] MEDS ORDERED: KEFLEX500 MG PO (19:32)
== END 2019-02-12 09:39 | disposition home or self-care (01) ==
LOC: D.ER 09:29
DX: B34.9 Viral infection, unspecified (principal); R51 Headache

== ENCOUNTER 2019-02-12 13:00 | Emergency (ER) | payer MEDICAID ==
[2019-02-12 13:00] VITALS: BP 127/82; Ht 162.6 cm
[2019-02-12] MEDS ORDERED: KEFLEX500 MG PO (19:32)
== END 2019-02-12 14:14 | disposition home or self-care (01) ==
LOC: D.ER 13:00
DX: Z76.5 Malingerer [conscious simulation] (principal); J30.9 Allergic rhinitis, unspecified

== ENCOUNTER 2019-02-12 19:06 | Emergency (ER) | payer MEDICAID ==
[~2019-02-12] VITALS: Ht 162.6 cm; Wt 72.7 kg
[2019-02-12 19:10] VITALS: BP 119/91; Ht 162.6 cm; Wt 72.7 kg
[2019-02-12] MEDS ORDERED: KEFLEX500 MG PO (19:32)
== END 2019-02-12 19:43 | disposition home or self-care (01) ==
LOC: D.ER 19:06
DX: J02.9 Acute pharyngitis, unspecified (principal); J30.9 Allergic rhinitis, unspecified

== ENCOUNTER 2019-02-19 00:57 | Emergency (ER) | payer MEDICAID ==
[~2019-02-19] VITALS: Ht 162.6 cm; Wt 77.3 kg
[2019-02-19 01:02] VITALS: BP 155/77; Ht 162.6 cm; Wt 77.3 kg
[2019-02-19] MEDS ORDERED: BUTALB-APAP-CA1 EACH (01:03)
[2019-02-19] MEDS ORDERED: ULTRAM50 MG PO (01:18)
== END 2019-02-19 12:24 | disposition home or self-care (01) ==
LOC: D.ER 00:57
DX: R10.9 Unspecified abdominal pain (principal); R19.7 Diarrhea, unspecified; K62.89 Other specified diseases of anus and rectum

== ENCOUNTER 2019-02-21 00:20 | Emergency (ER) | payer MEDICAID ==
[~2019-02-21] VITALS: Ht 162.6 cm; Wt 77.3 kg
[~2019-02-21 00:20] MED LIST changes: +BUTALB-APAP-CA1 EACH
[2019-02-21 00:23] VITALS: BP 150/67; Ht 162.6 cm; Wt 77.3 kg
[2019-02-22] MEDS ORDERED: FLUTICASONE PRO16 GM NASAL (11:46)
== END 2019-02-21 00:42 | disposition left against medical advice (07) ==
LOC: D.ER 00:20
DX: R10.9 Unspecified abdominal pain (principal)

== ENCOUNTER 2019-02-21 11:35 | Emergency (ER) | payer MEDICAID ==
[~2019-02-21] VITALS: Ht 162.6 cm; Wt 77.3 kg
[2019-02-21 11:56] VITALS: Ht 162.6 cm; Wt 77.3 kg
[2019-02-21 12:38] LABS: BASOPHILS 0.4 % (0-2); EOSINOPHILS 1.7 % (0-7); HEMATOCRIT 37.2 % (36.0-48.0); HEMOGLOBIN 12.4 g/dL (12-16); IMMATURE GRANULOCYTES 0.3 % (0-5); LYMPHOCYTES 27.5 % (15-50); MCH 30.8 pg (26.0-34.0); MCHC 33.3 g/dL (31.0-37.0); MCV 92.5 fL (80.0-100.0); MEAN PLATELET VOLUME 9.2 fL (7.4-10.4); MONOCYTES 8.1 % (2-11); PLATELET COUNT 340 10x3/uL (130-400); RBC 4.02 10x6/uL (4.00-5.40); RDW 13.2 % (11.5-14.5); WBC 7.7 10x3/uL (4.8-10.8)
[2019-02-21 12:46] LABS: CALC OSMOLALITY 284 mosm/kg (275-300); CALCIUM 8.5 mg/dL (8.5-10.1); CARBON DIOXIDE 24.7 mmol/L (21.0-32.0); CHLORIDE - SERUM 106 mmol/L (98-107); CREATININE - SERUM 0.6 mg/dL (0.6-1.3); GLUCOSE 117 mg/dL (74-106); POTASSIUM - SERUM 3.4 mmol/L (3.5-5.1); SODIUM 142 mmol/L (136-145); UREA NITROGEN 14 mg/dL (7-18); eGFR NON AFRICAN AMERICAN > 90 mL/min (90-120)
[2019-02-21 12:55] LABS: ALBUMIN 3.1 g/dL (3.4-5.0); ALKALINE PHOSPHATASE 118 U/L (46-116); ALT (SGPT) 29 U/L (10-68); AMYLASE - SERUM 103 U/L (25-115); BILIRUBIN - TOTAL 0.18 mg/dL (0.2-1.3); LIPASE 106 U/L (73-393); PROTEIN - SERUM 7.6 g/dL (6.4-8.2)
[2019-02-21 12:56] LABS: TROPONIN-I < 0.017 ng/mL (0.000-0.060)
[2019-02-21 14:10] VITALS: BP 140/82
[2019-02-21 14:21] LABS: APPEARANCE HAZY (CLEAR); BILIRUBIN NEGATIVE (NEGATIVE); COLOR YELLOW (YELLOW); GLUCOSE NEGATIVE (NEGATIVE); KETONE NEGATIVE (NEGATIVE); NITRITE NEGATIVE (NEGATIVE); PROTEIN NEGATIVE (NEGATIVE); SPECIFIC GRAVITY 1.015 (1.005-1.020); UROBILINOGEN NORMAL (NORMAL)
[2019-02-21 14:22] LABS: EPITHELIAL CELLS 0-5 /hpf (0-5); RED CELLS - URINE 0-5 /hpf (0-5); WHITE CELLS - URINE 0-5 /hpf (NEGATIVE)
[2019-02-21 14:23] LABS: BACTERIA FEW /hpf (NEGATIVE)
[2019-02-22] MEDS ORDERED: FLUTICASONE PRO16 GM NASAL (11:46)
== END 2019-02-21 14:25 | disposition home or self-care (01) ==
LOC: D.ER 11:35
PROVIDERS: Family Medicine
DX: R10.9 Unspecified abdominal pain (principal); K50.90 Crohn's disease, unspecified, without complications

== ENCOUNTER 2019-02-22 10:41 | Emergency (ER) | payer MEDICAID ==
[~2019-02-22] VITALS: Ht 162.6 cm; Wt 77.3 kg
[2019-02-22 10:48] VITALS: Ht 162.6 cm; Wt 77.3 kg
[2019-02-22] MEDS ORDERED: FLUTICASONE PRO16 GM NASAL (11:46)
[2019-02-22 12:05] VITALS: BP 120/57
== END 2019-02-22 12:05 | disposition home or self-care (01) ==
LOC: D.ER 10:41
DX: G43.909 Migraine, unspecified, not intractable, without status migrainosus (principal); R10.9 Unspecified abdominal pain; Z76.5 Malingerer [conscious simulation]

== ENCOUNTER 2019-03-16 17:37 | Emergency (ER) | payer MEDICAID ==
[2019-02-22 10:48] VITALS: BMI 29.2
[~2019-03-16 17:37] MED LIST changes: +FLUTICASONE PRO16 GM NASAL
== END 2019-03-16 18:38 | disposition left against medical advice (07) ==
LOC: D.ER 17:37
DX: R10.9 Unspecified abdominal pain (principal)

== ENCOUNTER 2019-03-19 18:35 | Emergency (ER) | payer MEDICAID ==
[~2019-03-19] VITALS: Ht 162.6 cm; Wt 78.2 kg
[2019-03-19 18:44] VITALS: Ht 162.6 cm; Wt 78.2 kg
[2019-03-19] MEDS ORDERED: ATARAX 25 MG TA25 MG PO (19:25)
[2019-03-19 19:29] VITALS: BP 122/73
[2019-03-20] MEDS ORDERED: TRAZODONE HCL150 MG PO (14:18)
== END 2019-03-19 19:29 | disposition home or self-care (01) ==
LOC: D.ER 18:35
DX: G47.00 Insomnia, unspecified (principal); Z76.5 Malingerer [conscious simulation]

== ENCOUNTER 2019-03-20 13:52 | Emergency (ER) | payer MEDICAID ==
[~2019-03-20] VITALS: Ht 162.6 cm; Wt 77.3 kg
[2019-03-20 13:54] VITALS: BP 132/71; Ht 162.6 cm; Wt 77.3 kg
[2019-03-20] MEDS ORDERED: TRAZODONE HCL150 MG PO (14:18)
[2019-03-21] MEDS ORDERED: BUTALB-APAP-CA1 EACH PO (06:58)
== END 2019-03-20 14:24 | disposition home or self-care (01) ==
LOC: D.ER 13:52
DX: G47.00 Insomnia, unspecified (principal); Z76.5 Malingerer [conscious simulation]

== ENCOUNTER 2019-03-21 06:55 | Emergency (ER) | payer MEDICAID ==
[~2019-03-21] VITALS: Ht 162.6 cm; Wt 76.8 kg
[~2019-03-21 06:55] MED LIST changes: +TRAZODONE HCL150 MG PO
[2019-03-21 06:57] VITALS: BP 118/65; Ht 162.6 cm; Wt 76.8 kg
[2019-03-21] MEDS ORDERED: BUTALB-APAP-CA1 EACH PO (06:58)
== END 2019-03-21 07:25 | disposition home or self-care (01) ==
LOC: D.ER 06:55
DX: Z76.5 Malingerer [conscious simulation] (principal); R53.81 Other malaise

== ENCOUNTER 2019-03-23 02:01 | Emergency (ER) | payer MEDICAID ==
[~2019-03-23] VITALS: Ht 162.6 cm; Wt 86.4 kg
[2019-03-23 02:04] VITALS: BP 135/78; Ht 162.6 cm; Wt 86.4 kg
[2019-03-23 02:29] LABS: APPEARANCE CLEAR (CLEAR); BILIRUBIN NEGATIVE (NEGATIVE); COLOR YELLOW (YELLOW); GLUCOSE NEGATIVE (NEGATIVE); KETONE NEGATIVE (NEGATIVE); NITRITE NEGATIVE (NEGATIVE); PROTEIN NEGATIVE (NEGATIVE); UROBILINOGEN NORMAL (NORMAL)
[2019-03-23 02:32] LABS: BACTERIA MODERATE /hpf (NEGATIVE); EPITHELIAL CELLS 0-5 /hpf (0-5); RED CELLS - URINE 0-5 /hpf (0-5)
[2019-03-23] MEDS ORDERED: MACROBID100 MG PO (02:50)
== END 2019-03-23 02:54 | disposition home or self-care (01) ==
LOC: D.ER 02:01
PROVIDERS: Family Medicine
DX: N39.0 Urinary tract infection, site not specified (principal); R10.9 Unspecified abdominal pain; G89.29 Other chronic pain

== ENCOUNTER 2019-04-21 02:24 | Emergency (ER) | payer MEDICAID ==
[~2019-04-21] VITALS: Ht 162.6 cm; Wt 75.0 kg
[~2019-04-21 02:24] MED LIST changes: +EFFEXOR37.5 MG PO
[2019-04-21 02:31] VITALS: BP 132/82; Ht 162.6 cm; Wt 75.0 kg
[2019-04-21] MEDS ORDERED: ULTRAM50 MG PO (02:35)
== END 2019-04-21 02:58 | disposition home or self-care (01) ==
LOC: D.ER 02:24
DX: M79.672 Pain in left foot (principal); M79.671 Pain in right foot

== ENCOUNTER 2019-04-23 08:58 | Emergency (ER) | payer MEDICAID ==
[~2019-04-23] VITALS: Ht 162.6 cm; Wt 81.8 kg
[2019-04-23 09:00] VITALS: Ht 162.6 cm; Wt 81.8 kg
[2019-04-23 09:31] LABS: BASOPHILS 0.5 % (0-2); EOSINOPHILS 1.2 % (0-7); HEMATOCRIT 40.2 % (36.0-48.0); HEMOGLOBIN 13.7 g/dL (12-16); IMMATURE GRANULOCYTES 0.2 % (0-5); LYMPHOCYTES 24.6 % (15-50); MCH 31.3 pg (26.0-34.0); MCHC 34.1 g/dL (31.0-37.0); MCV 91.8 fL (80.0-100.0); MEAN PLATELET VOLUME 9.8 fL (7.4-10.4); MONOCYTES 5.8 % (2-11); NEUTROPHILS 67.7 % (40-80); RBC 4.38 10x6/uL (4.00-5.40); RDW 13.2 % (11.5-14.5); WBC 8.3 10x3/uL (4.8-10.8)
[2019-04-23 09:33] LABS: PLATELET COUNT 322 10x3/uL (130-400)
[2019-04-23 09:36] LABS: BILIRUBIN NEGATIVE (NEGATIVE); GLUCOSE NEGATIVE (NEGATIVE); KETONE NEGATIVE (NEGATIVE); NITRITE NEGATIVE (NEGATIVE); UROBILINOGEN NORMAL (NORMAL)
[2019-04-23 09:44] LABS: BACTERIA MODERATE /hpf (NEGATIVE); RED CELLS - URINE 0-5 /hpf (0-5); WHITE CELLS - URINE 25-50 /hpf (NEGATIVE)
[2019-04-23 09:52] LABS: CALC OSMOLALITY 282 mosm/kg (275-300); CALCIUM 9.2 mg/dL (8.5-10.1); CARBON DIOXIDE 27.5 mmol/L (21.0-32.0); CHLORIDE - SERUM 105 mmol/L (98-107); CREATININE - SERUM 0.8 mg/dL (0.6-1.3); POTASSIUM - SERUM 4.3 mmol/L (3.5-5.1); SODIUM 140 mmol/L (136-145); UREA NITROGEN 13 mg/dL (7-18); eGFR NON AFRICAN AMERICAN 80 mL/min (90-120)
[2019-04-23 09:53] LABS: GLUCOSE 170 mg/dL (74-106)
[2019-04-23 09:58] LABS: ALBUMIN 3.4 g/dL (3.4-5.0); ALKALINE PHOSPHATASE 112 U/L (30-120); ALT (SGPT) 24 U/L (10-68); AMYLASE - SERUM 98 U/L (25-115); C-REACTIVE PROTEIN 0.3 mg/dL (0.0-0.9); LIPASE 148 U/L (73-393); PROTEIN - SERUM 8.1 g/dL (6.4-8.2)
[2019-04-23] MEDS ORDERED: PHENAZOPYRIDIN200 MG PO (10:01)
[2019-04-23] MEDS ORDERED: OMNICEF300 MG PO (10:01)
[2019-04-23 10:22] VITALS: BP 118/80
== END 2019-04-23 10:23 | disposition home or self-care (01) ==
LOC: D.ER 08:58
PROVIDERS: Family Medicine
DX: N39.0 Urinary tract infection, site not specified (principal)

== ENCOUNTER 2019-04-24 08:54 | Emergency (ER) | payer MEDICAID ==
[~2019-04-24] VITALS: Ht 162.6 cm; Wt 68.2 kg
[2019-04-24 08:58] VITALS: BP 124/70; Ht 162.6 cm; Wt 68.2 kg
== END 2019-04-24 09:20 | disposition home or self-care (01) ==
LOC: D.ER 08:54
DX: Z76.5 Malingerer [conscious simulation] (principal); M79.672 Pain in left foot; M79.671 Pain in right foot

== ENCOUNTER 2019-05-02 09:42 | Emergency (ER) | payer MEDICAID ==
[~2019-05-02] VITALS: Ht 162.6 cm; Wt 70.5 kg
[2019-05-02 09:43] VITALS: Ht 162.6 cm; Wt 70.5 kg
[2019-05-02 10:32] LABS: BILIRUBIN NEGATIVE (NEGATIVE); GLUCOSE NEGATIVE (NEGATIVE); KETONE NEGATIVE (NEGATIVE); NITRITE NEGATIVE (NEGATIVE); SPECIFIC GRAVITY 1.015 (1.005-1.020); UROBILINOGEN NORMAL (NORMAL)
[2019-05-02 10:34] LABS: BACTERIA MODERATE /hpf (NEGATIVE); EPITHELIAL CELLS 0-5 /hpf (0-5); RED CELLS - URINE 0-5 /hpf (0-5)
[2019-05-02] MEDS ORDERED: MACROBID100 MG PO (10:39)
[2019-05-02 10:45] VITALS: BP 115/74
== END 2019-05-02 10:46 | disposition home or self-care (01) ==
LOC: D.ER 09:42
PROVIDERS: Family Medicine
DX: N39.0 Urinary tract infection, site not specified (principal)

== ENCOUNTER 2019-05-07 12:54 | Emergency (ER) | payer SELFPAY ==
[~2019-05-07] VITALS: Ht 162.6 cm; Wt 75.0 kg
[2019-05-07 13:05] VITALS: Ht 162.6 cm; Wt 75.0 kg
[2019-05-07 14:35] LABS: BILIRUBIN NEGATIVE (NEGATIVE); GLUCOSE NEGATIVE (NEGATIVE); KETONE NEGATIVE (NEGATIVE); NITRITE NEGATIVE (NEGATIVE); UROBILINOGEN NORMAL (NORMAL)
[2019-05-07 14:41] LABS: BACTERIA FEW /hpf (NEGATIVE); EPITHELIAL CELLS 0-5 /hpf (0-5); RED CELLS - URINE 0-5 /hpf (0-5); WHITE CELLS - URINE 0-5 /hpf (NEGATIVE)
[2019-05-07] MEDS ORDERED: ULTRAM50 MG PO (14:54)
[2019-05-07 15:10] VITALS: BP 132/74
== END 2019-05-07 15:12 | disposition home or self-care (01) ==
LOC: D.ER 12:54
PROVIDERS: Emergency Medicine
DX: R10.9 Unspecified abdominal pain (principal); Z76.5 Malingerer [conscious simulation]; F32.9 Major depressive disorder, single episode, unspecified

== ENCOUNTER 2019-05-10 16:39 | Emergency (ER) | payer MEDICAID ==
[~2019-05-10] VITALS: Ht 162.6 cm; Wt 75.0 kg
[2019-05-10 16:44] VITALS: Ht 162.6 cm; Wt 75.0 kg
[2019-05-10 17:24] LABS: BASOPHILS 0.2 % (0-2); EOSINOPHILS 1.2 % (0-7); HEMATOCRIT 41.2 % (36.0-48.0); HEMOGLOBIN 14.1 g/dL (12-16); IMMATURE GRANULOCYTES 0.4 % (0-5); LYMPHOCYTES 18.1 % (15-50); MCH 31.5 pg (26.0-34.0); MCHC 34.2 g/dL (31.0-37.0); MEAN PLATELET VOLUME 9.3 fL (7.4-10.4); MONOCYTES 3.6 % (2-11); NEUTROPHILS 76.5 % (40-80); PLATELET COUNT 325 10x3/uL (130-400); RBC 4.48 10x6/uL (4.00-5.40); RDW 13.3 % (11.5-14.5); WBC 11.2 10x3/uL (4.8-10.8)
[2019-05-10 17:53] LABS: CALC OSMOLALITY 279 mosm/kg (275-300); CALCIUM 9.2 mg/dL (8.5-10.1); CARBON DIOXIDE 25.3 mmol/L (21.0-32.0); CHLORIDE - SERUM 105 mmol/L (98-107); CREATININE - SERUM 0.8 mg/dL (0.6-1.3); GLUCOSE 140 mg/dL (74-106); POTASSIUM - SERUM 3.3 mmol/L (3.5-5.1); SODIUM 139 mmol/L (136-145); UREA NITROGEN 13 mg/dL (7-18); eGFR NON AFRICAN AMERICAN 80 mL/min (90-120)
[2019-05-10 18:02] LABS: ALBUMIN 3.7 g/dL (3.4-5.0); ALKALINE PHOSPHATASE 106 U/L (30-120); ALT (SGPT) 30 U/L (10-68); BILIRUBIN - TOTAL 0.26 mg/dL (0.2-1.3); PROTEIN - SERUM 8.5 g/dL (6.4-8.2)
[2019-05-10 18:03] LABS: C-REACTIVE PROTEIN 0.2 mg/dL (0.0-0.9)
[2019-05-10] MEDS ORDERED: LOMOTIL 2.5-0.1 EAC1 PO (18:09)
[2019-05-10 18:15] VITALS: BP 118/73
[2019-05-10 18:18] LABS: SPECIFIC GRAVITY 1.025 (1.005-1.020)
[2019-05-10 18:19] LABS: BILIRUBIN NEGATIVE (NEGATIVE); GLUCOSE NEGATIVE (NEGATIVE); KETONE NEGATIVE (NEGATIVE); NITRITE NEGATIVE (NEGATIVE); UROBILINOGEN NORMAL (NORMAL)
[2019-05-10 18:20] LABS: BACTERIA MODERATE /hpf (NEGATIVE); EPITHELIAL CELLS 0-5 /hpf (0-5); RED CELLS - URINE 0-5 /hpf (0-5)
== END 2019-05-10 18:21 | disposition home or self-care (01) ==
LOC: D.ER 16:39
PROVIDERS: Emergency Medicine
DX: R19.7 Diarrhea, unspecified (principal); Z76.5 Malingerer [conscious simulation]; E87.6 Hypokalemia

== ENCOUNTER 2019-05-12 22:00 | Emergency (ER) | payer MEDICAID ==
[~2019-05-12] VITALS: Ht 162.6 cm; Wt 75.0 kg
[2019-05-12 22:03] VITALS: BP 111/63; Ht 162.6 cm; Wt 75.0 kg
[2019-05-12 22:16] LABS: BILIRUBIN NEGATIVE (NEGATIVE); GLUCOSE NEGATIVE (NEGATIVE); KETONE NEGATIVE (NEGATIVE); NITRITE NEGATIVE (NEGATIVE); UROBILINOGEN NORMAL (NORMAL)
[2019-05-12 22:17] LABS: EPITHELIAL CELLS 0-5 /hpf (0-5); RED CELLS - URINE OCC /hpf (0-5)
[2019-05-12 22:18] LABS: BACTERIA FEW /hpf (NEGATIVE)
== END 2019-05-12 22:38 | disposition home or self-care (01) ==
LOC: D.ER 22:00
PROVIDERS: Family Medicine
DX: N39.0 Urinary tract infection, site not specified (principal); Z76.5 Malingerer [conscious simulation]

== ENCOUNTER 2019-05-13 10:17 | Emergency (ER) | payer MEDICAID ==
[2019-05-12 22:03] VITALS: BMI 28.4
== END 2019-05-13 11:15 | disposition left against medical advice (07) ==
LOC: D.ER 10:17
DX: R51 Headache (principal)

== ENCOUNTER 2019-05-13 16:07 | Emergency (ER) | payer MEDICAID ==
[~2019-05-13] VITALS: Ht 162.6 cm; Wt 65.9 kg
[2019-05-13 16:09] VITALS: Ht 162.6 cm; Wt 65.9 kg
[2019-05-13 16:42] VITALS: BP 132/68
[2019-05-13 17:19] LABS: BACTERIA MANY /hpf (NEGATIVE); BILIRUBIN NEGATIVE (NEGATIVE); EPITHELIAL CELLS 0-5 /hpf (0-5); GLUCOSE NEGATIVE (NEGATIVE); KETONE NEGATIVE (NEGATIVE); NITRITE NEGATIVE (NEGATIVE); RED CELLS - URINE 0-5 /hpf (0-5); SPECIFIC GRAVITY 1.025 (1.005-1.020); UROBILINOGEN NORMAL (NORMAL)
== END 2019-05-13 16:47 | disposition home or self-care (01) ==
LOC: D.ER 16:07
PROVIDERS: Family Medicine
DX: Z20.2 Contact with and (suspected) exposure to infections with a predominantly sexual mode of transmission (principal)

== ENCOUNTER 2019-05-17 16:33 | Emergency (ER) | payer MEDICAID ==
[~2019-05-17] VITALS: Ht 162.6 cm; Wt 75.0 kg
[2019-05-17 16:38] VITALS: BP 121/75; Ht 162.6 cm; Wt 75.0 kg
[2019-05-17] MEDS ORDERED: BENTYL 20 MG TA20 MG PO (16:53)
== END 2019-05-17 17:00 | disposition home or self-care (01) ==
LOC: D.ER 16:33
DX: G89.29 Other chronic pain (principal); Z76.5 Malingerer [conscious simulation]

== ENCOUNTER 2019-05-23 21:23 | Emergency (ER) | payer MEDICAID ==
[~2019-05-23] VITALS: Ht 162.6 cm; Wt 75.5 kg
[2019-05-23 21:29] VITALS: BP 121/79; Ht 162.6 cm; Wt 75.5 kg
[2019-05-23] MEDS ORDERED: DIFLUCAN150 MG PO (21:39)
[2019-05-23] MEDS ORDERED: CLOTRIM ANTIFUN15 GM TOPICAL (21:41)
== END 2019-05-23 21:45 | disposition home or self-care (01) ==
LOC: D.ER 21:23
DX: B37.3 Candidiasis of vulva and vagina (principal)

== ENCOUNTER 2019-05-25 20:06 | Emergency (ER) | payer MEDICAID ==
[~2019-05-25] VITALS: Ht 162.6 cm; Wt 70.5 kg
[2019-05-25 20:09] VITALS: BP 119/74; Ht 162.6 cm; Wt 70.5 kg
[2019-05-25] MEDS ORDERED: DULCOLAX10 MG/SUPP RC (21:14)
[2019-05-26] MEDS ORDERED: MACROBID100 MG PO (22:12)
== END 2019-05-25 21:20 | disposition home or self-care (01) ==
LOC: D.ER 20:06
DX: K59.00 Constipation, unspecified (principal)

== ENCOUNTER 2019-05-26 05:47 | Emergency (ER) | payer MEDICAID ==
[~2019-05-26] VITALS: Ht 162.6 cm; Wt 75.0 kg
[~2019-05-26 05:47] MED LIST changes: +DULCOLAX10 MG/SUPP RC
[2019-05-26 06:03] VITALS: BP 118/83; Ht 162.6 cm; Wt 75.0 kg
[2019-05-26] MEDS ORDERED: MACROBID100 MG PO (22:12)
== END 2019-05-26 07:06 | disposition home or self-care (01) ==
LOC: D.ER 05:47
DX: N39.0 Urinary tract infection, site not specified (principal); Z20.2 Contact with and (suspected) exposure to infections with a predominantly sexual mode of transmission

== ENCOUNTER 2019-05-26 20:29 | Emergency (ER) | payer MEDICAID ==
[~2019-05-26] VITALS: Ht 162.6 cm; Wt 75.0 kg
[2019-05-26 20:58] VITALS: BP 125/74; Ht 162.6 cm; Wt 75.0 kg
[2019-05-26 21:35] LABS: BILIRUBIN NEGATIVE (NEGATIVE); GLUCOSE NEGATIVE (NEGATIVE); KETONE NEGATIVE (NEGATIVE); NITRITE NEGATIVE (NEGATIVE); SPECIFIC GRAVITY 1.025 (1.005-1.020); UROBILINOGEN NORMAL (NORMAL)
[2019-05-26 21:36] LABS: BACTERIA MODERATE /hpf (NEGATIVE); WHITE CELLS - URINE 25-50 /hpf (NEGATIVE)
[2019-05-26] MEDS ORDERED: MACROBID100 MG PO (22:12)
[2019-05-31 08:09] LABS: CHLAMYDIA TRACHOMATIS, NAA Negative (Negative)
== END 2019-05-26 23:15 | disposition home or self-care (01) ==
LOC: D.ER 20:29
PROVIDERS: Emergency Medicine
DX: N39.0 Urinary tract infection, site not specified (principal); Z20.2 Contact with and (suspected) exposure to infections with a predominantly sexual mode of transmission

== ENCOUNTER 2019-05-29 15:28 | Emergency (ER) | payer MEDICAID ==
[~2019-05-29] VITALS: Ht 162.6 cm; Wt 74.5 kg
[2019-05-29 15:35] VITALS: BP 116/51; Ht 162.6 cm; Wt 74.5 kg
[2019-05-29] MEDS ORDERED: FLAGYL500 MG PO (15:47)
== END 2019-05-29 15:49 | disposition home or self-care (01) ==
LOC: D.ER 15:28
DX: N89.8 Other specified noninflammatory disorders of vagina (principal)

== ENCOUNTER 2019-06-03 11:45 | Emergency (ER) | payer MEDICAID ==
[~2019-06-03] VITALS: Ht 162.6 cm; Wt 74.5 kg
[2019-06-03 11:47] VITALS: Ht 162.6 cm; Wt 74.5 kg
[2019-06-03 12:32] LABS: BASOPHILS 0.3 % (0-2); EOSINOPHILS 0.6 % (0-7); HEMATOCRIT 43.9 % (36.0-48.0); HEMOGLOBIN 14.2 g/dL (12-16); IMMATURE GRANULOCYTES 0.1 % (0-5); LYMPHOCYTES 14.9 % (15-50); MCH 31.2 pg (26.0-34.0); MCHC 32.3 g/dL (31.0-37.0); MCV 96.5 fL (80.0-100.0); MEAN PLATELET VOLUME 9.4 fL (7.4-10.4); MONOCYTES 3.9 % (2-11); NEUTROPHILS 80.2 % (40-80); PLATELET COUNT 319 10x3/uL (130-400); RBC 4.55 10x6/uL (4.00-5.40); RDW 13.3 % (11.5-14.5)
[2019-06-03 12:48] LABS: CALC OSMOLALITY 281 mosm/kg (275-300); CALCIUM 9.2 mg/dL (8.5-10.1); CHLORIDE - SERUM 105 mmol/L (98-107); CREATININE - SERUM 0.9 mg/dL (0.6-1.3); GLUCOSE 106 mg/dL (74-106); POTASSIUM - SERUM 3.7 mmol/L (3.5-5.1); SODIUM 141 mmol/L (136-145); UREA NITROGEN 15 mg/dL (7-18); eGFR NON AFRICAN AMERICAN 70 mL/min (90-120)
[2019-06-03 12:53] LABS: BACTERIA MODERATE /hpf (NEGATIVE); BILIRUBIN NEGATIVE (NEGATIVE); EPITHELIAL CELLS 0-5 /hpf (0-5); GLUCOSE NEGATIVE (NEGATIVE); KETONE NEGATIVE (NEGATIVE); NITRITE NEGATIVE (NEGATIVE); UROBILINOGEN NORMAL (NORMAL)
[2019-06-03] MEDS ORDERED: KEFLEX500 MG PO (12:58)
[2019-06-03] MEDS ORDERED: MACROBID100 MG PO (12:58)
[2019-06-03 12:59] LABS: ALBUMIN 3.7 g/dL (3.4-5.0); ALKALINE PHOSPHATASE 102 U/L (30-120); ALT (SGPT) 21 U/L (10-68); AMYLASE - SERUM 99 U/L (25-115); BILIRUBIN - TOTAL 0.26 mg/dL (0.2-1.3); LIPASE 128 U/L (73-393); PROTEIN - SERUM 7.9 g/dL (6.4-8.2); TROPONIN-I < 0.017 ng/mL (0.000-0.060)
[2019-06-03 13:05] VITALS: BP 130/73
== END 2019-06-03 13:05 | disposition home or self-care (01) ==
LOC: D.ER 11:45
PROVIDERS: Family Medicine
DX: R10.9 Unspecified abdominal pain (principal)

== ENCOUNTER 2019-06-05 20:11 | Emergency (ER) | payer MEDICAID ==
[~2019-06-05] VITALS: Ht 162.6 cm; Wt 72.7 kg
[2019-06-05 20:14] VITALS: Ht 162.6 cm; Wt 72.7 kg
[2019-06-05 21:12] VITALS: BP 125/55
== END 2019-06-05 21:12 | disposition home or self-care (01) ==
LOC: D.ER 20:11
DX: Z76.5 Malingerer [conscious simulation] (principal); Z87.898 Personal history of other specified conditions; R10.9 Unspecified abdominal pain

== ENCOUNTER 2019-06-07 00:18 | Emergency (ER) | payer MEDICAID ==
[~2019-06-07] VITALS: Ht 162.6 cm; Wt 72.7 kg
[2019-06-07 00:54] LABS: BASOPHILS 0.7 % (0-2); EOSINOPHILS 1.6 % (0-7); HEMATOCRIT 40.7 % (36.0-48.0); HEMOGLOBIN 12.9 g/dL (12-16); LYMPHOCYTES 47.1 % (15-50); MCH 30.7 pg (26.0-34.0); MCHC 31.7 g/dL (31.0-37.0); MCV 96.9 fL (80.0-100.0); MEAN PLATELET VOLUME 9.6 fL (7.4-10.4); MONOCYTES 8.2 % (2-11); NEUTROPHILS 42.4 % (40-80); PLATELET COUNT 322 10x3/uL (130-400); RDW 13.6 % (11.5-14.5)
[2019-06-07 01:05] LABS: CALC OSMOLALITY 290 mosm/kg (275-300); CALCIUM 8.4 mg/dL (8.5-10.1); CARBON DIOXIDE 25.6 mmol/L (21.0-32.0); CHLORIDE - SERUM 108 mmol/L (98-107); CREATININE - SERUM 0.8 mg/dL (0.6-1.3); GLUCOSE 119 mg/dL (74-106); POTASSIUM - SERUM 3.7 mmol/L (3.5-5.1); SODIUM 144 mmol/L (136-145); UREA NITROGEN 20 mg/dL (7-18); eGFR NON AFRICAN AMERICAN 80 mL/min (90-120)
[2019-06-07 01:13] LABS: ALBUMIN 3.4 g/dL (3.4-5.0); ALKALINE PHOSPHATASE 107 U/L (30-120); ALT (SGPT) 26 U/L (10-68); AMYLASE - SERUM 111 U/L (25-115); BILIRUBIN - TOTAL 0.24 mg/dL (0.2-1.3); LIPASE 225 U/L (73-393); PROTEIN - SERUM 7.4 g/dL (6.4-8.2)
[2019-06-07 02:06] LABS: BILIRUBIN NEGATIVE (NEGATIVE); GLUCOSE NEGATIVE (NEGATIVE); KETONE NEGATIVE (NEGATIVE); NITRITE NEGATIVE (NEGATIVE); SPECIFIC GRAVITY 1.015 (1.005-1.020); UROBILINOGEN NORMAL (NORMAL)
[2019-06-07 02:07] LABS: BACTERIA FEW /hpf (NEGATIVE); EPITHELIAL CELLS 0-5 /hpf (0-5); RED CELLS - URINE 0-5 /hpf (0-5); WHITE CELLS - URINE 0-5 /hpf (NEGATIVE)
[2019-06-07 02:20] VITALS: BP 125/89
[2019-06-12] MEDS ORDERED: PROCTOFOAM15 GM RC (01:47)
[2019-06-12] MEDS ORDERED: ULTRAM50 MG PO (01:48)
== END 2019-06-07 02:20 | disposition home or self-care (01) ==
LOC: D.ER 00:18
PROVIDERS: Emergency Medicine
DX: K52.9 Noninfective gastroenteritis and colitis, unspecified (principal); R10.9 Unspecified abdominal pain; K50.90 Crohn's disease, unspecified, without complications

== ENCOUNTER 2019-06-07 06:26 | Emergency (ER) | payer MEDICAID ==
[~2019-06-07] VITALS: Ht 162.6 cm; Wt 72.7 kg
[2019-06-07 06:27] VITALS: Ht 162.6 cm; Wt 72.7 kg
[2019-06-07 07:22] LABS: BASOPHILS 0.5 % (0-2); EOSINOPHILS 1.5 % (0-7); HEMATOCRIT 42.2 % (36.0-48.0); HEMOGLOBIN 13.5 g/dL (12-16); IMMATURE GRANULOCYTES 0.3 % (0-5); LYMPHOCYTES 42.4 % (15-50); MCH 31.1 pg (26.0-34.0); MCV 97.2 fL (80.0-100.0); MEAN PLATELET VOLUME 9.7 fL (7.4-10.4); NEUTROPHILS 47.3 % (40-80); PLATELET COUNT 326 10x3/uL (130-400); RBC 4.34 10x6/uL (4.00-5.40); RDW 13.5 % (11.5-14.5); WBC 7.3 10x3/uL (4.8-10.8)
[2019-06-07 07:36] LABS: CALC OSMOLALITY 279 mosm/kg (275-300); CARBON DIOXIDE 25.2 mmol/L (21.0-32.0); CHLORIDE - SERUM 106 mmol/L (98-107); CREATININE - SERUM 0.7 mg/dL (0.6-1.3); GLUCOSE 110 mg/dL (74-106); POTASSIUM - SERUM 3.8 mmol/L (3.5-5.1); SODIUM 139 mmol/L (136-145); eGFR NON AFRICAN AMERICAN > 90 mL/min (90-120)
[2019-06-07 07:37] LABS: UREA NITROGEN 14 mg/dL (7-18)
[2019-06-07 07:42] LABS: ALBUMIN 3.7 g/dL (3.4-5.0); ALKALINE PHOSPHATASE 113 U/L (30-120); ALT (SGPT) 23 U/L (10-68); AMYLASE - SERUM 107 U/L (25-115); BILIRUBIN - TOTAL 0.23 mg/dL (0.2-1.3); LIPASE 218 U/L (73-393); PROTEIN - SERUM 7.9 g/dL (6.4-8.2); TROPONIN-I < 0.017 ng/mL (0.000-0.060)
[2019-06-07 08:29] VITALS: BP 125/68
[2019-06-12] MEDS ORDERED: PROCTOFOAM15 GM RC (01:47)
[2019-06-12] MEDS ORDERED: ULTRAM50 MG PO (01:48)
== END 2019-06-07 08:31 | disposition home or self-care (01) ==
LOC: D.ER 06:26
PROVIDERS: Family Medicine
DX: Z76.5 Malingerer [conscious simulation] (principal); R10.9 Unspecified abdominal pain; R19.7 Diarrhea, unspecified; R11.2 Nausea with vomiting, unspecified

== ENCOUNTER 2019-06-09 20:35 | Emergency (ER) | payer MEDICAID ==
[~2019-06-09] VITALS: Ht 162.6 cm; Wt 70.5 kg
[2019-06-09 20:41] VITALS: Ht 162.6 cm; Wt 70.5 kg
[2019-06-09 21:37] VITALS: BP 132/79
[2019-06-12] MEDS ORDERED: PROCTOFOAM15 GM RC (01:47)
[2019-06-12] MEDS ORDERED: ULTRAM50 MG PO (01:48)
== END 2019-06-09 21:40 | disposition home or self-care (01) ==
LOC: D.ER 20:35
DX: R10.9 Unspecified abdominal pain (principal); Z76.5 Malingerer [conscious simulation]

== ENCOUNTER 2019-06-11 11:35 | Emergency (ER) | payer MEDICAID ==
[~2019-06-11] VITALS: Ht 162.6 cm; Wt 72.7 kg
[2019-06-11 11:47] VITALS: BP 105/71; Ht 162.6 cm; Wt 72.7 kg
--- NOTE | 2019-06-11 12:02 | NUR ---
PT STATED THAT 6 MONTHS AGO SHE HAD A SUICIDAL THOUGHT WITHOUT A PLAN OR AN ATTEMPT. PT IS A LOW RISK PER ASSESSMENT. RESOURCES GIVEN AND PT VERBALIZED UNDERSTANDING.
[2019-06-12] MEDS ORDERED: PROCTOFOAM15 GM RC (01:47)
[2019-06-12] MEDS ORDERED: ULTRAM50 MG PO (01:48)
== END 2019-06-11 12:19 | disposition home or self-care (01) ==
LOC: D.ER 11:35
DX: Z76.5 Malingerer [conscious simulation] (principal); R10.9 Unspecified abdominal pain

== ENCOUNTER → 2019-06-12 | Emergency (ER) | payer MEDICAID ==
[~2019-06-12] VITALS: Ht 162.6 cm; Wt 75.0 kg
[~2019-06-12] MED LIST changes: +PROCTOFOAM15 GM RC
[2019-06-12 01:28] VITALS: Ht 162.6 cm; Wt 75.0 kg
[2019-06-12 01:53] VITALS: BP 132/89
== END | disposition home or self-care (01) ==
LOC: D.ER 01:20
DX: K62.89 Other specified diseases of anus and rectum (principal); K50.90 Crohn's disease, unspecified, without complications

== ENCOUNTER 2019-06-13 17:18 | Emergency (ER) | payer MEDICAID ==
[~2019-06-13] VITALS: Ht 162.6 cm; Wt 75.0 kg
[2019-06-13 17:27] VITALS: BP 116/89; Ht 162.6 cm; Wt 75.0 kg
== END 2019-06-13 17:50 | disposition home or self-care (01) ==
LOC: D.ER 17:18
DX: Z76.5 Malingerer [conscious simulation] (principal); R51 Headache

== ENCOUNTER 2019-06-14 18:11 | Emergency (ER) | payer MEDICAID ==
[2019-06-13 17:27] VITALS: BMI 28.4
== END 2019-06-15 09:51 | disposition left against medical advice (07) ==
LOC: D.ER 18:11
DX: R51 Headache (principal)

== ENCOUNTER 2019-06-15 10:50 | Emergency (ER) | payer MEDICAID ==
[~2019-06-15] VITALS: Ht 162.6 cm; Wt 72.7 kg
[2019-06-15 10:58] VITALS: BP 137/82; Ht 162.6 cm; Wt 72.7 kg
[2019-06-15 12:33] LABS: BACTERIA FEW /hpf (NEGATIVE); BILIRUBIN NEGATIVE (NEGATIVE); EPITHELIAL CELLS 0-5 /hpf (0-5); GLUCOSE NEGATIVE (NEGATIVE); KETONE NEGATIVE (NEGATIVE); NITRITE NEGATIVE (NEGATIVE); RED CELLS - URINE 0-5 /hpf (0-5); SPECIFIC GRAVITY 1.025 (1.005-1.020); UROBILINOGEN NORMAL (NORMAL); WHITE CELLS - URINE OCC /hpf (NEGATIVE)
== END 2019-06-15 11:50 | disposition left against medical advice (07) ==
LOC: D.ER 10:50
PROVIDERS: Emergency Medicine
DX: Z76.5 Malingerer [conscious simulation] (principal); Z53.29 Procedure and treatment not carried out because of patient's decision for other reasons; N89.8 Other specified noninflammatory disorders of vagina

== ENCOUNTER 2019-06-18 21:36 | Emergency (ER) | payer MEDICAID ==
[~2019-06-18] VITALS: Ht 162.6 cm; Wt 72.6 kg
[2019-06-18 21:37] VITALS: Ht 162.6 cm; Wt 72.6 kg
[2019-06-18 21:54] LABS: BACTERIA MODERATE /hpf (NEGATIVE); BILIRUBIN NEGATIVE (NEGATIVE); EPITHELIAL CELLS 0-5 /hpf (0-5); GLUCOSE NEGATIVE (NEGATIVE); KETONE NEGATIVE (NEGATIVE); NITRITE NEGATIVE (NEGATIVE); UROBILINOGEN NORMAL (NORMAL); WHITE CELLS - URINE 25-50 /hpf (NEGATIVE)
[2019-06-18 21:59] LABS: BASOPHILS 0.3 % (0-2); EOSINOPHILS 1.3 % (0-7); HEMATOCRIT 40.2 % (36.0-48.0); IMMATURE GRANULOCYTES 0.3 % (0-5); LYMPHOCYTES 24.7 % (15-50); MCHC 32.3 g/dL (31.0-37.0); MCV 95.9 fL (80.0-100.0); MEAN PLATELET VOLUME 9.5 fL (7.4-10.4); MONOCYTES 6.8 % (2-11); NEUTROPHILS 66.6 % (40-80); PLATELET COUNT 316 10x3/uL (130-400); RBC 4.19 10x6/uL (4.00-5.40); RDW 13.3 % (11.5-14.5); WBC 7.1 10x3/uL (4.8-10.8)
[2019-06-18 22:07] LABS: CALC OSMOLALITY 279 mosm/kg (275-300); CALCIUM 8.6 mg/dL (8.5-10.1); CARBON DIOXIDE 27.2 mmol/L (21.0-32.0); CHLORIDE - SERUM 104 mmol/L (98-107); CREATININE - SERUM 0.8 mg/dL (0.6-1.3); GLUCOSE 99 mg/dL (74-106); POTASSIUM - SERUM 3.5 mmol/L (3.5-5.1); SODIUM 140 mmol/L (136-145); UREA NITROGEN 15 mg/dL (7-18); eGFR NON AFRICAN AMERICAN 80 mL/min (90-120)
[2019-06-18 22:12] LABS: ALBUMIN 3.4 g/dL (3.4-5.0); ALKALINE PHOSPHATASE 111 U/L (30-120); ALT (SGPT) 30 U/L (10-68); BILIRUBIN - TOTAL 0.19 mg/dL (0.2-1.3); PROTEIN - SERUM 7.7 g/dL (6.4-8.2)
[2019-06-18] MEDS ORDERED: MACROBID100 MG PO (22:31)
[2019-06-18 22:45] VITALS: BP 132/78
[2019-06-19] MEDS ORDERED: ULTRAM50 MG PO (10:02)
== END 2019-06-18 22:46 | disposition home or self-care (01) ==
LOC: D.ER 21:36
PROVIDERS: Family Medicine
DX: N39.0 Urinary tract infection, site not specified (principal); R10.11 Right upper quadrant pain

== ENCOUNTER 2019-06-19 09:59 | Emergency (ER) | payer MEDICAID ==
[~2019-06-19] VITALS: Ht 162.6 cm; Wt 72.7 kg
[2019-06-19 10:00] VITALS: Ht 162.6 cm; Wt 72.7 kg
[2019-06-19] MEDS ORDERED: ULTRAM50 MG PO (10:02)
[2019-06-19 10:34] LABS: BASOPHILS 0.2 % (0-2); EOSINOPHILS 0.9 % (0-7); HEMATOCRIT 39.7 % (36.0-48.0); IMMATURE GRANULOCYTES 0.2 % (0-5); LYMPHOCYTES 23.9 % (15-50); MCH 31.4 pg (26.0-34.0); MCHC 32.7 g/dL (31.0-37.0); MCV 95.9 fL (80.0-100.0); MEAN PLATELET VOLUME 9.3 fL (7.4-10.4); MONOCYTES 9.7 % (2-11); NEUTROPHILS 65.1 % (40-80); PLATELET COUNT 305 10x3/uL (130-400); RBC 4.14 10x6/uL (4.00-5.40); RDW 13.3 % (11.5-14.5); WBC 6.6 10x3/uL (4.8-10.8)
[2019-06-19 10:39] LABS: CALC OSMOLALITY 282 mosm/kg (275-300); CALCIUM 8.9 mg/dL (8.5-10.1); CARBON DIOXIDE 27.4 mmol/L (21.0-32.0); CHLORIDE - SERUM 104 mmol/L (98-107); CREATININE - SERUM 0.8 mg/dL (0.6-1.3); GLUCOSE 110 mg/dL (74-106); POTASSIUM - SERUM 3.2 mmol/L (3.5-5.1); SODIUM 141 mmol/L (136-145); UREA NITROGEN 14 mg/dL (7-18); eGFR NON AFRICAN AMERICAN 80 mL/min (90-120)
[2019-06-19 10:48] LABS: ALBUMIN 3.5 g/dL (3.4-5.0); ALKALINE PHOSPHATASE 113 U/L (30-120); ALT (SGPT) 29 U/L (10-68); AMYLASE - SERUM 87 U/L (25-115); BILIRUBIN - TOTAL 0.21 mg/dL (0.2-1.3); LIPASE 76 U/L (73-393); PROTEIN - SERUM 7.8 g/dL (6.4-8.2); TROPONIN-I < 0.017 ng/mL (0.000-0.060)
[2019-06-19 10:53] LABS: BILIRUBIN NEGATIVE (NEGATIVE); GLUCOSE NEGATIVE (NEGATIVE); KETONE NEGATIVE (NEGATIVE); NITRITE NEGATIVE (NEGATIVE); SPECIFIC GRAVITY 1.025 (1.005-1.020); UROBILINOGEN NORMAL (NORMAL)
[2019-06-19 11:03] LABS: BACTERIA FEW /hpf (NEGATIVE); EPITHELIAL CELLS 0-5 /hpf (0-5); RED CELLS - URINE 0-5 /hpf (0-5); WHITE CELLS - URINE 0-5 /hpf (NEGATIVE)
[2019-06-19 11:38] VITALS: BP 122/70
== END 2019-06-19 11:38 | disposition home or self-care (01) ==
LOC: D.ER 09:59
PROVIDERS: Emergency Medicine
DX: N39.0 Urinary tract infection, site not specified (principal); E87.6 Hypokalemia; R10.11 Right upper quadrant pain

== ENCOUNTER → 2019-06-21 07:35 | Emergency (ER) | payer MEDICAID ==
[2019-06-19 10:00] VITALS: BMI 27.5
== END | disposition left against medical advice (07) ==
LOC: D.ER 07:35
DX: G89.29 Other chronic pain (principal); R10.9 Unspecified abdominal pain; Z53.29 Procedure and treatment not carried out because of patient's decision for other reasons

== ENCOUNTER 2019-06-21 09:12 | Emergency (ER) | payer MEDICAID ==
[~2019-06-21] VITALS: Ht 162.6 cm; Wt 65.9 kg
[2019-06-21 09:22] VITALS: Ht 162.6 cm; Wt 65.9 kg
[2019-06-21 09:52] VITALS: BP 125/69
== END 2019-06-21 09:53 | disposition home or self-care (01) ==
LOC: D.ER 09:12
DX: J30.9 Allergic rhinitis, unspecified (principal); H10.10 Acute atopic conjunctivitis, unspecified eye

== ENCOUNTER 2019-06-24 11:37 | Emergency (ER) | payer MEDICAID ==
[2019-06-24 11:40] VITALS: BP 137/69; Ht 162.6 cm
[2019-06-24] MEDS ORDERED: HYDROCORTISONE30 G8 TOPICAL (11:59)
[2019-06-24] MEDS ORDERED: STERAPRED 5MG 125 MG PO (11:59)
== END 2019-06-24 12:07 | disposition home or self-care (01) ==
LOC: D.ER 11:37
DX: L23.7 Allergic contact dermatitis due to plants, except food (principal)

== ENCOUNTER 2019-06-27 17:39 | Emergency (ER) | payer MEDICAID ==
[~2019-06-27] VITALS: Ht 162.6 cm; Wt 72.7 kg
[~2019-06-27 17:39] MED LIST changes: +HYDROCORTISONE30 G8 TOPICAL; +STERAPRED 5MG 125 MG PO
[2019-06-27 17:48] VITALS: Ht 162.6 cm; Wt 72.7 kg
[2019-06-27] MEDS ORDERED: STERAPRED 5MG 65 M1 PO (18:24)
[2019-06-27 18:53] VITALS: BP 123/89
== END 2019-06-27 18:54 | disposition home or self-care (01) ==
LOC: D.ER 17:39
DX: L23.7 Allergic contact dermatitis due to plants, except food (principal)

== ENCOUNTER 2019-06-30 09:58 | Emergency (ER) | payer MEDICAID ==
[~2019-06-30] VITALS: Ht 162.6 cm; Wt 72.7 kg
[~2019-06-30 09:58] MED LIST changes: +STERAPRED 5MG 65 M1 PO
[2019-06-30 10:01] VITALS: Ht 162.6 cm; Wt 72.7 kg
[2019-06-30 11:02] VITALS: BP 122/78
== END 2019-06-30 11:03 | disposition home or self-care (01) ==
LOC: D.ER 09:58
DX: Z76.5 Malingerer [conscious simulation] (principal); R10.9 Unspecified abdominal pain

== ENCOUNTER 2019-07-02 06:55 | Emergency (ER) | payer MEDICAID ==
[~2019-07-02] VITALS: Ht 162.6 cm; Wt 72.7 kg
[2019-07-02 07:03] VITALS: Ht 162.6 cm; Wt 72.7 kg
[2019-07-02 07:21] VITALS: BP 125/74
== END 2019-07-02 07:22 | disposition home or self-care (01) ==
LOC: D.ER 06:55
DX: R51 Headache (principal)

== ENCOUNTER 2019-07-05 11:22 | Emergency (ER) | payer MEDICAID ==
[~2019-07-05] VITALS: Ht 162.6 cm; Wt 72.7 kg
[2019-07-05 11:23] VITALS: Ht 162.6 cm; Wt 72.7 kg
[2019-07-05] MEDS ORDERED: VALTREX1000 MG PO (11:26)
[2019-07-05] MEDS ORDERED: PREDNISONE50 MG PO (11:33)
[2019-07-05 11:35] VITALS: BP 142/50
== END 2019-07-05 11:35 | disposition home or self-care (01) ==
LOC: D.ER 11:22
DX: B02.9 Zoster without complications (principal); M54.2 Cervicalgia

== ENCOUNTER 2019-07-10 07:20 | Emergency (ER) | payer MEDICAID ==
[~2019-07-10] VITALS: Ht 162.6 cm; Wt 72.7 kg
[~2019-07-10 07:20] MED LIST changes: +PREDNISONE50 MG PO; +VALTREX1000 MG PO
[2019-07-10 07:25] VITALS: Ht 162.6 cm; Wt 72.7 kg
[2019-07-10 07:33] VITALS: BP 133/80
[2019-07-10] MEDS ORDERED: OMNICEF300 MG PO (10:39)
[2019-07-10] MEDS ORDERED: DIFLUCAN100 MG PO (10:39)
== END 2019-07-10 07:33 | disposition home or self-care (01) ==
LOC: D.ER 07:20
DX: N39.0 Urinary tract infection, site not specified (principal)

== ENCOUNTER 2019-07-10 09:15 | Emergency (ER) | payer MEDICAID ==
[~2019-07-10] VITALS: Ht 162.6 cm; Wt 72.7 kg
[2019-07-10 09:19] VITALS: Ht 162.6 cm; Wt 72.7 kg
[2019-07-10 10:05] LABS: BILIRUBIN NEGATIVE (NEGATIVE); GLUCOSE 50 mg/dL (NEGATIVE); KETONE NEGATIVE (NEGATIVE); NITRITE NEGATIVE (NEGATIVE); SPECIFIC GRAVITY 1.015 (1.005-1.020); UROBILINOGEN NORMAL (NORMAL)
[2019-07-10 10:07] LABS: BACTERIA MODERATE /hpf (NEGATIVE); EPITHELIAL CELLS 0-5 /hpf (0-5); HYALINE CAST OCC /lpf (NONE SEEN); RED CELLS - URINE 0-5 /hpf (0-5)
[2019-07-10 10:11] LABS: HEMATOCRIT 42.5 % (36.0-48.0); HEMOGLOBIN 14.2 g/dL (12-16); LYMPHOCYTES 11.3 % (15-50); MCH 30.8 pg (26.0-34.0); MCHC 33.4 g/dL (31.0-37.0); MCV 92.2 fL (80.0-100.0); NEUTROPHILS 82.5 % (40-80); PLATELET COUNT 344 10x3/uL (130-400); RBC 4.61 10x6/uL (4.00-5.40); RDW 12.6 % (11.5-14.5); WBC 9.2 10x3/uL (4.8-10.8)
[2019-07-10 10:22] LABS: ANION GAP 12.2 mmol/L (8-16); CALCIUM 9.8 mg/dL (8.5-10.1); CARBON DIOXIDE 28.3 mmol/L (21.0-32.0); POTASSIUM - SERUM 3.5 mmol/L (3.5-5.1)
[2019-07-10 10:27] LABS: ALBUMIN 3.3 g/dL (3.4-5.0); BILIRUBIN - TOTAL 0.26 mg/dL (0.2-1.3); PROTEIN - SERUM 7.9 g/dL (6.4-8.2)
[2019-07-10] MEDS ORDERED: DIFLUCAN100 MG PO (10:39)
[2019-07-10] MEDS ORDERED: OMNICEF300 MG PO (10:39)
[2019-07-10 11:11] VITALS: BP 123/69
== END 2019-07-10 11:11 | disposition home or self-care (01) ==
LOC: D.ER 09:15
PROVIDERS: Family Medicine
DX: N39.0 Urinary tract infection, site not specified (principal); R30.0 Dysuria; R10.2 Pelvic and perineal pain

== ENCOUNTER 2019-07-13 06:20 | Emergency (ER) | payer MEDICAID ==
[~2019-07-13] VITALS: Ht 162.6 cm; Wt 72.7 kg
[~2019-07-13 06:20] MED LIST changes: +DIFLUCAN100 MG PO
[2019-07-13 06:21] VITALS: BP 135/71; Ht 162.6 cm; Wt 72.7 kg
[2019-07-13] MEDS ORDERED: BUTALB-APAP-CA1 EACH PO (06:33)
== END 2019-07-13 06:44 | disposition home or self-care (01) ==
LOC: D.ER 06:20
DX: R51 Headache (principal)

== ENCOUNTER 2019-07-14 12:56 | Emergency (ER) | payer MEDICAID ==
[~2019-07-14] VITALS: Ht 162.6 cm; Wt 72.7 kg
[2019-07-14 12:59] VITALS: BP 130/70; Ht 162.6 cm; Wt 72.7 kg
== END 2019-07-14 13:20 | disposition left against medical advice (07) ==
LOC: D.ER 12:56
DX: Z53.29 Procedure and treatment not carried out because of patient's decision for other reasons (principal); K50.90 Crohn's disease, unspecified, without complications; R10.9 Unspecified abdominal pain; R11.0 Nausea; K52.9 Noninfective gastroenteritis and colitis, unspecified

== ENCOUNTER 2019-07-19 03:57 | Emergency (ER) | payer MEDICAID ==
[~2019-07-19] VITALS: Ht 162.6 cm; Wt 81.8 kg
[2019-07-19 04:03] VITALS: Ht 162.6 cm; Wt 81.8 kg
[2019-07-19 04:45] LABS: BASOPHILS 0.3 % (0-2); EOSINOPHILS 1.6 % (0-7); HEMATOCRIT 44.1 % (36.0-48.0); HEMOGLOBIN 14.6 g/dL (12-16); IMMATURE GRANULOCYTES 0.5 % (0-5); LYMPHOCYTES 23.6 % (15-50); MCH 31.6 pg (26.0-34.0); MCHC 33.1 g/dL (31.0-37.0); MCV 95.5 fL (80.0-100.0); MEAN PLATELET VOLUME 9.3 fL (7.4-10.4); MONOCYTES 6.5 % (2-11); NEUTROPHILS 67.5 % (40-80); PLATELET COUNT 381 10x3/uL (130-400); RBC 4.62 10x6/uL (4.00-5.40); RDW 13.4 % (11.5-14.5); WBC 7.9 10x3/uL (4.8-10.8)
--- NOTE | 2019-07-19 04:49 | NUR ---
DR MACK NOTIFIED AND REVIEWED PT'S BEHAVIOR AND ASSESSMENT RESULTS. PT IS A LOW RISK PER DR MACK. DR MACK STATED TO GIVE RESOURCES TO PT AT TIME OD DISCHARGE.NO FURTHER ORDERS AT THIS TIME. RESOURCES REVIEWED WITH PT AND SHE VERBALIZED UNDERSTANDING.
[2019-07-19 04:58] LABS: BILIRUBIN NEGATIVE (NEGATIVE); GLUCOSE NEGATIVE (NEGATIVE); KETONE NEGATIVE (NEGATIVE); NITRITE NEGATIVE (NEGATIVE); SPECIFIC GRAVITY 1.015 (1.005-1.020); UROBILINOGEN NORMAL (NORMAL)
[2019-07-19 04:58] LABS: CALC OSMOLALITY 275 mosm/kg (275-300); CALCIUM 9.3 mg/dL (8.5-10.1); CARBON DIOXIDE 27.9 mmol/L (21.0-32.0); CHLORIDE - SERUM 103 mmol/L (98-107); CREATININE - SERUM 0.6 mg/dL (0.6-1.3); GLUCOSE 112 mg/dL (74-106); SODIUM 138 mmol/L (136-145); UREA NITROGEN 10 mg/dL (7-18); eGFR NON AFRICAN AMERICAN > 90 mL/min (90-120)
[2019-07-19 05:00] LABS: BACTERIA FEW /hpf (NEGATIVE); EPITHELIAL CELLS 0-5 /hpf (0-5); RED CELLS - URINE 0-5 /hpf (0-5); WHITE CELLS - URINE 0-5 /hpf (NEGATIVE)
[2019-07-19 05:04] LABS: ALBUMIN 3.5 g/dL (3.4-5.0); ALKALINE PHOSPHATASE 119 U/L (30-120); ALT (SGPT) 27 U/L (10-68); BILIRUBIN - TOTAL 0.26 mg/dL (0.2-1.3); LIPASE 103 U/L (73-393); PROTEIN - SERUM 8.5 g/dL (6.4-8.2)
[2019-07-19] MEDS ORDERED: CLOTRIM ANTIFUN15 GM TOPICAL (05:45)
[2019-07-19] MEDS ORDERED: FIORICET/ESGIC1 TAB PO (05:46)
[2019-07-19 06:05] VITALS: BP 135/89
== END 2019-07-19 06:07 | disposition home or self-care (01) ==
LOC: D.ER 03:57
PROVIDERS: Family Medicine
DX: R10.9 Unspecified abdominal pain (principal); G89.29 Other chronic pain; N89.8 Other specified noninflammatory disorders of vagina; R51 Headache; F32.9 Major depressive disorder, single episode, unspecified

== ENCOUNTER 2019-07-19 11:33 | Emergency (ER) | payer MEDICAID ==
[~2019-07-19] VITALS: Ht 162.6 cm; Wt 72.7 kg
[~2019-07-19 11:33] MED LIST changes: +FIORICET/ESGIC1 TAB PO
[2019-07-19 11:51] VITALS: Ht 162.6 cm; Wt 72.7 kg
[2019-07-19 12:35] LABS: CARBON DIOXIDE 28.1 mmol/L (21.0-32.0); CHLORIDE - SERUM 103 mmol/L (98-107); GLUCOSE 114 mg/dL (74-106); POTASSIUM - SERUM 3.6 mmol/L (3.5-5.1); SODIUM 140 mmol/L (136-145); eGFR NON AFRICAN AMERICAN 80 mL/min (90-120)
[2019-07-19 12:37] LABS: CALC OSMOLALITY 279 mosm/kg (275-300); CREATININE - SERUM 0.8 mg/dL (0.6-1.3); UREA NITROGEN 13 mg/dL (7-18)
[2019-07-19 12:41] LABS: ALBUMIN 3.5 g/dL (3.4-5.0); ALKALINE PHOSPHATASE 113 U/L (30-120); ALT (SGPT) 27 U/L (10-68); BILIRUBIN - TOTAL 0.11 mg/dL (0.2-1.3)
[2019-07-19 13:01] LABS: BASOPHILS 0.2 % (0-2); EOSINOPHILS 0.3 % (0-7); HEMATOCRIT 41.3 % (36.0-48.0); HEMOGLOBIN 13.3 g/dL (12-16); IMMATURE GRANULOCYTES 0.4 % (0-5); LYMPHOCYTES 13.6 % (15-50); MCH 31.1 pg (26.0-34.0); MCHC 32.2 g/dL (31.0-37.0); MCV 96.5 fL (80.0-100.0); MEAN PLATELET VOLUME 9.3 fL (7.4-10.4); MONOCYTES 5.3 % (2-11); NEUTROPHILS 80.2 % (40-80); PLATELET COUNT 432 10x3/uL (130-400); RBC 4.28 10x6/uL (4.00-5.40); RDW 13.6 % (11.5-14.5)
[2019-07-19 13:03] LABS: WBC 10.8 10x3/uL (4.8-10.8)
--- NOTE | 2019-07-19 13:40 | NUR ---
DR. MACK NOTIFIED AND SITTER ORDERED. SITTER IN LINE OF SIGHT. NOTIFIED CHARGE NURSE AND ATTENDING IN REGARDS TO ASSESSMENT FINDINGS. RESOURCES GIVEN TO PT AND SAFETY PLAN INTIATED.
[2019-07-19 17:19] LABS: BILIRUBIN NEGATIVE (NEGATIVE); GLUCOSE NEGATIVE (NEGATIVE); KETONE NEGATIVE (NEGATIVE); NITRITE NEGATIVE (NEGATIVE); SPECIFIC GRAVITY 1.015 (1.005-1.020); UROBILINOGEN NORMAL (NORMAL)
[2019-07-19 17:20] LABS: BACTERIA MODERATE /hpf (NEGATIVE); EPITHELIAL CELLS 0-5 /hpf (0-5); RED CELLS - URINE 0-5 /hpf (0-5)
[2019-07-19 17:21] LABS: UDS - AMPHET NEGATIVE QUAL (NEGATIVE); UDS - BARB POSITIVE QUAL (NEGATIVE); UDS - BENZO NEGATIVE QUAL (NEGATIVE); UDS - COCAINE NEGATIVE QUAL (NEGATIVE); UDS - OPIATE NEGATIVE QUAL (NEGATIVE); UDS - PCP NEGATIVE QUAL (NEGATIVE); UDS - THC NEGATIVE QUAL (NEGATIVE)
[2019-07-19 20:17] VITALS: BP 135/74
== END 2019-07-19 20:19 ==
LOC: D.ER 11:33
PROVIDERS: Family Medicine
DX: R45.851 Suicidal ideations (principal); Z76.5 Malingerer [conscious simulation]; R46.89 Other symptoms and signs involving appearance and behavior; F19.20 Other psychoactive substance dependence, uncomplicated

== ENCOUNTER 2019-08-03 02:28 | Emergency (ER) | payer MEDICAID ==
[~2019-08-03] VITALS: Ht 162.6 cm; Wt 81.6 kg
[2019-08-03 02:35] VITALS: Ht 162.6 cm; Wt 81.6 kg
[2019-08-03] MEDS ORDERED: ZOFRAN4 MG PO (03:35)
[2019-08-03] MEDS ORDERED: MACROBID100 MG PO (03:35)
[2019-08-03 04:11] VITALS: BP 132/84
[2019-08-04] MEDS ORDERED: ACETAMINOPHEN500 M1 PO (12:27)
[2019-08-04] MEDS ORDERED: ZOLOFT100 MG PO (12:27)
== END 2019-08-03 04:11 | disposition home or self-care (01) ==
LOC: D.ER 02:28
DX: N39.0 Urinary tract infection, site not specified (principal); M94.0 Chondrocostal junction syndrome [Tietze]; R11.2 Nausea with vomiting, unspecified; R10.9 Unspecified abdominal pain; R19.7 Diarrhea, unspecified; R07.9 Chest pain, unspecified

== ENCOUNTER 2019-08-03 11:01 | Emergency (ER) | payer MEDICAID ==
[~2019-08-03] VITALS: Ht 162.6 cm; Wt 72.7 kg
[2019-08-03 11:12] VITALS: BP 109/77; Ht 162.6 cm; Wt 72.7 kg
[2019-08-04] MEDS ORDERED: ACETAMINOPHEN500 M1 PO (12:27)
[2019-08-04] MEDS ORDERED: ZOLOFT100 MG PO (12:27)
== END 2019-08-03 13:11 | disposition home or self-care (01) ==
LOC: D.ER 11:01
DX: R11.2 Nausea with vomiting, unspecified (principal); R19.7 Diarrhea, unspecified; Z76.5 Malingerer [conscious simulation]; R10.9 Unspecified abdominal pain

== ENCOUNTER 2019-08-04 12:15 | Emergency (ER) | payer MEDICAID ==
[~2019-08-04] VITALS: Ht 162.6 cm; Wt 72.7 kg
[2019-08-04 12:25] VITALS: BP 124/90; Ht 162.6 cm; Wt 72.7 kg
[2019-08-04] MEDS ORDERED: ZOLOFT100 MG PO (12:27)
[2019-08-04] MEDS ORDERED: ACETAMINOPHEN500 M1 PO (12:27)
== END 2019-08-04 13:01 | disposition home or self-care (01) ==
LOC: D.ER 12:15
DX: R51 Headache (principal); Z76.5 Malingerer [conscious simulation]

== ENCOUNTER 2019-08-24 05:56 | Emergency (ER) | payer MEDICAID ==
[~2019-08-24] VITALS: Ht 162.6 cm; Wt 72.7 kg
[2019-08-24 05:58] VITALS: Ht 162.6 cm; Wt 72.7 kg
[2019-08-24 06:53] LABS: CALC OSMOLALITY 282 mosm/kg (275-300); CALCIUM 8.8 mg/dL (8.5-10.1); CARBON DIOXIDE 28.8 mmol/L (21.0-32.0); CHLORIDE - SERUM 107 mmol/L (98-107); CREATININE - SERUM 0.7 mg/dL (0.6-1.3); GLUCOSE 111 mg/dL (74-106); POTASSIUM - SERUM 3.2 mmol/L (3.5-5.1); SODIUM 142 mmol/L (136-145); UREA NITROGEN 9 mg/dL (7-18); eGFR NON AFRICAN AMERICAN > 90 mL/min (90-120)
[2019-08-24 06:55] LABS: BASOPHILS 0.4 % (0-2); EOSINOPHILS 2.1 % (0-7); HEMATOCRIT 38.8 % (36.0-48.0); HEMOGLOBIN 12.8 g/dL (12-16); IMMATURE GRANULOCYTES 0.1 % (0-5); LYMPHOCYTES 26.8 % (15-50); MCH 31.4 pg (26.0-34.0); MCV 95.1 fL (80.0-100.0); MEAN PLATELET VOLUME 9.1 fL (7.4-10.4); MONOCYTES 7.5 % (2-11); NEUTROPHILS 63.1 % (40-80); PLATELET COUNT 322 10x3/uL (130-400); RBC 4.08 10x6/uL (4.00-5.40); RDW 13.1 % (11.5-14.5); WBC 7.2 10x3/uL (4.8-10.8)
[2019-08-24 07:01] LABS: ALBUMIN 3.2 g/dL (3.4-5.0); ALKALINE PHOSPHATASE 98 U/L (30-120); ALT (SGPT) 18 U/L (10-68); AMYLASE - SERUM 94 U/L (25-115); BILIRUBIN - TOTAL 0.18 mg/dL (0.2-1.3); LIPASE 93 U/L (73-393); PROTEIN - SERUM 7.1 g/dL (6.4-8.2); TROPONIN-I < 0.017 ng/mL (0.000-0.060)
[2019-08-24 07:18] LABS: BACTERIA FEW /hpf (NEGATIVE); BILIRUBIN NEGATIVE (NEGATIVE); EPITHELIAL CELLS 0-5 /hpf (0-5); GLUCOSE NEGATIVE (NEGATIVE); KETONE NEGATIVE (NEGATIVE); NITRITE NEGATIVE (NEGATIVE); SPECIFIC GRAVITY 1.015 (1.005-1.020); UROBILINOGEN NORMAL (NORMAL); WHITE CELLS - URINE 0-5 /hpf (NEGATIVE)
[2019-08-24] MEDS ORDERED: ANALPRAM HC 2.530 GM RC (07:27)
[2019-08-24 07:48] VITALS: BP 131/76
== END 2019-08-24 07:49 | disposition home or self-care (01) ==
LOC: D.ER 05:56
PROVIDERS: Family Medicine
DX: R10.9 Unspecified abdominal pain (principal); K64.9 Unspecified hemorrhoids; K62.89 Other specified diseases of anus and rectum

== ENCOUNTER 2019-08-27 19:35 | Emergency (ER) | payer MEDICAID ==
[~2019-08-27] VITALS: Ht 162.6 cm; Wt 72.7 kg
[~2019-08-27 19:35] MED LIST changes: +ANALPRAM HC 2.530 GM RC
[2019-08-27 19:41] VITALS: Ht 162.6 cm; Wt 72.7 kg
[2019-08-27] MEDS ORDERED: TUCKS MEDICATE1 EACH TOPICAL (20:58)
[2019-08-27] MEDS ORDERED: NYSTATIN OINTME15 GM TOPICAL (20:58)
[2019-08-27] MEDS ORDERED: PROCTOFOAM-HC 110 GM RC (20:58)
[2019-08-27] MEDS ORDERED: COLACE100 MG PO (20:58)
[2019-08-27 21:00] VITALS: BP 148/97
[2019-08-27 21:03] LABS: BILIRUBIN NEGATIVE (NEGATIVE); GLUCOSE NEGATIVE (NEGATIVE); KETONE NEGATIVE (NEGATIVE); NITRITE NEGATIVE (NEGATIVE); UROBILINOGEN NORMAL (NORMAL)
[2019-08-27 21:25] LABS: BACTERIA FEW /hpf (NEGATIVE); EPITHELIAL CELLS 0-5 /hpf (0-5); RED CELLS - URINE 0-5 /hpf (0-5)
== END 2019-08-27 21:00 | disposition home or self-care (01) ==
LOC: D.ER 19:35
PROVIDERS: Emergency Medicine
DX: K64.9 Unspecified hemorrhoids (principal); Z20.2 Contact with and (suspected) exposure to infections with a predominantly sexual mode of transmission; K62.89 Other specified diseases of anus and rectum

== ENCOUNTER 2019-09-02 09:30 | Emergency (ER) | payer MEDICAID ==
[~2019-09-02] VITALS: Ht 162.6 cm; Wt 70.5 kg
[~2019-09-02 09:30] MED LIST changes: +COLACE100 MG PO; +NYSTATIN OINTME15 GM TOPICAL; +TUCKS MEDICATE1 EACH TOPICAL
[2019-09-02 09:34] VITALS: BP 119/58; Ht 162.6 cm; Wt 70.5 kg
[2019-09-02 10:15] LABS: BASOPHILS 0.4 % (0-2); EOSINOPHILS 1.1 % (0-7); HEMATOCRIT 47.4 % (36.0-48.0); HEMOGLOBIN 15.7 g/dL (12-16); IMMATURE GRANULOCYTES 0.4 % (0-5); LYMPHOCYTES 23.8 % (15-50); MCH 31.9 pg (26.0-34.0); MCHC 33.1 g/dL (31.0-37.0); MCV 96.3 fL (80.0-100.0); MEAN PLATELET VOLUME 9.5 fL (7.4-10.4); MONOCYTES 5.2 % (2-11); NEUTROPHILS 69.1 % (40-80); PLATELET COUNT 415 10x3/uL (130-400); RBC 4.92 10x6/uL (4.00-5.40); RDW 13.5 % (11.5-14.5); WBC 9.4 10x3/uL (4.8-10.8)
[2019-09-02 10:18] LABS: ANION GAP 13.8 mmol/L (8-16); CALCIUM 9.5 mg/dL (8.5-10.1); CARBON DIOXIDE 25.9 mmol/L (21.0-32.0); POTASSIUM - SERUM 3.7 mmol/L (3.5-5.1)
[2019-09-02 10:24] LABS: ALBUMIN 3.9 g/dL (3.4-5.0); BILIRUBIN - TOTAL 0.42 mg/dL (0.2-1.3); PROTEIN - SERUM 8.7 g/dL (6.4-8.2)
[2019-09-02] MEDS ORDERED: VISTARIL25 MG PO (22:23)
[2019-09-02] MEDS ORDERED: MACROBID100 MG PO (22:23)
[2019-09-02] MEDS ORDERED: BENADRYL25 MG PO (22:30)
[2019-09-02] MEDS ORDERED: GYNE-LOTRIMIN-745 GM VG (22:30)
== END 2019-09-02 11:10 | disposition home or self-care (01) ==
LOC: D.ER 09:30
PROVIDERS: Family Medicine
DX: R51 Headache (principal); E86.0 Dehydration; R00.0 Tachycardia, unspecified

== ENCOUNTER 2019-09-02 21:17 | Emergency (ER) | payer MEDICAID ==
[~2019-09-02] VITALS: Ht 162.6 cm; Wt 68.2 kg
[2019-09-02 21:26] VITALS: Ht 162.6 cm; Wt 68.2 kg
[2019-09-02 22:16] LABS: BACTERIA MODERATE /hpf (NEGATIVE); BILIRUBIN NEGATIVE (NEGATIVE); EPITHELIAL CELLS 0-5 /hpf (0-5); GLUCOSE NEGATIVE (NEGATIVE); KETONE NEGATIVE (NEGATIVE); NITRITE NEGATIVE (NEGATIVE); RED CELLS - URINE 0-5 /hpf (0-5); UROBILINOGEN NORMAL (NORMAL); WHITE CELLS - URINE 0-5 /hpf (NEGATIVE)
[2019-09-02] MEDS ORDERED: VISTARIL25 MG PO (22:23)
[2019-09-02] MEDS ORDERED: MACROBID100 MG PO (22:23)
[2019-09-02] MEDS ORDERED: BENADRYL25 MG PO (22:30)
[2019-09-02] MEDS ORDERED: GYNE-LOTRIMIN-745 GM VG (22:30)
[2019-09-03] VITALS: BP 122/70
== END 2019-09-03 01:56 | disposition home or self-care (01) ==
LOC: D.ER 21:17
PROVIDERS: Family Medicine
DX: N39.0 Urinary tract infection, site not specified (principal); R20.8 Other disturbances of skin sensation

== ENCOUNTER 2019-09-09 08:56 | Emergency (ER) | payer MEDICAID ==
[~2019-09-09] VITALS: Ht 162.6 cm; Wt 68.2 kg
[~2019-09-09 08:56] MED LIST changes: +BENADRYL25 MG PO; +GYNE-LOTRIMIN-745 GM VG
[2019-09-09 08:59] VITALS: BP 120/84; Ht 162.6 cm; Wt 68.2 kg
== END 2019-09-09 09:18 | disposition home or self-care (01) ==
LOC: D.ER 08:56
DX: R51 Headache (principal); G89.29 Other chronic pain; L30.9 Dermatitis, unspecified

== ENCOUNTER 2019-09-14 10:42 | Emergency (ER) | payer MEDICAID ==
[~2019-09-14] VITALS: Ht 162.6 cm; Wt 63.6 kg
[2019-09-14 10:45] VITALS: BP 118/60; Ht 162.6 cm; Wt 63.6 kg
== END 2019-09-14 11:00 | disposition home or self-care (01) ==
LOC: D.ER 10:42
DX: R51 Headache (principal); Z76.5 Malingerer [conscious simulation]

== ENCOUNTER 2019-09-16 02:01 | Observation (INO) | payer MEDICAID ==
[~2019-09-16] VITALS: Ht 162.6 cm; Wt 81.8 kg
[2019-09-16 02:24] LABS: BASOPHILS 0.3 % (0-2); EOSINOPHILS 1.2 % (0-7); HEMATOCRIT 38.8 % (36.0-48.0); HEMOGLOBIN 12.7 g/dL (12-16); IMMATURE GRANULOCYTES 0.5 % (0-5); LYMPHOCYTES 31.8 % (15-50); MCH 31.9 pg (26.0-34.0); MCHC 32.7 g/dL (31.0-37.0); MCV 97.5 fL (80.0-100.0); MEAN PLATELET VOLUME 9.2 fL (7.4-10.4); MONOCYTES 8.1 % (2-11); NEUTROPHILS 58.1 % (40-80); PLATELET COUNT 355 10x3/uL (130-400); RBC 3.98 10x6/uL (4.00-5.40); RDW 13.4 % (11.5-14.5)
[2019-09-16 02:41] LABS: BACTERIA FEW /hpf (NEGATIVE); BILIRUBIN NEGATIVE (NEGATIVE); EPITHELIAL CELLS 0-5 /hpf (0-5); GLUCOSE NEGATIVE (NEGATIVE); KETONE NEGATIVE (NEGATIVE); NITRITE NEGATIVE (NEGATIVE); UROBILINOGEN NORMAL (NORMAL)
[2019-09-16 02:43] LABS: ANION GAP 8.9 mmol/L (8-16); CALCIUM 8.7 mg/dL (8.5-10.1); CARBON DIOXIDE 28.3 mmol/L (21.0-32.0); CREATININE - SERUM 0.9 mg/dL (0.6-1.3); POTASSIUM - SERUM 3.2 mmol/L (3.5-5.1)
[2019-09-16 02:48] LABS: ALBUMIN 3.6 g/dL (3.4-5.0); BILIRUBIN - TOTAL 0.27 mg/dL (0.2-1.3); C-REACTIVE PROTEIN 1.4 mg/dL (0.0-0.9); PROTEIN - SERUM 7.8 g/dL (6.4-8.2)
--- NOTE | 2019-09-16 03:32 | NUR ---
PT ARRIVED ON UNIT VIA WHEELCHAIR ESCORTED BY ER STAFF. ORIENTED TO ROOM AND CALL LIGHT. PT ADVISED OF NPO STATUS, AND SIGNAGE PLACED ON DOOR.
--- NOTE | 2019-09-16 03:45 | NUR ---
STARTED IV FLUIDS AND CLEOCIN IV PER ORDERS. TEACHING ON MEDICATIONS PERFORMED.
[2019-09-16 03:51] VITALS: BP 128/84; BMI 30.9
--- NOTE | 2019-09-16 03:59 | NUR ---
ADMISSION ASSESSMENT AND HISTORY COMPLETE.
--- NOTE | 2019-09-16 07:32 | NUR ---
PT ON CL STANDING AT DOOR ASKING FOR PAIN MEDICATION, PT STATES PAIN IS AT AN 8 DOWN IN INFECTED AREA AROUND VAGINAL AREA. ADMINISTERED PRN PAIN MEDICATION WILL CONTINUE WITH PLAN OF CARE
--- NOTE | 2019-09-16 07:38 | NUR ---
AFTER REVIEWING PT LAB WORK K+ IS 3.2, NO EP ON FILE WILL WAIT AND SEE WHAT DOCTORS WOULD LIKE TO DO, PT ASKED ABOUT WHEN SHE CAN EAT, INFORMED PT THAT SHE CAN NOT EAT UNTIL SURGEON SEES HER, PT STATES MEDICATIONS MAKES HER HUNGRY. NO OTHER NEEDS VOICED AT THIS TIME CONTINU WITH PLAN OF CARE
[2019-09-16 08:00] VITALS: BP 113/62
--- NOTE | 2019-09-16 10:21 | NUR ---
PT STATES SHED HAD A REACTION TO CONTRAST IN CT AND WOULD LIKE TO HAVE BENADRYL AND INQUIRED ON BEING DC TODAY. ADVISED PT I WILL GET WITH DOCTORS AND SEE WHAT THEY SAY. NO OTHER NEEDS AT THIS TIME. CONTINUE WITH PLAN OF CARE
[2019-09-16 10:49] VITALS: Ht 162.6 cm; Wt 81.8 kg
[2019-09-16 12:00] VITALS: BP 99/63
[2019-09-16] MEDS ORDERED: CLEOCIN HCL300 MG PO (16:07)
--- NOTE | 2019-09-16 17:17 | NUR ---
PT BEING DC HOME, WENT OVER DC PAPERWORK, REMOVED IV AND PT IS PENDING TAXI
== END 2019-09-16 17:48 | disposition home or self-care (01) ==
LOC: D.ER 02:01 → OBSVTIME 02:12 → D.MS 02:12
PROVIDERS: Family Medicine; ADMIT Family Medicine; ATTEND Family Medicine
DX: N39.0 Urinary tract infection, site not specified (principal); E87.6 Hypokalemia; K21.9 Gastro-esophageal reflux disease without esophagitis; F41.8 Other specified anxiety disorders; L03.818 Cellulitis of other sites

== ENCOUNTER 2019-09-20 10:07 | Emergency (ER) | payer MEDICAID ==
[~2019-09-20] VITALS: Ht 162.6 cm; Wt 72.7 kg
[2019-09-20 10:15] VITALS: BP 117/76; Ht 162.6 cm; Wt 72.7 kg
[2019-09-20 10:48] LABS: BACTERIA FEW /hpf (NEGATIVE); BILIRUBIN NEGATIVE (NEGATIVE); EPITHELIAL CELLS RARE /hpf (0-5); GLUCOSE NEGATIVE (NEGATIVE); KETONE NEGATIVE (NEGATIVE); NITRITE NEGATIVE (NEGATIVE); RED CELLS - URINE 0-5 /hpf (0-5); SPECIFIC GRAVITY 1.015 (1.005-1.020); UROBILINOGEN NORMAL (NORMAL); WHITE CELLS - URINE 25-50 /hpf (NEGATIVE)
--- NOTE | 2019-09-20 10:50 | NUR ---
According to the suicide risk assessment the patient scores high and she will require a 1:1 observation for suicide. Provide a suicide risk flyer and a safety plan.
[2019-09-20 10:56] LABS: UDS - AMPHET NEGATIVE QUAL (NEGATIVE); UDS - BARB NEGATIVE QUAL (NEGATIVE); UDS - BENZO NEGATIVE QUAL (NEGATIVE); UDS - COCAINE NEGATIVE QUAL (NEGATIVE); UDS - OPIATE NEGATIVE QUAL (NEGATIVE); UDS - PCP NEGATIVE QUAL (NEGATIVE); UDS - THC NEGATIVE QUAL (NEGATIVE)
[2019-09-20 11:35] LABS: BASOPHILS 0.3 % (0-2); EOSINOPHILS 0.3 % (0-7); HEMATOCRIT 41.8 % (36.0-48.0); HEMOGLOBIN 13.9 g/dL (12-16); IMMATURE GRANULOCYTES 0.3 % (0-5); LYMPHOCYTES 13.7 % (15-50); MCH 32.1 pg (26.0-34.0); MCHC 33.3 g/dL (31.0-37.0); MCV 96.5 fL (80.0-100.0); MEAN PLATELET VOLUME 9.3 fL (7.4-10.4); MONOCYTES 5.7 % (2-11); NEUTROPHILS 79.7 % (40-80); PLATELET COUNT 343 10x3/uL (130-400); RBC 4.33 10x6/uL (4.00-5.40); RDW 13.2 % (11.5-14.5); WBC 9.7 10x3/uL (4.8-10.8)
[2019-09-20 12:06] LABS: CALC OSMOLALITY 280 mosm/kg (275-300); CALCIUM 9.6 mg/dL (8.5-10.1); CARBON DIOXIDE 26.2 mmol/L (21.0-32.0); CHLORIDE - SERUM 104 mmol/L (98-107); CREATININE - SERUM 0.7 mg/dL (0.6-1.3); GLUCOSE 107 mg/dL (74-106); POTASSIUM - SERUM 3.4 mmol/L (3.5-5.1); SODIUM 140 mmol/L (136-145); UREA NITROGEN 17 mg/dL (7-18); eGFR NON AFRICAN AMERICAN > 90 mL/min (90-120)
[2019-09-20 12:11] LABS: ACETAMINOPHEN 4.4 ug/mL (10.0-30.0); ALBUMIN 3.7 g/dL (3.4-5.0); ALKALINE PHOSPHATASE 103 U/L (30-120); ALT (SGPT) 21 U/L (10-68); BILIRUBIN - TOTAL 0.23 mg/dL (0.2-1.3); PROTEIN - SERUM 8.4 g/dL (6.4-8.2)
== END 2019-09-20 11:46 | disposition home or self-care (01) ==
LOC: D.ER 10:07
PROVIDERS: Family Medicine
DX: G43.909 Migraine, unspecified, not intractable, without status migrainosus (principal); F41.9 Anxiety disorder, unspecified; Z76.5 Malingerer [conscious simulation]; R45.851 Suicidal ideations

== ENCOUNTER 2019-09-23 13:55 | Emergency (ER) | payer MEDICAID ==
[2019-09-23 14:03] VITALS: BP 135/86; Ht 162.6 cm
== END 2019-09-23 15:35 | disposition home or self-care (01) ==
LOC: D.ER 13:55
DX: L03.317 Cellulitis of buttock (principal); F32.9 Major depressive disorder, single episode, unspecified

== ENCOUNTER → 2019-09-26 | Emergency (ER) | payer MEDICAID ==
[~2019-09-26] VITALS: Ht 162.6 cm; Wt 63.6 kg
[2019-09-26 15:03] VITALS: Ht 162.6 cm; Wt 63.6 kg
[2019-09-26 15:20] VITALS: BP 111/63
== END | disposition home or self-care (01) ==
LOC: D.ER 15:02
DX: Z76.5 Malingerer [conscious simulation] (principal); R51 Headache

== ENCOUNTER 2019-10-23 05:21 | Emergency (ER) | payer MEDICAID ==
[~2019-10-23] VITALS: Ht 162.6 cm; Wt 72.7 kg
[2019-10-23 05:25] VITALS: BP 149/97; Ht 162.6 cm; Wt 72.7 kg
== END 2019-10-23 05:42 | disposition home or self-care (01) ==
LOC: D.ER 05:21
DX: K08.89 Other specified disorders of teeth and supporting structures (principal); H92.03 Otalgia, bilateral; K05.10 Chronic gingivitis, plaque induced

== ENCOUNTER 2019-10-28 05:01 | Emergency (ER) | payer MEDICAID ==
[2019-10-28] MEDS ORDERED: CLEOCIN HCL300 MG PO (05:18)
[2019-10-28] MEDS ORDERED: CORTISPORIN OTI10 M1 RIGHT EAR (05:18)
[2019-10-28 05:51] VITALS: BP 131/75
[2019-10-30 11:48] VITALS: Ht 162.6 cm
== END 2019-10-28 05:51 | disposition home or self-care (01) ==
LOC: D.ER 05:01
DX: H60.93 Unspecified otitis externa, bilateral (principal); H61.20 Impacted cerumen, unspecified ear

== ENCOUNTER 2019-10-30 11:32 | Emergency (ER) | payer MEDICAID ==
[~2019-10-30] VITALS: Ht 162.6 cm; Wt 72.7 kg
[~2019-10-30 11:32] MED LIST changes: +CORTISPORIN OTI10 M1 RIGHT EAR
[2019-10-30 11:48] VITALS: Ht 162.6 cm; Wt 72.7 kg
[2019-10-30] MEDS ORDERED: BACTRIM DS TAB1 EAC1 PO (11:52)
[2019-10-30 12:18] VITALS: BP 124/79
== END 2019-10-30 12:18 | disposition home or self-care (01) ==
LOC: D.ER 11:32
DX: H60.11 Cellulitis of right external ear (principal); H92.01 Otalgia, right ear

== ENCOUNTER 2019-12-01 10:31 | Emergency (ER) | payer MEDICAID ==
[~2019-12-01] VITALS: Ht 162.6 cm; Wt 72.7 kg
[~2019-12-01 10:31] MED LIST changes: +BACTRIM DS TAB1 EAC1 PO
[2019-12-01 10:38] VITALS: BP 129/91; Ht 162.6 cm; Wt 72.7 kg
[2019-12-01] MEDS ORDERED: CARAFATE1 G/10 ML SWISH/SW (11:12)
[2019-12-01] MEDS ORDERED: VALTREX1000 MG PO (11:12)
[2019-12-01] MEDS ORDERED: CIPRODEX OTIC7.5 ML RIGHT EAR (11:12)
== END 2019-12-01 11:27 | disposition home or self-care (01) ==
LOC: D.ER 10:31
DX: H92.01 Otalgia, right ear (principal); B00.1 Herpesviral vesicular dermatitis

== ENCOUNTER 2019-12-11 11:43 | Emergency (ER) | payer MEDICAID ==
[~2019-12-11] VITALS: Ht 162.6 cm; Wt 63.6 kg
[~2019-12-11 11:43] MED LIST changes: +CARAFATE1 G/10 ML SWISH/SW; +CIPRODEX OTIC7.5 ML RIGHT EAR
[2019-12-11 11:46] VITALS: BP 152/96; Ht 162.6 cm; Wt 63.6 kg
[2019-12-11 12:32] LABS: CALC OSMOLALITY 276 mosm/kg (275-300); CALCIUM 9.1 mg/dL (8.5-10.1); CARBON DIOXIDE 24.6 mmol/L (21.0-32.0); CHLORIDE - SERUM 106 mmol/L (98-107); CREATININE - SERUM 0.8 mg/dL (0.6-1.3); GLUCOSE 106 mg/dL (74-106); POTASSIUM - SERUM 3.6 mmol/L (3.5-5.1); SODIUM 139 mmol/L (136-145); UREA NITROGEN 11 mg/dL (7-18); eGFR NON AFRICAN AMERICAN 80 mL/min (90-120)
[2019-12-11 12:38] LABS: ALBUMIN 3.4 g/dL (3.4-5.0); ALKALINE PHOSPHATASE 100 U/L (30-120); ALT (SGPT) 21 U/L (10-68); BILIRUBIN - TOTAL 0.12 mg/dL (0.2-1.3); PROTEIN - SERUM 7.8 g/dL (6.4-8.2)
[2019-12-11 13:17] LABS: HCG URINE NEGATIVE (NEGATIVE)
[2019-12-11 13:29] LABS: BILIRUBIN NEGATIVE (NEGATIVE); KETONE NEGATIVE (NEGATIVE); NITRITE POSITIVE (NEGATIVE); UROBILINOGEN NORMAL mg/dL (< 2)
[2019-12-11 13:30] LABS: BACTERIA MODERATE HPF (NONE SEEN); EPITHELIAL CELLS 0-5 /hpf (0-5); WHITE CELLS - URINE 25-50 HPF (0-4)
[2019-12-11 13:37] LABS: UDS - AMPHET NEGATIVE QUAL (NEGATIVE); UDS - BARB NEGATIVE QUAL (NEGATIVE); UDS - BENZO NEGATIVE QUAL (NEGATIVE); UDS - COCAINE NEGATIVE QUAL (NEGATIVE); UDS - OPIATE NEGATIVE QUAL (NEGATIVE); UDS - PCP NEGATIVE QUAL (NEGATIVE); UDS - THC NEGATIVE QUAL (NEGATIVE)
[2019-12-11 13:51] LABS: BASOPHILS 0.5 % (0-2); EOSINOPHILS 1.2 % (0-7); HEMOGLOBIN 12.9 g/dL (12-16); IMMATURE GRANULOCYTES 0.2 % (0-5); LYMPHOCYTES 19.1 % (15-50); MCH 31.2 pg (26.0-34.0); MCHC 33.1 g/dL (31.0-37.0); MCV 94.2 fL (80.0-100.0); MEAN PLATELET VOLUME 9.7 fL (7.4-10.4); MONOCYTES 5.3 % (2-11); NEUTROPHILS 73.7 % (40-80); PLATELET COUNT 410 10x3/uL (130-400); RBC 4.14 10x6/uL (4.00-5.40); RDW 12.9 % (11.5-14.5); WBC 8.5 10x3/uL (4.8-10.8)
[2019-12-11] MEDS ORDERED: VIBRAMYCIN 100100 MG PO (15:38)
[2019-12-11] MEDS ORDERED: DICLOFENAC SODI50 MG PO (15:38)
[2019-12-11] MEDS ORDERED: PHENAZOPYRIDIN100 MG PO (15:38)
== END 2019-12-11 16:00 | disposition home or self-care (01) ==
LOC: D.ER 11:43
PROVIDERS: Family Medicine
DX: R10.2 Pelvic and perineal pain (principal); N39.0 Urinary tract infection, site not specified

== ENCOUNTER 2020-05-04 19:07 | Emergency (ER) | payer MEDICAID ==
[~2020-05-04] VITALS: Ht 162.6 cm; Wt 68.2 kg
[~2020-05-04 19:07] MED LIST changes: +ADOXA100 MG PO; +BENADRYL50 MG PO; +DICLOFENAC SODI50 MG PO; +DOXYCYCLINE HY100 M2 PO; +EPIPEN 2-P0.3 MG/0.3 IM; +PEPCID AC20 MG PO; +PHENAZOPYRIDIN100 MG PO; +VIBRAMYCIN 100100 MG PO; +ZITHROMAX250 MG PO
[2020-05-04 19:12] VITALS: BP 119/76; Ht 162.6 cm; Wt 68.2 kg
[2020-05-04 20:51] LABS: BASOPHILS 0.3 % (0-2); EOSINOPHILS 0.3 % (0-7); HEMATOCRIT 39.5 % (36.0-48.0); HEMOGLOBIN 13.2 g/dL (12-16); IMMATURE GRANULOCYTES 0.3 % (0-5); LYMPHOCYTE ABS# 2.01 10x3/uL (1.18-3.74); LYMPHOCYTES 18.4 % (15-50); MCH 31.1 pg (26.0-34.0); MCHC 33.4 g/dL (31.0-37.0); MCV 93.2 fL (80.0-100.0); MEAN PLATELET VOLUME 9.5 fL (7.4-10.4); NEUTROPHIL ABS# 8.27 10x3/uL (1.56-6.13); NEUTROPHILS 75.7 % (40-80); PLATELET COUNT 314 10x3/uL (130-400); RBC 4.24 10x6/uL (4.00-5.40); RDW 13.2 % (11.5-14.5); WBC 10.9 10x3/uL (4.8-10.8)
[2020-05-04 21:07] LABS: CALC OSMOLALITY 279 mosm/kg (275-300); CALCIUM 9.3 mg/dL (8.5-10.1); CARBON DIOXIDE 28.1 mmol/L (21.0-32.0); CHLORIDE - SERUM 103 mmol/L (98-107); CREATININE - SERUM 0.7 mg/dL (0.6-1.3); GLUCOSE 100 mg/dL (74-106); POTASSIUM - SERUM 3.3 mmol/L (3.5-5.1); SODIUM 140 mmol/L (136-145); UREA NITROGEN 15 mg/dL (7-18); eGFR NON AFRICAN AMERICAN > 90 mL/min (90-120)
[2020-05-04 21:16] LABS: BILIRUBIN NEGATIVE (NEGATIVE); KETONE NEGATIVE (NEGATIVE); NITRITE NEGATIVE (NEGATIVE); UROBILINOGEN NORMAL mg/dL (< 2)
[2020-05-04 21:16] LABS: ALBUMIN 3.5 g/dL (3.4-5.0); ALKALINE PHOSPHATASE 98 U/L (30-120); ALT (SGPT) 24 U/L (10-68); AMYLASE - SERUM 91 U/L (25-115); BILIRUBIN - TOTAL 0.21 mg/dL (0.2-1.3); LIPASE 142 U/L (73-393); PROTEIN - SERUM 7.8 g/dL (6.4-8.2)
[2020-05-04 21:17] LABS: TROPONIN-I < 0.017 ng/mL (0.000-0.060)
[2020-05-04 21:18] LABS: BACTERIA MODERATE HPF (NONE SEEN); SQUAMOUS EPITHELIAL 0-5 HPF (0-4); WHITE CELLS - URINE 25-50 HPF (0-4)
[2020-05-04] MEDS ORDERED: MACROBID100 MG PO (21:28)
== END 2020-05-04 21:41 | disposition home or self-care (01) ==
LOC: D.ER 19:07
PROVIDERS: Family Medicine
DX: N39.0 Urinary tract infection, site not specified (principal); R10.9 Unspecified abdominal pain; Z76.5 Malingerer [conscious simulation]

== ENCOUNTER 2020-05-05 07:10 | Emergency (ER) | payer MEDICAID ==
[2020-05-04 19:12] VITALS: Ht 162.6 cm; Wt 68.2 kg
[~2020-05-05] VITALS: Ht 162.6 cm; Wt 68.2 kg
[2020-05-05 07:14] VITALS: BP 127/61
== END 2020-05-05 07:50 | disposition home or self-care (01) ==
LOC: D.ER 07:10
DX: G47.00 Insomnia, unspecified (principal); Z00.00 Encounter for general adult medical examination without abnormal findings; Z76.5 Malingerer [conscious simulation]

== ENCOUNTER 2020-05-14 10:06 | Emergency (ER) | payer MEDICAID ==
[~2020-05-14] VITALS: Ht 162.6 cm; Wt 68.2 kg
[2020-05-14 10:14] VITALS: Ht 162.6 cm; Wt 68.2 kg
[2020-05-14 10:40] LABS: BASOPHILS 0.2 % (0-2); EOSINOPHILS 0.4 % (0-7); HEMATOCRIT 41.9 % (36.0-48.0); HEMOGLOBIN 14.2 g/dL (12-16); IMMATURE GRANULOCYTES 0.2 % (0-5); LYMPHOCYTE ABS# 1.33 10x3/uL (1.18-3.74); LYMPHOCYTES 12.2 % (15-50); MCH 30.7 pg (26.0-34.0); MCHC 33.9 g/dL (31.0-37.0); MCV 90.5 fL (80.0-100.0); MEAN PLATELET VOLUME 9.4 fL (7.4-10.4); MONOCYTES 5.2 % (2-11); NEUTROPHIL ABS# 8.88 10x3/uL (1.56-6.13); NEUTROPHILS 81.8 % (40-80); PLATELET COUNT 344 10x3/uL (130-400); RBC 4.63 10x6/uL (4.00-5.40); RDW 13.2 % (11.5-14.5); WBC 10.9 10x3/uL (4.8-10.8)
[2020-05-14 10:55] LABS: CALC OSMOLALITY 276 mosm/kg (275-300); CALCIUM 9.6 mg/dL (8.5-10.1); CHLORIDE - SERUM 102 mmol/L (98-107); CREATININE - SERUM 0.9 mg/dL (0.6-1.3); POTASSIUM - SERUM 3.5 mmol/L (3.5-5.1); SODIUM 135 mmol/L (136-145); UREA NITROGEN 15 mg/dL (7-18); eGFR NON AFRICAN AMERICAN 70 mL/min (90-120)
[2020-05-14 10:57] LABS: GLUCOSE 201 mg/dL (74-106)
[2020-05-14 10:59] LABS: ALBUMIN 3.4 g/dL (3.4-5.0); ALKALINE PHOSPHATASE 106 U/L (30-120); ALT (SGPT) 29 U/L (10-68); AMYLASE - SERUM 115 U/L (25-115); BILIRUBIN - TOTAL 0.35 mg/dL (0.2-1.3); LIPASE 171 U/L (73-393); PROTEIN - SERUM 8.2 g/dL (6.4-8.2); TROPONIN-I < 0.017 ng/mL (0.000-0.060)
[2020-05-14] MEDS ORDERED: METFORMIN HCL500 M1 PO (11:10)
[2020-05-14 12:33] LABS: BILIRUBIN NEGATIVE (NEGATIVE); KETONE NEGATIVE (NEGATIVE); NITRITE NEGATIVE (NEGATIVE); UROBILINOGEN NORMAL mg/dL (< 2); WHITE CELLS - URINE >50 HPF (0-4)
[2020-05-14 12:34] LABS: BACTERIA MODERATE HPF (NONE SEEN); SQUAMOUS EPITHELIAL 0-5 HPF (0-4); TALC POWDER CRYSTALS OCC HPF (NONE SEEN)
[2020-05-14] MEDS ORDERED: BACTRIM DS TAB1 EAC1 PO (12:44)
[2020-05-14] MEDS ORDERED: ULTRAM50 MG PO (12:45)
[2020-05-14 13:22] VITALS: BP 136/76
== END 2020-05-14 13:25 | disposition home or self-care (01) ==
LOC: D.ER 10:06
PROVIDERS: Emergency Medicine
DX: R10.9 Unspecified abdominal pain (principal); N39.0 Urinary tract infection, site not specified; E11.9 Type 2 diabetes mellitus without complications; K21.9 Gastro-esophageal reflux disease without esophagitis

== ENCOUNTER 2020-05-21 10:46 | Emergency (ER) | payer MEDICAID ==
[2020-05-14 10:14] VITALS: BMI 25.8
[~2020-05-21 10:46] MED LIST changes: +METFORMIN HCL500 M1 PO
== END 2020-05-21 11:03 | disposition left against medical advice (07) ==
LOC: D.ER 10:46
DX: M79.604 Pain in right leg (principal)